=== PATIENT | female | born 1945 | race Caucasian/White ===

== ENCOUNTER → 2017-05-30 10:33 | Outpatient (CLI) | payer MEDICARE, OTHER, SELFPAY ==
--- NOTE | 2017-05-30 10:36 | STE_ITS ---
Reason For Study: Chest Pressure, Fatigue Stress Results Maximum Predicted HR: 148 bpm Target HR: 126 bpm % Maximum Predicted HR: 111 % DurationHeart Rate Stage (mm:ss) (bpm) BP BASELINE 68 152/86 PROTOCOL- STAGE 1 3:00 11 0 174/90 PROTOCOL- STAGE 2 3:00 13 3 176/90 PROTOCOL- STAGE 3 2:00 16 4 180/94 RECOVERY 88 150/10 0 Stress Duration: 8:00 mm:ss Maximum Stress HR: 164 bpm Baseline Echocardiogram Findings The estimated ejection fraction is 65 %. Stress Echo Wall motion Data Resting WMIntermediate WMStress WM Resting Wall Motion Wall Motion Stress No regional wall motion No regional wall motion abnormalities noted. abnormalities noted. EKG Data The baseline ECG demonstrates normal sinus rhythm with at rate of _ beats per minute. The patient exercised according to the regular protocol for a total duration of 8:01. The maximum heart rate attained was 164 beats per minute. This was 110% of maximum predicted heart rate. The patient exercised into stage 3 of the protocol. During stress, there were no ST or T wave changes noted to suggest ischemia. No clinical angina was noted. Interpretation Summary The estimated ejection fraction is 65 %. Normal adequate treadmill echocardiogram. Negative for ischemia by EKG and echocardiographic criteria. No anginal symptoms noted. Rare PVCs noted. Hypertensive blood pressure response to exercise. Average exercise capacity for age. Test terminated due to attainment of target heart rate. No complications. Patient tolerated procedure well. Ordering Physician: Janiya Marquez Referring Physician: Janiya Marquez Performed By: Nubia Ruiz, CARLIE, RVT
== END ==
PROVIDERS: Family Provider Internal Medicine; PCP Internal Medicine; Visit Provider Internal Medicine
DX: R07.89 Other chest pain (principal)
CPT/HCPCS: 93017; 93350

== ENCOUNTER 2017-10-25 10:00 | Outpatient (RCR) | payer MEDICARE, OTHER, SELFPAY ==
--- NOTE | 2017-09-12 16:08 | HP.PTEVAL_ITS ---
Patient's Visit Information BARON BURNS is a 72 year old F referred to Physical Therapy by Niko Camacho MD with a diagnosis of B knee OA. Date of Evaluation: 09/12/17 Physical Therapist: Ramiro Mcginnis PT, - Visit Plan Frequency: 2-3x /Week Duration: 4 Weeks Plan: B LE strengthening, core stab ex's, nustep, and HEP - Subjective Subjective: Pt reports chronic Hx of B knee pain. R knee has been sore longer than the L. Pt reports pain is intermittent in nature. Pt reports recent xrays which revealed OA. Pt reports she can walk greater than 40 min without getting knee pain. Occasional sleep diff secondary to pain. No PMHx Pt has stairs at home which she has diff with negotiation. Knees occasionally give out on her. No popping or locking up. 0/10 pain at rest, 8/10 pain at worst (no specific activity) - Pain B knees Pain Intensity (Out of 10): 0 Pain Intensity Range: 8 - Objective Neuro: B LE sensation is WNL to light touch. B achilles reflex = 2/3. Girth: L knee 38 cm, R knee 37 cm. ROM: L knee 0-10-125; R knee 0-10-135. MMT: L and R knee is 4/5 throughout except L knee flex= 4-/5 throughout. Special tests: pos apley compression test - Goals Goal 1:: Decrease B knee pain x 50% to aid with sleep Goal Time Frame: 4-6 Weeks Goal 2:: Increase B knee strength x 1 grade to aid with stair negotiation Goal Time Frame: 4-6 Weeks Goal 3:: I with HEP Goal Time Frame: 4-6 Weeks - Rehabilitation Potential Physical Therapy Diagnosis: Pt has B knee pain and weakness secondary to B knee OA Rehabilitation Potential: Good - Anticipated Interventions Patient/Client Instruction: Educate patient on: Condition, Plan of Care For the Purpose of:: To improve self management Therapeutic Exercise to Include: Strength training, Endurance training, Postural training, Flexibilty training, Gait and locomotor training, Active ROM , Dynamic Lumbar Stabilization For the Purpose of:: To decrease pain, To increase ROM, To improve muscle performance and motor function Cryotherapy (ice pack, ice massage): Yes For the Purpose of:: To decrease pain Thank you for the opportunity to evaluate your patient. For Medicare and Medicare HMO plans, please review the plan of care and approve it. It will need to be FAXED BACK to us at [phone] for Medicare purposes. Please let me know if there are questions or concerns regarding this plan of care. Physician Signature: Date:
--- NOTE | 2017-10-25 10:50 | HP.PTDCSUM ---
HP - PT D/C Summary It has been my pleasure to treat BARON BURNS under orders from Niko Camacho MD, for the diagnosis of B knee OA for a total of 7 visit(s). Discharge Date: Please see the following information for a summary of their discharge status. - Subjective Subjective: Pt reports she has been exercising for the past 5 weeks with the exercise alanis'soutine we issued her. She has questions with substituting certain ex's as well. No pain this date - Pain B knees Pain Intensity (Out of 10): 0 - Objective Objective/Function: Pt is now pain-free. Pt is I with all ex's. Pt has achieved all Rx goals - Goals Goal 1:: Decrease B knee pain x 50% to aid with sleep Goal Progress: Goal Met Goal 2:: Increase B knee strength x 1 grade to aid with stair negotiation Goal Progress: Goal Met Goal 3:: I with HEP Goal Progress: Goal Met - Plan Plan: Discharge - D/C Information If there are questions or concerns regarding this patient's physical therapy, please feel free to call me at [phone]. Thank you for the referral of this patient. Sincerely, Ramiro Mcginnis, PT,
== END 2017-10-25 10:56 | disposition home or self-care (01) ==
LOC: PT 10:00
PROVIDERS: Family Provider Internal Medicine; PCP Internal Medicine; Visit Provider Specialist
DX: M17.0 Bilateral primary osteoarthritis of knee (principal)
CPT/HCPCS: 97110; 97161; 97530; G8978; G8979

== ENCOUNTER → 2018-04-30 11:21 | Outpatient (CLI) | payer MEDICARE, OTHER, SELFPAY ==
[2018-04-30 15:49] LABS: AST(SGOT) 19 U/L (15-37); Alanine Aminotransfer ALT/SGPT 31 U/L (13-56); Albumin, Serum 3.7 g/dL (3.2-5.0); Alkaline Phosphatase 68 U/L (45-117); Amylase 43 U/L (25-115); Anion Gap 11 (5-15); BUN 14 mg/dL (7-18); BUN/Creat Ratio 21.2 RATIO (10-20); Bilirubin, Direct 0.12 mg/dL (0.00-0.30); Calcium,Total 8.8 mg/dL (8.5-10.1); Chloride 103 mmol/L (98-107); Cholesterol 118 mg/dL (200); Creatinine, Serum 0.66 mg/dL (0.55-1.02); EST Glomerular Filtration Rate 93 mL/min (>60); Est Glom Filt Rate - Afr Amer 113 mL/min (>60); Globulin 2.9 g/dL (2.2-4.2); Glucose 88 mg/dL (74-106); High Density Lipoprotein 51 mg/dL; Lipase 180 U/L (73-393); Potassium 4.3 mmol/L (3.5-5.1); Protein, Total 6.6 g/dL (6.4-8.2); Sodium Level 139 mmol/L (136-145); Triglycerides 75 mg/dL; Very Low Density Lipoprotein 15 mg/dL (5-40)
[2018-04-30 15:55] LABS: Absolute Lymphocyte Count 0.86 X10^3/ul (0.83-4.51); Absolute Neutrophil Count 2.4 X10^3/uL (2.0-7.7); Basophil# 0.01 X10^3/uL; Basophil% 0.3 % (0-1); Eosinophil# 0.16 X10^3/uL; Eosinophils% 4.3 % (0-5); Hematocrit 43.6 % (37-47); Hemoglobin 14.3 g/dl (12.0-15.0); Lymphocyte # 0.86 X10^3/ul (4.0); Lymphocyte % 23.1 % (19-41); Mean Corp Hgb Conc 32.8 g/gl (32-36); Mean Corpuscular Hgb 31.2 pg (27.0-32.0); Mean Platelet Vol. 13.5 fl (6.2-12.0); Monocyte# 0.31 X10^3/uL; Monocyte% 8.3 % (0-10); Neutrophil # 2.38 X10^3/uL (2.7-7.7); Platelet Count 170 K/mm3 (150-450); RBC Distribution Width CV 13.8 % (11.6-14.6); RBC Distribution Width SD 47.5 fl (35.1-43.9); Red Blood Count 4.59 M/mm3 (4.2-5.4); White Blood Count 3.7 K/mm3 (4.4-11.0)
[2018-04-30 16:13] LABS: POSITIVE COUNT NO; POSITIVE DIFFERENTIAL NO; POSITIVE MORPHOLOGY NO
[2018-05-02 12:01] LABS: Hepatitis A AB, Total Positive (Negative)
== END ==
PROVIDERS: Family Provider Family Medicine; PCP Family Medicine; Visit Provider Family Medicine
DX: E78.5 Hyperlipidemia, unspecified (principal); I10 Essential (primary) hypertension; R10.13 Epigastric pain
CPT/HCPCS: 36415; 80048; 80061; 80076; 82150; 83690; 85025; 86708

== ENCOUNTER → 2018-05-01 09:23 | Outpatient (CLI) | payer MEDICARE, OTHER, SELFPAY ==
--- NOTE | 2018-05-01 09:26 | BI_ITS ---
MAMMOGRAPHY - BILATERAL SCREENING REASON FOR EXAM: Female, 73 years old. Routine annual screening examination. PERTINENT HISTORY: Non-contributory. TECHNIQUE: Digital bilateral breast william (3D mammographic acquisition) in the CC and MLO projections. 2-D mediolateral oblique (MLO) and craniocaudad (CC) views of both breasts were obtained. CAD: Full Field Digital Mammography with Computer Added Detection was performed. COMPARISON: Comparison is made with prior study dated December 01, 2016 and November 20, 2015. FINDINGS: Breast Composition: There are scattered areas of fibroglandular density. There are no dominant masses or suspicious calcifications. No other significant abnormalities are identified. There has been no significant change since the prior study. BI/SCREENING MAMM (CAD), BILAT IMPRESSION: Stable bilateral screening mammogram. Yearly follow-up mammogram recommended. (A) ASSESSMENT CATEGORY: BIRADS Category 1: Negative. A letter regarding these results will be sent to the patient by the facility within 30 days. Approximately 10% of breast cancers are not detected by mammography. A normal mammogram should not delay biopsy of a clinically suspicious abnormality. [id number] Electronically Signed: Omar Villagran MD at 14:48 EST , Service support ,
--- NOTE | 2018-05-01 09:34 | BD_ITS ---
STUDY: DUAL ENERGY X-RAY ABSORPTIOMETRY / DXA REASON FOR EXAM: Female, 73 years old. The patient is postmenopausal. Loss of height. TECHNIQUE: Bone Mineral Density (BMD) measurements of lumbar spine and bilateral hips were obtained. COMPARISON: Comparison is made with prior study dated January 07, 2016. FINDINGS: Lumbar Spine (L1-L4): g/cm2 (1.002) / T-score (-1.5) / Z-score (0.2) Findings are suggestive of osteopenia with a low fracture risk. Left Femur Total: g/cm2 (0.875) / T-score (-1.1) / Z-score (0.6) Left Femoral Neck: g/cm2 (0.863) / T-score (-1.3) / Z-score (0.6) Right Femur Total: g/cm2 (0.845) / T-score (-1.3) / Z-score (0.3) Right Femoral Neck: g/cm2 (0.879) / T-score (-1.1) / Z-score (0.7) The T-Scores on the most recent prior examination were: Lumbar Spine (L1-L4): There has been worsening of bone density since the previous examination. Left Femur Total: which represents an improvement of 0.9%. Right Femur Total: which represents a worsening of 2.5%. BD/Dexa Bone Density Study IMPRESSION: The patient is considered osteopenic as outlined below according to World Paddy Organization (WHO) criteria with a low fracture risk. There has been worsening of bone density since the previous examination. Reference Information: The T-score is the number of standard deviations above or below the standard which is normal for young adults at their peak bone mineral density. The World Health Organization (WHO) interprets the T-scores as follows: Above -1 Normal bone density Between -1 and -2.5 Osteopenia Equal to / or below -2.5 Osteoporosis As a practical clinical guideline, osteopenia may be graded as follows: Mild -1 through -1.5 Moderate -1.6 through -2.0 Severe -2.1 through -2.4 The Z-score is the number of standard deviations above or below age-matched controls. A Z-score of less than -1.5 would be considered abnormal. References: 1. NIH Osteoporosis and Related Bone Diseases http://www.osteo.org 2. International Society for Clinical Densitometry http://www.iscd.org 3. National Osteoporosis Foundation http://www.nof.org Electronically Signed: Omar Villagran MD at 15:58 EST , Service support ,
== END ==
PROVIDERS: Family Provider Family Medicine; PCP Family Medicine; Referring Provider Family Medicine; Visit Provider Family Medicine
DX: Z12.31 Encounter for screening mammogram for malignant neoplasm of breast (principal); Z78.0 Asymptomatic menopausal state; M85.80 Other specified disorders of bone density and structure, unspecified site
CPT/HCPCS: 77063; 77067; 77080

== ENCOUNTER → 2018-05-08 15:31 | Outpatient (CLI) | payer MEDICARE, OTHER, SELFPAY ==
[2018-05-10 07:53] LABS: Hepatitis A IgM Antibody Negative (Negative)
== END ==
PROVIDERS: Family Provider Family Medicine; PCP Family Medicine; Referring Provider Family Medicine; Visit Provider Family Medicine
DX: R19.7 Diarrhea, unspecified (principal)
CPT/HCPCS: 36415; 86709

== ENCOUNTER 2019-07-04 10:30 | Outpatient (RCR) | payer MEDICARE, OTHER, SELFPAY ==
--- NOTE | 2019-04-16 11:02 | HP.PTEVAL ---
Patient's Visit Information BARON BURNS is a 74 year old F referred to Physical Therapy by Burton Schulz MD with a diagnosis of R knee OA. Date of Evaluation: 04/16/19 Physical Therapist: Marlon Ann, DPT, OCS, CSCS - Visit Plan Frequency: 2x /Week Duration: 4-6 Weeks Plan: 2x/week for 2-4 weeks for ...( today i stoppped knee ext and added slant board stretch and heel raises 2x15 to subjective mentioned workout). 1. rollout adn stretch to R quad, hip flexor, ITB and teach for HEP, patellar mobs and leg pull. 2. Teach SLR and NWB ex for HEP. 3. May use MH. 4. After two weeks will f/u with EG and consider bracing, pool therapy if not improving. - Subjective Findings: Have R knee OA. Has had therapy with L knee pain in the past but it is OK. R knee is progressively worsening. She is a regular walker with her and yard work. Her gait has gotten worse. Feels like weight of body is on her knee at all times. Early this March she was shopping and getting out of the car got extreme pain in the R knee. Pain anterior R knee up to hip and to back and to foot. Has some tingling in R foot also. She went to Dr. Schulz and got 3 uflexia injections most lately Apr 05. It has helped a little bit. They are talking knee replacement surgery. Doesn't want to use it when it hurts. Using it makes it worse. Pain daily is now comfortable at rest. Yesterday worked out at and felt good. Was irritated this morning and limping. Is ;kim that in the mornings. Stairs are rough on the right knee and uses left. Uses left leg on steps at home. Sleeping is OK now but it hurts at times. Retired. Basic ADLs are OK. exercises include: Nustep, leg curl, legext, glutes, hip abd/add, - Pain R knee pain Pain Intensity (Out of 10): 0 Pain Intensity Range: 0, 4 - Objective Pt ambulates I but stiff in R>L knee and avoids knee flexion at swing walking mostly with hip but safe. Trasnfes I with UE. steps prefers to use L and needs rail. Creptus in R knee adn slight varus. very little muscle tone. LB AROM WNL and without pain today. Stiff patella B. 0-120 aROM B knees. Quads tight B LE as are hip flexors and ITB. Hips and ankles AROM WFL. Strength knee ext adn flexion R painful anterior R knee slightly and 3+, L 3+. Hips 4-/5 adn ankles 4+/5. knee scour and varus stress painful on R. Tender at medial joint line minimally. - Goals Goal 1:: Patient feel 0-1/10 pain only in R knee adn 80% improved. Goal Time Frame: 4-6 Weeks Goal 2:: Workout at [facility] without increased pain. Goal Time Frame: 4-6 Weeks Goal 3:: I appropr HEP to minimize future problems. Goal Time Frame: 4-6 Weeks - Rehabilitation Potential Physical Therapy Diagnosis: R knee OA Rehabilitation Potential: Fair - Anticipated Interventions Patient/Client Instruction: Educate patient on: Condition, Plan of Care For the Purpose of:: To decrease pain, To improve muscle performance and motor function, To improve ability of physical actions for home/community/work/leisure Therapeutic Exercise to Include: Strength training, Flexibilty training, Gait and locomotor training, Passive ROM, Active ROM For the Purpose of:: To decrease pain, To increase tolerance to activity/condition/position, To improve ability of physical actions for home/community/work/leisure Manual Therapy Techniques to Include: Mobilization, Passive ROM For the Purpose of:: To decrease pain, To improve ability of physical actions for home/community/work/leisure Thermo therapy (hot pack): Yes For the Purpose of:: To improve nutrient delivery to tissue Thank you for the opportunity to evaluate your patient. For Medicare and Medicare HMO plans, please review the plan of care and approve it. It will need to be FAXED BACK to us at [phone] for Medicare purposes. For Medicare only, by signing this I certify the plan of care. Please let me know if there are questions or concerns regarding this plan of care. Physician Signature: Date:
--- NOTE | 2019-05-02 15:26 | HP.PTREVAL_ITS ---
Burton Schulz MD, It has been my pleasure to treat BARON BURNS over the last 5 visits for R knee OA. Please see the progress note below for an update on the physical therapy plan of care! Subjective: Feels like she is educated on what she can and cannot do. Walked 30 minutes at track this morning. Keeps knee moving when stagnant. Floor exerc ises are good. Rolling may be helping a little bit. Still in pain 2/10 reji. Pain is better. Objective/Function: Walking well adn feeling better. Slow improvement with cristina gement techniques at home. Plan Plan: Pt to continue home stretches and inhibition and strengthen in gym and call if problems. F?U one month as needed to progress or d/c OR consider pool/brace if worsens again. Goals Goal 1:: Patient feel 0-1/10 pain only in R knee adn 80% improved. Goal Time Frame: 4-6 Weeks Goal Progress: Progressing,a pprop. Goal 2:: Workout at without increased pain. Goal Time Frame: 4-6 Weeks Goal Progress: Goal Met Goal 3:: I appropr HEP to minimize future problems. Goal Time Frame: 4-6 Weeks Goal Progress: Goal Met Anticipated Interventions Patient/Client Instruction: Educate patient on: Condition, Plan of Care For the Purpose of:: To decrease pain, To improve muscle performance and motor function, To improve ability of physical actions for home/community/work/leisure Therapeutic Exercise to Include: Strength training, Flexibilty training, Gait and locomotor training, Passive ROM, Active ROM For the Purpose of:: To decrease pain, To increase tolerance to activit y/condition/position, To improve ability of physical actions for home/community/work/leisure Manual Therapy Techniques to Include: Mobilization, Passive ROM For the Purpose of:: To decrease pain, To improve ability of physical actions for home/community/work/leisure Thermo therapy (hot pack): Yes For the Purpose of:: To improve nutrient delivery to tissue Please do not hesitate to contact me at [phone] by phone or if you have questions or concerns regarding this new plan of care! Sincerely, Marlon Ann, DPT, OCS, CSCS
--- NOTE | 2019-06-05 14:41 | HP.PTREVAL ---
Burton Schulz MD, It has been my pleasure to treat BARON BURNS over the last 6 visits for R knee OA. Please see the progress note below for an update on the physical therapy plan of care! Subjective: A little better, but not as good as I liked. Wants to try pool therapy. Pain is mostly going down hill which slows her up ouey at 3/10, limits extended hike. Everything is slower and more tentative. Wears out pretty quick. Doing HEP at home daily. Objective/Function: Walking well today, missing 2 degrees ext B knees and hard end feel , R knee 120 AROM flexion with pain with OP. Steps are reciprocal and weak R LE ecc but able. Plan Plan: 2x/week for -4 weeks in the pool for knee ROM, quad and HS stretching and knee strengthening emphasizing eccentric control leg muscles. Goals set adn fair prognosis in the pool with new POC. Goals Goal 1:: Patient feel 0-1/10 pain only in R knee adn 80% improved. Goal Time Frame: 4-6 Weeks Goal Progress: Progressing,a pprop. Goal 2:: Workout at [facility] without increased pain. Goal Time Frame: 4-6 Weeks Goal Progress: Goal Met Goal 3:: I appropr HEP to minimize future problems. Goal Time Frame: 4-6 Weeks Goal Progress: Goal Met Goal 4:: Iapprop HEP in pool to minimize symptoms. Goal Time Frame: 2-4 Weeks Goal Progress: NEW GOAL Goal 5:: Hike down hill without knee pain Goal Time Frame: 2-4 Weeks Goal Progress: NEW GOAL Anticipated Interventions Patient/Client Instruction: Educate patient on: Condition, Plan of Care For the Purpose of:: To decrease pain, To improve muscle performance and motor function, To improve ability of physical actions for home/community/work/leisure Therapeutic Exercise to Include: Strength training, Flexibilty training, Gait and locomotor training, In an aquatic setting, Passive ROM, Active ROM For the Purpose of:: To decrease pain, To increase tolerance to activity/condition/position, To improve ability of physical actions for home/community/work/leisure Manual Therapy Techniques to Include: Mobilization, Passive ROM For the Purpose of:: To decrease pain, To improve ability of physical actions for home/community/work/leisure Thermo therapy (hot pack): Yes For the Purpose of:: To improve nutrient delivery to tissue Please do not hesitate to contact me at [phone] by phone or if you have questions or concerns regarding this new plan of care! Sincerely, Marlon Ann, DPT, OCS, CSCS
--- NOTE | 2019-07-04 12:10 | HP.PTDCSUM_ITS ---
It has been my pleasure to treat BARON BURNS referred by Burton Schulz MD, with the diagnosis of R knee OA for a total of 11 visit(s). Discharge Date: 07/04/19 Please see the following information for a summary of their discharge status. Subjective: Has been in the pool. Focussed on the core adn gave pointers about neutral spine. Made some progress. Walked at [facility] about two miles and went pretty good. Worked outside and alot of bending yesterday and had bad night last night. Knee pain still varies 0-5/10 worse some days and walking [place]. Injecions helped a lot. Ready to be done. Will continue foor ex at home adn come to gym when it is open. Would consider pool if worsens again. R knee pain Pain Intensity (Out of 10): 0 RLE Pain Intensity (Out of 10): 3 % Improvement: 70 Objective/Function: Pt doign well with goals and ex and ready to be on her own. Walks without antalgia into and out of PT today Goal 1:: Patient feel 0-1/10 pain only in R knee adn 80% improved. Goal Progress: Progressing Goal 2:: Workout at [facility] without increased pain. Goal Progress: Goal Met Goal 3:: I appropr HEP to minimize future problems. Goal Progress: Goal Met Goal 4:: Iapprop HEP in pool to minimize symptoms. Goal Progress: met when open. Goal 5:: Hike down hill without knee pain Goal Progress: better,not gone. Plan: d/c If there are questions or concerns regarding this patient's physical therapy, please feel free to call me at [phone]. Thank you for the referral of this patient. Sincerely, Marlon Ann, DPT, OCS, CSCS
== END 2019-07-04 19:00 | disposition home or self-care (01) ==
LOC: PT 10:30
PROVIDERS: Family Provider Family Medicine; PCP Internal Medicine; Referring Provider Orthopaedic Surgery; Visit Provider Orthopaedic Surgery
DX: M17.11 Unilateral primary osteoarthritis, right knee (principal)
CPT/HCPCS: 97110; 97113; 97162; 97164; 97530

== ENCOUNTER 2019-12-31 09:01 | Emergency (ER) | payer MEDICARE, OTHER, SELFPAY ==
[2019-12-31] VITALS (7 sets, daily range): BP systolic 127–166; BP diastolic 77–100; PULSE 68–86; RESP 16–18; TEMP 35.2; O2SAT 92–99; BMI 23.6
--- NOTE | 2019-12-31 09:19 | EKG12_ITS ---
Test Reason : CP Blood Pressure : / mmHG Vent. Rate : 077 BPM Atrial Rate : 077 BPM P-R Int : 182 ms QRS Dur : 082 ms QT Int : 396 ms P-R-T Axes : 057 054 057 degrees QTc Int : 448 ms Normal sinus rhythm Normal ECG Confirmed by QUIN BRENNER, MARY ([id number]), image editor ARIEL TONY ([id number]) on 01/07/2020 9:00:29 AM Referred By: KIRILL Confirmed By:NURY TSAI MD
--- NOTE | 2019-12-31 09:30 | ED.VIS.CHEST ---
History of Present Illness Chief Complaint: Chest Pain Informant: Patient Onset: Yesterday Timing: Continuous Location: Substernal Worsened By: Nothing Relieved By: - - activity Associated Symptoms: Negative for: Nausea, Vomiting, Diaphoresis, Cough, Fever Narrative: Patient is a 74-year-old female presenting with chest pain. Patient states she has a history of intermittent chest pain after has appointment see Dr. Pretty next week for this. However last night the pain became more constant. States the past 24 hours she is had constant chest pain rating to her back into her right upper quadrant. She points to her xiphoid process as the area of her pain. She denies associated shortness of breath, lightheadedness, diaphoresis, nausea or vomiting. She does not have associated shortness of breath or difficulty breathing. She did take a full dose aspirin around 2 AM and an 81 mg aspirin this morning. She states she has a prescription for nitroglycerin at home which she never used it. She had similar episode chest pain about 2 years ago which ultimately led to a stress test which she was told was normal. Patient is on medication for blood pressure. Patient has any other complaints at this time. She has any swelling of her legs. She notes the pain seems to be better when she is active because it takes her mind off of it. Prior Similar Symptoms: Yes Recent Illness/Hospitalization: No CVD Risk Factors: Hypertension Past Medical History - Allergies and Home Meds Allergies/Adverse Reactions: Allergies No Known Allergies Allergy (Verified 12/31/19 09:03) Primary Care Physician: Janiya Marquez MD [Primary Care Provider] - Past Medical History: - - Portal vein thrombosis, hypertension Surgical History: noncontributory, cholecystectomy Lives: Spouse/ Significant Other Smoking Status: Never smoker Alcohol: None Drugs: None Review of Systems General: Denies: Chills, Fever, Sweats Eyes: Denies: Visual changes - bilaterally, Diplopia ENT: Denies: Rhinorrhea, Sore throat Cardiovascular: Reports: Chest pain. Denies: Palpitations Respiratory: Denies: Dyspnea, Cough, Dyspnea on exertion Gastrointestinal: Denies: Abdominal pain, Nausea, Vomiting, Diarrhea, Melena, Hematochezia Genitourinary: Denies: Dysuria, Hematuria, Frequency Musculoskeletal: Denies: Swelling, Extremity Pain Skin: Denies: Rash, Wounds Neurological: Denies: Headache, Weakness, Numbness Physical Exam Vital Signs/Narrative: Vital Signs Temp Pulse Resp BP Pulse Ox 12/31/19 09:01 95.3 F L 86 16 127/100 H 99 Inital Vital Signs reviewed: Yes General: Well nourished, Well developed, No Acute Distress Head: Normocephalic, Atraumatic Eyes: Perrl, EOMI ENT: Moist mucous membranes, No rhinorrhea Neck: Supple, Nontender Cardiovascular: Regular rate, Regular rhythm, No murmurs Respiratory: No distress, CTA bilaterally, Chest nontender. Negative for: Diminished, Decreased Air Movement Abdomen: Soft, Nontender, Nondistended, Normal bowel sounds. Negative for: Guarding, Rebound tenderness Back: Nontender, Normal Inspection Extremities: Nontender, No edema Skin: Normal color, No rash Neurological: Alert, Oriented x3, Cranial nerves II-XII grossly intact, Normal Strength, Normal Sensation Psychological: Normal affect, Normal Mood Diagnostic/Tx/Re-eval Chest X-Ray - ED: 2 View, Read by ED Physician, No Acute Disease Clinical Impression(s) from Imaging Studies Chest X-Ray 12/31/19 09:53 IMPRESSION: Hyperinflation. Decreased bronchovascular markings at the lung apices suggestive of emphysematous changes. Electronically Signed: Omar Sparkle, at 10:19 EDT , Service support , Laboratory Data 12/31/19 12/31/19 12/31/19 09:30 09:30 09:30 WBC 4.3 L RBC 4.55 Hgb 14.3 Hct 42.6 MCV 93.6 MCH 31.4 MCHC 33.6 RDW Std Deviation 46.3 H RDW Coeff of Naeem 13.5 Plt Count 160 MPV 12.1 H Immature Gran % (Auto) 0.200 Neut % (Auto) 66.8 Lymph % (Auto) 16.2 L Major % (Auto) 13.3 H Eos % (Auto) 3.0 Baso % (Auto) 0.5 Absolute Neuts (auto) 2.9 Absolute Lymphs (auto) 0.69 L Nucleated RBC % 0 PT 15.0 H INR 1.2 Sodium 135 L Potassium 3.7 Chloride 102 Carbon Dioxide 33.0 H Anion Gap 0 L BUN 16 Creatinine 0.74 Estim Creat Clear Calc 51.58 Est GFR (MDRD) Af Amer 98 Est GFR (MDRD) Non-Af 81 BUN/Creatinine Ratio 21.6 H Glucose 87 Calcium 9.0 Magnesium 2.3 Total Bilirubin 0.50 Direct Bilirubin 0.16 AST 15 ALT 27 Alkaline Phosphatase 80 Troponin I < 0.015 Total Protein 6.9 Albumin 3.7 Globulin 3.2 Lipase 141 - Rhythm Strip Rhythm Strip: Sinus Rhythm Rate: 77 Ectopy: None - EKG Initial EKG Interpretation: Sinus Rhythm, - - Normal sinus rhythm at a rate of 77 Normal axis Normal intervals No changes consistent with acute coronary syndrome Interpreted by emergency medicine physician Prior: No Prior Treatment: NTG SL Repeat Eval: 04/12 EDITH Risk: Age >/= 65, ASA within 7 days Score: 2 - Medical Decision Making Evaluated for chest pain that radiates to her back. Is been present for around 24 hours. She states this is different than her normal chest pain that she gets which is intermittent. Patient had aspirin prior to arrival. She does have improvement of her pain with nitroglycerin in the ER. Her work-up is largely negative including EKG, chest x-ray and troponin. Given patient's age, history of hypertension and relief with nitroglycerin I do think she would benefit from extended observation/admission. She is agreeable with this plan. She is stable for the PCU at time of disposition. Case is discussed with Dr. Rao. ED Disposition - Plan for ED Patient: Disposition: Acute Care [facility] Diagnosis: Chest pain, History of hypertension Referrals: Janiya Marquez MD [Primary Care Provider] -
[2019-12-31] MEDS: Nitroglycerin SL (ED/IMG/CATH) 0.4 MG TABLET SUBLINGUAL ×3 (09:41→10:03)
[2019-12-31 09:42] LABS: Absolute Lymphocyte Count 0.69 X10^3/uL (0.83-4.51); Absolute Neutrophil Count 2.9 X10^3/uL (2.0-7.7); Basophil# 0.02 X10^3/uL; Basophil% 0.5 % (0-1); Eosinophil# 0.13 X10^3/uL; Hematocrit 42.6 % (37-47); Hemoglobin 14.3 g/dL (12.0-15.0); Lymphocyte # 0.69 X10^3/ul (4.0); Lymphocyte % 16.2 % (19-41); Mean Corp Hgb Conc 33.6 g/dL (32-36); Mean Corpuscular Hgb 31.4 pg (27.0-32.0); Mean Corpuscular Volume 93.6 fL (81-99); Mean Platelet Vol. 12.1 fl (6.2-12.0); Monocyte# 0.57 X10^3/uL; Monocyte% 13.3 % (0-10); NRBC Flagged by Analyzer 0 % (0-5); Neutrophil # 2.85 X10^3/uL (2.7-7.7); Neutrophil % 66.8 % (47-70); Platelet Count 160 K/mm3 (150-450); RBC Distribution Width CV 13.5 % (11.6-14.6); RBC Distribution Width SD 46.3 fl (35.1-43.9); Red Blood Count 4.55 M/mm3 (4.2-5.4); White Blood Count 4.3 K/mm3 (4.4-11.0)
--- NOTE | 2019-12-31 09:53 | RAD_ITS ---
STUDY: X-RAY CHEST REASON FOR EXAM: Female, 74 years old. Chest pain constant for 24 hours, back pain, relief when up moving TECHNIQUE: PA and lateral views of the chest. COMPARISON: None. FINDINGS: EKG electrodes are seen. Hyperinflation. Decreased bronchovascular markings at the lung apices suggestive of emphysematous changes. There is no demonstrated pleural abnormality. Normal size heart. Normal mediastinum and karolina. Normal visualized pulmonary arteries. Normal visualized aortic arch and descending thoracic aorta. There are diffuse degenerative changes of the visualized thoracic spine. Normal visualized ribs, clavicles, and shoulders. There is no demonstrated abnormality of the visualized soft tissue structures of the upper abdomen. RAD/Chest PA and Lateral IMPRESSION: Hyperinflation. Decreased bronchovascular markings at the lung apices suggestive of emphysematous changes. Electronically Signed: Omar Villagran, at 10:19 EDT , Service support ,
[2019-12-31 09:54] LABS: International Normalized Ratio 1.2
[2019-12-31 10:05] LABS: AST(SGOT) 15 U/L (15-37); Alanine Aminotransfer ALT/SGPT 27 U/L (13-56); Albumin, Serum 3.7 g/dL (3.2-5.0); Alkaline Phosphatase 80 U/L (45-117); Anion Gap 0 (5-15); BUN 16 mg/dL (7-18); BUN/Creat Ratio 21.6 RATIO (10-20); Bilirubin, Direct 0.16 mg/dL (0.00-0.30); Chloride 102 mmol/L (98-107); Creatinine, Serum 0.74 mg/dL (0.55-1.02); EST Glomerular Filtration Rate 81 mL/min (>60); Est Glom Filt Rate - Afr Amer 98 mL/min (>60); Estimated Creatinine Clearance 51.58 ml/min; Globulin 3.2 g/dL (2.2-4.2); Glucose 87 mg/dL (74-106); Lipase 141 U/L (73-393); Magnesium 2.3 mg/dL (1.6-2.6); Potassium 3.7 mmol/L (3.5-5.1); Protein, Total 6.9 g/dL (6.4-8.2); Sodium Level 135 mmol/L (136-145)
--- NOTE | 2019-12-31 10:50 | DCINST.ED_ITS ---
ED Disposition - Plan for ED Patient: Disposition: Home or Assisted Living Diagnosis: Chest pain, History of hypertension Instructions: ED Chest Pain Atypical Unkn Cause Prescriptions: Acetaminophen 1,000 mg PO TID PRN #1 tab PRN Reason: Pain Or Fever Ibuprofen 600 mg PO TID PRN #1 tab PRN Reason: Pain Or Fever Omeprazole 20 mg PO DAILY #1 tab. Referrals: Janiya Marquez MD [Primary Care Provider] - Additional Instructions: Please follow-up with your photographic printer as well as your GI doctor as scheduled. Please return with any worsening symptoms.
--- NOTE | 2019-12-31 10:58 | CON.PCM_ITS ---
Problem List (1) Chest pain Status: Acute Reason for Consult Date of Consultation: 12/31/19 Reason for Consultation: consult requested for chest pain History of Present Illness: The patient is a 74 year old F presents with chest pain. Patient has been having midsternal chest pain, radiating to her back. Symptoms have been going on for 24 hours. Over the past 2 years, patient has been having intermittent midsternal chest pain that resolved spontaneously and only lasts for a few hours. Patient was evaluated for this chest pain in 2018 with a stress test that was unremarkable. Patient denies any other constitutional symptoms associated with this chest pain, including, diaphoresis, nausea, vomiting, shortness of breath. Patient presented to the emergency room with this bout because the symptoms had been going on for 24 hours and then presented into her back. Patient did receive nitroglycerin which did alleviate her chest pain. She denies any other radiation of her chest pain. [] Past Medical History Medical History: Medical History (Last Updated 12/31/19 @ 11:[address] Marlon Rao, DO) Portal vein thrombosis I81 HTN (hypertension) I10 Allergies No Known Allergies Allergy (Verified 12/31/19 09:03) Home Medications: Ambulatory Orders Medication Instructions Recorded Cholecalciferol (Vitamin D3) 1,000 unit PO TID 01/30/13 [Vitamin D3] Venlafaxine XR [Effexor Xr] 37.5 mg PO DAILY 01/30/13 Acetaminophen 1,000 mg PO TID PRN #1 tablet 12/31/19 Ibuprofen 600 mg PO TID PRN #1 tablet 12/31/19 Losartan Potassium 25 mg PO DAILY 12/31/19 Omeprazole 20 mg PO DAILY #1 tabWolfrap. 12/31/19 Rosuvastatin Calcium 10 mg PO DAILY 12/31/19 Surgical History: noncontributory, cholecystectomy Psychiatric History: - - The patient is on Effexor for mixed anxiety depression. 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 Lives: Spouse/ Significant Other Smoking Status: Never smoker Alcohol: None Drugs: None - *Family History Maternal History Items: - - no heart disease Review of Systems Constitutional: Denies: Anorexia, Chills, Fever, Night Sweats Eyes: Denies: Blurred vision, Double vision HEENT: Denies: Head Aches, Sinus Congestion, Sinus Drainage Cardiovascular: Reports: Chest Pain. Denies: Edema Respiratory: Denies: Cough, Shortness of breath at rest, Sputum production Gastrointestinal: Denies: Abdominal Pain, Nausea, Vomiting Genitourinary: Denies: Dysuria Musculoskeletal: Denies: Joint Pain, Joint Tenderness Skin: Denies: Rash, Wounds Neurological: Denies: Numbness, Tingling, Focal weakness Hematologic/ Lymphatic: Reports: Hx of blood clot. Denies: Easy Bruising, Easy Bleeding Patient Problems: Active and Suspected Problems Chest pain (Acute) History of hypertension (Acute) - Physical Exam Vitals/I&O's: Vital Signs Temp Pulse Resp BP Pulse Ox 35.2 C L 68 18 135/85 H 95 12/31/19 09:01 12/31/19 10:51 12/31/19 10:51 12/31/19 10:51 12/31/19 10:51 Oxygen Flow Rate (L/min) 95 Oxygen Delivery Method Room Air Weight: 72.575 kg Body Mass Index (BMI) 23.6 General: Alert, Cooperative, No apparent distress HEENT: Atraumatic, Normocephalic Oral: Moist Mucosa, No Gingival or Mucosal Lesions/ Ulcerations Neck: No Nodes, Thyroid Normal Size and Texture Lungs: Clear to auscultation, Normal air movement, No rhonchi, No wheeze, No rales Cardiovascular: Regular rate, Regular Rhythm, Normal S1, Normal S2, No murmurs Abdomen: Bowel Sounds Present, Soft, Non Tender, Non-Distended, No Hepato- splenomegaly Extremities: No edema, No Calf Tenderness Skin: No rashes, No breakdown Musculoskeletal: No Tenderness to Palpation of Joints or Extremities, No Muscle Wasting, - - TTP on mid right back Psych/Mental Status: Normal Affect, Appropriate Laboratory Results 12/31/19 09:30: WBC 4.3 L, RBC 4.55, Hgb 14.3, Hct 42.6, MCV 93.6, MCH 31.4, MCHC 33.6, RDW Std Deviation 46.3 H, RDW Coeff of Naeem 13.5, Plt Count 160, MPV 12.1 H, Immature Gran % (Auto) 0.200, Neut % (Auto) 66.8, Lymph % (Auto) 16.2 L, Peach % (Auto) 13.3 H, Eos % (Auto) 3.0, Baso % (Auto) 0.5, Absolute Neuts (auto) 2.9, Absolute Lymphs (auto) 0.69 L, Nucleated RBC % 0 12/31/19 09:30: PT 15.0 H, INR 1.2 12/31/19 09:30: Sodium 135 L, Potassium 3.7, Chloride 102, Carbon Dioxide 33.0 H , Anion Gap 0 L, BUN 16, Creatinine 0.74, Estim Creat Clear Calc 51.58, Est GFR (MDRD) Af Amer 98, Est GFR (MDRD) Non-Af 81, BUN/Creatinine Ratio 21.6 H, Glucose 87, Calcium 9.0, Magnesium 2.3, Total Bilirubin 0.50, Direct Bilirubin 0.16, AST 15, ALT 27, Alkaline Phosphatase 80, Troponin I < 0.015, Total Protein 6.9, Albumin 3.7, Globulin 3.2, Lipase 141 Assessment/Plan All Active Problems Chest pain (Acute) History of hypertension (Acute) 1. Chest pain: Atypical. EDITH score is 2 based on her age but also the fact that she does take aspirin daily. My suspicion for this being cardiac is low as patient has had ongoing chest pain for 24 hours and her work-up has been unremarkable. Explained the patient that the possibilities could be GI, such as esophageal spasm, versus musculoskeletal such as costochondritis. Did advise patient to follow-up with a senior litigation paralegal which she said that she already has an appointment with Dr. Castillo in February. I advised her to follow-up with Dr. Castillo. I did recommend the patient take omeprazole 20 mg daily. As I cannot determine if this is strictly GI versus musculoskeletal, advised patient to take acetaminophen and ibuprofen, alternating. I did provide the option to bring the patient in to have a stress test but I feel that the likelihood of this being cardiac is very low. She and her preferred to do this as out patient as they do have an appoint with Dr. Pretty next week. 2. History of portal vein thrombosis: Patient said that she went through an extensive work-up and saw recreation manager and no definitive etiology was ever found. Patient is off of anticoagulation after completing 6 months. Patient will be discharged to home. Office Visits / Consults: [id number] OP Consult L4
== END 2019-12-31 11:15 | disposition home or self-care (01) ==
LOC: ED 09:44 → PCU 10:32
PROVIDERS: Emergency Provider Emergency Medicine; PCP Internal Medicine
DX: R07.9 Chest pain, unspecified (principal); R10.11 Right upper quadrant pain; F41.8 Other specified anxiety disorders; I10 Essential (primary) hypertension; Z79.82 Long term (current) use of aspirin; Z79.899 Other long term (current) drug therapy; Z86.718 Personal history of other venous thrombosis and embolism
CPT/HCPCS: 71046; 80048; 80076; 83690; 83735; 84484; 85025; 85610; 93005; 99285; A4216

== ENCOUNTER → 2020-01-22 06:59 | Outpatient (CLI) | payer MEDICARE, OTHER, SELFPAY ==
[2020-01-09 11:24] VITALS: BMI 24.0
--- NOTE | 2020-01-22 07:00 | ECHOD_ITS ---
Reason For Study: CHEST PAIN Procedure This was a 2D Doppler, Color Flow transthoracic echocardiogram. Exam performed in department. Left Ventricle Normal LV size. Left ventricular systolic function is normal. The estimated ejection fraction is 65 %. No evidence for diastolic dysfunction. No regional wall motion abnormalities noted. Right Ventricle Normal RV size. Normal systolic function. Atria Normal left atrium. Normal right atrium. Agitated saline contrast study considered positive for a right to left interatrial shunt compatible with a small PFO versus ASD. Mitral Valve There is no mitral annular calcification. Posterior leaflet diffuse mitral valve thickening. Mild mitral valve prolapse, posterior leaflet. Mild (1+) mitral valve insufficiency. Tricuspid Valve Normal tricuspid valve. Trivial tricuspid valve insufficiency. Right ventricular systolic pressure estimated to be 21 mmHg. Aortic Valve Trisinus/trileaflet aortic valve. Normal aortic valve. Trivial aortic valve insufficiency. Pulmonic Valve The pulmonic valve is not well visualized. Great Vessels Normal sized aortic root. Pericardium/Pleural No pericardial effusion. Medication Performed a rapid injection of agitated mix of 9 cc saline and 1cc air to assess for atrial septal defect. MMode/2D Measurements & Calculations LVIDd: 3.9 cm IVSd: 1.00 cm Ao root diam: 3.3 cm LVIDs: 2.7 cm LVPWd: 1.0 cm RVDd: 3.0 cm FS: 31.1 % LAV(MOD-bp): 31.9 ml LVAd ap4: 23.1 cm2 SV(MOD-sp4): 34.9 ml LAV(MOD-bp) Indexed: 16.9 ml/m2 EDV(MOD-sp4): 57.1 ml LAV(MOD-sp2): 31.1 ml EDV(sp4-el): 58.8 ml LAV(MOD-sp4): 26.6 ml LVAs ap4: 13.1 cm2 ESV(MOD-sp4): 22.2 ml ESV(sp4-el): 22.4 ml EF(MOD-sp4): 61.1 % EF(sp4-el): 61.9 % SV(sp4-el): 36.4 ml LA A4 area: 12.1 cm2 LA dimension(2D): 3.1 cm RA A4 area: 12.4 cm2 Time Measurements MV dec time: 0.29 sec Doppler Measurements & Calculations MV E max darius: 55.6 cm/sec Lat Peak E' Darius: 6.0 cm/sec Med Peak E' Darius: 4.6 cm/sec MV A max darius: 74.4 cm/sec E/E' lat: 9.2 E/E' med: 12.0 MV E/A: 0.75 Ao V2 max: 109.2 cm/sec AI max darius: 481.9 cm/sec LV V1 max: 100.7 cm/sec Ao max P.8 mmHg AI max P.9 mmHg LV V1 max P.1 mmHg AI dec slope: 234.9 cm/sec2 AI P1/2t: 600.8 msec PA V2 max: 79.7 cm/sec TR max darius: 212.8 cm/sec TR max P.1 mmHg Interpretation Summary Left ventricular systolic function is normal. The estimated ejection fraction is 65 %. Mild mitral valve prolapse, posterior leaflet Posterior leaflet diffuse mitral valve thickening. Mild (1+) mitral valve insufficiency. Trivial tricuspid valve insufficiency. Trivial aortic valve insufficiency. Right ventricular systolic pressure estimated to be 21 mmHg. No evidence for diastolic dysfunction. Agitated saline contrast study considered positive for a right to left interatrial shunt compatible with a small PFO versus ASD. Ordering Physician: Elvin Pretty Referring Physician: KUNAL MCGILL Performed By: Subha Dixon RDCS
--- NOTE | 2020-01-22 12:27 | STRESSREP ---
Stress Test Report Date: 01-22-2020 Procedure: Exercise tolerance test/imaging study Indications: Chest pain Consent: Per the patient Procedure: The patient exercised on a protocol for 7 minutes completing Stage II and 1 minute of Stage III achieving a peak heart rate of 153 bpm (104% predicted maximal heart rate) with a peak blood pressure 192/82 mmHg and a peak MET capacity of 8 METs. The baseline ECG demonstrated normal sinus rhythm. The peak exercise ECG demonstrated no obvious ECG changes. There was a rare PVC during exercise and an occasional PVC/isolated ventricular couplet during recovery. The functional capacity was considered average. There was no complaint of chest discomfort during exercise or recovery. The examination was discontinued secondary to dyspnea. Impression: 1. Technically adequate (percent predicted maximal heart rate greater than 85%) exercise tolerance test 2. Peak exercise ECG with no obvious ECG changes 3. There was a rare PVC during exercise and an occasional PVC/isolated ventricular couplet during recovery 4. Nuclear images pending Myocardial perfusion imaging study: Technique: The patient was injected with 10.7 mCi of technetium 99m Cardiolite and subsequently rest SPECT Cardiolite nuclear imaging was obtained in the horizontal long, vertical long, and short axis views. The patient exercised on a protocol for 7 minutes completing Stage II and 1 minute of Stage III achieving a peak heart rate of 153 bpm (104% predicted maximal heart rate) with a peak blood pressure 192/82 mmHg and a peak MET capacity of 8 METs. The patient was injected with 34.0 mCi of technetium 99m Cardiolite and subsequently stress SPECT Cardiolite nuclear imaging was obtained in the horizontal long, vertical long, and short axis views. A gated Cardiolite study at peak stress was obtained. Interpretation: Rest and stress SPECT Cardiolite nuclear imaging status post realignment, normalization, and attenuation correction, demonstrates the appearance of relative uniform tracer uptake and myocardial perfusion appearing within normal limits. There is end systolic thickening and brightening. The gated Cardiolite study demonstrates myocardial thickening and inward wall motion. The reported LVEF is 71%. Impression: 1. Rest and stress SPECT Cardiolite nuclear imaging demonstrate relative uniform tracer uptake and myocardial perfusion appearing within normal limits. 2. The gated Cardiolite study reports an LVEF of 71%. This note was generated with [employer] software. It may contain incorrect words, spelling, and punctuation that were not noted in checking the note before signing.
== END ==
PROVIDERS: PCP Internal Medicine; Referring Provider Internal Medicine Cardiovascular Disease; Visit Provider Internal Medicine Cardiovascular Disease
DX: R07.89 Other chest pain (principal); I47.1 Supraventricular tachycardia; I34.1 Nonrheumatic mitral (valve) prolapse; E78.2 Mixed hyperlipidemia; I10 Essential (primary) hypertension
CPT/HCPCS: 78452; 93017; 93306; A9500; A4216

== ENCOUNTER → 2020-01-27 12:01 | Outpatient (CLI) | payer MEDICARE, OTHER, SELFPAY ==
[2020-01-09 11:24] VITALS: BMI 24.0
== END ==
PROVIDERS: PCP Internal Medicine; Referring Provider Internal Medicine Gastroenterology; Visit Provider Internal Medicine Gastroenterology
DX: Z11.59 Encounter for screening for other viral diseases (principal)
CPT/HCPCS: 87635; C9803; U0003

== ENCOUNTER → 2020-05-05 09:28 | Outpatient (CLI) | payer MEDICARE, OTHER, SELFPAY ==
[2020-01-09 11:24] VITALS: BMI 24.0
--- NOTE | 2020-05-05 09:30 | BI_ITS ---
MAMMOGRAPHY - BILATERAL SCREENING REASON FOR EXAM: Female, 75 years old. Routine annual screening examination. PERTINENT HISTORY: Non-contributory. TECHNIQUE: Digital bilateral breast mily (3D mammographic acquisition) in the CC and MLO projections. 2-D mediolateral oblique (MLO) and craniocaudad (CC) views of both breasts were obtained. CAD: Full Field Digital Mammography with Computer Added Detection was performed. COMPARISON: Comparison is made with prior study dated 10/29/2018 and 12/01/2016. FINDINGS: Breast Composition: There are scattered areas of fibroglandular density. There are no dominant masses or suspicious calcifications. Stable small benign-appearing bilateral axillary lymph nodes. No other significant abnormalities are identified. There has been no significant change since the prior study. BI/SCRN MAMM (CAD)W/MILY BILAT IMPRESSION: Stable bilateral screening mammogram. Yearly follow-up mammogram recommended. (A) ASSESSMENT CATEGORY: BIRADS Category 2: Benign. A letter regarding these results will be sent to the patient by the facility within 30 days. Approximately 10% of breast cancers are not detected by mammography. A normal mammogram should not delay biopsy of a clinically suspicious abnormality. [id number] Electronically Signed: Omar Villagran MD at 10:44 EST , Service support ,
--- NOTE | 2020-05-05 09:32 | BD_ITS ---
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 COMPARISON: Comparison is made with prior study dated 05/01/2018. FINDINGS: Lumbar Spine (L1-L4): g/cm2 (0.987) / T-score (-1.6) / Z-score (0.1) Findings are suggestive of osteopenia with a moderate fracture risk. Left Femur Total: g/cm2 (0.823) / T-score (-1.5) / Z-score (0.3) Left Femoral Neck: g/cm2 (0.836) / T-score (-1.5) / Z-score (0.5) Right Femur Total: g/cm2 (0.776) / T-score (-1.8) / Z-score (-0.1) Right Femoral Neck: g/cm2 (0.821) / T-score (-1.6) / Z-score (0.4) The T-Scores on the most recent prior examination were: Lumbar Spine (L1-L4): There has been worsening of bone density since the previous examination. Left Femur Total: which represents a worsening of 5.9%. Right Femur Total: which represents a worsening of 8.2%. BD/Dexa Bone Density Study IMPRESSION: The patient is considered osteopenic as outlined below according to World Paddy Organization (WHO) criteria with a moderate fracture risk. There has been worsening of bone density since the previous examination. Reference Information: The T-score is the number of standard deviations above or below the standard which is normal for young adults at their peak bone mineral density. The World Health Organization (WHO) interprets the T-scores as follows: Above -1 Normal bone density Between -1 and -2.5 Osteopenia Equal to / or below -2.5 Osteoporosis As a practical clinical guideline, osteopenia may be graded as follows: Mild -1 through -1.5 Moderate -1.6 through -2.0 Severe -2.1 through -2.4 The Z-score is the number of standard deviations above or below age-matched controls. A Z-score of less than -1.5 would be considered abnormal. References: 1. NIH Osteoporosis and Related Bone Diseases www osteo.org 2. International Society for Clinical Densitometry www iscd.org 3. National Osteoporosis Foundation www nof.org Electronically Signed: Omar Villagran MD at 11:12 EST , Service support ,
== END ==
PROVIDERS: PCP Internal Medicine; Referring Provider Internal Medicine; Visit Provider Internal Medicine
DX: Z12.31 Encounter for screening mammogram for malignant neoplasm of breast (principal); M81.0 Age-related osteoporosis without current pathological fracture
CPT/HCPCS: 77063; 77067; 77080

== ENCOUNTER 2020-05-20 09:11 | Outpatient (RCR) | payer MEDICARE, OTHER, SELFPAY ==
[2020-01-09 11:24] VITALS: BMI 24.0
== END 2020-05-20 23:59 ==
LOC: IMMUN 09:11
PROVIDERS: PCP Internal Medicine; Visit Provider Family Medicine
DX: Z23 Encounter for immunization (principal)
CPT/HCPCS: 0011A; 0012A; 91301

== ENCOUNTER 2021-01-21 06:26 | Observation (INO) | payer MEDICARE, OTHER, SELFPAY ==
[2021-01-21] VITALS (10 sets, daily range): BP systolic 110–155; BP diastolic 72–87; PULSE 99–116; RESP 16–20; TEMP 36.2–37.7; O2SAT 93–99; BMI 25.5; BMI 23.4
--- NOTE | 2021-01-21 06:32 | RAD_ITS ---
STUDY: X-RAY CHEST REASON FOR EXAM: Female, 75 years old. Chest pain TECHNIQUE: Portable, upright, AP chest radiograph COMPARISON: 12/31/2019 FINDINGS: Chronically coarsened lung markings. Left lung base subsegmental atelectasis with mildly elevated hemidiaphragm. There is no demonstrated pleural abnormality. Normal size heart. Normal mediastinum and karolina. Normal visualized pulmonary arteries. Normal visualized aortic arch and descending thoracic aorta. There is no demonstrated abnormality of the visualized soft tissue structures of the upper abdomen. RAD/Chest 1 View (Portable) IMPRESSION: Left lung base subsegmental atelectasis. Electronically Signed: Elvin Giraldo MD at 7:29 EDT Tel , Service support ,
[2021-01-21 06:53] LABS: Absolute Lymphocyte Count 0.86 X10^3/uL (0.83-4.51); Absolute Neutrophil Count 7.9 X10^3/uL (2.0-7.7); Basophil# 0.03 X10^3/uL; Basophil% 0.3 % (0-1); Eosinophil# 0.12 X10^3/uL; Eosinophils% 1.2 % (0-5); Hematocrit 44.7 % (37-47); Hemoglobin 14.7 g/dL (12.0-15.0); Lymphocyte # 0.86 X10^3/ul (0.83-4.51); Lymphocyte % 8.8 % (19-41); Mean Corp Hgb Conc 32.9 g/dL (32-36); Mean Corpuscular Hgb 30.8 pg (27.0-32.0); Mean Corpuscular Volume 93.7 fL (81-99); Mean Platelet Vol. 13.4 fl (6.2-12.0); Monocyte# 0.79 X10^3/uL; Monocyte% 8.1 % (0-10); NRBC Flagged by Analyzer 0 % (0-5); Neutrophil # 7.92 X10^3/uL (2.7-7.7); Neutrophil % 81.3 % (47-70); Platelet Count 154 K/mm3 (150-450); RBC Distribution Width CV 13.8 % (11.6-14.6); RBC Distribution Width SD 48.1 fl (35.1-43.9); Red Blood Count 4.77 M/mm3 (4.2-5.4); White Blood Count 9.8 K/mm3 (4.4-11.0)
[2021-01-21 07:23] LABS: Anion Gap 3 (5-15); BUN 18 mg/dL (7-18); BUN/Creat Ratio 22.7 RATIO (10-20); Calcium,Total 8.9 mg/dL (8.5-10.1); Chloride 104 mmol/L (98-107); Creatinine, Serum 0.79 mg/dL (0.55-1.02); EST Glomerular Filtration Rate 75 mL/min (>60); Est Glom Filt Rate - Afr Amer 91 mL/min (>60); Glucose 113 mg/dL (74-106); Potassium 3.6 mmol/L (3.5-5.1); Sodium Level 140 mmol/L (136-145); Troponin-I HS 160 pg/mL (3.0-54.0)
--- NOTE | 2021-01-21 07:33 | CT_ITS ---
HISTORY: Chest pain, evaluate for pulmonary embolism. TECHNIQUE: Helically acquired images of the chest following IV contrast as per pulmonary angiogram protocol with 2D and 3D reconstructions. A radiation dose optimization technique was used for this scan. IV Contrast dosage and agent: 100 mL [id number]. # of images incl. paperwork: [id number]. COMPARISON: XR same day. FINDINGS: CENTRAL AIRWAYS: Patent. LUNGS: Mild biapical scarring. Mild atelectasis in the middle and lower lobes. PLEURA: No pneumothorax or pleural effusion. PULMONARY ARTERIES: No filling defect. HEART/PERICARDIUM: Heart upper limits of normal in size. No significant pericardial effusion. AORTA: No aortic aneurysm or dissection flap. MEDIASTINUM/DESHAWN: No enlarged lymph nodes. OSSEOUS STRUCTURES: Intact. UPPER ABDOMEN: Incompletely imaged 2.2 cm cystic lesion in the left hepatic lobe. CT/CTA Chest W/WO Contrast IMPRESSION: No evidence for pulmonary embolism. Individualized dose optimization techniques were used for this CT. at 0816 Reported and signed by: Justyna Barahona MD Electronically Signed: Justyna Barahona MD at 8:15 EDT Tel , Service support ,
--- NOTE | 2021-01-21 07:34 | ED.VIS.DYS ---
HPI History of Present Illness Chief Complaint: Chest Pain Informant: patient Narrative Narrative: 75-year-old female presents the emergency room with shortness of breath and chest pain. Patient states that she has had a decrease in her exercise tolerance over the past several months. States on Monday she attempted to go on a hike with her granddaughter and was noticeably more short of breath. She had a syncopal episode while making lunch later that day.. She states she has never had syncope before. Her lowered her to the ground so she was uninjured. She notes a central chest pain that is noticeably worse with deep she denies any pain with movement. Patient states that she was administered aspirin by EMS and she also took aspirin at home. Patient has seen Dr. Pretty in the past. she had a negative stress test in the fall of last year and had an echocardiogram as well. Echocardiogram appeared well except for being positive for a possible atrial septal defect on bubble testing. Patient notes no significant cough or fever. [facility] Medical History Anxiety and depression Chest pain, atypical Essential hypertension HTN (hypertension) Mixed hyperlipidemia Nonrheumatic mitral (valve) prolapse Paroxysmal supraventricular tachycardia Portal vein thrombosis Home Medications cholecalciferol (vitamin D3) 1,000 unit PO TID 01/30/13 [History Last Taken 01/29/13] losartan 25 mg PO DAILY 12/31/19 [History Last Taken Unknown] rosuvastatin 10 mg PO DAILY 12/31/19 [History Last Taken Unknown] aspirin 81 mg tablet,delayed release 81 mg PO DAILY 01/09/20 [History Last Taken Unknown] calcium citrate 315 mg-vitamin D3 5 mcg (200 unit) tablet 1 tab PO DAILY 01/09/20 [History Last Taken Unknown] vitamins A,C,K-hvsi-kfbamh 14,320 unit-226 mg-200 unit capsule 1 cap PO BID 01/09/20 [History Last Taken Unknown] Allergy/AdvReac Type Severity Reaction Status Date / Time No Known Allergies Allergy Verified 01/21/21 06:32 Family History Father Heart disease Valvular heart disease Surgical History History of cholecystectomy Social History Smoking Status: Never smoker alcohol intake: never substance use type: does not use caffeine: Yes ROS ROS ED Constitutional Constitutional ED: Denies chills or weight loss Eyes Eyes: Denies change in vision or diplopia ENT ENT ED: Denies ear pain, rhinorrhea or sore throat Cardiovascular Cardiovascular: Reports chest pain; Denies orthopnea, palpitations or racing heartbeat Respiratory/Chest Respiratory/Chest: Reports dyspnea and dyspnea on exertion; Denies cough or orthopnea Gastrointestinal Gastrointestinal: Denies abdominal pain, diarrhea, nausea or vomiting Genitourinary Genitourinary ED: Denies dysuria, hematuria or urinary frequency Musculoskeletal Musculoskeletal: Denies arthralgias or myalgias Integumentary Denies abscess or rash Neurologic Neurologic: Denies headache(s) or weakness Psychiatric Psychiatric: Denies anxiety, depression, suicidal ideation or suicidal thoughts Endocrine Endocrinology: Denies polydipsia, polyphagia or polyuria Allergic/Immunologic Allergic/Immunologic ED: Denies mouth swelling, tongue swelling or urticaria EXAM Physical Exam Const Vital Signs: 01/21/21 06:28 01/21/21 06:32 01/21/21 06:39 Temperature 98.2 F Temperature Source Oral Pulse Rate 106 H Respiratory Rate 16 Respiratory Pattern Normal Blood Pressure 110/86 H Blood Pressure Mean 94 Pulse Ox 97 97 Oxygen Delivery Method Room Air Room Air 01/21/21 09:11 Temperature 98.9 F Temperature Source Temporal Pulse Rate 111 H Respiratory Rate 18 Respiratory Pattern Blood Pressure 155/87 H Blood Pressure Mean 109 Pulse Ox 93 Oxygen Delivery Method Room Air Positive well nourished and well developed General Appearance ED: well developed HEENT Reports normocephalic, head/scalp atraumatic and moist mucous membranes Eyes PERRL and EOMs intact bilaterally Neck no lymphadenopathy, supple and no JVD Resp normal respiratory effort and clear to auscultation bilaterally Cardio regular rate, regular rhythm and no murmurs GI normal to inspection, nondistended, normoactive bowel sounds and non-tender Palpation: soft Back/Spine no CVA tenderness and normal ROM Extremity normal to inspection General Extremety ED: Negative for edema General Extremity: Negative for edema Neuro oriented x3 and CN's II-XII intact bilaterally Sensorium / Orientation: alert Motor Exam: strength 5/5 throughout Psych mental status grossly normal Mood & Affect: Negative for depressed or tearful Skin no rashes or lesions noted and no wounds MDM MDM MDM Narrative Medical decision making narrative: CBC is normal. BMP showed a glucose of 113. High-sensitivity troponin at 160. My interpretation of the chest x-ray is left base atelectasis. CTA of the chest was negative for pulmonary embolism. Beta natruretic peptide was added on and is elevated at 380. Given the patient's elevated troponin will admit the patient into the hospital for further evaluation Lab Data Attestation: I reviewed the patient's lab results. Labs: Laboratory Results - last 24 hr 01/21/21 01/21/21 01/21/21 06:18 06:18 06:18 WBC 9.8 RBC 4.77 Hgb 14.7 Hct 44.7 MCV 93.7 MCH 30.8 MCHC 32.9 RDW Std Deviation 48.1 H RDW Coeff of Naeem 13.8 Plt Count 154 MPV 13.4 H Immature Gran % (Auto) 0.300 Neut % (Auto) 81.3 H Lymph % (Auto) 8.8 L Sebastian % (Auto) 8.1 Eos % (Auto) 1.2 Baso % (Auto) 0.3 Absolute Neuts (auto) 7.9 H Absolute Lymphs (auto) 0.86 Nucleated RBC % 0 Sodium 140 Potassium 3.6 Chloride 104 Carbon Dioxide 33.0 H Anion Gap 3 L BUN 18 Creatinine 0.79 Estim Creat Clear Calc 50.80 Est GFR (MDRD) Af Amer 91 Est GFR (MDRD) Non-Af 75 BUN/Creatinine Ratio 22.7 H Glucose 113 H Calcium 8.9 Troponin I High Sens 160 H* B-Natriuretic Peptide 384.8 H 01/21/21 09:20 WBC RBC Hgb Hct MCV MCH MCHC RDW Std Deviation RDW Coeff of Naeem Plt Count MPV Immature Gran % (Auto) Neut % (Auto) Lymph % (Auto) Sebastian % (Auto) Eos % (Auto) Baso % (Auto) Absolute Neuts (auto) Absolute Lymphs (auto) Nucleated RBC % Sodium Potassium Chloride Carbon Dioxide Anion Gap BUN Creatinine Estim Creat Clear Calc Est GFR (MDRD) Af Amer Est GFR (MDRD) Non-Af BUN/Creatinine Ratio Glucose Calcium Troponin I High Sens 148 H* B-Natriuretic Peptide Radiography Diagnostic Testing: Clinical Impression(s) from Imaging Studies Chest X-Ray 01/21/21 06:32 IMPRESSION: Left lung base subsegmental atelectasis. Electronically Signed: Elvin Giraldo MD at 7:29 EDT Tel , Service support , Chest CTA 01/21/21 07:33 IMPRESSION: No evidence for pulmonary embolism. Individualized dose optimization techniques were used for this CT. at 0816 Reported and signed by: Justyna Barahona MD Electronically Signed: Justyna Barahona MD at 8:15 EDT Tel , Service support , EKG Initial EKG: Attestation: I personally reviewed and interpreted this EKG as follows: Comments: Normal sinus rhythm with a ventricular rate of 98 bpm. No concerning features of ACS or ectopy noted Discharge Plan Dx/Rx/DC Orders Clinical Impression: Chest pain, Elevated troponin, Syncope Disposition Disposition: Acute Care [facility]
[2021-01-21 10:29] LABS: Troponin-I HS 148 pg/mL (3.0-54.0)
[2021-01-21 10:29] LABS: BNP,B-Type NATRIURETIC PEPTIDE 384.8 pg/mL (0-100)
--- NOTE | 2021-01-21 10:29 | ED.RN ---
LAB CALLED CRITICAL OF 148. DR DUEÑAS AWARE
--- NOTE | 2021-01-21 11:09 | ECHOD_ITS ---
Reason For Study: CHF, CP, SOB Procedure This was a 2D Doppler, Color Flow transthoracic echocardiogram. Exam performed portable in patient room. Left Ventricle The estimated ejection fraction is 35 %. There is evidence of diastolic dysfunction. Hypokinesis of the mid LV and apex suggestive of LAD infarction of Takotsubo CM. Right Ventricle Normal RV size. Normal systolic function. Atria Normal left atrium. Normal right atrium. No doppler evidence for ASD. Mitral Valve There is no mitral valve stenosis. No mitral valve insufficiency. Tricuspid Valve There is no tricuspid stenosis. Unable to estimate RV systolic pressure due to inadequate jet, pulmonary artery pressure probably normal. Aortic Valve Trisinus/trileaflet aortic valve. There is no aortic stenosis. No aortic valve insufficiency. Pulmonic Valve There is no pulmonic valvular stenosis. No pulmonic valve insufficiency. Great Vessels Normal aortic root. Pericardium/Pleural No pericardial effusion. MMode/2D Measurements & Calculations LVIDd: 3.5 cm IVSd: 1.3 cm Ao root diam: 3.3 cm LVIDs: 1.8 cm LVPWd: 1.3 cm RVDd: 2.8 cm FS: 49.5 % LAV(MOD-bp): 56.6 ml LVAd ap4: 27.8 cm2 LVAd ap2: 29.2 cm2 LAV(MOD-bp) Indexed: 29.1 ml/m2 LVLd ap4: 8.8 cm LVLd ap2: 9.0 cm LAV(MOD-sp2): 50.1 ml EDV(MOD-sp4): 72.0 ml EDV(MOD-sp2): 80.8 ml LAV(MOD-sp4): 51.1 ml EDV(sp4-el): 74.5 ml EDV(sp2-el): 80.5 ml LVAs ap4: 19.4 cm2 LVAs ap2: 18.9 cm2 LVLs ap4: 8.0 cm LVLs ap2: 8.4 cm ESV(MOD-sp4): 39.1 ml ESV(MOD-sp2): 36.3 ml ESV(sp4-el): 39.7 ml ESV(sp2-el): 36.2 ml EF(MOD-sp4): 45.7 % EF(MOD-sp2): 55.1 % EF(sp4-el): 46.7 % SV(MOD-sp4): 32.9 ml SV(MOD-sp2): 44.5 ml SV(sp4-el): 34.8 ml LA dimension(2D): 3.4 cm LA A4 area: 17.1 cm2 RA A4 area: 14.3 cm2 Doppler Measurements & Calculations MV E max darius: 41.1 cm/sec Lat Peak E' Darius: 5.6 cm/sec Med Peak E' Darius: 3.8 cm/sec MV A max darius: 103.2 cm/sec E/E' lat: 7.3 E/E' med: 10.8 MV E/A: 0.40 Ao V2 max: 129.3 cm/sec LV V1 max: 118.1 cm/sec PA V2 max: 98.2 cm/sec Ao max P.7 mmHg LV V1 max P.6 mmHg TR max darius: 246.4 cm/sec TR max P.3 mmHg ECHO/Echo Complete Interpretation Summary The estimated ejection fraction is 35 %. There is evidence of diastolic dysfunction. Hypokinesis of the mid LV and apex suggestive of LAD infarction of Takotsubo CM Ordering Physician: David Waterman Referring Physician: Janiya Marquez Performed By: Mary Bernal RDCS
[2021-01-21 11:35] LABS: Troponin-I HS 149 pg/mL (3.0-54.0)
[2021-01-21] MEDS: Furosemide 40 MG/4 ML Vial IV ×2 (12:40→17:10)
--- NOTE | 2021-01-21 12:51 | HP.PCM.HOS_ITS ---
HPI - General General Date of Admission: 01/21/21 HPI Narrative BARON BURNS, is a 75 F who presents with ongoing shortness of breath. She also had a syncopal episode a few days ago which she does not normally have. She states that she is very active usually, she has been limited recently secondary to right knee pain but she noticed that a few days ago she went hiking with her granddaughter and was much more short of breath than she normally gets. She also noticed last night that she started getting some pain with deep breathing in her chest on the left. CTA here in the hospital was unremarkable for a PE or any pleuritic signs, she did have a slightly elevated troponin to 160 and on repeat it came down to 149. BMP in the ER was also elevated to 384 with a normal creatinine. She denies any weight gain or signs of fluid overload. No lower extremity swelling. [facility] Medical History Anxiety and depression Chest pain, atypical Essential hypertension HTN (hypertension) Mixed hyperlipidemia Nonrheumatic mitral (valve) prolapse Paroxysmal supraventricular tachycardia Portal vein thrombosis Home Medications cholecalciferol (vitamin D3) 1,000 unit PO TID 01/30/13 [History Last Taken 01/29/13] losartan 25 mg PO DAILY 12/31/19 [History Last Taken Unknown] rosuvastatin 10 mg PO DAILY 12/31/19 [History Last Taken Unknown] aspirin 81 mg tablet,delayed release 81 mg PO DAILY 01/09/20 [History Last Taken Unknown] calcium citrate 315 mg-vitamin D3 5 mcg (200 unit) tablet 1 tab PO DAILY 01/09/20 [History Last Taken Unknown] vitamins A,C,P-mspy-ravvhz 14,320 unit-226 mg-200 unit capsule 1 cap PO BID 01/09/20 [History Last Taken Unknown] Allergy/AdvReac Type Severity Reaction Status Date / Time No Known Allergies Allergy Verified 01/21/21 06:32 Family History Father Heart disease Valvular heart disease Surgical History History of cholecystectomy Social History Smoking Status: Never smoker alcohol intake: never substance use type: does not use caffeine: Yes ROS Constitutional Constitutional: Denies chills, fatigue, fever(s) or malaise Eyes Eyes: Denies blurry vision ENT HEENT: Denies headache(s) or nasal discharge Cardiovascular Cardiovascular: Reports chest pain; Denies dyspnea on exertion or syncope Respiratory/Chest Respiratory/Chest: Reports shortness of breath at rest and shortness of breath with exertion; Denies cough Gastrointestinal Gastrointestinal: Denies constipation, diarrhea, nausea or vomiting Genitourinary Genitourinary: Denies dysuria Neurologic Neurologic: Denies focal weakness, numbness or tremor(s) Psychiatric Psychiatric: Denies anxiety or depression Vital Signs Vital Signs Vital Signs: 01/21/21 06:28 01/21/21 06:32 01/21/21 06:39 Temperature 98.2 F Temperature Source Oral Pulse Rate 106 H Respiratory Rate 16 Respiratory Effort Respiratory Depth Respiratory Pattern Normal Blood Pressure 110/86 H Blood Pressure Mean 94 Pulse Ox 97 97 Oxygen Delivery Method Room Air Room Air 01/21/21 09:11 01/21/21 10:23 01/21/21 11:55 Temperature 98.9 F 98.9 F Temperature Source Temporal Temporal Pulse Rate 111 H 102 H Respiratory Rate 18 20 H Respiratory Effort Normal Non-Labored Respiratory Depth Shallow Respiratory Pattern Tachypnea Blood Pressure 155/87 H 144/82 H Blood Pressure Mean 109 102 Pulse Ox 93 96 Oxygen Delivery Method Room Air Room Air Room Air Weight Weight: 173 lb 1.006 oz Body Mass Index (BMI) 25.5 Physical Exam Const alert, oriented x3 and no apparent distress General Appearance: cooperative HEENT normocephalic Mouth: dry mucous membranes Eyes PERRL, EOMs intact bilaterally and conjunctivae normal Neck supple and no JVD Resp normal respiratory effort, no retractions, no use of accessory muscles and clear to auscultation bilaterally Auscultation: Negative for crackles, rales, rhonchi or wheezes Cardio regular rhythm, S1 normal heart sound, S2 normal heart sound and no murmurs Rate: tachycardic GI soft to palpation, non-tender and non-distended; Negative for hepatosplenomegaly Extremity no clubbing, cyanosis or edema Skin no rashes or lesions noted Neuro no focal motor deficits and no sensory deficits noted Psych affect normal Appearance: appropriate Results Lab / Micro Data Result Diagrams: 01/21/21 06:18 01/21/21 06:18 Labs: Laboratory Results - last 24 hr 01/21/21 06:18: WBC 9.8, RBC 4.77, Hgb 14.7, Hct 44.7, MCV 93.7, MCH 30.8, MCHC 32.9, RDW Std Deviation 48.1 H, RDW Coeff of Naeem 13.8, Plt Count 154, MPV 13.4 H , Immature Gran % (Auto) 0.300, Neut % (Auto) 81.3 H, Lymph % (Auto) 8.8 L, Delta % (Auto) 8.1, Eos % (Auto) 1.2, Baso % (Auto) 0.3, Absolute Neuts (auto) 7.9 H, Absolute Lymphs (auto) 0.86, Nucleated RBC % 0 01/21/21 06:18: Sodium 140, Potassium 3.6, Chloride 104, Carbon Dioxide 33.0 H, Anion Gap 3 L, BUN 18, Creatinine 0.79, Estim Creat Clear Calc 50.80, Est GFR (MDRD) Af Amer 91, Est GFR (MDRD) Non-Af 75, BUN/Creatinine Ratio 22.7 H, Glu cose 113 H, Calcium 8.9, Troponin I High Sens 160 H* 01/21/21 06:18: B-Natriuretic Peptide 384.8 H 01/21/21 09:20: Troponin I High Sens 148 H* 01/21/21 11:08: Troponin I High Sens 149 H* Radiology Impression Chest X-Ray 01/21/21 06:32 IMPRESSION: Left lung base subsegmental atelectasis. Electronically Signed: Elvin Giraldo MD at 7:29 EDT Tel , Service support , Chest CTA 01/21/21 07:33 IMPRESSION: No evidence for pulmonary embolism. Individualized dose optimization techniques were used for this CT. at 0816 Reported and signed by: Justyna Barahona MD Electronically Signed: Justyna Barahona MD at 8:15 EDT Tel , Service support , Assessment & Plan Assessment/Plan (1) Chest pain: (2) Elevated troponin: (3) Syncope: PLAN: 1. Chest pain no shortness of breath elevated troponin elevated BNP/HTN/HLD -She denies any orthopnea -CT of the chest was negative -We will obtain an echo given the elevated BNP and give her a dose of Lasix and see if that helps with her shortness of breath -If echo is unremarkable we will consult cardiology -Troponins are trending down -We will continue with her home losartan and Crestor DVT: Lovenox Charges/Coding Visit Charges OBSV E&M: 68178 Initial observation care L2
[2021-01-21] MEDS: 0.9% Saline Lock 10 ML Syringe IV ×2 (12:54→17:10)
--- NOTE | 2021-01-21 13:34 | PCS.PANDOC ---
PANDEMIC DOCUMENTATION INITIATED: Date: 01/21/2021 Time:2352
[2021-01-21 18:26] LABS: International Normalized Ratio 1.2; Prothrombin Time (Protime)PT. 14.6 SECONDS (11.7-14.9)
[2021-01-21 18:27] LABS: Partial Thromboplast Time 35.3 Seconds (24.1-36.2)
[2021-01-21] MEDS: Heparin Injection (Vial) 5,000 UNIT/ML VIAL 4000 UNIT IV (18:39)
[2021-01-21] MEDS: HEPARIN/D5w 25,000 UNITS 25,000 UNITS/250 ML IV.SOLN. 9 UNITS IV (18:39)
[2021-01-21] MEDS: Carvedilol 3.125 MG TABLET PO (20:52)
--- NOTE | 2021-01-21 23:08 | PCS.PANDOC ---
PANDEMIC DOCUMENTATION INITIATED: Date: 01/21/2021 Time: 1900
[2021-01-22] VITALS (15 sets, daily range): BP systolic 110–118; BP diastolic 60–73; PULSE 74–87; RESP 16–18; TEMP 36.6–37.1; O2SAT 94–97
[2021-01-22 00:59] LABS: Partial Thromboplast Time 143.3 Seconds (24.1-36.2)
[2021-01-22 09:25] LABS: Absolute Lymphocyte Count 1.34 X10^3/uL (0.83-4.51); Basophil# 0.04 X10^3/uL; Basophil% 0.6 % (0-1); Eosinophil# 0.08 X10^3/uL; Eosinophils% 1.3 % (0-5); Hematocrit 42.3 % (37-47); Hemoglobin 14.3 g/dL (12.0-15.0); Lymphocyte # 1.34 X10^3/ul (0.83-4.51); Lymphocyte % 21.2 % (19-41); Mean Corp Hgb Conc 33.8 g/dL (32-36); Mean Corpuscular Volume 91.6 fL (81-99); Mean Platelet Vol. 13.5 fl (6.2-12.0); Monocyte# 0.84 X10^3/uL; Monocyte% 13.3 % (0-10); NRBC Flagged by Analyzer 0 % (0-5); Neutrophil % 63.3 % (47-70); Platelet Count 147 K/mm3 (150-450); RBC Distribution Width CV 13.9 % (11.6-14.6); RBC Distribution Width SD 46.8 fl (35.1-43.9); Red Blood Count 4.62 M/mm3 (4.2-5.4); White Blood Count 6.3 K/mm3 (4.4-11.0)
[2021-01-22 09:34] LABS: Anion Gap 9 (5-15); BUN 19 mg/dL (7-18); BUN/Creat Ratio 23.9 RATIO (10-20); Calcium,Total 8.9 mg/dL (8.5-10.1); Chloride 99 mmol/L (98-107); Creatinine, Serum 0.79 mg/dL (0.55-1.02); EST Glomerular Filtration Rate 75 mL/min (>60); Est Glom Filt Rate - Afr Amer 91 mL/min (>60); Glucose 107 mg/dL (74-106); Potassium 3.5 mmol/L (3.5-5.1); Sodium Level 136 mmol/L (136-145)
[2021-01-22] MEDS: Aspirin E.C. 81 MG Tablet PO (10:13)
--- NOTE | 2021-01-22 11:46 | CL.D_ITS ---
Patient Name: BARON BURNS Study Date: 01/22/2021 Performing: Gabriela Mathew MD Ht: 69 inches 175 cm : 1945 Wt: 158.9 lbs 72 kg Age: 75 Gender: female BSA: 1.87 PROCEDURE(S) PERFORMED [id number] CLINICAL PROFILE AND INDICATIONS Indications: Cardiomyopathy Heart Failure: NYHA Class: 2, Newly Diagnosed: Yes, Heart Failure Type: Systolic Stress/Imaging Stress/Image Study Performed: No CAD Presentations: Other: chf CONCLUSIONS No significant CAD. No significant . Normal LVEDP RECOMMENDATIONS DESCRIPTION OF PROCEDURE The patient arrived to the procedure lab. The risks and benefits of the procedure as well as a full d escription of our services here and current unavailability of surgical backup were fully explained to the patient and/or their significant other prior to the catheterization. The Timeout was completed, verifying the correct patient and procedure. The patient's procedural site was prepped and draped in the usual fashion. Local anesthetic was given subcutaneously to right radial region with Lidocaine 2% . Using a modified Seldinger technique, arterial access was obtained via the right radial artery, a 6 Fr sheath was inserted. Left Ventriculography was performed in MARIN projection using a 5 Fr. JL3.5. L V to AO pullback pressures were then recorded. Left Coronary Artery selective angiography was perform ed in multiple views using a 5 Fr. JL3.5 catheter. Right Coronary Artery selective angiography was th en performed in multiple views using a 5 Fr. JR 4 catheter.The arterial sheath was pulled and a TR Band was applied for hemostasis CORONARY ANGIOGRAPHY DOMINANCE: Right Dominant LEFT HEART ASSESSMENT LEFT MAIN: Angiographically normal LEFT ANTERIOR DESCENDING ARTERY: Angiographically normal CIRCUMFLEX ARTERY: Angiographically normal RIGHT CORONARY ARTERY: Mild luminal irregularities VALVE FINDINGS: No Aortic Valve Stenosis COMPLICATIONS No Complications PROCEDURE MEDICATIONS Versed 1 mg IV Fentanyl 50 mcg IV Oxygen: 2 L/min via nasal cannula Heparin given IA 01/22/2021 11:15:09 Verapamil 2.5mg, Ntg 100mcgs, 3000 units of Heparin given IA 01/22/2021 11:15:09 SUMMARY OF HEMODYNAMIC DATA Time AIR REST ECG 10:56:31 LV 133/-13, 9 11:18:10 LV 144/-15, 10 11:18:16 LVp 134/-12, 6 11:18:35 AO 120/70 (92) SA 11:18:40 AOp 121/71 (92) 11:18:40 Signed By Gabriela Mathew MD On 01/22/2021 11:46:16 Gabriela Mathew MD
--- NOTE | 2021-01-22 11:47 | CON.PCM.CA_ITS ---
Assessment & Plan Assessment/Plan (1) LV dysfunction: PLAN: Patient has Takotsubo cardiomyopathy. She does not have significant CAD. Agree with adding Coreg. Continue losartan. It be reasonable to keep the patient on Lasix as needed as she seems to prefer this approach as well. Okay to discharge home from a cardiac standpoint. Follow-up with cardiology as an outpatient. HPI Consult Data Date of Consult: 01/22/21 HPI Narrative HPI Narrative: BARON BURNS, is a 75 F who presents with shortness of and one episode of syncope. She was also having pleuritic chest pain. 2D echo revealed hypokinesis in the mid and apical LV. Cardiology consult was requested for this reason. Patient was evaluated and after discussion of risks and benefits she underwent underwent coronary angiography which revealed no significant CAD. It appears that patient's wall motion abnormalities are due to Takotsubo cardiomyopathy. Review of systems: All systems reviewed. All else is negative except in HPI. PFSH Medical History Anxiety and depression Chest pain, atypical Essential hypertension HTN (hypertension) Mixed hyperlipidemia Nonrheumatic mitral (valve) prolapse Paroxysmal supraventricular tachycardia Portal vein thrombosis Home Medications cholecalciferol (vitamin D3) 1,000 unit PO TID 01/30/13 [History Last Taken 01/29/13] losartan 25 mg PO DAILY 12/31/19 [History Last Taken Unknown] rosuvastatin 10 mg PO DAILY 12/31/19 [History Last Taken Unknown] aspirin 81 mg tablet,delayed release 81 mg PO DAILY 01/09/20 [History Last Taken Unknown] calcium citrate 315 mg-vitamin D3 5 mcg (200 unit) tablet 1 tab PO DAILY 01/09/20 [History Last Taken Unknown] vitamins A,C,V-zhny-tkllzg 14,320 unit-226 mg-200 unit capsule 1 cap PO BID 01/09/20 [History Last Taken Unknown] Allergy/AdvReac Type Severity Reaction Status Date / Time No Known Allergies Allergy Verified 01/21/21 06:32 Family History Father Heart disease Valvular heart disease Surgical History History of cholecystectomy Social History Smoking Status: Never smoker alcohol intake: never substance use type: does not use caffeine: Yes Physical Exam Const alert and oriented x3 Orientation / Consciousness: awake HEENT normocephalic Eyes no scleral icterus Neck no JVD Resp normal respiratory effort and clear to auscultation bilaterally Cardio regular rate Extremity no pedal edema Skin no rashes or lesions noted Neuro oriented x3 Psych mental status grossly normal Risk Stratification Risk Stratification Applicable: No Charges/Coding Visit Charges Inpatient E&M: 47145 Init Hosp L2 Objective Data Vital Signs: Vital Signs Temp Pulse Resp BP Pulse Ox 98 F 77 18 112/73 94 01/22/21 08:31 01/22/21 08:31 01/22/21 08:31 01/22/21 08:31 01/22/21 08:31 Oxygen Delivery Method Room Air Weight: 158 lb 11.725 oz Body Mass Index (BMI) 23.4 Intake & Output: Intake and Output for Last 24 Hours 01/20/21 01/21/21 01/22/21 23:59 23:59 23:59 Intake Total 360 / 600 540.15 / 540.15 Balance 360 / 600 540.15 / 540.15 Lab / Micro Data Result Diagrams: 01/22/21 09:00 01/22/21 09:00 Labs: Laboratory Results - last 24 hr 01/21/21 18:04: PT 14.6, INR 1.2, APTT 35.3 01/22/21 00:38: APTT 143.3 H* 01/22/21 09:00: WBC 6.3, RBC 4.62, Hgb 14.3, Hct 42.3, MCV 91.6, MCH 31.0, MCHC 33.8, RDW Std Deviation 46.8 H, RDW Coeff of Naeem 13.9, Plt Count 147 L, MPV 13.5 H, Immature Gran % (Auto) 0.300, Neut % (Auto) 63.3, Lymph % (Auto) 21.2, [place] % (Auto) 13.3 H, Eos % (Auto) 1.3, Baso % (Auto) 0.6, Absolute Neuts (auto) 4.0, Absolute Lymphs (auto) 1.34, Nucleated RBC % 0 01/22/21 09:00: Sodium 136, Potassium 3.5, Chloride 99, Carbon Dioxide 28.0, Anion Gap 9, BUN 19 H, Creatinine 0.79, Estim Creat Clear Calc 50.80, Est GFR (MDRD) Af Amer 91, Est GFR (MDRD) Non-Af 75, BUN/Creatinine Ratio 23.9 H, Glucose 107 H, Calcium 8.9 Cardiology Labs/Tests 01/21/21 18:04: PT 14.6, INR 1.2, APTT 35.3 01/22/21 00:38: APTT 143.3 H* 01/22/21 09:00: WBC 6.3, RBC 4.62, Hgb 14.3, Hct 42.3, MCV 91.6, MCH 31.0, MCHC 33.8, Plt Count 147 L, MPV 13.5 H, Immature Gran % (Auto) 0.300, Neut % (Auto) 63.3, Lymph % (Auto) 21.2, [place] % (Auto) 13.3 H, Eos % (Auto) 1.3, Baso % (Auto) 0.6, Absolute Neuts (auto) 4.0, Nucleated RBC % 0 01/22/21 09:00: Sodium 136, Potassium 3.5, Chloride 99, Carbon Dioxide 28.0, Anion Gap 9, BUN 19 H, Creatinine 0.79, Est GFR (MDRD) Af Amer 91, Est GFR (MDRD) Non-Af 75, BUN/Creatinine Ratio 23.9 H, Glucose 107 H, Calcium 8.9 Rhythm: EKG: ECHO: Stress Test: Cardiac Cath: PCI: CT Surgery: Holter monitor: EPS: PPM: CXR: Chest CT Scan:
[2021-01-22] MEDS: 0.9% Normal Saline 1,000 ML 75 ML IV (11:50)
--- NOTE | 2021-01-22 14:08 | PCM.DC ---
Discharge Instructions Diet Discharge Diet: 8 Cup Fluid Restriction and 2000 mg Sodium Diet Activity Discharge Activity: Return to Normal Activity Dressing / Incision Call your doctor if you observe: Fever of 101 or Higher, Shortness of breath, Dizziness, Fainting spells, Swelling in the ankles, Chest pain and Increased palpitations (irregular heartbeat) Follow Up Care Test Results: Test results from this visit will be discussed in further detail at your follow-up appointment, if applicable. Discharge Plan Admission Admit Date/Time: 01/21/21 11:02 Attending Provider: David Waterman Primary Care Provider: Janiya Marquez Consulting Providers: Rylie Mathew Discharge Orders/Prescriptions Prescriptions: New carvedilol 3.125 mg Tablet 3.125 mg PO BID Qty: 60 RF: 0 furosemide [Lasix] 20 mg tablet 20 mg PO DAILY Qty: 30 RF: 0 Continued aspirin [Adult Low Dose Aspirin] 81 mg tablet,delayed release (DR/EC) 81 mg PO DAILY RF: 0 calcium citrate-vitamin D3 [Calcium Citrate + D] 315 mg-5 mcg (200 unit) tablet 1 tab PO DAILY RF: 0 PreserVision AREDS 14,320-226-200 wcng-hq-afkr capsule 1 cap PO BID RF: 0 cholecalciferol (vitamin D3) 1,000 UNIT tablet,chewable 1,000 unit PO TID RF: 0 losartan 25 MG tablet 25 mg PO DAILY RF: 0 rosuvastatin 10 MG tablet 10 mg PO DAILY RF: 0 Referrals / Follow Up: Janiya Marquez MD [Primary Care Provider] - Within 1 Week Elvin Pretty MD [STAFF PHYSICIAN] - See Referral Note (Keep previously scheduled appointment in the middle of February) Disposition Disposition (needs filled in before D/C Order can be placed): Home, Self Care
--- NOTE | 2021-01-22 14:15 | PCM.DC.SUM ---
Providers Date of Admission: 01/21/21 Primary Care Physician: Dr. Janiya Marquez MD Consultations 01/21/21 17:03 Consult: Cardiology Routine Consulting Provider: Rylie Mathew Reason for Consult: NSTEMI EMERGENT Consult: No MD Notified: Yes Date Notified: 01/21/21 Time Notified: 17:04 Method of Notification: Verbal Reason For Visit: CHEST PAIN Diagnosis Discharge Diagnosis (1) LV dysfunction: Status: Acute Code(s): I51.9 - Heart disease, unspecified Medications at Discharge Home Medications cholecalciferol (vitamin D3) 1,000 unit PO TID 01/30/13 losartan 25 mg PO DAILY 12/31/19 rosuvastatin 10 mg PO DAILY 12/31/19 aspirin 81 mg tablet,delayed release 81 mg PO DAILY 01/09/20 calcium citrate 315 mg-vitamin D3 5 mcg (200 unit) tablet 1 tab PO DAILY 01/09/20 vitamins A,C,T-nedj-gqjhjq 14,320 unit-226 mg-200 unit capsule 1 cap PO BID 01/09/20 carvedilol 3.125 mg PO BID #60 tab 01/22/21 furosemide [Lasix] 20 mg PO DAILY #30 tab 01/22/21 Hospital Course Operations None Procedures 2-D Echocardiogram and Cardiac catheterization Summary of Care Provided Hospital Course: Per HPI: BARON BURNS, is a 75 F who presents with ongoing shortness of breath. She also had a syncopal episode a few days ago which she does not normally have. She states that she is very active usually, she has been limited recently secondary to right knee pain but she noticed that a few days ago she went hiking with her granddaughter and was much more short of breath than she normally gets. She also noticed last night that she started getting some pain with deep breathing in her chest on the left. CTA here in the hospital was unremarkable for a PE or any pleuritic signs, she did have a slightly elevated troponin to 160 and on repeat it came down to 149. BMP in the ER was also elevated to 384 with a normal creatinine. She denies any weight gain or signs of fluid overload. No lower extremity swelling. Hospital Course: 1. Takotsubo's cardiomyopathy/HTN/HLD -She denies any orthopnea -CT of the chest was negative -Echo demonstrated apical wall motion abnormality with an EF of 35% -Troponins are trending down -We will continue with her home losartan and Crestor -Cardiac cath demonstrated Takotsubo's cardiomyopathy with normal coronary arteries. In discussion with cardiology they recommended continuing the beta-john as well as low-dose Lasix. -I discussed with her the plan for discharge today and she expressed understanding of the risk benefits of going home and would like to go home today. I do recommend that she follow-up with her PCP in 3 to 5 days as is cardiology as previously scheduled in the middle of February. We will continue with Coreg twice daily at 3.125 mg as well as Lasix 20 mg p.o. daily. She will continue with her losartan as she was on previously. I also discussed with her minimizing salt intake to 2 g as well as fluid intake. Physical Exam Const alert, oriented x3 and no apparent distress General Appearance: cooperative HEENT normocephalic Eyes PERRL, EOMs intact bilaterally and conjunctivae normal Neck supple and no JVD Resp normal respiratory effort, no retractions, no use of accessory muscles and clear to auscultation bilaterally Auscultation: Negative for crackles, rales, rhonchi or wheezes Cardio regular rhythm, S1 normal heart sound, S2 normal heart sound and no murmurs Rate: tachycardic GI soft to palpation, non-tender and non-distended; Negative for hepatosplenomegaly Extremity no clubbing, cyanosis or edema Skin no rashes or lesions noted Neuro no focal motor deficits and no sensory deficits noted Psych affect normal Appearance: appropriate Weight / BMI Weight Weight: 158 lb 11.725 oz Body Mass Index (BMI) 23.4 ABG / Lab / Microbiology Data Result Diagrams: 01/22/21 09:00 01/22/21 09:00 Laboratory: Laboratory Results - last 24 hr 01/21/21 18:04: PT 14.6, INR 1.2, APTT 35.3 01/22/21 00:38: APTT 143.3 H* 01/22/21 09:00: WBC 6.3, RBC 4.62, Hgb 14.3, Hct 42.3, MCV 91.6, MCH 31.0, MCHC 33.8, RDW Std Deviation 46.8 H, RDW Coeff of Naeem 13.9, Plt Count 147 L, MPV 13.5 H, Immature Gran % (Auto) 0.300, Neut % (Auto) 63.3, Lymph % (Auto) 21.2, [place] % (Auto) 13.3 H, Eos % (Auto) 1.3, Baso % (Auto) 0.6, Absolute Neuts (auto) 4.0, Absolute Lymphs (auto) 1.34, Nucleated RBC % 0 01/22/21 09:00: Sodium 136, Potassium 3.5, Chloride 99, Carbon Dioxide 28.0, Anion Gap 9, BUN 19 H, Creatinine 0.79, Estim Creat Clear Calc 50.80, Est GFR (MDRD) Af Amer 91, Est GFR (MDRD) Non-Af 75, BUN/Creatinine Ratio 23.9 H, Glucose 107 H, Calcium 8.9 01/22/21 09:00: APTT Cancelled Radiography Diagnostic Testing: Radiology Impression Echocardiogram 01/21/21 11:09 Interpretation Summary The estimated ejection fraction is 35 %. There is evidence of diastolic dysfunction. Hypokinesis of the mid LV and apex suggestive of LAD infarction of Takotsubo CM Ordering Physician: David Waterman Referring Physician: Janiya Marquez Performed By: Mary Bernal [facility] D/C Instructions Discharge Diet: 8 Cup Fluid Restriction and 2000 mg Sodium Diet Call your doctor if you observe: Fever of 101 or Higher, Shortness of breath, Dizziness, Fainting spells, Swelling in the ankles, Chest pain and Increased palpitations (irregular heartbeat) Meaningful Use Info Meaningful Use Diagnoses (Choose all that apply): None applicable Discharge Plan Admission Admit Date/Time: 01/21/21 11:02 Attending Provider: David Waterman Primary Care Provider: Janiya Marquez Consulting Providers: Rylie Mathew Discharge Orders/Prescriptions Prescriptions: New carvedilol 3.125 mg Tablet 3.125 mg PO BID Qty: 60 RF: 0 furosemide [Lasix] 20 mg tablet 20 mg PO DAILY Qty: 30 RF: 0 Continued aspirin [Adult Low Dose Aspirin] 81 mg tablet,delayed release (DR/EC) 81 mg PO DAILY RF: 0 calcium citrate-vitamin D3 [Calcium Citrate + D] 315 mg-5 mcg (200 unit) tablet 1 tab PO DAILY RF: 0 PreserVision AREDS 14,320-226-200 halk-bw-rsvy capsule 1 cap PO BID RF: 0 cholecalciferol (vitamin D3) 1,000 UNIT tablet,chewable 1,000 unit PO TID RF: 0 losartan 25 MG tablet 25 mg PO DAILY RF: 0 rosuvastatin 10 MG tablet 10 mg PO DAILY RF: 0 Referrals / Follow Up: Janiya Marquez MD [Primary Care Provider] - Within 1 Week Elvin Pretty MD [STAFF PHYSICIAN] - See Referral Note (Keep previously scheduled appointment in the middle of February) Disposition Disposition (needs filled in before D/C Order can be placed): Home, Self Care Charges/Coding Visit Charges OBSV E&M: 01521 Observation care discharge
--- NOTE | 2021-01-22 14:59 | NURSING ---
Read and reviewed SN documentation. Reviewed plan of care with SN
[2021-01-22] MEDS: Atorvastatin Calcium 20 MG Tablet PO (15:10)
[2021-01-22] MEDS: Furosemide 20 MG Tablet PO (15:10)
[2021-01-22] MEDS: Losartan Potassium 25 MG Tablet PO (15:10)
[2021-01-22] MEDS: Carvedilol 3.125 MG TABLET PO (15:10)
--- NOTE | 2021-01-22 15:14 | CASEMGMT ---
This RN CM to room with JSOE form, explanation done-pt voices understanding, and signs JOSE form. Pt is A/Ox4. Original to chart and copy to pt. All pt's questions answered. Pt voices no further questions/concerns/needs. S[place]en RN CM
== END 2021-01-22 14:14 | disposition home or self-care (01) ==
LOC: ED 10:08 → PCU 11:56
PROVIDERS: Admitting Provider Family Medicine; Emergency Provider Emergency Medicine; PCP Internal Medicine; Visit Provider Family Medicine
DX: I51.81 Takotsubo syndrome (principal); R55 Syncope and collapse; E78.2 Mixed hyperlipidemia; I50.20 Unspecified systolic (congestive) heart failure; M25.561 Pain in right knee; Z79.82 Long term (current) use of aspirin; Z79.899 Other long term (current) drug therapy
CPT/HCPCS: 36415; 71045; 71275; 80048; 83880; 84484; 85025; 85610; 85730; 93005; 93306; 93454; 96361; 96365; 96366; 96375; 96376; 99152; 99153; 99218; 99285; J7030; Q9967; A4216; C1769; C1894; G0378; J1940

== ENCOUNTER → 2021-02-18 16:06 | Outpatient (CLI) | payer MEDICARE, OTHER, SELFPAY ==
[2021-02-18 16:59] LABS: Anion Gap 6 (5-15); BUN 26 mg/dL (7-18); BUN/Creat Ratio 37.7 RATIO (10-20); Chloride 101 mmol/L (98-107); Creatinine, Serum 0.69 mg/dL (0.55-1.02); EST Glomerular Filtration Rate 88 mL/min (>60); Est Glom Filt Rate - Afr Amer 106 mL/min (>60); Glucose 102 mg/dL (74-106); Potassium 3.8 mmol/L (3.5-5.1); Sodium Level 138 mmol/L (136-145)
[2021-02-18 17:06] LABS: BNP,B-Type NATRIURETIC PEPTIDE 75.8 pg/mL (0-100)
== END ==
PROVIDERS: PCP Internal Medicine; Visit Provider Nurse Practitioner Family
DX: R06.00 Dyspnea, unspecified (principal); I10 Essential (primary) hypertension; Z98.890 Other specified postprocedural states; Z79.899 Other long term (current) drug therapy
CPT/HCPCS: 36415; 80048; 83880

== ENCOUNTER → 2021-03-16 08:50 | Outpatient (CLI) | payer MEDICARE, OTHER, SELFPAY ==
--- NOTE | 2021-03-16 08:59 | PCM.CR.ITP ---
Diagnosis - General Information Admitting Diagnosis: NSTEMI, Takostubo Syndrome Personal Learning Style:: Audio/Visual, Written Barriers to Learning: Vision Impairment Stage of change r/t lifestyle modifications:: Action Gave educational material for:: Treating Heart Disease, Emotions & Heart Disease, Stress Management & Relaxation, Sleep Disorders & Heart Disease, How The Heart Works, What it means to have Heart Disease, How Coronary Artery Disease is Diagnosed, Heart Procedures, What Heart Medications Do, Risk Factors & Modifications, Living an Active Life, Nutrition - Education/Goals Individual Counseling: Initial Assessment: Abnormal Cholesterol Levels, High Blood Pressure Cardiac Rehabilitation Goals: 1. Maintain the individual as the primary focus of care. 2. To improve the patient's quality of life. 3. Identification of cardiac risk factors and provide cardiac risk factor management. 4. Enhance the psychosocial status of the patient. 5. Reconditioning enough to allow the patient to resume customary activities. 6. Control symptoms of cardiac disease Personal Goals: Initial Assessment: Improve management of stress and emotions, Improve muscle strength and endurance, Control risk factors (learn risk factor modification) Scale for measuring improvement of personal goals: Enter appropriate number in Comments. 2 = Unchanged. 3 = Slightly Better. 4 = Moderate Improvement. 5 = Met my Goal - Diagnosis & Disease Process Outcomes/Goals: Pt IDs own risk factors & lifestyle modifications by Session 10, Verbalizes symptoms of angina & response by session 3., Pt independently manages Plan/Interventions: Assist Pt to ID & engage in lifestyle modification to reduce CVD risk, Instruct on individual risk factors, Review symptoms of angina & emergency actions, Review secondary diagnosis & identify educational needs. - Safety Referral to Physical Therapy: No Referral to [facility] Case Management: No Fall Risk Assessed:: Yes Assistive Devices:: None Exercise - Initial Assessment - Visit Date of Eval: 03/16/21 Session #:: 0 - pre-cardiac rehab evaluation - Physician Prescribed Exercise Modalities: Treadmill, Airdyne, NuStep Frequency: 3x/week for 12 weeks [36 sessions] Intensity: 60-80% of age predicted maximum heart rate reserve Current METSs:: 3.0 Target Heart Rate:: 93-122 Resting Blood Pressure: 127/86 EKG Type: Normal Sinus Rhythm Current Physical Activity or Exercising minutes: > 1 hour daily - Outcomes & Goals Goals:: Verbalizes understanding of THR, RPE & goal METS by session 6, Documents in home exercise log/reports 30 min aerobic 5 day/wk by DC, Demonstrates accurate pulse taking by DC - Intervention & Plan Exercise Program Goals: Instruct on personal THR & RPE, Instruct on MET level & personal MET goal, Instruct on home exercise - Physical Activity Home Exercise Physical Activity - Home Exercise: Safe Exercise, Warm-up, Self-monitoring, Cool-Down, Home Exercise > 30 min Daily, Sitting Time <3 hours/daily - Outcomes & Goals Outcomes/Goals: Demonstrates correct Warm-up/exercise Cool-Down (S3) if = 2.5 METs, Verbalizes symptoms of exercise intolerance by Session 3 (S3), Demonstrate safe equipment use (S3) & follows exercise prescrition (6) - Intervention & Plan Plan/Intervention: Instruct warm-up & cool-down if exercising at > 2 METs, Instruct & monitor on saf, Assess intial functional capacity & safety risk Nutrition - Initial Assessment - Visit Date of Assessment:: 03/16/21 Session #:: 0 - pre-cardiac rehab evaluation - Cholesterol/Lipids Triglycerides (mg/dL): 75 Total Cholesterol (mg/dL): 118 LDL Cholesterol (mg/dL): 52 HDL Cholesterol (mg/dL): 51 Determine presence & major risk factors that modify LDL goal: Hypertension or hypertensive medication, Family history of premature CHD in Male < 55 years: female <65 yearsFa, Age men > 45 years; women >/= 55 years Outcomes/Goals: Pt IDs own risk factors & lifestyle modifications by Session 10, Verbalizes symptoms of angina & response by session 3., Pt independently manages Intervention/Plan: Instruct on personal lipid levels & lipid goals/NCEP guidelines, Instruct on cholesterol - Diabetes (Other Core Measures) Diabetes Type: Not Applicable - Weight Mgt (Other Care) Not Applicable: No Height: 5 ft 9 in Weight:: 160 lb BMI: 23.6 Diagnosis Overweight/Obesity BMI> 30% ICD-10 E66: No Diagnosis High BMI/Morbid Obesity BMI> 35% ICD-10 Z68: No Outcomes/Goals: Pt sets, maintains & shows weight loss goal & trend during rehab Intervention/Plan: Instruct on ideal BMI & set weight loss goal w/patient - Healthy Eating Habits Will attend diet classes:: Yes Outcomes/Goals:: Consume diet rich in vegs,fruits,whole grain/high fiber,fish,lean meat, Limit sat/trans fats,cholesterol & added salts & sugars Intervention/Plan:: Assess current eating habits - Education Gave educational materials for:: Healthy eating Nutrition - 30-Day Assessment Nutrition - 60-Day Assessment Nutrition - 90-Day Assessment Nutrition - Final Assessment Medical - Initial Assessment - Visit Date of Eval: 03/16/21 Session #:: 0 - Pre-cardiac rehab evaluation - Medication Compliance Preventative Medication(s):: Aspirin, Statin/lipid, Beta john H/O mental health issues: depression, anxiety, or addiction?: Yes Doesn?t believe in the benefits of treatment?: No Believes medications are unnecessary or harmful?: No Has a concern about medication side effects?: No Expresses concern over the cost of medications?: No Outcomes/Goals: Verbalizes medications,desired effect & common side effects @ DC, Pt self-reports following medication regimen Interventions/plans: Instruct on medication effects & side effects, Review medication list w/patient every two weeks, Instruct importance of taking meds as ordered & assist problem solving - Tobacco Use Tobacco Use: Non-smoker - Hypertension Hypertension Diagnosis:: Hypertension ICD-10 I10 Resting Blood Pressure:: 127/86 [place] [employer] Hypertension Guidelines: [place] [employer] Hypertension Guidelines. Normal BP Less than 120/80. Elevated BP 120/80. Hypertension Stage 1: BP 130-139/80-89. Hypertesnion Stage 2: BP 140 or higher/90 or higher. Hypertension Crisis: BP higher than 180/120 Outcomes/Goals: Able to verbalize/achieve optimal blood pressure <130/80, Incorporates diet changes & exercise for blood pressure control by DC Interventions/plan: Instruct on optimal blood pressure, hypertension & medications, Instruct on effects of sodium, alcohol, stress, exercise &hypertension - Tobacco Cessation Referral Smoking Cessation Referral:: No Individual Education/Counseling:: No Education Schedule Given:: Yes - Online Resources and printed work book provided to patient Medical- 30-Day Assessment Medical- 60-Day Assessment Medical- 90-Day Assessment Medical - Final Assessment Psychosocial - Initial Assess - VIsit Date of Eval: 03/16/21 Session #:: 0 - pre-cardiac rehab evaluation Not Applicable: No History of previous Mental disease:: Yes History of Emotional Disorders: Anxious, Depression - Psychosocial Test Tool Used:: [employer] Power QOL Cardiac, PHQ-9 Questionnaire phq-9 Severity: Severity. 1-4 Minimal Depression. 5-9 Mild Depression. 10-14 Moderate Depression. 15-19 Moderately Sever Depression. 20-27 Severe Depression. Rule: - Referral to Behavioral Health PS - Interventions: Yes Attend Stress Management Classes, No Referral to Behavioral Health if PHQ-9 score >9:, No Referral to [facility] Community Care [facility], No Referral to Physician if PHQ-9 if score is 5-9: - Outcomes/Goals: See list Psychosocial Outcomes/Goals:: ID's personal stressors & 2 strategies to manage stress by discharge - Intervention/Plan: See List Interventions/Plan:: Assess stressors,coping strategies & signs of derpression on admission, Instruct/assist pt to develop coping & personal stress Mgt strategies, Instruct patient to recognize signs & symptoms of depression, Instruct patient to recog Psychosocial - 30-Day Assess Psychosocial - 60-Day Assess Psychosocial - 90-Day Assess Psychosocial - Final Assessmen Patient Health Questionnaire Initial Assessment 1. Little interest or pleasure in doing things: Not at all 2. Feeling down, depressed, or hopeless: More than half the days 3. Trouble falling or staying asleep, or sleeping too much: Not at all 4. Feeling tired or having little energy: Nearly every day 5. Poor appetite or overeating: Not at all 6. Feeling bad about yourself -- or that you are a failure or have let yourself or your family down: Several days 7. Trouble concentrating on things, such as reading the newspaper or watching television: Not at all 8. Moving or speaking so slowly that other people could have noticed. Or the opposite - being so fidgety or restless that you have been moving around a lot more than usual: Not at all 9. Thoughts that you would be better off , or of hurting yourself in some way: Not at all How difficult have these problems made it for you to do your work, take care of things at home, or get along with other people?: Somewhat difficult Total Score: 6 GORAN-Q SV Test - Statements CAD is a disease of the arteries in the heart: False Examples of risk factors for heart disease: True Angina is chest pain or discomfort: I Don't Know The benefits of resistance training include: I Don't Know Eating more meat and dairy products: False Anti-platelet medications such as aspirin are important: True The only effective way to manage stress: False An exercise warm-up slowly increases heart rate: I Don't Know Prepared, processed foods usually have high sodium: True Depression is common after a heart attack: I Don't Know The statin medications lower cholesterol: True To control blood pressure, lower the amount of sodium: I Don't Know If someone gets chest discomfort during walking: False Transfats are partially hydrogenated vegetable oils: True Sleep apnea that is not treated increases the risk: I Don't Know To control cholesterol, one should become a vegetarian: I Don't Know Someone knows if he/she is exercising at the right level: I Don't Know Diabetes cannot be prevented with exercise & health eating: I Don't Know Stress is a large risk for heart attack: I Don't Know A diet that can help lower blood pressure is rich in: True - Total Score Total Correct Responses: 10 Self-Efficacy Initial Assessment We would like to know how confident you are in doing certain activities. Please select your confidence level for:: Select your confidence level for the following using the scale 1-10 where 1 is not at all confident and 10 is totally confident. Your score is the average of all 6 responses. Fatigue: How confident are you that you can keep the fatigue caused by your disease from interfering with the things you want to do? Select Number: 1 Physical Discomfort or Pain: How confident are you that you can keep the physical discomfort or pain of your disease from interfering with the things you want to do? Select Number: 1 Emotional Distress: How confident are you that you can keep the emotional distress caused by your disease from interfering with the things you want to do? Select Number: 5 Other Symptoms or Health Problems: How confident are you that you can keep other symptoms or health problems from interfering with the things you want to do? Select Number: 1 Different Tasks and Activities: How confident are you that you can do the different tasks and activities needed to manage your health condition so as to reduce your need to see a doctor? Select Number: 5 Medication: How confident are you that you can do things other than just taking medication to reduce how much your illness affects your everyday life? Select Number: 5 Total Score:: 3 Nutrition Survey - Nutrition Survey Initial Have you lost >10 lbs over the past 2 months without trying?: No Are you following a special diet at home for diabetes, low fat, or low salt?: No Are you interested in meeting with a dietitian for help understanding your diet?: No Do you eat less than 3 meals a day?: No Do you eat fatty meats (cazares, sausage, ribs, etc), fried foods, desserts, large amounts of salad dressings, margarine, butter, or cheese most days?: No - except for cheese (dairy) Do you have food allergies? [Enter types in comment field]: No Do you eat in restaurants more than 3 times a week?: No Do you season food with salt, seasoning salt, or garlic salt?: Yes - Some salt Do you used canned, boxed, frozen meals, or soups, seasoning packets?: No Total Score:: 1
--- NOTE | 2021-03-16 09:00 | CR.HP_ITS ---
CR - History & Physical - General Arrival date:: 03/16/21 Arrival time:: 09:00 Date of Referral:: 03/03/21 Date of CR Evaluation:: 03/16/21 Referring Physician: DR. KAHLIL NELSON Primary Diagnosis: NSTEMI - History of Present Cardiac Event Onset Date: Enter Onset Date of cardiac illnesses in Comment field below Acute Myocardial Infarction within 12 months:: Yes - Non ST Elevated Myocardial Infarction (NSTEMI) Type of Symptoms:: Takotsubo Syndrome Interventions with present event:: Heart cath no stents required - Sleep Disorder Evaluation Hx of Sleep Apnea: No Do you snore loudly (louder than talking or can be heard through closed doors)?: Yes - STATES WHEN SHE IS ON HER BACK SHE SNORES Do you often feel tired/ fatigued/ sleepy during daytime?: Yes Has anyone observed you stop breathing during sleep?: No History of Hypertension (for STOP score): Yes STOP Results: Positive - Medications Home Medications: Ambulatory Orders Medication Instructions Recorded cholecalciferol (vitamin D3) 1,000 unit PO TID 01/30/13 losartan 25 mg PO DAILY 12/31/19 rosuvastatin 10 mg PO DAILY 12/31/19 aspirin 81 mg tablet,delayed 81 mg PO DAILY 01/09/20 release calcium citrate 315 mg-vitamin D3 1 tab PO DAILY 01/09/20 5 mcg (200 unit) tablet vitamins A,C,I-kcck-jxagqq 14,320 1 cap PO BID 01/09/20 unit-226 mg-200 unit capsule carvedilol 6.25 mg tablet 6.25 mg PO BID #60 tab 03/15/21 furosemide 40 mg tablet 40 mg PO DAILY #30 tab 03/15/21 - Allergies Allergies/Adverse Reactions: Allergies No Known Allergies Allergy (Verified 02/18/21 15:03) Advanced Directives - Advanced Directives Power of Tag Clerk: Yes - Ian is POA for Healthcare Living Will: No Advance Directives Information Provided: No Advance Directives on File: No DNR Order?:: No - MOLST See MOLST form: No Past Medical History - Covid-19 Screening Fever: No Unexplained muscle aches: No Current respiratory symptoms: No Upper respiratory infections symptoms: No Gastro-intestinal symptoms: No Has tested positive for COVID-19 in last 30 days: No Date of testin02/18/21 - Had both vaccines and the Booster for COVID Had contact w/person w/symptoms or Covid-19 (+) last 14 days: No Has High Risk Exposures ID'd by Health dept/Inf Control team: No 65 years or older:: Yes Lives in Assisted Living facility:: No Has a chronic lung disease or moderate to severe asthma:: No Has a serious heart condition:: No Immunocompromised:: No Severely obese (Body Mass Index of 40 or higher):: No Diabetic:: No Has chronic kidney disease undergoing dialysis:: No - Past Medical Illness Medical History: Past Medical History (Last Reviewed 02/18/21 @ 15:11 by Jimbo Baker HORTICULTURE SUPERINTENDENT, HORTICULTURE SUPERINTENDENT-C) Anxiety and depression F41.9, F32.9 Chest pain, atypical R07.89 Essential hypertension I10 HTN (hypertension) I10 LV dysfunction I51.9 Mixed hyperlipidemia E78.2 Nonrheumatic mitral (valve) prolapse I34.1 Paroxysmal supraventricular tachycardia I47.1 Portal vein thrombosis I81 - Past Surgical History Surgical History: Past Surgical History (Last Reviewed 02/18/21 @ 15:11 by Jimbo Baker HORTICULTURE SUPERINTENDENT, HORTICULTURE SUPERINTENDENT-C) History of cholecystectomy Z90.49 History of left heart catheterization Onset Date: 01/22/21 Z98.890 No significant CAD. No significant . Normal LVEDP Surgical History: noncontributory, cholecystectomy, - - in the past have had 2 c-sections for child - Family History Summary Family History: Family History (Last Reviewed 02/18/21 @ 15:11 by Jimbo Baker HORTICULTURE SUPERINTENDENT, HORTICULTURE SUPERINTENDENT-C) Father Heart disease Valvular heart disease Social History - Smoking History Smoking Status: Never smoker - Alcohol Use Alcohol Usage: No - Substance Abuse Hx Substance Use: No - Occupation Occupation (List type of work in comments):: Retired - Hobbies, Recreation, Social Activities Hobbies: Hiking, Walking, Exercise - riding bike, hiking and walking, Other - family history ancenstry Recreational Activities: I am able to engage in all my recreational activities Social Environment - Status Marital Status: - Current Living Arrangements Living Environment:: Spouse - Children How many children do you have?: 2 - 2 sons Do any of your children live nearby?: Yes - Safety Do you feel safe in your surroundings?: Yes - Assistance Do you need any assistance at home?: none Review of Systems - Review of Systems Hints: Right click = Denies ([place]). Left click = Reports ([place]) Review of Present Symptoms: Reports: Shortness of Breath with Exertion, Dizziness/Lightheadedness - one time at [facility] since discharged,, Fatigue - Tired and Weak, Appetite - Normal, Appetite - Special Diet - try to follow low fat, portion control, sodium etc., Sleep - Normal. Denies: Shortness of Breath at Rest, Angina, Heart Arrhythmia/Irregularities, Sexual Changes - Pain Is Patient Pain Free?: Yes Pain Location: none Pain Level: 0/10 Risk Factor Assessment - Chief Complaint Chief Complaint: NSTEMI - Vital Signs Temperature: 97.6 F Respiratory Rate: 18 Pulse Ox: 97 Blood Pressure: 127/86 - Pulse Pulse Rate: 80 - Hypertension Blood Pressure Sitting - Left Arm: 127/86 - Stress Stress: Recent - Blood Cholesterol/Lipids Total Cholesterol (mg/dL) Goal = less than 200 mg/dL: 118 HDL Cholesterol (mg/dL) Goal = less than 40 mg/dL: 51 LDL Cholesterol (mg/dL) Goal = less than 70 mg/dL: 52 Triglycerides (mg/dL) Goal = less than 150 mg/dL: 75 - Diabetes Nutrition Referral for Diabetes: No - Obesity Height: 5 ft 9 in Weight:: 160 lb Weight in Pounds: 160.0 lbs Weight Source: Standing Scale Body Mass Index (BMI): 23.6 Nutritional Referral for Obesity: No - Physical Inactivity Physical Inactivity: Recreational activity - Risk Stratification Risk Guidelines: Lowest Risk: Risk Factor for Smoking, Risk Factor for Diabetes, Risk Factor for Obesity, Risk Factor for Sedentary Lifestyle, Moderate Risk: Risk Factor for Hypertension, Risk Factor for Depression - Family History Family History: Family History (Last Reviewed 02/18/21 @ 15:11 by Jimbo Baker NP, HORTICULTURE SUPERINTENDENT-C) Father Heart disease Valvular heart disease Motivation - Motivation to Participate On a scale of 1 to 10, how prepared are you to commit to attending program?: 7 What do you see as barriers to successfully being able to complete the program?: none What do you see as the benefits of succesfully completing the program? In other words, what do you hope to get out of participating in the program?: getting stronger and healthier Are there issues you are dealing with that will interfere with completing the program?: Cataract surgery is scheduled 04/07/2021 planned on starting 04/19/2021. Do you have a spouse or signficant other, family or friends who will help support you to complete the program?: yes
[2021-03-16 09:25] VITALS: BP 127/86; BMI 23.6
[2021-03-16 09:51] VITALS: BP 127/86; PULSE 80; RESP 18; TEMP 36.4; O2SAT 97; BMI 23.6
== END ==
PROVIDERS: PCP Internal Medicine; Referring Provider Internal Medicine Cardiovascular Disease; Visit Provider Internal Medicine Cardiovascular Disease
DX: I51.81 Takotsubo syndrome (principal); I25.2 Old myocardial infarction; I10 Essential (primary) hypertension; E78.2 Mixed hyperlipidemia

== ENCOUNTER 2021-05-03 10:30 | Outpatient (RCR) | payer MEDICARE, OTHER, SELFPAY ==
[2021-03-16 09:25] VITALS: BMI 23.6
== END 2021-05-03 23:59 ==
LOC: CR 10:30
PROVIDERS: PCP Internal Medicine; Referring Provider Internal Medicine Cardiovascular Disease; Visit Provider Internal Medicine Cardiovascular Disease
DX: I51.81 Takotsubo syndrome (principal); I25.2 Old myocardial infarction
CPT/HCPCS: 93798

== ENCOUNTER 2021-05-11 08:55 | Outpatient (CLI) | payer MEDICARE, OTHER, SELFPAY ==
[2021-03-16 09:25] VITALS: BMI 23.6
--- NOTE | 2021-05-11 08:57 | ECHOL_ITS ---
Reason For Study: CHF Procedure This was a limited 2D transthoracic echocardiogram. Myocardial strain analysis was performed in this exam to aid in the assessment of cardiac function. Limited views were obtained. Exam performed in department. Left Ventricle Normal LV size. Left ventricular systolic function is normal. The estimated ejection fraction is 55 %. Unable to assess diastolic dysfunction. No regional wall motion abnormalities noted. Right Ventricle Normal RV size. Normal systolic function. Mitral Valve There is mild mitral annular calcification. Mild diffuse mitral valve thickening. Equivocal mitral valve prolapse, posterior leaflet. Tricuspid Valve Normal tricuspid valve. Mild tricuspid valve insufficiency. Right ventricular systolic pressure estimated to be 27 mmHg. Aortic Valve The aortic valve is not well visualized. Pulmonic Valve The pulmonic valve is not well visualized. Pericardium/Pleural No pericardial effusion. MMode/2D Measurements & Calculations LVIDd: 3.7 cm IVSd: 0.97 cm LVAd ap4: 25.9 cm2 LVIDs: 2.5 cm LVPWd: 0.97 cm LVLd ap4: 7.6 cm FS: 30.8 % EDV(MOD-sp4): 75.6 ml EDV(sp4-el): 75.0 ml LVAs ap4: 15.1 cm2 LVLs ap4: 6.7 cm ESV(MOD-sp4): 29.3 ml ESV(sp4-el): 29.0 ml EF(MOD-sp4): 61.2 % EF(sp4-el): 61.4 % SV(MOD-sp4): 46.3 ml SV(sp4-el): 46.1 ml Doppler Measurements & Calculations TR max payal: 247.0 cm/sec TR max P.4 mmHg ECHO/Echo, Limited Study Interpretation Summary Limited views were obtained. Left ventricular systolic function is normal. The estimated ejection fraction is 55 %. There is mild mitral annular calcification. Mild diffuse mitral valve thickening. Equivocal mitral valve prolapse, posterior leaflet Mild tricuspid valve insufficiency. Right ventricular systolic pressure estimated to be 27 mmHg. Unable to assess diastolic dysfunction. Ordering Physician: Jimbo Baker/Elvin Pretty Referring Physician: KUNAL MCGILL Performed By: Subha Dixon RDCS
== END 2021-05-11 23:59 | disposition home or self-care (01) ==
LOC: CVS 08:56
PROVIDERS: PCP Internal Medicine; Referring Provider Nurse Practitioner Family; Visit Provider Nurse Practitioner Family
DX: R06.00 Dyspnea, unspecified (principal); I51.81 Takotsubo syndrome
CPT/HCPCS: 93308

== ENCOUNTER 2021-05-31 10:30 | Outpatient (RCR) | payer MEDICARE, OTHER, SELFPAY ==
[2021-03-16 09:25] VITALS: BMI 23.6
--- NOTE | 2021-05-14 09:22 | CR.ITP_ITS ---
Diagnosis Exercise - 30-day Assessment - Visit Date of Eval: 05/14/21 Session #:: 9 - Physician Prescribed Exercise Modalities: Treadmill, Airdyne, NuStep Frequency: 3x/week for 12 weeks [36 sessions] Intensity: 60-80% of age predicted maximum heart rate reserve Current METSs:: 5.0 Target Heart Rate:: 93-122 Current RPE:: 13-14 Maximum Excercise HR:: 127 Resting Blood Pressure: 132/80 - Resting BPs >130/80 EKG Type: Sinus Rhythm to sinus tach with rare PAC Current Physical Activity or Exercising minutes: 40:40 - Outcomes & Goals Goals:: Verbalizes understanding of THR, RPE & goal METS by session 6, Documents in home exercise log/reports 30 min aerobic 5 day/wk by DC, Demonstrates accurate pulse taking by DC - Intervention & Plan Exercise Program Goals: Instruct on personal THR & RPE, Instruct on MET level & personal MET goal, Show patient to take own pulse /validate performance until accurate, Instruct on home exercise - 30-day Reassessments 30 day Reassessments:: Progressing - Physical Activity Home Exercise Physical Activity - Home Exercise: Safe Exercise, Warm-up, Self-monitoring, Cool-Down, Home Exercise > 30 min Daily, Sitting Time <3 hours/daily - Outcomes & Goals Outcomes/Goals: Demonstrates correct Warm-up/exercise Cool-Down (S3) if = 2.5 METs, Verbalizes symptoms of exercise intolerance by Session 3 (S3), Demonstrate safe equipment use (S3) & follows exercise prescrition (6) - Intervention & Plan Plan/Intervention: Instruct warm-up & cool-down if exercising at > 2 METs, Instruct on symptoms of exercise intolerance & actions to take, Instruct & monitor on saf, Assess intial functional capacity & safety risk - 30-day Reassessments 30 day Reassessments:: Progressing Nutrition - Initial Assessment Nutrition - 30-Day Assessment - Program Goals Nutrition Program Goals: LDL <100 optimal. 100 - 129 Near optimal. 130 - 159 Borderline High. 160 - 189 High. Total Cholesterol <200 desirable. 200 - 239 Borderline High. >/= 240 High. HDL < 40 Low >/=60 High. Triglycerides <150 desirable. <199 optimal. VlDL 5 - 40. HgbA1C <7%. BMI <25 Patient has diagnosis of Hyperlipidemia (ICD E78)?: Yes - Visit Date of Assessment:: 05/14/21 Session #:: 10 - Cholesterol/Lipids Triglycerides (mg/dL): 75 Total Cholesterol (mg/dL): 118 LDL Cholesterol (mg/dL): 52 HDL Cholesterol (mg/dL): 51 Determine presence & major risk factors that modify LDL goal: Hypertension or hypertensive medication, Age men > 45 years; women >/= 55 years Outcomes/Goals: Pt IDs own risk factors & lifestyle modifications by Session 10, Verbalizes symptoms of angina & response by session 3., Pt independently manages Intervention/Plan: Instruct on personal lipid levels & lipid goals/NCEP guidelines, Instruct on cholesterol Referral to dietitian:: Yes - Medical Nutrition Therapy 30-day Reassessments:: Progressing - Diabetes (Other Core Measures) Diabetes Type: Not Applicable - Weight Mgt (Other Care) Not Applicable: Yes Height: 5 ft 9 in Weight:: 157 lb BMI: 23.1 Diagnosis Overweight/Obesity BMI> 30% ICD-10 E66: No Diagnosis High BMI/Morbid Obesity BMI> 35% ICD-10 Z68: No Outcomes/Goals: Pt sets, maintains & shows weight loss goal & trend during rehab Intervention/Plan: Instruct on ideal BMI & set weight loss goal w/patient 30 day Reassessments:: Met - Healthy Eating Habits Will attend diet classes:: Yes Outcomes/Goals:: Consume diet rich in vegs,fruits,whole grain/high fiber,fish,lean meat, Limit sat/trans fats,cholesterol & added salts & sugars Intervention/Plan:: Assess current eating habits 30-day Reassessments:: Met - Education Gave educational materials for:: Healthy eating Nutrition - 60-Day Assessment Nutrition - 90-Day Assessment Nutrition - Final Assessment Medical - Initial Assessment Medical- 30-Day Assessment - Visit Date of Eval: 05/14/21 Session #:: 10 - Medication Compliance Preventative Medication(s):: Aspirin, Beta john H/O mental health issues: depression, anxiety, or addiction?: No Doesn?t believe in the benefits of treatment?: No Believes medications are unnecessary or harmful?: No Has a concern about medication side effects?: No Expresses concern over the cost of medications?: No Outcomes/Goals: Verbalizes medications,desired effect & common side effects @ DC, Pt self-reports following medication regimen, Keeps card in wallet w/medications listed by DC Interventions/plans: Instruct on medication effects & side effects, Review medication list w/patient every two weeks, Instruct importance of taking meds as ordered & assist problem solving 30-day Reassessments:: Progressing - Tobacco Use Tobacco Use: Non-smoker - Hypertension Hypertension Diagnosis:: Hypertension ICD-10 I10 Resting Blood Pressure:: 144/85 [place] [employer] Hypertension Guidelines: [place] [employer] Hypertension Guidelines. Normal BP Less than 120/80. Elevated BP 120/80. Hypertension Stage 1: BP 130-139/80-89. Hypertesnion Stage 2: BP 140 or higher/90 or higher. Hypertension Crisis: BP higher than 180/120 Peak Exercise Blood Pressure:: 160/84 Outcomes/Goals: Able to verbalize/achieve optimal blood pressure <130/80, Incorporates diet changes & exercise for blood pressure control by DC Interventions/plan: Instruct on optimal blood pressure, hypertension & medications, Instruct on effects of sodium, alcohol, stress, exercise &hypertension 30 day Reassessments:: Progressing - Tobacco Cessation Referral Smoking Cessation Referral:: No Individual Education/Counseling:: No Education Schedule Given:: Yes Medical- 60-Day Assessment Medical- 90-Day Assessment Medical - Final Assessment Psychosocial - Initial Assess Psychosocial - 30-Day Assess - VIsit Date of Eval: 05/14/21 Session #:: 10 Not Applicable: Yes History of previous Mental disease:: No - Psychosocial Test Tool Used:: PHQ-9 Questionnaire phq-9 Severity: Severity. 1-4 Minimal Depression. 5-9 Mild Depression. 10-14 Moderate Depression. 15-19 Moderately Sever Depression. 20-27 Severe Depression. Rule: - Referral to Behavioral Health PS - Interventions: Yes Attend Stress Management Classes, No Referral to Behavioral Health if PHQ-9 score >9:, No Referral to [facility], No Referral to Physician if PHQ-9 if score is 5-9: - Outcomes/Goals: See list Psychosocial Outcomes/Goals:: ID's personal stressors & 2 strategies to manage stress by discharge - Intervention/Plan: See List Interventions/Plan:: Assess stressors,coping strategies & signs of derpression on admission, Instruct/assist pt to develop coping & personal stress Mgt strategies, Instruct patient to recognize signs & symptoms of depression, Instruct patient to recog - 30-day Reassessments: 30 day Reassessments:: Progressing Psychosocial - 60-Day Assess Psychosocial - 90-Day Assess Psychosocial - Final Assessmen Patient Health Questionnaire 30-Day Re-eval Assessment 1. Little interest or pleasure in doing things: Not at all 2. Feeling down, depressed, or hopeless: Several days 3. Trouble falling or staying asleep, or sleeping too much: Not at all 4. Feeling tired or having little energy: More than half the days 5. Poor appetite or overeating: Not at all 6. Feeling bad about yourself -- or that you are a failure or have let yourself or your family down: Several days 7. Trouble concentrating on things, such as reading the newspaper or watching television: Not at all 8. Moving or speaking so slowly that other people could have noticed. Or the opposite - being so fidgety or restless that you have been moving around a lot more than usual: Not at all 9. Thoughts that you would be better off , or of hurting yourself in some way: Not at all How difficult have these problems made it for you to do your work, take care of things at home, or get along with other people?: Somewhat difficult Total Score: 4 Self-Efficacy 30-Day Re-eval Assessment We would like to know how confident you are in doing certain activities. Please select your confidence level for:: Select your confidence level for the following using the scale 1-10 where 1 is not at all confident and 10 is totally confident. Your score is the average of all 6 responses. Fatigue: How confident are you that you can keep the fatigue caused by your disease from interfering with the things you want to do? Select Number: 3 Physical Discomfort or Pain: How confident are you that you can keep the physical discomfort or pain of your disease from interfering with the things you want to do? Select Number: 4 Emotional Distress: How confident are you that you can keep the emotional distress caused by your disease from interfering with the things you want to do? Select Number: 5 Other Symptoms or Health Problems: How confident are you that you can keep other symptoms or health problems from interfering with the things you want to do? Select Number: 4 Different Tasks and Activities: How confident are you that you can do the different tasks and activities needed to manage your health condition so as to reduce your need to see a doctor? Select Number: 6 Medication: How confident are you that you can do things other than just taking medication to reduce how much your illness affects your everyday life? Select Number: 7 Total Score:: 4 Nutrition Survey
[2021-05-14 09:39] VITALS: BP 132/80; BP 144/85; BP 160/84; BMI 23.1
== END 2021-05-31 23:59 ==
LOC: CR 10:30
PROVIDERS: PCP Internal Medicine; Referring Provider Internal Medicine Cardiovascular Disease; Visit Provider Internal Medicine Cardiovascular Disease
DX: I21.4 Non-ST elevation (NSTEMI) myocardial infarction (principal); I51.81 Takotsubo syndrome
CPT/HCPCS: 93798

== ENCOUNTER 2021-06-30 10:30 | Outpatient (RCR) | payer MEDICARE, OTHER, SELFPAY ==
[2021-05-14 09:39] VITALS: BMI 23.1
[2021-06-01 00:14] VITALS: BP 132/80; BP 144/85; BP 160/84
--- NOTE | 2021-06-11 12:42 | CR.ITP_ITS ---
Diagnosis Exercise - 90-day Assessment - Visit Date of Eval: 06/11/21 Session #:: 21 - Physician Prescribed Exercise Modalities: Treadmill, Airdyne, NuStep, SciFit Frequency: 3x/week for 12 weeks [36 sessions] Intensity: 60-80% of age predicted maximum heart rate reserve Target Heart Rate:: 93-122 Current RPE:: 12-14 Maximum Excercise HR:: 107 Resting Blood Pressure: 118/64 Maximum Exercise Blood Pressure: 134/88 EKG Type: Sinus rhythm to sinus tach with rare PAC isolated PVC - Outcomes & Goals Goals:: Verbalizes understanding of THR, RPE & goal METS by session 6, Documents in home exercise log/reports 30 min aerobic 5 day/wk by DC, Demonstrates accurate pulse taking by DC - Intervention & Plan Exercise Program Goals: Instruct on personal THR & RPE, Instruct on MET level & personal MET goal, Show patient to take own pulse /validate performance until accurate, Instruct on home exercise - 30-day Reassessments 30 day Reassessments:: Progressing - Physical Activity Home Exercise Physical Activity - Home Exercise: Safe Exercise, Warm-up, Self-monitoring, Cool-Down, Home Exercise > 30 min Daily, Sitting Time <3 hours/daily - Outcomes & Goals Outcomes/Goals: Demonstrates correct Warm-up/exercise Cool-Down (S3) if = 2.5 ME Ts, Verbalizes symptoms of exercise intolerance by Session 3 (S3), Demonstrate safe equipment use (S3) & follows exercise prescrition (6) - Intervention & Plan Plan/Intervention: Instruct warm-up & cool-down if exercising at > 2 METs, Instruct on symptoms of exercise intolerance & actions to take, Instruct & monitor on saf, Assess intial functional capacity & safety risk - 30-day Reassessments 30 day Reassessments:: Met - Patient has reached her maximal potential. Nutrition - Initial Assessment Nutrition - 30-Day Assessment Nutrition - 60-Day Assessment Nutrition - 90-Day Assessment - Program Goals Nutrition Program Goals: LDL <100 optimal. 100 - 129 Near optimal. 130 - 159 Borderline High. 160 - 189 High. Total Cholesterol <200 desirable. 200 - 239 Borderline High. >/= 240 High. HDL < 40 Low >/=60 High. Triglycerides <150 desirable. <199 optimal. VlDL 5 - 40. HgbA1C <7%. BMI <25 Patient has diagnosis of Hyperlipidemia (ICD E78)?: Yes - Visit Date of Assessment:: 06/11/21 Session #:: 21 - Cholesterol/Lipids Triglycerides (mg/dL): 75 Total Cholesterol (mg/dL): 118 LDL Cholesterol (mg/dL): 52 HDL Cholesterol (mg/dL): 51 Determine presence & major risk factors that modify LDL goal: Hypertension or hypertensive medication, Family history of premature CHD in Male < 55 years: female <65 yearsFa, Age men > 45 years; women >/= 55 years Outcomes/Goals: Pt IDs own risk factors & lifestyle modifications by Session 10, Verbalizes symptoms of angina & response by session 3., Pt independently manages Intervention/Plan: Instruct on personal lipid levels & lipid goals/NCEP guidelines, Instruct on cholesterol Referral to dietitian:: No - Patient declined 30-day Reassessments:: Progressing - Diabetes (Other Core Measures) Diabetes Type: Not Applicable - Weight Mgt (Other Care) Height: 5 ft 9 in Weight:: 156 lb BMI: 23.0 Diagnosis Overweight/Obesity BMI> 30% ICD-10 E66: No Diagnosis High BMI/Morbid Obesity BMI> 35% ICD-10 Z68: No Outcomes/Goals: Pt sets, maintains & shows weight loss goal & trend during rehab Intervention/Plan: Instruct on ideal BMI & set weight loss goal w/patient 30 day Reassessments:: Met - Healthy Eating Habits Will attend diet classes:: Yes Outcomes/Goals:: Consume diet rich in vegs,fruits,whole grain/high fiber,fish,lean meat, Limit sat/trans fats,cholesterol & added salts & sugars 30-day Reassessments:: Met - Education Gave educational materials for:: Healthy eating Nutrition - Final Assessment Medical - Initial Assessment Medical- 30-Day Assessment Medical- 60-Day Assessment Medical- 90-Day Assessment - Visit Date of Eval: 06/11/21 Session #:: 21 - Medication Compliance Preventative Medication(s):: Aspirin, Statin/lipid, Beta john H/O mental health issues: depression, anxiety, or addiction?: No Doesn?t believe in the benefits of treatment?: No Believes medications are unnecessary or harmful?: No Has a concern about medication side effects?: No Expresses concern over the cost of medications?: No Outcomes/Goals: Verbalizes medications,desired effect & common side effects @ DC, Pt self-reports following medication regimen, Keeps card in wallet w/medications listed by DC Interventions/plans: Instruct on medication effects & side effects, Review medication list w/patient every two weeks, Instruct importance of taking meds as ordered & assist problem solving 30-day Reassessments:: Met - Tobacco Use Tobacco Use: Non-smoker - Hypertension Hypertension Diagnosis:: Hypertension ICD-10 I10 Resting Blood Pressure:: 118/64 [place] [employer] Hypertension Guidelines: [place] [employer] Hypertension Guidelines. Normal BP Less than 120/80. Elevated BP 120/80. Hypertension Stage 1: BP 130-139/80-89. Hypertesnion Stage 2: BP 140 or higher/90 or higher. Hypertension Crisis: BP higher than 180/120 Peak Exercise Blood Pressure:: 132/88 Outcomes/Goals: Able to verbalize/achieve optimal blood pressure <130/80, Incorporates diet changes & exercise for blood pressure control by DC Interventions/plan: Instruct on optimal blood pressure, hypertension & medications, Instruct on effects of sodium, alcohol, stress, exercise &hypertension 30 day Reassessments:: Progressing - Tobacco Cessation Referral Smoking Cessation Referral:: No Individual Education/Counseling:: No Education Schedule Given:: Yes Medical - Final Assessment Psychosocial - Initial Assess Psychosocial - 30-Day Assess Psychosocial - 60-Day Assess Psychosocial - 90-Day Assess - VIsit Date of Eval: 06/11/21 Session #:: 21 Not Applicable: Yes History of previous Mental disease:: No - Psychosocial Test Tool Used:: PHQ-9 Questionnaire phq-9 Severity: Severity. 1-4 Minimal Depression. 5-9 Mild Depression. 10-14 Moderate Depression. 15-19 Moderately Sever Depression. 20-27 Severe Depression. Rule: - Referral to Behavioral Health PS - Interventions: Yes Attend Stress Management Classes, No Referral to Behavioral Health if PHQ-9 score >9:, No Referral to [facility], No Referral to Physician if PHQ-9 if score is 5-9: - Outcomes/Goals: See list Psychosocial Outcomes/Goals:: ID's personal stressors & 2 strategies to manage stress by discharge - Intervention/Plan: See List Interventions/Plan:: Assess stressors,coping strategies & signs of derpression on admission, Instruct/assist pt to develop coping & personal stress Mgt strategies, Instruct patient to recognize signs & symptoms of depression, Instruct patient to recog - 30-day Reassessments: 30 day Reassessments:: Met Psychosocial - Final Assessmen Patient Health Questionnaire 90-Day Re-eval Assessment 1. Little interest or pleasure in doing things: Not at all 2. Feeling down, depressed, or hopeless: Not at all 3. Trouble falling or staying asleep, or sleeping too much: Not at all 4. Feeling tired or having little energy: Not at all 5. Poor appetite or overeating: Not at all 6. Feeling bad about yourself -- or that you are a failure or have let yourself or your family down: Not at all 7. Trouble concentrating on things, such as reading the newspaper or watching television: Not at all 8. Moving or speaking so slowly that other people could have noticed. Or the opposite - being so fidgety or restless that you have been moving around a lot more than usual: Not at all 9. Thoughts that you would be better off , or of hurting yourself in some way: Not at all How difficult have these problems made it for you to do your work, take care of things at home, or get along with other people?: Not difficult at all Total Score: 0 Self-Efficacy 90-Day Re-eval Assessment We would like to know how confident you are in doing certain activities. Please select your confidence level for:: Select your confidence level for the following using the scale 1-10 where 1 is not at all confident and 10 is totally confident. Your score is the average of all 6 responses. Fatigue: How confident are you that you can keep the fatigue caused by your disease from interfering with the things you want to do? Select Number: 5 Physical Discomfort or Pain: How confident are you that you can keep the physical discomfort or pain of your disease from interfering with the things you want to do? Select Number: 6 Emotional Distress: How confident are you that you can keep the emotional distress caused by your disease from interfering with the things you want to do? Select Number: 7 Other Symptoms or Health Problems: How confident are you that you can keep other symptoms or health problems from interfering with the things you want to do? Select Number: 6 Different Tasks and Activities: How confident are you that you can do the different tasks and activities needed to manage your health condition so as to reduce your need to see a doctor? Select Number: 8 Medication: How confident are you that you can do things other than just taking medication to reduce how much your illness affects your everyday life? Select Number: 9 Total Score:: 6 Nutrition Survey
[2021-06-11 12:52] VITALS: BP 118/64; BP 132/88; BMI 23.0
== END 2021-07-01 23:59 | disposition home or self-care (01) ==
LOC: CR 10:30
PROVIDERS: PCP Internal Medicine; Referring Provider Internal Medicine Cardiovascular Disease; Visit Provider Internal Medicine Cardiovascular Disease
DX: I51.81 Takotsubo syndrome (principal); I21.4 Non-ST elevation (NSTEMI) myocardial infarction
CPT/HCPCS: 93798

== ENCOUNTER 2021-07-16 10:30 | Outpatient (RCR) | payer MEDICARE, OTHER, SELFPAY ==
[2021-06-11 12:52] VITALS: BMI 23.0
[2021-07-02 00:18] VITALS: BP 118/64; BP 132/88
== END 2021-07-31 23:59 ==
LOC: CR 10:30
PROVIDERS: PCP Internal Medicine; Referring Provider Internal Medicine Cardiovascular Disease; Visit Provider Internal Medicine Cardiovascular Disease
DX: I51.81 Takotsubo syndrome (principal); I25.2 Old myocardial infarction
CPT/HCPCS: 93798

== ENCOUNTER 2021-09-29 10:00 | Outpatient (RCR) | payer MEDICARE, OTHER, SELFPAY ==
[2021-06-11 12:52] VITALS: BMI 23.0
--- NOTE | 2021-08-20 16:26 | HP.PTEVAL_ITS ---
Patient's Visit Information BARON BURNS is a 76 year old F referred to Physical Therapy by Dr. Salvador Dudley MD with a diagnosis of JAMSHID KNEE OA. Date of Evaluation: 08/20/21 Physical Therapist: Ashanti Pastor PT, Cert MDT - Visit Plan Frequency: 2-3x /Week Duration: 4-6 Weeks Plan: GAIT TRAINING AND RIGHT LE ROM, STRETCHING AND STRENGTHENING WITH WRITTEN HEP IN PREPARATION FOR R TKR 10/11/21. - Subjective Work/Leisure: RETIRED. Present symptoms: RIGHT KNEE. NO NUMBNESS OR TINGLING. NO SWELLING. Present since: ABOUT 5 YEARS. Pain Scale: WORST 5/10, LEAST 0/10. Currently: 0/10. Commenced as a result of: ARTHRITIS. Symptoms at onset: R KNEE PAIN. Worse: HIKING, WALKING FAST, STEPPING DOWN ON IT. Better: SITTING. Disturbed sleep: NOT RECENTLY. Previous history/Previous treatment: PHYSICAL THERAPY - [place]. INJECTIONS. CORTISONE SHOT APR 2021. EVERYTHING HELPS A LITTLE, BUT NOT ENOUGH. Gait: PATIENT REPORTS HER RIGHT KNEE PAIN DEFINATELY SLOWS HER DOWN. USES A HIKING STICK WHEN HIKING. Accidents: NO. Unexplained weight loss: NO. Imaging: RECENT RIGHT KNEE X- RAY REVEALING DEGENERATION ON THE INSIDE OF HER KNEE PER PATIENT REPORT. PMH/Recent major surgery: JAN 2021 - CARDIAC EVENT - NO STENTS - TREATED WITH MEDICATION AND CARDIAC REHAB FOR 3 MONTHS. 2013 THROMBOSIS. HIGH CHOLESTEROL. OTHER: PATIENT HAS R TKR PENDING 10/11/21. - Objective GAIT: THIS PATIENT AMBULATES INDEP'LY INTO PT TODAY WITHOUT ANY AD'S, DECREASED CADANCE AND A MILD LIMP ON THE RLE. NO LOB. Girth R Patella: 41 cm. Girth 6 inch suprapatella 45 cm. R knee flexion AROM: 131 degress. R knee ext AROM: - 15 DEG. R knee flex MMT; 4/5. R knee ext MMT 3-/5. R HIP MMT 4/5. R ANKLE MMT 5/5. Sensory deficit: R LE LIGHT TOUCH SENSATION INTACT. OTHER: ROM deficit: DECREASED LEFT ANKLE DORSIFLEXION. PATIENT REPORTS THIS IS CHRONIC. - Balance/Special Test Scores Lower Extremity Functional Score: 51 TUG Test Time Seconds: 12.44 30 Second Chair Rise Test Seconds: 9 - Goals Goal 1:: PATIENT WILL BE INDEP IN PROPER USE OF CANE AND WALKER ON LEVEL SURFACES AND UP AND DOWN STEPS IN PREPARATION FOR POST SURGERY. Goal Time Frame: 4-6 Weeks Goal 2:: PATIENT WILL BE INDEP WITH A HEP FOR PREPARATION FOR R TKR PENDING 10/11/21. Goal Time Frame: 4-6 Weeks - Anticipated Interventions Patient/Client Instruction: Educate patient on: Condition, Plan of Care, Risk Factors For the Purpose of:: To improve self management Therapeutic Exercise to Include: Strength training, Flexibilty training, Gait and locomotor training For the Purpose of:: To improve muscle performance and motor function, To increase tolerance to activity/condition/position, To improve ability of physical actions for home/community/work/leisure, To improve gait and locomotor functions Thank you for the opportunity to evaluate your patient. For Medicare and Medicare HMO plans, please review the plan of care and approve it. It will need to be FAXED BACK to us at [phone] for Medicare purposes. For Medicare only, by signing this I certify the plan of care. Please let me know if there are questions or concerns regarding this plan of care. Physician Signature: Date:
--- NOTE | 2021-09-29 10:33 | HP.PTDCSUM ---
It has been my pleasure to treat BARON BURNS referred by Dr. Salvador Dudley MD, with the diagnosis of JAMSHID KNEE OA (Prehab for Right TKR) for a total of 11 visit(s). Discharge Date: Please see the following information for a summary of their discharge status. Subjective: PATIENT REPORTS HAVING PRE-OP TKR [place] YESTERDAY. WAS TAUGHT HOW TO USE A WALKER. PATIENT REPORTS SHE FEELS STRONGER SINCE DOING THIS EPISODE OF CARE WITH PT. % Improvement: 70 Objective/Function: PATIENT WAS SEEN TODAY FOR RE-ASSESSMENT OF PROGRESS TOWARD THE SET PT GOALS AND THE NEED FOR FURTHER PHYSICAL THERAPY VS READINESS FOR DISCHARGE. ALL GOALS MET. PATIENT IS APPROPRIATE FOR DISCHARGE TO [facility]. UPON EXAM TODAY: Girth R Patella: 41 cm. Girth 6 inch suprapatella 45 cm. R knee flexion AROM: 135 degress. R knee ext AROM: -12 DEG. R knee flex MMT; 4/5. R knee ext MMT 3-/5. R HIP MMT 4/5. R ANKLE MMT 5/5 Goal 1:: PATIENT WILL BE INDEP IN PROPER USE OF CANE AND WALKER ON LEVEL SURFACES AND UP AND DOWN STEPS IN PREPARATION FOR POST SURGERY. Goal Progress: Goal Met Goal 2:: PATIENT WILL BE INDEP WITH A HEP FOR PREPARATION FOR R TKR PENDING 10/11/21. Goal Progress: Goal Met Plan: D/C TO INDEP EX PROGRAM. PATIENT IS AGREEABLE. If there are questions or concerns regarding this patient's physical therapy, please feel free to call me at [phone]. Thank you for the referral of this patient. Sincerely, Ashanti Pastor, PT, Cert MDT Balance/Gait/Functional tests - Balance/Special Test Scores Lower Extremity Functional Score: 46 TUG Test Time Seconds: 9.98 Tug Test: <10 sec.=free mobile 30 Second Chair Rise Test Seconds: 11
== END 2021-09-29 13:31 | disposition home or self-care (01) ==
LOC: PT 10:00
PROVIDERS: PCP Internal Medicine; Referring Provider Orthopaedic Surgery; Visit Provider Orthopaedic Surgery
DX: M17.0 Bilateral primary osteoarthritis of knee (principal)
CPT/HCPCS: 97110; 97140; 97162; 97164

== ENCOUNTER 2021-12-24 10:00 | Outpatient (RCR) | payer MEDICARE, OTHER, SELFPAY ==
[2021-06-11 12:52] VITALS: BMI 23.0
--- NOTE | 2021-11-01 12:19 | HP.PTEVAL_ITS ---
Patient's Visit Information BARON BURNS is a 76 year old F referred to Physical Therapy by Dr. Janiya Marquez MD with a diagnosis of R TKA 10/11/21. Date of Evaluation: 11/01/21 Physical Therapist: Ramiro Mcginnis PT, ATC - Visit Plan Frequency: 2-3x /Week Duration: 4-6 Weeks Plan: R knee PROM/mobs, stretching and strengthening, balance and proprio, core strengthening, bike, and HEP - Subjective DOS: 10/11/21. Pt had a R TKA performed at that time. Pt reports she didnt really have a lot of pain prior to the surgery, but notes she is an avid hiker and walker, and was very limited with her mobility until deciding to have the surge ry. Pt reports she had 2 weeks of at home therapy before coming here to day which was very beneficial. Pt denies any tingling or numbness at this time. Pt notes she lives in a 2 story house and has to negotiate her stairs one step at a time. Pt notes sleep difficulty at this time. Pt reports her L knee is a little sore today, but notes she does have degenerative changes in L knee. Pt is retired at this time. 0/10 pain at worst, 5/10 pain at worst (when she is trying to bend her R knee) - Pain R knee Pain Intensity (Out of 10): 0 Pain Intensity Range: 5 - Objective Neuro: B LE sensation is WNL to light touch. Unable to obtain reflexes. Girth at joint line: L knee 38.5 cm, R knee 42 cm. ROM: L knee 0-12-130, R knee 0-24-88. MMT: L knee ext= 23, flex= 20 #F; R knee flex= 11, ext=12 #F. TU sec - Balance/Special Test Scores Lower Extremity Functional Score: 28 - Goals Goal 1:: Decrease R knee pain x 50% to aid with sleep Goal Time Frame: 4-6 Weeks Goal 2:: Increase R knee ROM x 40 degrees to aid with restoring a more normalized gait paittern Goal Time Frame: 4-6 Weeks Goal 3:: Increase R knee strength x 5-10 #F to aid with stair negotiation Goal Time Frame: 4-6 Weeks Goal 4:: I with HEP Goal Time Frame: 4-6 Weeks - Rehabilitation Potential Physical Therapy Diagnosis: Pt has R knee pain, weakness, and limited ROM secondary to R TKA Rehabilitation Potential: Good - Anticipated Interventions Patient/Client Instruction: Educate patient on: Condition, Plan of Care For the Purpose of:: To improve self management Therapeutic Exercise to Include: Strength training, Endurance training, Balance training, Flexibilty training, Gait and locomotor training, Passive ROM, Active ROM, Dynamic Lumbar Stabilization For the Purpose of:: To decrease pain, To increase ROM, To improve muscle performance and motor function Cryotherapy (ice pack, ice massage): Yes For the Purpose of:: To decrease pain Thank you for the opportunity to evaluate your patient. For Medicare and Medicare HMO plans, please review the plan of care and approve it. It will need to be FAXED BACK to us at [phone] for Medicare purposes. For Medicare only, by signing this I certify the plan of care. Please let me know if there are questions or concerns regarding this plan of care. Physician Signature: Date:
--- NOTE | 2021-11-22 14:42 | HP.PTREVAL ---
SAL ROSAS, It has been my pleasure to treat BARON BURNS over the last 10 visits for R TKA 10/11/21. Please see the progress note below for an update on the physical therapy plan of care! Subjective: I am a little ouchie today Objective/Function: R knee pain is 2/10, and hasn't exceeded that level over the past week. R knee ROM: 0-15-96 degrees. R knee MMT: flex= 26, ext= 31 #F\. Pt is making significant gains with strength and pain. Still lagging on ROM Plan Plan: Focus Rx on ROM mostly at this time Balance/Gait/Functional tests - Balance/Special Test Scores Lower Extremity Functional Score: 55 Goals Goal 1:: Decrease R knee pain x 50% to aid with sleep Goal Time Frame: 4-6 Weeks Goal Progress: Goal Met Goal 2:: Increase R knee ROM x 40 degrees to aid with restoring a more normalized gait paittern Goal Time Frame: 4-6 Weeks Goal Progress: Progressing Goal 3:: Increase R knee strength x 5-10 #F to aid with stair negotiation Goal Time Frame: 4-6 Weeks Goal Progress: Goal Met Goal 4:: I with HEP Goal Time Frame: 4-6 Weeks Goal Progress: Progressing Anticipated Interventions Patient/Client Instruction: Educate patient on: Condition, Plan of Care For the Purpose of:: To improve self management Therapeutic Exercise to Include: Strength training, Endurance training, Balance training, Flexibilty training, Gait and locomotor training, Passive ROM, Active ROM, Dynamic Lumbar Stabilization For the Purpose of:: To decrease pain, To increase ROM, To improve muscle performance and motor function Cryotherapy (ice pack, ice massage): Yes For the Purpose of:: To decrease pain Please do not hesitate to contact me at [phone] by phone or if you have questions or concerns regarding this new plan of care! Sincerely, Ramiro Mcginnis, PT, ATC
--- NOTE | 2021-12-24 10:42 | HP.PTREVAL_ITS ---
SAL ROSAS, It has been my pleasure to treat BARON BURNS over the last 24 visits for R TKA 10/11/21. Please see the progress note below for an update on the physical therapy plan of care! Subjective: Pt reports she is ready for discharge. Objective/Function: MMT: flex= 22, ext 30 #F. ROM: 0-10-113. Pain: 0/10. Pt is I with HEP. Rx goals achieved Plan Plan: Discharge to [facility] Balance/Gait/Functional tests - Balance/Special Test Scores Lower Extremity Functional Score: 53 Goals Goal 1:: Decrease R knee pain x 50% to aid with sleep Goal Time Frame: 4-6 Weeks Goal Progress: Goal Met Goal 2:: Increase R knee ROM x 40 degrees to aid with restoring a more normalized gait paittern Goal Time Frame: 4-6 Weeks Goal Progress: Goal Met Goal 3:: Increase R knee strength x 5-10 #F to aid with stair negotiation Goal Time Frame: 4-6 Weeks Goal Progress: Goal Met Goal 4:: I with HEP Goal Time Frame: 4-6 Weeks Goal Progress: Goal Met Anticipated Interventions Patient/Client Instruction: Educate patient on: Condition, Plan of Care For the Purpose of:: To improve self management Therapeutic Exercise to Include: Strength training, Endurance training, Balance training, Flexibilty training, Gait and locomotor training, Passive ROM, Active ROM, Dynamic Lumbar Stabilization For the Purpose of:: To decrease pain, To increase ROM, To improve muscle performance and motor function Cryotherapy (ice pack, ice massage): Yes For the Purpose of:: To decrease pain Please do not hesitate to contact me at [phone] by phone or if you have questions or concerns regarding this new plan of care! Sincerely, Ramiro Mcginnis, PT, ATC
--- NOTE | 2022-03-09 15:57 | HP.PTDCSUM ---
It has been my pleasure to treat BARON BURNS referred by SAL ROSAS, with the diagnosis of R TKA 10/11/21 for a total of 24 visit(s). Discharge Date: Please see the following information for a summary of their discharge status. Subjective: Pt reports she is ready for discharge. R knee Pain Intensity (Out of 10): 0 % Improvement: 85 Objective/Function: MMT: flex= 22, ext 30 #F. ROM: 0-10-113. Pain: 0/10. Pt is I with HEP. Rx goals achieved Goal 1:: Decrease R knee pain x 50% to aid with sleep Goal Progress: Goal Met Goal 2:: Increase R knee ROM x 40 degrees to aid with restoring a more normalized gait paittern Goal Progress: Goal Met Goal 3:: Increase R knee strength x 5-10 #F to aid with stair negotiation Goal Progress: Goal Met Goal 4:: I with HEP Goal Progress: Goal Met Plan: Discharge to HEP If there are questions or concerns regarding this patient's physical therapy, please feel free to call me at [phone]. Thank you for the referral of this patient. Sincerely, Ramiro Mcginnis, PT, ATC Balance/Gait/Functional tests - Balance/Special Test Scores Lower Extremity Functional Score: 53
== END 2021-12-24 19:00 | disposition home or self-care (01) ==
LOC: PT 10:00
PROVIDERS: PCP Internal Medicine
DX: M17.11 Unilateral primary osteoarthritis, right knee (principal); Z47.1 Aftercare following joint replacement surgery; T84.82XA Fibrosis due to internal orthopedic prosthetic devices, implants and grafts, initial encounter
CPT/HCPCS: 97110; 97140; 97161; 97164

== ENCOUNTER → 2022-01-14 | Outpatient (CLI) | payer MEDICARE, OTHER, SELFPAY ==
[2021-06-11 12:52] VITALS: BMI 23.0
--- NOTE | 2022-01-14 14:44 | BI_ITS ---
MAMMOGRAPHY - BILATERAL SCREENING REASON FOR EXAM: Female, 76 years old. Routine annual screening examination. PERTINENT HISTORY: Non-contributory. TECHNIQUE: Digital bilateral breast mily (3D mammographic acquisition) in the CC and MLO projections. 2-D mediolateral oblique (MLO) and craniocaudad (CC) views of both breasts were obtained. CAD: Full Field Digital Mammography with Computer Added Detection was performed. COMPARISON: Comparison is made with prior study dated 05/05/2020 and 10/29/2018. FINDINGS: Breast Composition: There are scattered areas of fibroglandular density. There are no dominant masses or suspicious calcifications. Stable small benign-appearing bilateral axillary No other significant abnormalities are identified. There has been no significant change since the prior study. BI/SCRN MAMM (CAD)W/MILY BILAT IMPRESSION: Stable bilateral screening mammogram. Yearly follow-up mammogram recommended. (A) ASSESSMENT CATEGORY: BIRADS Category 2: Benign. A letter regarding these results will be sent to the patient by the facility within 30 days. Approximately 10% of breast cancers are not detected by mammography. A normal mammogram should not delay biopsy of a clinically suspicious abnormality. [id number] Electronically Signed: Omar Villagran MD at 15:39 EDT ,
== END | disposition home or self-care (01) ==
LOC: OPBI 14:42
PROVIDERS: PCP Internal Medicine; Referring Provider Internal Medicine; Visit Provider Internal Medicine
DX: Z12.31 Encounter for screening mammogram for malignant neoplasm of breast (principal)
CPT/HCPCS: 77063; 77067

== ENCOUNTER → 2022-05-17 | Outpatient (CLI) | payer MEDICARE, OTHER, SELFPAY ==
[2021-06-11 12:52] VITALS: BMI 23.0
--- NOTE | 2022-05-17 09:11 | BD_ITS ---
STUDY: DUAL ENERGY X-RAY ABSORPTIOMETRY / DXA REASON FOR EXAM: Female, 77 years old. M810. TECHNIQUE: Bone Mineral Density (BMD) measurements of lumbar spine and bilateral hips were obtained. COMPARISON: Comparison is made with prior study 05/05/2020 and 05/01/2018. FINDINGS: Lumbar Spine (L1-L4): g/cm2 (0.813) / T-score (-2.1) / Z-score (0.4) Findings are suggestive of osteopenia with a high fracture risk. Left Femur Total: g/cm2 (0.758) / T-score (-1.5) / Z-score (0.4) Left Femoral Neck: g/cm2 (0.632) / T-score (-2.0) / Z-score (0.2) Right Femur Total: g/cm2 (0.698) / T-score (-2.0) / Z-score (-0.1) Right Femoral Neck: g/cm2 (0.624) / T-score (-2.0) / Z-score (0.2) The T-Scores on the most recent prior examination were: Lumbar Spine (L1-L4): There has been worsening of bone density since the previous examination. Left Femur Total: which represents a worsening of 0.6%. Right Femur Total: which represents a worsening of 2.6%. BD/Dexa Bone Density Study IMPRESSION: The patient is considered osteopenic as outlined below according to World Paddy Organization (WHO) criteria with a high fracture risk. There has been worsening of bone density since the previous examination. Reference Information: The T-score is the number of standard deviations above or below the standard which is normal for young adults at their peak bone mineral density. The World Health Organization (WHO) interprets the T-scores as follows: Above -1 Normal bone density Between -1 and -2.5 Osteopenia Equal to / or below -2.5 Osteoporosis As a practical clinical guideline, osteopenia may be graded as follows: Mild -1 through -1.5 Moderate -1.6 through -2.0 Severe -2.1 through -2.4 The Z-score is the number of standard deviations above or below age-matched controls. A Z-score of less than -1.5 would be considered abnormal. References: 1. NIH Osteoporosis and Related Bone Diseases www osteo.org 2. International Society for Clinical Densitometry www iscd.org 3. National Osteoporosis Foundation www nof.org Electronically Signed: Omar Villagran MD at 12:26 EST ,
== END | disposition home or self-care (01) ==
LOC: OPBD 09:00
PROVIDERS: PCP Internal Medicine; Referring Provider Internal Medicine; Visit Provider Internal Medicine
DX: Z13.820 Encounter for screening for osteoporosis (principal); Z78.0 Asymptomatic menopausal state; M85.80 Other specified disorders of bone density and structure, unspecified site
CPT/HCPCS: 77080

== ENCOUNTER → 2023-02-08 | Outpatient (CLI) | payer MEDICARE, OTHER, SELFPAY ==
[2021-06-11 12:52] VITALS: BMI 23.0
[2023-02-08 09:04] LABS: Absolute Lymphocyte Count 1.35 X10^3/uL (0.83-4.51); Absolute Neutrophil Count 2.1 X10^3/uL (2.0-7.7); Basophil# 0.04 X10^3/uL; Eosinophil# 0.15 X10^3/uL; Eosinophils% 3.7 % (0-5); Hematocrit 45.2 % (37-47); Hemoglobin 14.8 g/dL (12.0-15.0); Lymphocyte # 1.35 X10^3/ul (0.83-4.51); Lymphocyte % 33.7 % (19-41); Mean Corp Hgb Conc 32.7 g/dL (32-36); Mean Corpuscular Hgb 31.3 pg (27.0-32.0); Mean Corpuscular Volume 95.6 fL (81-99); Mean Platelet Vol. 12.1 fl (6.2-12.0); Monocyte# 0.39 X10^3/uL; Monocyte% 9.7 % (0-10); NRBC Flagged by Analyzer 0 % (0-5); Neutrophil # 2.07 X10^3/uL (2.7-7.7); Neutrophil % 51.7 % (47-70); Platelet Count 194 K/mm3 (150-450); RBC Distribution Width CV 13.6 % (11.6-14.6); RBC Distribution Width SD 48.2 fl (35.1-43.9); Red Blood Count 4.73 M/mm3 (4.2-5.4)
[2023-02-08 09:28] LABS: ALB/GLOB Ratio 1.3 RATIO (0.9-2.4); AST(SGOT) 19 U/L (15-37); Alanine Aminotransfer ALT/SGPT 29 U/L (13-56); Albumin, Serum 3.8 g/dL (3.2-5.0); Alkaline Phosphatase 85 U/L (45-117); Anion Gap 0 (5-15); BUN 18 mg/dL (7-18); BUN/Creat Ratio 25.7 RATIO (10-20); Chloride 105 mmol/L (98-107); Cholesterol 151 mg/dL (200); EST Glomerular Filtration Rate 86 mL/min (>60); Est Glom Filt Rate - Afr Amer 104 mL/min (>60); Glucose 101 mg/dL (74-106); High Density Lipoprotein 67 mg/dL; Potassium 4.1 mmol/L (3.5-5.1); Protein, Total 6.8 g/dL (6.4-8.2); Sodium Level 139 mmol/L (136-145); Triglycerides 78 mg/dL; Very Low Density Lipoprotein 16 mg/dL (5-40); Vitamin D,25 Hydroxy 54.6 ng/mL
== END | disposition home or self-care (01) ==
LOC: LAB 08:40
PROVIDERS: PCP Family Medicine; Referring Provider Family Medicine; Visit Provider Family Medicine
DX: M85.80 Other specified disorders of bone density and structure, unspecified site (principal); E78.5 Hyperlipidemia, unspecified; I10 Essential (primary) hypertension
CPT/HCPCS: 36415; 80053; 80061; 82306; 85025

== ENCOUNTER 2023-06-21 12:11 | Outpatient (RCR) | payer MEDICARE, OTHER, SELFPAY ==
[2021-06-11 12:52] VITALS: BMI 23.0
== END 2023-06-21 19:00 | disposition home or self-care (01) ==
LOC: PT 12:11
PROVIDERS: PCP Family Medicine; Referring Provider Family Medicine; Visit Provider Family Medicine
DX: M85.9 Disorder of bone density and structure, unspecified (principal)

== ENCOUNTER 2023-09-27 08:54 | Day surgery (SDC) | payer MEDICARE, OTHER, SELFPAY ==
[2021-06-11 12:52] VITALS: BMI 23.0
[2023-09-27] VITALS (8 sets, daily range): BP systolic 104–145; BP diastolic 60–80; PULSE 59–77; RESP 16; TEMP 36.1–36.8; O2SAT 94–99; BMI 23.1
--- NOTE | 2023-09-27 | COLBX_PTH ---
PATIENT: BARON BURNS LOC: EN U#:[id number] AGE/SX: 78/F ROOM: RE09/27/[address]: Dr. Jossie Butt MD : 1945 BED: DIS: 09/27/2023 SPEC #: [id number] RECD: 09/27/23 13:48 STATUS: BRIDGER RENancy #: [id number] ALDEN: 09/27/23 00:[address]: Jossie Butt DEPT: SURGICAL PATHOLOGY RECD BY: Justin Zee ENTERED: 09/27/23 14:21 SP TYPE: COLON BX OTHR DR: Shelbie Mariscal, [facility], DO Tissues: A - Ascending colon B - COLON BIOPSY C - Transverse colon D - Rectum, NOS Procedures: Surgery Specimen Level IV HEADER OPERATION: Colonoscopy with polypectomy and biopsy PRE-OP DIAGNOSIS: Positive colorectal cancer screening using Cologuard test TISSUE SUBMITTED: A- Ascending colon polyps x3 with hot snare and biopsy, B- Hepatic flexure polyp x3, C- Transverse polyp, D- Rectum polyp MICROSCOPIC DIAGNOSIS A. Ascending colon polyps x3, hot snare and biopsy: Fragments of tubular adenoma. Fragments of hyperplastic polyp. B. Hepatic flexure polyp x3, biopsy: Fragments of tubular adenoma. C. Transverse colon polyp, biopsy: Tubular adenoma. D. Rectal polyp, biopsy: Tubular adenoma. SKIP/ 09/28/2023 MICROSCOPIC DESCRIPTION Slides are reviewed. GROSS DESCRIPTION A. Received in fixative is one container labeled with the patient's name and designated Ascending colon poylp x5. The specimen consists of multiple polypoid fragments of valdez-pink soft tissue that in aggregate measure 2.5 x 2.0 x 0.3 cm. The specimen is totally submitted in one cassette. The largest polyp measures 1.0cm in greatest dimension and it is bisected. The entire specimen is submitted in one cassette. B. Received in fixative is one container labeled with the patient's name and designated Hepatic flexure polyp x3. The specimen consists of multiple irregular fragments mixed with fecal material of light valdez soft tissue that in aggregate measure 1.0 x 0.3 x 0.1 cm. The specimen is totally submitted in one cassette. C. Received in fixative is one container labeled with the patient's name and designated Transverse polyp. The specimen consists of one irregular fragment of light valdez soft tissue that measures 0.3 x 0.3 x 0.1 cm. The specimen is totally submitted in one cassette. D. Received in fixative is one container labeled with the patient's name and designated Rectum polyp. The specimen consists of two irregular fragments of light valdez soft tissue that in aggregate measure 0.3 x 0.2 x 0.1 cm. The specimen is totally submitted in one cassette. SJ/ 09/27/2023 TC:1 CPT:65678r3
--- NOTE | 2023-09-27 09:04 | H&P.OPEN ---
HPI - General General Date of Service: 09/27/23 HPI Narrative BARON BURNS, is a 78 F who presents office visit 07/28/23 HPI HPI: 78-year-old female presents due to positive Cologuard. Patient previously had colonoscopies last one was in [address] Castillo was incomplete due to a redundant colon patient did get barium enema at that time. Since then patient has had fecal occult's which were negative but did get a Cologuard this year which was positive. Patient states she has bowel moods daily denies any blood denies any abdominal pain/nausea/vomiting/reflux. Patient denies any family history of colon cancer. Patient concerns about doing the colonoscopy due to her redundant colon and perforation. [facility] Medical History Wears hearing aid Wears glasses Post-menopausal Depression Anxiety Arthritis Portal vein thrombosis High cholesterol Blackout Non-smoker History of stress test History of echocardiogram Cardiology follow-up encounter Takotsubo cardiomyopathy Osteoarthritis of right knee LV dysfunction Anxiety and depression Nonrheumatic mitral (valve) prolapse Chest pain, atypical Paroxysmal supraventricular tachycardia Mixed hyperlipidemia Essential hypertension Portal vein thrombosis HTN (hypertension) Home Medications ?Medication ?Instructions ?Recorded ?Last Taken ?Type aspirin 81 mg tablet,delayed 81 mg PO DAILY heart health 01/09/20 Unknown History release (Adult Low Dose Aspirin) calcium citrate 315 mg-vitamin D3 1 tab PO DAILY vitamin 01/09/20 Unknown History 5 mcg (200 unit) tablet (Calcium Citrate + D) vitamins A,C,[id number]-[id number]-cqohlx 4,296 1 cap PO BID vitamin 01/09/20 Unknown History mcg-226 mg-90 mg capsule (PreserVision AREDS) cholecalciferol (vitamin D3) 25 1,000 unit PO BID vitamin 02/01/23 Unknown History mcg (1,000 unit) chewable tablet venlafaxine 37.5 mg 37.5 mg PO DAILY 07/28/23 Unknown History capsule,extended release 24 hr (Effexor XR) carvedilol 6.25 mg tablet 6.25 mg PO BID #180 tabs 09/25/23 Unknown Rx losartan 25 mg tablet 25 mg PO DAILY blood pressure #90 09/25/23 Unknown Rx tabs rosuvastatin 10 mg tablet 10 mg PO DAILY cholesterol #90 tabs 09/25/23 Unknown Rx Allergy/AdvReac Type Severity Reaction Status Date / Time lidocaine Allergy LOC, Verified 09/25/23 13:30 passed out lisinopril AdvReac cough Verified 09/25/23 13:30 Family History Father Heart disease Valvular heart disease Mother Cancer Surgical History History of cardiac catheterization Hx of right cataract extraction Hx of left cataract extraction Hx of colonoscopy History of 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) History of left heart catheterization (01/22/21) History of cholecystectomy Social History Smoking Status: Never smoker alcohol intake: never substance use type: does not use caffeine: Yes Past Medical/Surgical History Planned Operation Planned Operative Procedure(s): CSCOPE Previous Hospitalizations/Surgeries HX Hospitalizations: No HX of Surgeries: gall bladder, 2 c-sections, appy Any Problems With Anesthesia: No You/Your Family Experience Fever (Hyperthermia) With Anes: No Cholinesterase deficiency: No Cardiovascular Hx Chest Pain within Last 2 months: No Hx of Irregular Heartbeat and/or Afib: No Hx Heart Attack: No Hx Congestive Heart Failure: No Hx Rheumatic Fever: No Hx Hypertension: Yes (CONTROLLED WITH MED) Hx Internal Defibrillator: No Hx Pacemaker: No Hx Cardiac Catheterization: No Hx Cardiac Surgery/Stents/Etc.: No Hx Stress Test: Yes Hx Pain in Legs when Walking/Leg Cramps: No Respiratory Chronic Cough: No HX of Shortness of Breath: No Hoarseness: No Hx Chronic Obstructive Pulmonary Disease (COPD): No Hx Asthma: No Hx Emphysema: No Hx Sleep Apnea: No CPAP: No BIPAP: No Hx Respiratory Tract Infection/Cold (presently): No Do You Snore Loudly (louder than talking or can be heard): Yes Do You Often Feel Tired/ Fatigued/ Sleepy Dring Daytime?: No Has Anyone Observed You Stop Breathing During Sleep?: No Result (for STOP score): Positive Hx Smoking: No Smoking Status: Never smoker Gastrointestinal Controlled With Meds: No Hx Gastrointestinal Disorders: No Hx Gastrointestinal Bleed: No Hx Ulcer: No Special diet followed at home: No Hx Unplanned Weight Loss of 20#: No HX Unplanned Weight Gain of 20#: No Neurological Hx Seizures: No HX Syncope/Blackout Spells/Unconsciousness: No Hx Transient Ischemic Attacks (TIA): No Hx Multiple Sclerosis: No Hx Parkinson's Disease: No Hx Head/Neck Injury: No Hx Headaches: No Hx Back Injury/Pain: No Does patient have nerve stimulator: No Blood Disorder Hx Deep Vein Thrombosis: Yes Hx High Cholesterol: Yes Hx Anemia: No Hx Blood Disorders: No Reproduction : No Is Patient Lactating: No Genitourinary Hx Renal Disease: No Hx Dialysis: No Musculoskeletal Hx Arthritis: No Hx Rheumatoid Arthritis: No Hx Gout: No Endocrine Hx Diabetes: No Insulin: No Thyroid Disease: No Hx Steroid Therapy: No Psycho/Social Hx Substance Use: No Hx Alcohol Use: No Hx Anxiety: Yes Hx Depression: Yes Mental Illness: No Hx Dementia: No Miscellaneous Hx Cancer: No Recent Exposure to Contagious Disease: No Hx of C-Diff: No Allergies lidocaine Allergy (Verified 09/25/23 13:30) LOC, passed out lisinopril Adverse Reaction (Verified 09/25/23 13:30) cough Maternal: Family History Father Heart disease Valvular heart disease Mother Cancer - (no heart disease) Discharge Is Pt Admitted From a [facility], or a Prison: No After D/C, Where Do you Plan to Go: Return Home From the PAT History Number of Risk Factors: 3 Physical Exam Const alert, oriented x3 and no apparent distress HEENT normocephalic and head/scalp atraumatic Resp normal respiratory effort Cardio regular rate GI soft to palpation and non-tender; Negative for non-distended Palpation: Negative for guarding Extremity no clubbing, cyanosis or edema Skin no rashes or lesions noted Neuro CN's II-XII intact bilaterally Psych mental status grossly normal Assessment & Plan Assessment/Plan (1) Positive colorectal cancer screening using Cologuard test: Surgery Risks - Colonoscopy I discussed with the patient the risks of the procedure: Yes Risks Include but are not Limited To: Risks include but are not limited to: Bleeding, perforation requiring further surgery, inability to complete colonoscopy requiring barium enema. Patient is aware she has a high risk of having a barium enema as she does have a redundant colon.
[2023-09-27] MEDS: Lactated Ringers 1,000 ML 15 ML IV (09:24)
--- NOTE | 2023-09-27 09:33 | PCM.PRE.AN2 ---
ASA Classification* ASA Classification ASA Classification: 3 Assessment & Plan Anesthesia* Anesthesia Assessment Anesthesia Assessment: Discussed sedation and/or anesthesia options, risks, benefits, and alternatives with patient/parents/legal guardian/POA. Questions invited. The patient/parents/legal guardian/POA seems to understand and agrees to proceed with anesthesia plan. Reviewed the physical assessment, medical history, allergy history and patient home medications list prior to surgery/procedure/anesthetic and documented any changes. Performed airway and anesthesia risk assessments. Procedural Plan Procedural Plan:: Proceed w/ Anesthesia plan Anesthesia Type Anesthesia Type: MAC History Source History Obtained from:: Patient and Chart Anesthesia Focused Assessment* Temperature: 97 F Pulse Rate: 77 Blood Pressure: 145/80 Respiratory Rate: 16 Pulse Ox: 97 Oxygen Delivery Method: Room Air Airway Assessment Mouth opens: >3 cm Mallampati Score: I Teeth Condition: Caps/Crowns (All tight) Neck Range of motion (ROM): Full ROM Pertinent Findings EKG Pertinent Findings:: January 09, 2020. Normal sinus rhythm. Poor R wave progression. Stress Test Pertinent Findings:: January 22, 2020. Ejection fraction is 71%. Otherwise negative stress test. ECHO Pertinent Findings:: May 11, 2021 ejection fraction is 55%. Right ventricular systolic pressure is 27 Cath Results Pertinent Findings:: January 22, 2021. No significant obstructive disease. No aortic stenosis Consults Pertinent Findings:: February 01, 2023 last heart catheterization was on 01/22/2021 and showed no significant coronary artery disease. Patient is to continue current medical therapy. Patient had a decreased ejection fraction to 35% back in January 2021. Takotsubo cardiomyopathy. A repeat echocardiogram on May 2021 showed ejection fraction 55% which seems to indicate that this has resolved History of paroxysmal supraventricular tachycardia. This appears stable she will continue beta-john therapy. Focused Labs Anesthesia Preop lab: CBC WBC 4.0 K/mm3 (4.4-11.0) L 02/08/23 08:43 RBC 4.73 M/mm3 (4.2-5.4) 02/08/23 08:43 Hgb 14.8 g/dL (12.0-15.0) 02/08/23 08:43 Hct 45.2 % (37-47) 02/08/23 08:43 Plt Count 194 K/mm3 (150-450) 02/08/23 08:43 CHEMISTRY Potassium 4.1 mmol/L (3.5-5.1) 02/08/23 08:43 Sodium 139 mmol/L (136-145) 02/08/23 08:43 Magnesium 2.3 mg/dL (1.6-2.6) 12/31/19 09:30 BUN 18 mg/dL (7-18) 02/08/23 08:43 Creatinine 0.70 mg/dL (0.55-1.02) 02/08/23 08:43 Glucose 101 mg/dL (74-106) 02/08/23 08:43 COAG PT 14.6 SECONDS (11.7-14.9) 01/21/21 18:04 Pre-Assessment Diagnosis/Proposed Procedure Planned Operative Procedure(s): CSCOPE Anesthesia History Anesthesia History - radiology scheduler: Anesthesia History - radiology scheduler Hx Hospitalization No 09/21/23 14:35 Any Problems With Anesthesia No 09/21/23 14:35 Cholinesterase deficiency No 09/21/23 14:35 You/Your Family Experience No 09/21/23 14:35 fever (hyperthermia) with Relationship Recent Exposure to Contagious No 09/27/23 09:15 Disease Does patient have nerve No 09/21/23 14:35 stimulator Patient instructed to have device shut off --Does patient have Pacemaker No 09/27/23 09:15 or ICD? When Was Last Pacemaker Check QUESTION #4 FULL TEXT: You/Your Family Experience fever (hyperthermia) with Anesthesia Last Oral Intake Last Oral intake: Last Oral Intake NPO since 00:00 09/27/23 09:15 Meds taken in AM with sips of Yes 09/27/23 09:15 water? Meds patient instructed to see mar 09/27/23 09:15 take am of surgery PONV PONV - radiology scheduler: PONV - radiology scheduler Female Yes 09/21/23 14:35 HX of Motion Sickness Yes 09/21/23 14:35 HX of N/V After Surgery No 09/21/23 14:35 Non-Smoker Yes 09/21/23 14:35 Duration of Surgery greater No 09/21/23 14:35 than 60 minutes Number of Risk Factors 3 09/21/23 14:35 PONV Score Moderate Risk 09/21/23 14:35 Height & Weight Height & Weight: Anesthesia: Height & Weight Height 5 ft 9 in 09/27/23 09:15 Weight: 71.214 kg 09/27/23 09:15 Body Mass Index (BMI) 23.1 09/27/23 09:15 Respiratory Assessment Respiratory Assessment - radiology scheduler: Respiratory Tract Infection Hx - radiology scheduler Hx Respiratory Tract Infection No 09/21/23 14:35 STOP Sleep Apnea STOP Sleep Apnea - radiology scheduler: STOP Sleep Apnea - radiology scheduler Hx Hypertension Yes: CONTROLLED WITH MED 09/21/23 14:35 Hx Sleep Apnea No 09/21/23 14:35 CPAP No 01/30/13 21:51 BIPAP No 01/30/13 21:51 Do you snore loudly (louder Yes 09/21/23 14:35 than talking or can be heard Do you often feel tired/ No 09/21/23 14:35 fatigued/ sleepy during daytime? Has anyone observed you stop No 09/21/23 14:35 breathing during sleep? STOP Results Positive 09/21/23 14:35 QUESTION #5 FULL TEXT : Do you snore loudly (louder than talking or can be heard through closed doors)? Tobacco Use History Tobacco Use History - radiology scheduler: Tobacco Use History - radiology scheduler Tobacco Use Smoking Status Never smoker 09/21/23 14:35 Hx Tobacco Use No 09/21/23 14:35 Years Smoking Packs Smoked per Day Smoking Cessation Date was within the last 15 years Hx Smoking Cessation Date Hx Smoking Cessation Counseling Hematologic Medial History Hematologic Hx - radiology scheduler: Hematologic Medical Hx - staff development manager Hx of Blood Transfusion No 09/21/23 14:35 Hx of Transfusion in last 3 No 09/21/23 14:35 Months Date of Last Transfusion (if within last 3 months) Ever experience any problems No 09/21/23 14:35 with transfusion(s)? Specify any problems Hx of Preganancy in last 3 No 09/21/23 14:35 Months Nurse Filling Out Transfusion DSCHRIBER 09/21/23 14:35 & Questions: Date: 09/21/23 09/21/23 14:35 Time: 14:37 09/21/23 14:35 Patient unable to answer at this time (ie. confused, unrespo /Reproduction History /Reproductive History - radiology scheduler: /Reproductive Hx- radiology scheduler Hx Now No 09/21/23 14:35 Gestational Age (in weeks): EDC: Hx Hx Para Hx Section SAB No 09/21/23 14:35 Active Medications Active Medications: Current Medications Generic Name Dose Route Start Last Admin Trade Name Trungq PRN Reason Stop Dose Admin Lactated Ringer's 1,000 mls @ 15 mls/hr 09/27/23 09:15 09/27/23 09:24 IV 15 mls/hr .Q48H ALDO Administration PFSH Medical History Wears hearing aid Wears glasses Post-menopausal Depression Anxiety Arthritis Portal vein thrombosis High cholesterol Blackout Non-smoker History of stress test History of echocardiogram Cardiology follow-up encounter Takotsubo cardiomyopathy Osteoarthritis of right knee LV dysfunction Anxiety and depression Nonrheumatic mitral (valve) prolapse Chest pain, atypical Paroxysmal supraventricular tachycardia Mixed hyperlipidemia Essential hypertension Portal vein thrombosis HTN (hypertension) Home Medications ?Medication ?Instructions ?Recorded ?Last Taken ?Type aspirin 81 mg tablet,delayed 81 mg PO DAILY heart health 01/09/20 09/24/23 History release (Adult Low Dose Aspirin) calcium citrate 315 mg-vitamin D3 1 tab PO DAILY vitamin 01/09/20 Unknown History 5 mcg (200 unit) tablet (Calcium Citrate + D) vitamins A,C,V-dbxr-ogrpcr 4,296 1 cap PO BID vitamin 01/09/20 Unknown History mcg-226 mg-90 mg capsule (PreserVision AREDS) cholecalciferol (vitamin D3) 25 1,000 unit PO BID vitamin 02/01/23 Unknown History mcg (1,000 unit) chewable tablet venlafaxine 37.5 mg 37.5 mg PO DAILY 07/28/23 Unknown History capsule,extended release 24 hr (Effexor XR) carvedilol 6.25 mg tablet 6.25 mg PO BID #180 tabs 09/25/23 09/27/23 07:00 Rx losartan 25 mg tablet 25 mg PO DAILY blood pressure #90 09/25/23 09/26/23 Rx tabs rosuvastatin 10 mg tablet 10 mg PO DAILY cholesterol #90 tabs 09/25/23 Unknown Rx Allergy/AdvReac Type Severity Reaction Status Date / Time lidocaine Allergy LOC, Verified 09/27/23 09:14 passed out lisinopril AdvReac cough Verified 09/27/23 09:14 Family History Father Heart disease Valvular heart disease Mother Cancer Surgical History History of cardiac catheterization Hx of right cataract extraction Hx of left cataract extraction Hx of colonoscopy History of 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
--- NOTE | 2023-09-27 09:48 | H&P.OPEN ---
HPI - General General Date of Service: 09/27/23 HPI Narrative BARON BURNS, is a 78 F who presents for diagnostic colonoscopy due to positive Cologuard. Patient's last colonoscopy was in 2008 she did need barium enema at that time due to redundant colon. Discussed with patient she would have a higher likelihood of needing an additional barium enema after also reviewing her images. Patient states about 2 weeks after she saw me in office she did have some left lower quadrant pain and diarrhea and explosive gas for about a week but that has resolved unsure if she had a GI bug or not. office visit 07/28/23 HPI HPI: 78-year-old female presents due to positive Cologuard. Patient previously had colonoscopies last one was in [address] Castillo was incomplete due to a redundant colon patient did get barium enema at that time. Since then patient has had fecal occult's which were negative but did get a Cologuard this year which was positive. Patient states she has bowel moods daily denies any blood denies any abdominal pain/nausea/vomiting/reflux. Patient denies any family history of colon cancer. Patient concerns about doing the colonoscopy due to her redundant colon and perforation. [facility] Medical History Wears hearing aid Wears glasses Post-menopausal Depression Anxiety Arthritis Portal vein thrombosis High cholesterol Blackout Non-smoker History of stress test History of echocardiogram Cardiology follow-up encounter Takotsubo cardiomyopathy Osteoarthritis of right knee LV dysfunction Anxiety and depression Nonrheumatic mitral (valve) prolapse Chest pain, atypical Paroxysmal supraventricular tachycardia Mixed hyperlipidemia Essential hypertension Portal vein thrombosis HTN (hypertension) Home Medications ?Medication ?Instructions ?Recorded ?Last Taken ?Type aspirin 81 mg tablet,delayed 81 mg PO DAILY [facility] 01/09/20 09/24/23 History release (Adult Low Dose Aspirin) calcium citrate 315 mg-vitamin D3 1 tab PO DAILY vitamin 01/09/20 Unknown History 5 mcg (200 unit) tablet (Calcium Citrate + D) vitamins A,C,I-wcua-dcqygp 4,296 1 cap PO BID vitamin 01/09/20 Unknown History mcg-226 mg-90 mg capsule (PreserVision AREDS) cholecalciferol (vitamin D3) 25 1,000 unit PO BID vitamin 02/01/23 Unknown History mcg (1,000 unit) chewable tablet venlafaxine 37.5 mg 37.5 mg PO DAILY 07/28/23 Unknown History capsule,extended release 24 hr (Effexor XR) carvedilol 6.25 mg tablet 6.25 mg PO BID #180 tabs 09/25/23 09/27/23 07:00 Rx losartan 25 mg tablet 25 mg PO DAILY blood pressure #90 09/25/23 09/26/23 Rx tabs rosuvastatin 10 mg tablet 10 mg PO DAILY cholesterol #90 tabs 09/25/23 Unknown Rx Allergy/AdvReac Type Severity Reaction Status Date / Time lidocaine Allergy LOC, Verified 09/27/23 09:14 passed out lisinopril AdvReac cough Verified 09/27/23 09:14 Family History Father Heart disease Valvular heart disease Mother Cancer Surgical History History of cardiac catheterization Hx of right cataract extraction Hx of left cataract extraction Hx of colonoscopy History of 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) History of left heart catheterization (01/22/21) History of cholecystectomy Social History Smoking Status: Never smoker alcohol intake: never substance use type: does not use caffeine: Yes Past Medical/Surgical History Planned Operation Planned Operative Procedure(s): CSCOPE Previous Hospitalizations/Surgeries HX Hospitalizations: No HX of Surgeries: gall bladder, 2 c-sections, appy Any Problems With Anesthesia: No You/Your Family Experience Fever (Hyperthermia) With Anes: No Cholinesterase deficiency: No Cardiovascular Hx Chest Pain within Last 2 months: No Hx of Irregular Heartbeat and/or Afib: No Hx Heart Attack: No Hx Congestive Heart Failure: No Hx Rheumatic Fever: No Hx Hypertension: Yes Hx Internal Defibrillator: No Hx Pacemaker: No Hx Cardiac Catheterization: No Hx Cardiac Surgery/Stents/Etc.: No Hx Stress Test: Yes Hx Pain in Legs when Walking/Leg Cramps: No Respiratory Chronic Cough: No HX of Shortness of Breath: No Hoarseness: No Hx Chronic Obstructive Pulmonary Disease (COPD): No Hx Asthma: No Hx Emphysema: No Hx Sleep Apnea: No CPAP: No BIPAP: No Hx Respiratory Tract Infection/Cold (presently): No Do You Snore Loudly (louder than talking or can be heard): Yes Do You Often Feel Tired/ Fatigued/ Sleepy Dring Daytime?: No Has Anyone Observed You Stop Breathing During Sleep?: No Result (for STOP score): Positive Hx Smoking: No Smoking Status: Never smoker Gastrointestinal Controlled With Meds: No Hx Gastrointestinal Disorders: No Hx Gastrointestinal Bleed: No Hx Ulcer: No Special diet followed at home: No Hx Unplanned Weight Loss of 20#: No HX Unplanned Weight Gain of 20#: No Neurological Hx Seizures: No HX Syncope/Blackout Spells/Unconsciousness: No Hx Transient Ischemic Attacks (TIA): No Hx Multiple Sclerosis: No Hx Parkinson's Disease: No Hx Head/Neck Injury: No Hx Headaches: No Hx Back Injury/Pain: No Does patient have nerve stimulator: No Blood Disorder Hx Deep Vein Thrombosis: Yes Hx High Cholesterol: Yes Hx Anemia: No Hx Blood Disorders: No Reproduction : No Is Patient Lactating: No Genitourinary Hx Renal Disease: No Hx Dialysis: No Musculoskeletal Hx Arthritis: No Hx Rheumatoid Arthritis: No Hx Gout: No Endocrine Hx Diabetes: No Insulin: No Thyroid Disease: No Hx Steroid Therapy: No Psycho/Social Hx Substance Use: No Hx Alcohol Use: No Hx Anxiety: Yes Hx Depression: Yes Mental Illness: No Hx Dementia: No Miscellaneous Hx Cancer: No Recent Exposure to Contagious Disease: No Hx of C-Diff: No Allergies lidocaine Allergy (Verified 09/27/23 09:14) LOC, passed out lisinopril Adverse Reaction (Verified 09/27/23 09:14) cough Maternal: Family History Father Heart disease Valvular heart disease Mother Cancer - (no heart disease) Discharge Is Pt Admitted From a Skilled Nursing, or a Detention: No After D/C, Where Do you Plan to Go: Return Home From the PAT History Number of Risk Factors: 3 Vital Signs Vital Signs Vital Signs: 09/27/23 09:15 09/27/23 09:15 09/27/23 09:44 Temperature 97 F L 97 F L Temperature Source Temporal Pulse Rate 77 77 Respiratory Rate 16 16 Respiratory Pattern Normal Blood Pressure 145/80 H 145/80 H Blood Pressure Mean 101 Blood Pressure Source Monitor Blood Pressure Position Sitting Blood Pressure Location Right Arm Pulse Ox 97 97 Oxygen Delivery Method Room Air Weight Weight: 157 lb Body Mass Index (BMI) 23.1 Physical Exam Const alert, oriented x3 and no apparent distress HEENT normocephalic and head/scalp atraumatic Resp normal respiratory effort Cardio regular rate GI soft to palpation and non-tender; Negative for non-distended Palpation: Negative for guarding Extremity no clubbing, cyanosis or edema Skin no rashes or lesions noted Neuro CN's II-XII intact bilaterally Psych mental status grossly normal Assessment & Plan Assessment/Plan (1) Positive colorectal cancer screening using Cologuard test: Surgery Risks - Colonoscopy I discussed with the patient the risks of the procedure: Yes Risks Include but are not Limited To: Risks include but are not limited to: Bleeding, perforation requiring further surgery, inability to complete colonoscopy requiring barium enema. Patient is aware she does have a higher likelihood of needing a barium enema.
--- NOTE | 2023-09-27 10:55 | PCM.POST.ANE ---
Anesthesia: Postop Eval I Current Vital Signs Temperature: 97.4 F Pulse Rate: 62 Blood Pressure: 105/60 Respiratory Rate: 16 Pulse Ox: 99 Oxygen Delivery Method: Room Air Assessment Airway patent: Yes Spontaneous unlabored respirations: Yes Mental status: Awake and Calm nausea: No Vomiting: No Anesthesia Complication: No Fluid Hydration Crystalloid volume administer (ml): 900 Total IV fluid infused: 900 Progress Note Anesthesia document: Postop Eval 1 completed: Yes
--- NOTE | 2023-09-27 11:08 | OP.COLON_ITS ---
Patient Name: Cornelia Haines Procedure Date: 09/27/2023 9:52 AM Date of : 1945 Age: 78 Procedure: Colonoscopy Indications: Positive Cologuard test Providers: Jossie Butt MD Referring MD: Shelbie Mariscal Do Medicines: Monitored Anesthesia Care Patient Profile: This is a 78 year old female. Last Colonoscopy: 2008. Barium enema in 2008 as well due to incomplete colonoscopy, then FOBT annually Complications: No immediate complications. Procedure: Pre-Anesthesia Assessment: - Prior to the procedure, a History and Physical was performed, and patient medications and allergies were reviewed. The patient's tolerance of previous anesthesia was also reviewed. The risks and benefits of the procedure and the sedation options and risks were discussed with the patient. All questions were answered, and informed consent was obtained. Prior Anticoagulants: The patient has taken no anticoagulant or antiplatelet agents. ASA Grade Assessment: Per anesthesia. After reviewing the risks and benefits, the patient was deemed in satisfactory condition to undergo the procedure. After I obtained informed consent, the scope was passed under direct vision. Throughout the procedure, the patient's blood pressure, pulse, and oxygen saturations were monitored continuously. The Colonoscope was introduced through the anus and advanced to the cecum, identified by the ileocecal valve. The colonoscopy was somewhat difficult due to a redundant colon. Successful completion of the procedure was aided by applying abdominal pressure. The patient tolerated the procedure well. The quality of the bowel preparation was good. Scope In: 10:05:32 AM Scope Withdrawal Time 0 hours 31 minutes 15 seconds Scope Out: 10:50:58 AM Total Procedure Duration Time 0 hours 45 minutes 26 seconds Findings: Hemorrhoids were found on perianal exam. Non-bleeding internal hemorrhoids were found. The hemorrhoids were Grade I (internal hemorrhoids that do not prolapse). Two carpet-like polyps were found in the ascending colon. The polyps were 5 to 10 mm in size. These polyps were removed with a piecemeal technique using a hot snare. Resection and retrieval were complete. Four semi-pedunculated polyps were found in the hepatic flexure and ascending colon. The polyps were 3 to 5 mm in size. These polyps were removed with a hot snare. Resection and retrieval were complete. Four sessile polyps were found in the rectum, transverse colon, hepatic flexure and ascending colon. The polyps were less than 5 mm in size. These polyps were removed with a cold biopsy forceps. Resection and retrieval were complete. The exam was otherwise without abnormality. Impression: - Hemorrhoids found on perianal exam. - Non-bleeding internal hemorrhoids. - Two 5 to 10 mm polyps in the ascending colon, removed piecemeal using a hot snare. Resected and retrieved. - Four 3 to 5 mm polyps at the hepatic flexure and in the ascending colon, removed with a hot snare. Resected and retrieved. - Four less than 5 mm polyps in the rectum, in the transverse colon, at the hepatic flexure and in the ascending colon, removed with a cold biopsy forceps. Resected and retrieved. - The examination was otherwise normal. Recommendation: - Discharge patient to home. - Resume previous diet. - Continue present medications. - Await pathology results. - Repeat colonoscopy in 3 years for surveillance based on pathology results. Procedure Code(s): --- Professional --- 99077, PT, Colonoscopy, flexible; with removal of tumor(s), polyp(s), or other lesion(s) by snare technique [id number], 59, Colonoscopy, flexible; with biopsy, single or multiple Diagnosis Code(s): --- Professional --- K64.0, First degree hemorrhoids D12.8, Benign neoplasm of rectum D12.3, Benign neoplasm of transverse colon (hepatic flexure or splenic flexure) D12.2, Benign neoplasm of ascending colon R19.5, Other fecal abnormalities CPT copyright 2021 [employer]. All rights reserved. The codes documented in this report are preliminary and upon plant breeder scientist review may be revised to meet current compliance requirements. MD Jossie Kaufman MD 09/27/2023 11:08:32 AM This report has been signed electronically. Number of Addenda: 0 Note Initiated On: 09/27/2023 9:52 AM
--- NOTE | 2023-09-27 11:08 | OP.CCLET_ITS ---
09/27/2023 Shelbie Mariscal Do Re : Colonoscopy procedure for Cornelia Haines Dear Davey This procedure was performed on Wednesday, September 27, 2023. My impressions and recommendations are as follows: Impressions : - Hemorrhoids found on perianal exam. - Non-bleeding internal hemorrhoids. - Two 5 to 10 mm polyps in the ascending colon, removed piecemeal using a hot snare. Resected and retrieved. - Four 3 to 5 mm polyps at the hepatic flexure and in the ascending colon, removed with a hot snare. Resected and retrieved. - Four less than 5 mm polyps in the rectum, in the transverse colon, at the hepatic flexure and in the ascending colon, removed with a cold biopsy forceps. Resected and retrieved. - The examination was otherwise normal. Recommendations : - Discharge patient to home. - Resume previous diet. - Continue present medications. - Await pathology results. - Repeat colonoscopy in 3 years for surveillance based on pathology results. My findings are described in the full procedure note, which is enclosed. If I can be of further assistance, please feel free to contact me at Doctor phone number(s): , Work: . Sincerely, MD Jossie Kaufman MD 09/27/2023 11:08:32 AM This report has been signed electronically.
--- NOTE | 2023-09-27 15:26 | PCM.POSTANE2 ---
Anesthesia Postop Eval I Sum Postop Eval Completion status Anesthesia document: Postop Eval 1 completed: Yes Anesthesia Postop Eval I Summary Anesthesia Postop Eval I Summary: Anesthesia Postop Eval I: Assessment Summary Airway patent Yes 09/27/23 11:27 [email or web address] Spontaneous unlabored Yes 09/27/23 11:27 [email or web address] respirations Mental status Awake,Calm 09/27/23 11:27 [email or web address] nausea No 09/27/23 11:27 [email or web address] Vomiting No 09/27/23 11:27 [email or web address] Anesthesia Postop Eval I: Fluid Summary Crystalloid volume administer 900 09/27/23 11:27 [email or web address] (ml) Colloids volume administered ( ml) Blood Product volume administered (ml) Total IV fluid infused 900 09/27/23 11:27 [email or web address] Anesthesia Postop Eval I: Summary Notes Anesthesia Complication No 09/27/23 11:27 [email or web address] Anesthesia Complication Comment: Post-operative progress note Anesthesia: Postop Eval II Evaluation Mental status: Awake and Calm Pain Level: 0 nausea: No Vomiting: No Complications Anesthesia Complication: No
== END 2023-09-27 11:52 | disposition home or self-care (01) ==
LOC: EN 08:54 → AC 08:55
PROVIDERS: PCP Family Medicine; Referring Provider Family Medicine; Visit Provider Surgery
PROC: 0DJD8ZZ Inspection of Lower Intestinal Tract, Via Natural or Artificial Opening Endoscopic (ICD-10-PCS; CPT 45378; principal; 2023-09-27 10:10)
DX: R19.5 Other fecal abnormalities (principal); K63.5 Polyp of colon; K62.1 Rectal polyp; K64.0 First degree hemorrhoids; Z90.49 Acquired absence of other specified parts of digestive tract; Q43.8 Other specified congenital malformations of intestine; E78.2 Mixed hyperlipidemia; I10 Essential (primary) hypertension; Z79.82 Long term (current) use of aspirin; Z79.899 Other long term (current) drug therapy; Z98.41 Cataract extraction status, right eye; Z98.42 Cataract extraction status, left eye; Z96.651 Presence of right artificial knee joint
CPT/HCPCS: 45385; 45380; 88305; J7120; J2405

== ENCOUNTER → 2023-11-01 | Outpatient (CLI) | payer MEDICARE, OTHER, SELFPAY ==
[2021-06-11 12:52] VITALS: BMI 23.0
--- NOTE | 2023-11-01 10:07 | BI_ITS ---
MAMMOGRAPHY - BILATERAL SCREENING REASON FOR EXAM: Female, 78 years old. Routine annual screening examination. PERTINENT HISTORY: Non-contributory. TECHNIQUE: Digital bilateral breast mily (3D mammographic acquisition) in the CC and MLO projections. 2-D mediolateral oblique (MLO) and craniocaudad (CC) views of both breasts were obtained. CAD: Full Field Digital Mammography with Computer Added Detection was performed. COMPARISON: Camacho is made with prior study dated January 14, 2022 and May 05, 2020. FINDINGS: Breast Composition: There are scattered areas of fibroglandular density. There are no dominant masses or suspicious calcifications. Stable small benign-appearing bilateral axillary lymph nodes. No other significant abnormalities are identified. There has been no significant change since the prior study. BI/SCRN MAMM (CAD)W/MILY BILAT IMPRESSION: Stable bilateral screening mammogram. Yearly follow-up mammogram recommended. (A) ASSESSMENT CATEGORY: BIRADS Category 2: Benign. A letter regarding these results will be sent to the patient by the facility within 30 days. Approximately 10% of breast cancers are not detected by mammography. A normal mammogram should not delay biopsy of a clinically suspicious abnormality. [id number] Electronically Signed: Omar Villagran MD at 11:10 EDT ,
== END | disposition home or self-care (01) ==
LOC: OPBI 10:07
PROVIDERS: PCP Family Medicine; Referring Provider Family Medicine; Visit Provider Family Medicine
DX: Z12.31 Encounter for screening mammogram for malignant neoplasm of breast (principal)
CPT/HCPCS: 77063; 77067

== ENCOUNTER → 2024-07-11 | Outpatient (CLI) | payer MEDICARE, OTHER, SELFPAY ==
[2021-06-11 12:52] VITALS: BMI 23.0
--- NOTE | 2024-07-11 12:53 | BD_ITS ---
PROCEDURE: DEXA BONE DENSITY STUDY 07/11/2024 REASON FOR EXAM: None provided. TECHNIQUE: DXA scan of the lumbar spine and bilateral hips, using Hologic Horizon W. REFERENCE LINKS: ISCD Adult Positions COMPARISON: Measurements obtained 05/17/2022 are retained by the imaging unit for comparison purposes, however the images themselves are not available. FINDINGS: LUMBAR SPINE: Bone mineral denisty, L1-L4: 0.813 g/cm??? T-score: -2.1 LEFT FEMORAL NECK: Bone mineral denisty: 0.671 g/cm??? T-score: -1.6 LEFT TOTAL HIP: Bone mineral denisty: 0.719 g/cm??? T-score: -1.8 RIGHT FEMORAL NECK: Bone mineral denisty: 0.652 g/cm??? T-score: -1.8 RIGHT TOTAL HIP: Bone mineral denisty: 0.705 g/cm??? T-score: -1.9 FRAX*: 10 Year Probability of Fracture: Major Osteoporotic Fracture(1): 14.0% Hip Fracture(2): 3.6% *FRAX is a trademark of the [employer]'s Fisher for Metabolic Bone Disease, World Health Organization (WHO) Collaborating Fisher. 1-Major Osteoporotic Fracture: Clinical Spine, Forearm, Hip or Shoulder. 2-The 10-year probability of fracture may be lower than reported if the patient has received treatment. The National Osteoporosis Foundation recommends that medical therapy be considered in postmenopausal women and men, age 50 and older, with a: * hip or vertebral fracture * T-score less than or equal to -2.5 in the spine or hip * T-score between -1.0 and -2.5 and FRAX equal to or less than 3 percent for hip fracture or equal to or less than 20 percent for major osteoporotic fracture. World Health Organization criteria for BMD interpretation classify patients as Normal (T-score at or above -1.0), Osteopenic (T-score between -1.0 and -2.5), or Osteoporotic (T-score at or below -2.5). BD/Dexa Bone Density Study IMPRESSION: 1. Osteopenia. 2. Since 05/17/2022, there has been a decrease of 5.1% in the bone mineral dens ity of the total LEFT hip. 3. Additional description as above. Reading Location: [facility]
== END | disposition home or self-care (01) ==
LOC: OPBD 12:52
PROVIDERS: PCP Family Medicine; Referring Provider Family Medicine; Visit Provider Family Medicine
DX: M85.88 Other specified disorders of bone density and structure, other site (principal)
CPT/HCPCS: 77080

== ENCOUNTER → 2024-08-02 | Outpatient (CLI) | payer MEDICARE, OTHER, SELFPAY ==
[2021-06-11 12:52] VITALS: BMI 23.0
--- NOTE | 2024-08-02 07:26 | MRI_ITS ---
PROCEDURE: SPINE LUMBAR (ROUTINE) 08/02/2024 REASON FOR EXAM: PAIN TECHNIQUE: Multiplanar and multisequence images were obtained without IV contrast administration. COMPARISON: Lumbar spine radiograph 07/09/2024 FINDINGS: Vertebrae: Vertebral body heights are maintained. Disc spaces are within normal limits. Homogeneous marrow signal intensity. L1 vertebral body hemangioma. Otherwise, no suspicious osseous lesions or abnormal marrow replacement process. Alignment: Lumbar lordosis is maintained. Conus Medullaris: The conus terminates at L2. Cauda equina nerve roots are within normal limits. Degenerative changes of the lumbar spine, including mild endplate remodeling, small disc bulges, ligamentum flavum hypertrophy and facet degenerative changes. L1-2: Canal and neural foramina are patent. L2-3: Small circumferential disc bulge and mild facet degenerative changes with flattening of the ventral thecal sac. No significant canal stenosis or neural foraminal narrowing. L3-4: Small circumferential disc bulge and mild facet degenerative changes with flattening of the ventral thecal sac. No significant canal stenosis or neural foraminal narrowing. L4-5: Disc bulge slightly asymmetric to the left, ligamentum flavum hypertrophy and facet degenerative changes, greatest on the left with mild canal stenosis. Neural foramina are patent. Circumferential disc bulge, [id number]-[id number]-right facet degenerative changes and ligamentum flavum hypertrophy with moderate canal stenosis. Neural foramina are patent. L5-S1: Small disc protrusion and facet degenerative changes without significant canal stenosis or neural foraminal narrowing. Sacrum: Heterogenous signal intensity of sacrum. Fatty atrophy of the paraspinal musculature. MRI/Spine Lumbar (Routine) IMPRESSION: Degenerative changes of the lumbar spine, most prominent at L4-L5 with up to mi ld canal stenosis. No significant neural foraminal narrowing. Reading Location: [facility]
== END | disposition home or self-care (01) ==
LOC: MRI 07:13
PROVIDERS: PCP Family Medicine; Referring Provider Student in an Organized Health Care Education/Training Program; Visit Provider Student in an Organized Health Care Education/Training Program
DX: M54.16 Radiculopathy, lumbar region (principal)
CPT/HCPCS: 72148

== ENCOUNTER → 2024-08-24 | Outpatient (CLI) | payer MEDICARE, OTHER, SELFPAY ==
[2021-06-11 12:52] VITALS: BMI 23.0
[2024-08-24 09:47] LABS: Hematocrit 43.2 % (37-47); Hemoglobin 14.7 g/dL (12.0-15.0); Mean Corpuscular Hgb 31.5 pg (27.0-32.0); Mean Corpuscular Volume 92.7 fL (81-99); Mean Platelet Vol. 12.5 fl (6.2-12.0); Platelet Count 176 K/mm3 (150-450); RBC Distribution Width CV 14.1 % (11.6-14.6); RBC Distribution Width SD 47.7 fl (35.1-43.9); Red Blood Count 4.66 M/mm3 (4.2-5.4); White Blood Count 4.4 K/mm3 (4.4-11.0)
[2024-08-24 10:15] LABS: AST(SGOT) 24 U/L (<=31); Alanine Aminotransfer ALT/SGPT 24 U/L (<=34); Albumin, Serum 4.4 g/dL (3.4-4.8); Alkaline Phosphatase 87 U/L (35-104); Anion Gap 11 (5-15); BUN 18 mg/dL (4-19); BUN/Creat Ratio 26.5 RATIO (10-20); Calcium,Total 9.1 mg/dL (7.6-11.0); Carbon Dioxide 26.5 mmol/L (21.0-32.0); Chloride 103 mmol/L (98-108); Cholesterol 145 mg/dL (<=200); Creatinine, Serum 0.68 mg/dL (0.70-1.20); EST Glomerular Filtration Rate 89 (>60); Globulin 2.2 g/dL (2.2-4.2); Glucose 93 mg/dL (70-99); High Density Lipoprotein 62 mg/dL; Low Density Lipoprotein Calc. 68 mg/dL; Potassium 3.9 mmol/L (3.3-5.1); Protein, Total 6.5 g/dL (5.9-8.4); Sodium Level 140 mmol/L (133-145); Total Bilirubin 0.57 mg/dL (0.00-1.30); Triglycerides 77 mg/dL; Very Low Density Lipoprotein 15 mg/dL (5-40); cholesterol:hdl ratio screen 2.36
[2024-08-24 10:41] LABS: Vitamin D,25 Hydroxy 37.4 ng/mL (30-100)
== END | disposition home or self-care (01) ==
LOC: LAB 09:12
PROVIDERS: Internal Medicine Cardiovascular Disease; PCP Family Medicine; Referring Provider Internal Medicine Endocrinology, Diabetes & Metabolism; Visit Provider Internal Medicine Endocrinology, Diabetes & Metabolism
DX: E78.2 Mixed hyperlipidemia (principal); I51.81 Takotsubo syndrome; E55.9 Vitamin D deficiency, unspecified; E03.9 Hypothyroidism, unspecified; M81.0 Age-related osteoporosis without current pathological fracture
CPT/HCPCS: 36415; 80053; 80061; 82306; 85027

== ENCOUNTER 2024-10-07 12:57 | Outpatient (CLI) | payer MEDICARE, OTHER, SELFPAY ==
[2021-06-11 12:52] VITALS: BMI 23.0
[2024-10-07 13:09] VITALS: BP 135/82; PULSE 78; RESP 16; TEMP 36.4; O2SAT 94; BMI 24.0
[2024-10-07] MEDS: 0.9% NaCl Peripheral Flush Adult IV (13:14)
[2024-10-07 13:43] VITALS: BP 139/81; PULSE 68; RESP 16; TEMP 36.3; O2SAT 94
== END 2024-10-07 23:59 | disposition home or self-care (01) ==
LOC: MEDOUTP 12:58
PROVIDERS: PCP Family Medicine; Referring Provider Internal Medicine Endocrinology, Diabetes & Metabolism; Visit Provider Internal Medicine Endocrinology, Diabetes & Metabolism
DX: M81.0 Age-related osteoporosis without current pathological fracture (principal)
CPT/HCPCS: 96365; A4216; J3489

== ENCOUNTER 2024-10-28 09:00 | Outpatient (RCR) | payer MEDICARE, OTHER, SELFPAY ==
[2021-06-11 12:52] VITALS: BMI 23.0
--- NOTE | 2024-10-08 14:35 | HP.PTEVAL ---
Patient's Visit Information Visit Information Visit Information: BARON BURNS is a 79 year old F referred to Physical Therapy by BITA Rose with a diagnosis of LUMBAR RADICULOPATHY. Date of Evaluation: 10/08/24 Physical Therapist: Ashanti Pastor, PT, Cert MDT Visit Plan Frequency: 2x /Week Duration: 4-6 Weeks Plan: POSTURE CORRECTION/STRENGTHENING, INSTRUCTION IN APPROPRIATE BODY MECHANICS AND ACTIVITY MODIFICATIONS. DLS STARTING WITH A NEUTRAL SPINE PROGRESSING ROM TOLERATED. JAMSHID LE ROM, STRETCHING AND STRENGTHENING. HEP INSTRUCTION. Subjective Subjective: Present symptoms: R LOW BACK, BUTTOCK, THIGH, LEG, FOOT AND TOE NUMBNESS. INTERMITTENT R KNEE BUCKLING. Present since: YEARS - OCTOBER 2021 - AT SOME POINT RECOVERING FROM KNEE SURGERY. Pain Scale: PATIENT DENIES PAIN. SHE ALSO DENIES CHANGE OF INTENSITY OF NUMBNESS. Is it getting better, worse or staying the same: STAYING THE SAME Commenced as a result of: NO APPARENT REASON BUT PATIENT STATES SHE ASSOCIATES IT TO SOME TIME AFTER HER KNEE SURGERY. Symptoms at onset: SAME Worse: *SITTING AT HOME, DRIVING, RIDING IN THE CAR, RISING FROM SITTING, WITH PROLONGED WALKING - SOMETIMES NUMBNESS STARTS AT 1/2 MILE BUT SOMETIMES CAN GO 2 MILES WITHOUT NUMBNESS. Better: NOTHING - IT JUST COMES AND GOES. LYING DOWN. Disturbed sleep: NO Previous history/Previous treatment: 1972 DURING THEN WENT AWAY AFTER DELIVERY UNTIL ABOUT 2021. Treatment this episode: NONE. CONSULT Coughing/sneezing/straining: Gait: FALL IN APR AT TRACK WHEN KNEE GAVE OUT AND WENT DOWN ON ALL FOURS. ALREADY HAD NUMBNESS AND SHE STATES SHE THOUGHT SHE WAS FINE AND KEPT WALKING. SINCE SHE FELL ON THE KNEE SHE WENT BACK TO THE [facility] TO SEE HER KNEE SURGEON AND HE SAID HER KNEE WAS FINE AND REFERRED HER TO [facility] TO HAVE HER SPINE LOOKED AT. AFTER MRI, PATIETN REPORTS PT CONSULT AND BEN WERE RECOMMENDED. PATIENT REPORTS SHE HAS NOT CONSULTED PAIN MGMT BECAUSE THAT DOES NOT MAKE ANY SENSE TO HER. I'M AT A TOTAL OF WHAT IT IS AND WHAT TO DO ABOUT IT. Bowel or Bladder Dysfunction: NO Accidents: NO Unexplained weight loss: NO Imagin08/02/24 LUMBAR MRI: IMPRESSION: Degenerative changes of the lumbar spine, most prominent at L4-L5 with up to mild canal stenosis. No significant neural foraminal narrowing. PMH/Recent major surgery: Osteoporosis Osteopenia determined by x-ray Wears hearing aid Wears glasses Post-menopausal Depression Anxiety Arthritis Portal vein thrombosis High cholesterol Blackout Non-smoker History of stress test History of echocardiogram Cardiology follow-up encounter Takotsubo cardiomyopathy Osteoarthritis of right knee LV dysfunction Anxiety and depression Nonrheumatic mitral (valve) prolapse Chest pain, atypical Paroxysmal supraventricular tachycardia Mixed hyperlipidemia Essential hypertension Portal vein thrombosis HTN (hypertension) History of cardiac catheterization Hx of right cataract extraction Hx of left cataract extraction Hx of colonoscopy History of History of total right knee replacement 10/11/21 History of left heart catheterization 01/22/21 History of cholecystectomy No Data to Display Objective Objective: Sitting Posture/Standing Posture: FAIR. REDUCED LUMBAR LORDOSIS WITH NO RELEVANT LATERAL LUMBAR SHIFT. R ILIAC CREST SLIGHTLY HIGHER THAN LEFT IN STANDING. Active Correction of posture: BETTER. SLOUCHING PERIPHERALIZES SX'S Other Observations: INDEP GAIT INTO PT WITH GOOD CADANCE AND NO GROSS DEVIATIONS NOTED. RISING FROM SX'S CONSISTENTLY PROVOKES C/O PERIPHERALIZATION OF SX'S. Sensory deficit: JAMSHID LE LIGHT TOUCH SENSATION IS INTACT AND SYMMETRICAL INCLUDING R LOW BACK, BUTTOCK AND HIP REGIONS. ROM deficit: JAMSHID HIP FLEXOR, HS, QUAD AND CALF TIGHTNESS. R KNEE FLEX 106 DEG IN SITTING, L KNEE FLEX 120 DEG. Motor deficit: JAMSHID LE'S GROSSLY 5/5 WITH MMT'ING EXCEPT HIPS 4/5. Dural Signs: NEGATIVE JAMSHID LE'S. Lumbar mvmt loss: flex - NIL - NE ext - AUGUSTO - NE R SG - MOD - NE L SG - MOD - NE Core strength: FAIR Balance/Special Test Scores Oswestry Low Back Score: 6 Goals Goal 1:: DECREASE C/O R LE SX'S BY AT LEAST 75% TO EASE ADL'S. Goal Time Frame: 4-6 Weeks Goal 2:: PATIENT WILL BE ABLE TO WALK, SIT AND TRAVEL UNLIMITED WITH C/O 0-2/10 LB AND R LE SX'S/NUMBNESS. Goal Time Frame: 4-6 Weeks Goal 3:: INSTRUCT IN PROPHYLAXIS Goal Time Frame: 4-6 Weeks Rehabilitation Potential Physical Therapy Diagnosis: CORE AND LE STIFFNESS AND WEAKNESS WITH R LE NUMBNESS Rehabilitation Potential: Fair Anticipated Interventions Patient/Client Instruction: Educate patient on: Condition, Plan of Care and Risk Factors For the Purpose of:: To improve self management Therapeutic Exercise to Include: Strength training, Body mechanics, Postural training, Flexibilty training, Gait and locomotor training, Neuromotor development, In an aquatic setting and Dynamic Lumbar Stabilization For the Purpose of:: To decrease pain, To improve muscle performance and motor function, To increase tolerance to activity/condition/position, To improve ability of physical actions for home/community/work/leisure, To improve gait and locomotor functions, To increase flexibility/ROM and To improve self management Cryotherapy (ice pack, ice massage): Yes Thermo therapy (hot pack): Yes Ultrasound (thermal/non thermal): Yes For the Purpose of:: To decrease pain, To decrease swelling/inflammation and To improve nutrient delivery to tissue Text: Thank you for the opportunity to evaluate your patient. For Medicare and Medicare HMO plans, please review the plan of care and approve it. It will need to be FAXED BACK to us at [phone] for Medicare purposes. For Medicare only, by signing this I certify the plan of care. Please let me know if there are questions or concerns regarding this plan of care. Physician Signature: Date:
== END 2024-10-28 19:00 | disposition home or self-care (01) ==
LOC: PT 09:00
PROVIDERS: PCP Family Medicine; Referring Provider Student in an Organized Health Care Education/Training Program; Visit Provider Student in an Organized Health Care Education/Training Program
DX: M54.16 Radiculopathy, lumbar region (principal)
CPT/HCPCS: 97035; 97162; 97530

== ENCOUNTER → 2024-11-01 | Outpatient (CLI) | payer MEDICARE, OTHER, SELFPAY ==
[2021-06-11 12:52] VITALS: BMI 23.0
[2024-11-01 09:01] LABS: Anion Gap 10 (5-15); BUN 19 mg/dL (4-19); BUN/Creat Ratio 27.6 RATIO (10-20); Calcium,Total 9.1 mg/dL (7.6-11.0); Carbon Dioxide 24.7 mmol/L (21.0-32.0); Chloride 101 mmol/L (98-108); Glucose 92 mg/dL (70-99); Potassium 4.3 mmol/L (3.3-5.1)
== END | disposition home or self-care (01) ==
LOC: LAB 08:01
PROVIDERS: PCP Family Medicine; Referring Provider Internal Medicine Cardiovascular Disease; Visit Provider Internal Medicine Cardiovascular Disease
DX: I10 Essential (primary) hypertension (principal)
CPT/HCPCS: 36415; 80048

== ENCOUNTER → 2025-02-12 | Outpatient (CLI) | payer MEDICARE, OTHER, SELFPAY ==
[2021-06-11 12:52] VITALS: BMI 23.0
--- OUTSIDE RECORDS SUMMARY | 2025-02-12 10:31 | XMS RPT_ITS | CCD ---
Author Organization [facility] CliniSyal Care Team Providers Care Construction Foreman Name Role Phone OSWALDO, KEO E Unavailable Unavailable OSWALDO, KEO E Unavailable Unavailable OSWALDO, KEO Unavailable Unavailable OSWALDO, KEO Unavailable Unavailable [facility] Unavailable Unavailable OSWALDO, KEO Unavailable Unavailable OSWALDO, KEO Unavailable Unavailable [facility] Unavailable Unavailable [facility] Unavailable Unavailable OSWALDO, KEO Unavailable Unavailable OSWALDO, KEO Unavailable Unavailable Luis Enrique BRENNER, Salvador Verduzco Unavailable Dr. Kunal Mcgill Primary Care Provider Dr. Kunal Mcgill Referring Provider Dr. Steve Sutherland Attending Provider Dr. Jefferson Lee Attending Provider Dr. Steve Sutherland Referring Provider Dr. Elvin Pretty Attending Provider Roof LOADING UNIT OPERATOR CRIMPING, LOADING UNIT OPERATOR CRIMPING-C Jimbo Diane Attending Provider Kunal Mcgill MD Primary Care Provider Kunal Mcgill MD Primary Care Provider Dr. Kunal Mcgill Primary Care Provider Dr. Kunal Mcgill Referring Provider Roof LOADING UNIT OPERATOR CRIMPING, LOADING UNIT OPERATOR CRIMPING-Jeffrey Diane Attending Provider Dr. Kunal Mcgill Primary Care Provider Dr. Kunal Mcgill Referring Provider Roof LOADING UNIT OPERATOR CRIMPING, LOADING UNIT OPERATOR CRIMPING-Jeffrey Diane Attending Provider Kunal Mcgill MD Primary Care Provider Dr. Kunal Mcgill Referring Provider [facility] LOADING UNIT OPERATOR CRIMPING, LOADING UNIT OPERATOR CRIMPING-C Jimbo Diane Attending Provider DO Penny Mariscal Primary Care Provider Alma BRENNER, Kunal Primary Care Provider Usha BRENNER, Carmelina Primary Care Provider Usha BRENNER, Carmelina Referring Provider Alessandra Elmore Attending Provider Dr. Jefferson Lee MD Attending Provider Carmelina Kerr MD Attending Provider Alessandra Elmore Referring Provider [phone] [place] JORDIN, Dr. Bernal Attending Provider Dr. Gabe Finney MD Referring Provider Dr. Elias Mariscal MD Other Provider Dr. Elias Mariscal MD Attending Provider Usha BRENNER, Carmelina Primary Care Provider Alessandra Elmore Attending Provider Carmelina Kerr MD Referring Provider Dr. Elias Mariscal MD Referring Provider Usha BRENNER, Carmelina Primary Care Physician Dr. Gabe Finney MD Attending Physician 1([facility] [place][phone] Dr. Gbae Finney MD Referring Provider Carmelina Kerr MD Referring Provider Dr. Elias Mariscal MD Attending Physician Alessandra Elmore Attending Physician Alessandra Elmore Referring Provider 1([facility] [phone] Kodi Jordan MD Attending Physician 1([facility] [place])[phone] Alessandra Campos Attending Unavailable Usha, Chalon Referring Unavailable Usha, Chalon Primary Care Unavailable Jefferson Lee Attending Unavailable Usha, Chalon Primary Care Unavailable AndresAlessandra onofre Attending Unavailable Usha, Chalon Referring Unavailable Usha, Chalon Primary Care Unavailable Jordan, Kodi Attending Unavailable Jordan, Kodi Referring Unavailable Usha, Chalon Primary Care Unavailable Usha, Chalon Primary Care Unavailable Andres, Alessandra Attending Unavailable Andres, Alessandra Referring Unavailable Loida, Elias Attending Unavailable Mariscal, Elias Referring Unavailable Usha, Chalon Primary Care Unavailable Usha, Chalon Primary Care Unavailable Loida, Elias Consulting Unavailable Reg, Gabe Attending Unavailable Reg, Gabe Referring Unavailable Usha, Chalon Primary Care Unavailable Reg, Gabe Attending Unavailable Reg, Gabe Referring Unavailable Usha, Chalon Primary Care Unavailable Adnres, Alessandra Attending Unavailable Andres, Alessandra Referring Unavailable Usha, Chalon Attending Unavailable Usha, Chalon Referring Unavailable Usha, Chalon Primary Care Unavailable Jordan, Kodi Attending Unavailable Usha, Chalon Referring Unavailable Reg, Gabe Attending Unavailable Usha, Chalon Referring Unavailable Usha, Chalon Primary Care Unavailable Mariscal, Elias Attending Unavailable Usha, Chalon Referring Unavailable Usha, Chalon Primary Care Unavailable GANTA, KUNAL Attending Unavailable GANTA, KUNAL Primary Care Unavailable Allergies Allergy Classification Reported Allergen(s) Allergy Type Date of Onset Reaction(s) Facility (16 sources) Lidocaine Drug Allergy 2 LOC, passed out [facility] (20 sources) Lisinopril; Translations: [LISINOPRIL] Drug Allergy 9 [facility] (1 source) Lidocaine Drug Allergy 5 [facility] (1 source) Lisinopril Drug Allergy 5 [facility] Medications Current Medications Medication Drug Class(es) Dates Sig (Normalized) Sig (Original) ascorbic acid 226 mg / beta carotene 64757 unt / cuprous oxide 0.8 mg / dl-alpha tocopheryl acetate 200 unt / zinc oxide 34.8 mg oral capsule (1 source) Vitamin C Start: 01-09-2020 aspirin 81 mg delayed release oral tablet (20 sources) Platelet Aggregation Inhibitor, Nonsteroidal Anti-inflammatory Drug Start: 02-12-2018 Comment on above: Take 1 tablet by padmini th once daily. calcium citrate 1500 mg / cholecalciferol 200 unt oral tablet (20 sources) Vitamin D Start: 09-15-2009 End: 10-29-2021 Comment on above: Take one(1) tablet d aily. carvedilol 6.25 mg oral tablet (20 sources) alpha-Adrenergic John, beta-Adrenergic John Start: 12-30-2024 take 1 tablet by mouth twice daily Start: 02-18-2021 End: 12-30-2024 take 1 tablet by mouth twice daily Carvedilol 6.25 mg tablet Discontinued 6.25 mg PO TWICE A DAY 180 3 May 30, 2022 4:18pm February 01, 2023 11:19am Start: 01-22-2021 End: 02-18-2021 take 1 tablet by mouth twice daily Carvedilol 3.125 mg Tablet Discontinued 3.125 mg PO TWICE A DAY 60 0 January 22, 2021 12:00am February 18, 2021 4:57pm Comment on above: Take 1 tablet by padmini twice daily with meals. cholecalciferol 0.025 mg chewable tablet (20 sources) Vitamin D Start: take 1000 [IU] by mouth three times daily Cholecalciferol (Vitamin D3) Active 1000 UNIT PO THREE TIMES A DAY February 01, 2023 10:14am Start: 05-20-2022 take 1 capsule by mo [facility] once daily Cholecalciferol, Vitamin D3, 25 mcg (1,000 unit) cap Take 1 capsule by mouth once daily. 05/20/2022 Active Start: 05-12-2021 End: 02-01-2023 take 1 tablet by mouth twice daily Start: 11-08-2019 D3-1000 25 MCG (1000 UT) TABS 1 tablet 3 times daily CHOLECALCIFEROL [id number] Hannah Harrison LPN Start: 02-04-2019 End: 10-29-2021 take 1 tablet by mouth twice daily cholecalciferol (VITAMIN D3) 1,000 unit tab tablet Indications: Vitamin D deficiency Take 1 tablet by mouth twice daily. 0 02/04/2019 10/29/2021 Discontinued (Course of therapy completed) Start: 01-30-2013 End: 05-12-2021 take 1 tablet by mouth three times daily Cholecalciferol (Vitamin D3) 1,000 UNIT tablet,chewable Discontinued 1000 U PO THREE TIMES A DAY January 30, 2013 12:00am May 12, 2021 2:12pm vitamin Comment on above: Take 1 tablet by padmini twice daily. Take 1 capsule by mo uth once daily. Docusate (8 sources) DOCUSATE SODIUM ORAL Take by mouth. Active DOCUSATE SODIUM ORAL Take by mouth. 0 Active Comment on above: Take by mouth. ibuprofen 600 mg oral tablet (12 sources) Nonsteroidal Anti-inflammatory Drug Start: ibuprofen (MOTRIN) 600 mg tablet Take by mouth as needed. 12/31/2019 Active Comment on above: Take by mouth as nee ded. nitrofurantoin, macrocrystals 25 mg / nitrofurantoin, monohydrate 75 mg oral capsule (2 sources) Nitrofuran Antibacterial Start: End: take 1 capsule by mouth twice daily at mealtime nitrofurantoin monohydrate and macrocrystal (MACROBID) 100 mg capsule Take 1 capsule by mouth twice daily with meals for 7 days. 14 capsule 0 10/29/2021 11/05/2021 Active Comment on above: Take 1 capsule by [facility] twice daily with meals for 7 days. phenazopyridine hydrochloride 200 mg oral tablet (8 sources) Start: take 1 tablet by mouth every eight hours as needed phenazopyridine (PYRIDIUM) 200 mg tablet Take 1 tablet by mouth three times daily as needed. 9 tablet 10/29/2021 Active Comment on above: Take [address] [facility] three times daily as needed. spironolactone 25 mg oral tablet (5 sources) Aldosterone Antagonist Start: take 1 tablet by mouth once daily Start: 10-09-2024 End: 12-30-2024 take 1 tablet by mouth once daily Spironolactone 25 mg tablet Discontinued 25 mg PO daily 02 03October 09, 2024 12:00am December 30, 2024 2:10pm 24 hr venlafaxine 37.5 mg extended release oral capsule (12 sources) Serotonin and Norepinephrine Reuptake Inhibitor Start: 11-08-2019 End: 02-13-2024 take 1 capsule by mouth once daily vit C/E/Zn/coppr/lutein /zeaxan (PRESERVISION AREDS-2 ORAL) (12 sources) vit C/E/Zn/coppr/ lutein/zeaxan (PRESERVISION AREDS-2 ORAL) Take by mouth twice daily. Active vit C/E/Zn/coppr /lutein/zeaxan (PRESERVISION AREDS-2 ORAL) Take by mouth twice daily. 0 Active Comment on above: Take by mouth twice daily. Vitamins A,C,N-Wpnh-Vgxfvi (Preservision Areds) 14,320-226-200 fxgm-vr-ysrh capsule (15 sources) Start: 01-09-2020 take 1 capsule by mouth twice daily Vitamins A,C,B-Tiof-Vruxbc (Preservision Areds) 14,320-226-200 fyix-tx-ambs capsule Active 1 CAP PO TWICE A DAY January 09, 2020 11:26am Start: 01-09-2020 Vitamins A,C,E -Zinc-Copper (Preservision Areds) 14,320-226-200 vrxc-xj-ftyj capsule Active 1 NMA PO TWICE A DAY January 09, 2020 12:00am vitamin Start: 01-09-2020 Vitamins A,C,E -Zinc-Copper (Preservision Areds) 14,320-226-200 zasw-ha-rkyi capsule Active 1 NMA PO TWICE A DAY January 09, 2020 12:00am Start: 01-09-2020 take 1 capsule by [facility] twice daily Vitamins A,C,U-Hzrs-Xwbrmj (Preservision Areds) 14,320-226-200 vhwj-vp-aqql capsule Active 1 CAP PO TWICE A DAY January 08, 2020 11:00pm Start: 01-09-2020 take 1 capsule by [facility] twice daily Vitamins A,C,C-Tqqm-Oucftd (Preservision Areds) 14,320-226-200 fnjl-ze-nvbo capsule Active 1 CAP PO TWICE A DAY January 09, 2020 12:00am 100 ml zoledronic acid 0.05 mg/ml injection (6 sources) Bisphosphonate Start: 08-27-2024 Completed/Discontinued Medications Medication Drug Class(es) Dates Sig (Normalized) Sig (Original) acetaminophen 500 mg oral tablet (20 sources) Start: 12-31-2019 End: 09-21-2023 take 1 tablet by mouth five times daily as needed for pain Acetaminophen 500 mg tablet Discontinued 500 mg PO .COMPLEX as needed for pain November 22, 2021 12:00am September 21, 2023 2:34pm 500 mg orally 5 times per day PRN; Comment on above: Take by mouth as nee ded. ascorbic acid 113 mg / copper gluconate 0.4 mg / docosahexaenoic acid 87.5 mg / eicosapentaenoic acid 163 mg / lutein 2.5 mg / tocopherol acetate 100 unt / zeaxanthin 0.5 mg / zinc oxide 17.4 mg oral capsule (1 source) Vitamin C Start: 11-08-2019 PRESERVISION AREDS 2 CAPS 1 capsule twice daily MULTIPLE VITAMINS-MINERALS [id number] Hannah Harrison LPN furosemide 40 mg oral tablet (20 sources) Loop Diuretic Start: 05-12-2021 End: 11-22-2021 take 1 tablet by mouth every other day Furosemide 40 mg tablet Discontinued 40 mg PO .every other day 02 03May 12, 2021 2:34pm November 22, 2021 10:41am Start: 02-18-2021 End: 05-12-2021 take 1 tablet by mouth once daily Furosemide 40 mg tablet Discontinued 40 mg PO DAILY 30 March 15, 2021 11:03am May 12, 2021 2:35pm Start: 02-18-2021 End: 02-18-2021 take 2 tablets by mouth once daily Furosemide (Lasix) 20 mg tablet Discontinued 40 mg PO DAILY February 18, 2021 4:08pm February 18, 2021 4:58pm Start: 01-22-2021 End: 02-18-2021 take 1 tablet by mouth once daily Furosemide (Lasix) 20 mg tablet Discontinued 20 mg PO DAILY 30 January 22, 2021 12:00am February 18, 2021 4:09pm Comment on above: Take 1 tablet by padimni every other day. losartan potassium 25 mg oral tablet (20 sources) Angiotensin 2 Receptor John Start: 0 End: 5 take 1 tablet by mouth once daily Losartan 25 mg tablet Discontinued 25 mg PO DAILY 90 January 29, 2024 12:04pm October 09, 2024 10:59am blood pressure Start: 11-08-2019 LOSARTAN POTAS SIUM 25 MG TABS 1 tablet daily LOSARTAN POTASSIUM [id number] Hannah Harrison LPN Comment on above: Take 1 tablet by padmini once daily. naproxen sodium 220 mg oral tablet (13 sources) Nonsteroidal Anti-inflammatory Drug Start: 2 End: 3 take 1 tablet by mouth twice daily Naproxen Sodium 220 mg tablet Discontinued 220 mg PO TWICE A DAY November 22, 2021 12:00am February 01, 2023 11:14am rosuvastatin calcium 10 mg oral tablet (20 sources) HMG-CoA Reductase Inhibitor Start: 0 End: 5 take 1 tablet by mouth once daily Rosuvastatin 10 mg tablet Discontinued 10 mg PO DAILY 90 3 September 25, 2023 1:41pm October 09, 2024 10:59am cholesterol Start: 11-08-2019 ROSUVASTATIN C ALCIUM 10 MG TABS 1 tablet daily ROSUVASTATIN CALCIUM [id number] Hannah Harrison LPN Comment on above: Take 1 tablet by padmini th daily at bedtime. triamcinolone acetonide 40 mg/ml injectable suspension (2 sources) Corticosteroid Start: 04-26-2021 End: 04-26-2021 Kenalog (triamcinolone acetonide) 40 mg/mL suspension for injection Discontinued 60 MG INTRAARTIC ONCE 1.5 April 26, 2021 2:28pm April 26, 2021 4:03pm Problems Active Problems Problem Classification Problem Date Documented Da te Episodic/Chronic Acute myocardial infarction (16 sources) Myocardial infarction; Translations: [Non-ST elevation (NSTEMI) myocardial infarction] 02-19-2021 Chronic Anxiety disorders (13 sources) Generalized anxiety disorder; Translations: [Generalized anxiety disorder] Onset: 8 03-04-2019 Chronic Cardiac dysrhythmias (20 sources) Paroxysmal supraventricular tachycardia; Translations: [Supraventricular tachycardia] Chronic Cataract (20 sources) Pseudophakia; Translations: [Presence of intraocular lens] Onset: 1 04-21-2020 Chronic Disorders of lipid metabolism (20 sources) Mixed hyperlipidemia; Translations: [Mixed hyperlipidemia] Onset: 8 Resolved: 0 Chronic Comment on above: ON MED Essential hypertension (20 sources) Essential (primary) hypertension; Translations: [Essential hypertension] Onset: 8 Chronic Genitourinary symptoms and ill-defined conditions (3 sources) Increased frequency of urination; Translations: [Frequency of micturition] Episodic Heart valve disorders (19 sources) Mitral valve prolapse; Translations: [Nonrheumatic mitral (valve) prolapse] 01-07-2020 Chronic Immunizations and screening for infectious disease (1 source) Vaccination needed; Translations: [Encounter for immunization] Episodic Nonspecific chest pain (20 sources) Atypical chest pain; Translations: [Other chest pain] 01-07-2020 Episodic Nutritional deficiencies (13 sources) Vitamin D deficiency; Translations: [Vitamin D deficiency, unspecified] Onset: 3 02-07-2013 Chronic Osteoarthritis (20 sources) Unilateral primary osteoarthritis, right knee; Translations: [Osteoarthritis of right knee joint] Onset: 9 11-12-2019 Chronic Osteoporosis (7 sources) Osteoporosis; Translations: [Age-related osteoporosis without current pathological fracture] Onset: 5 08-22-2024 Chronic Other acquired deformities (20 sources) Lumbar spondylolisthesis; Translations: [Spondylolisthesis, lumbar region] 07-09-2024 Episodic Other aftercare (16 sources) Drug therapy finding; Translations: [Other group home (current) drug therapy] 02-18-2021 Episodic Other and ill-defined heart disease (20 sources) Takotsubo cardiomyopathy; Translations: [Takotsubo syndrome] Chronic Other and ill-defined heart disease (5 sources) Takotsubo syndrome; Translations: [Takotsubo syndrome] Chronic Other and unspecified benign neoplasm (2 sources) Tubular adenoma of colon; Translations: [Benign neoplasm of colon, unspecified] Onset: 4 02-13-2024 Episodic Other bone disease and musculoskeletal deformities (13 sources) Osteopenia; Translations: [Other specified disorders of bone density and structure, unspecified site] 02-13-2024 Episodic Other circulatory disease (16 sources) H/O: hypertension; Translations: [Personal history of other diseases of the circulatory system] 01-01-2020 Episodic Other connective tissue disease (1 source) History of total knee arthroplasty; Translations: [Presence of right artificial knee joint] Chronic Other connective tissue disease (2 sources) Neurogenic claudication; Translations: [Other symptoms and signs involving the nervous system] 12-20-2024 Episodic Other gastrointestinal disorders (9 sources) Stool DNA-based colorectal cancer screening positive; Translations: [Other fecal abnormalities] 07-28-2023 Episodic Other hematologic conditions (1 source) Protein level - finding; Translations: [Other specified abnormalities of plasma proteins] Episodic Other hematologic conditions (15 sources) Raised cardiac enzyme or marker; Translations: [Other specified abnormalities of plasma proteins] 01-30-2021 Episodic Nikki-; endo-; and myocarditis; cardiomyopathy (except that caused by tuberculosis or sexually transmitted disease) (13 sources) Cardiomyopathy; Translations: [Cardiomyopathy, unspecified] Onset: 1 02-10-2021 Chronic Retinal detachments; defects; vascular occlusion; and retinopathy (12 sources) Nonexudative age-related macular degeneration; Translations: [Nonexudative age-related macular degeneration, bilateral, early dry stage] Onset: 1 04-21-2020 Chronic Spondylosis; intervertebral disc disorders; other back problems (20 sources) Lumbar radiculopathy; Translations: [Radiculopathy, lumbar region] Onset: 5 07-09-2024 Episodic Syncope (16 sources) Syncope; Translations: [Syncope and collapse] 01-30-2021 Episodic Unclassified (2 sources) Other general symptoms and signs; Translations: [Other general symptoms and signs] Onset: 8 Episodic Unclassified (1 source) Unknown / UNK(Unknown) Onset: 8 Unclassified (9 sources) M54.16 - Radiculopathy, lumbar region Unclassified (1 source) Low back pain, unspecified; Translations: [Low back pain, unspecified] Onset: 5 Past or Other Problems Problem Classification Problem Date Documented Da te Episodic/Chronic Abdominal pain (12 sources) Abdominal pain; Translations: [Unspecified abdominal pain] Onset: 04-10-2013 04-10-2013 Episodic Mood disorders (2 sources) Moderate recurrent major depression; Translations: [Major depressive disorder, recurrent, moderate] Onset: 03-04-2019 Resolved: 03-09-2020 03-09-2020 Chronic Other bone disease and musculoskeletal deformities (12 sources) Disorder of skeletal system; Translations: [Disorder of bone, unspecified] Onset: 08-08-2007 03-29-2021 Episodic Other bone disease and musculoskeletal deformities (1 source) Other specified disorders of bone density and structure, unspecified site; Translations: [Other specified disorders of bone density and structure, unspecified site] Onset: 07-17-2024 Episodic Other nervous system disorders (12 sources) Taste sense altered; Translations: [Parageusia] Onset: 03-04-2019 03-04-2019 Episodic Phlebitis; thrombophlebitis and thromboembolism (12 sources) Portal vein thrombosis; Translations: [Portal vein thrombosis] Onset: 02-07-2013 02-07-2013 Episodic Residual codes; unclassified (16 sources) History of cardiac catheterization; Translations: [Other specified postprocedural states] Onset: 01-22-2021 01-22-2021 Episodic Comment on above: No significant CAD. No significant . Normal LVEDP Residual codes; unclassified (5 sources) Other specified postprocedural states; Translations: [Personal history of surgery to heart and great vessels, presenting hazards to health] Onset: 01-22-2021 Episodic Residual codes; unclassified (12 sources) Family history of malignant neoplasm of pancreas; Translations: [Family history of malignant neoplasm of digestive organs] Onset: 04-10-2013 04-10-2013 Episodic Unclassified (1 source) Problem Results Test Name Value Interpretation Reference Range Facility Orthopedic Visit Reporton Orthopedic Visit Report [facility] [place] [address] OFFICE VISIT Date of Service: 12/20/24 MR#: [id number] Acct: [id number] Name: CORNELIA BURNS Rep #: [id number] : 1945 Provider: Dr. Kodi Jordan MD Age/Sex: 79/F [place] [facility] [place]: Signed Intake Vital Signs 10/22/24 11:23 12/20/24 11:38 Height 5 ft 9.5 in 5 ft 9.5 in Weight: 166 lb 4 oz 165 lb BMI 24.2 24.0 BP 131/85 H Blood Pressure Location Rt brachial Position Sitting Pulse 65 Pulse Source Monitor Pulse Oximetry (%) 95 Oxygen Delivery Method room air Intake Visit Reasons: LUMBAR SPINE Chief Complaint: Lumbar spine MRI review Accompanied by: Is patient in pain?: No Allergies lidocaine Allergy (Verified 12/20/24 11:42) LOC, passed out lisinopril Adverse Reaction (Verified 12/20/24 11:42) cough Medications ???Medication ???Instructions ???Recorded ???Confirmed ???Type aspirin 81 mg tablet,delayed 81 mg PO DAILY heart health 12/20/24 History release (Adult Low Dose Aspirin) calcium 315 mg (as 1 tab PO DAILY vitamin 01/09/20 History citrate)-vitamin D3 5 mcg (200 unit) tablet (Calcium Citrate + D) vitamins A,C,L-yrua-ttocgt 4,296 1 cap PO BID vitamin 01/09/2012/02 History mcg-226 mg-90 mg capsule (PreserVision AREDS) cholecalciferol (vitamin D3) 25 1,000 unit PO BID vitamin 02/01/23 12/20/24 History mcg (1,000 unit) chewable tablet venlafaxine 37.5 mg 37.5 mg PO DAILY 07/28/23 12/20/24 History capsule,extended release 24 hr (Effexor XR) carvedilol 6.25 mg tablet 6.25 mg PO BID #180 tabs 09/25/23 12/20/24 Rx zoledronic acid 5 mg/100 mL in 1 ea .Route ONCE #100 mL 08/27/24 12/20/24 Rx mannitol 5 %-water intravenous piggybck losartan 25 mg tablet 25 mg PO DAILY blood pressure #90 10/09/24 12/20/24 Rx tabs rosuvastatin 10 mg tablet 10 mg PO DAILY cholesterol #90 tab s 10/09/24 12/20/24 Rx spironolactone 25 mg tablet 25 mg PO QDAY #30 tabs 10/09/24 Rx Have you fallen in the past year?: Yes PFSH Medical History (Updated 12/20/24 @ 16:[address] Kodi Jordan MD) Neurogenic claudication Osteoporosis Osteopenia determined by x-ray Wears hearing aid Wears glasses Post-menopausal Depression Anxiety Arthritis Portal vein thrombosis High cholesterol Blackout Non-smoker History of stress test History of echocardiogram Cardiology follow-up encounter Takotsubo cardiomyopathy Osteoarthritis of right knee LV dysfunction Anxiety and depression Nonrheumatic mitral (valve) prolapse Chest pain, atypical Paroxysmal supraventricular tachycardia Mixed hyperlipidemia Essential hypertension Portal vein thrombosis HTN (hypertension) Surgical History History of cardiac catheterization Hx of right cataract extraction Hx of left cataract extraction Hx of colonoscopy History of 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) History of left heart catheterization (01/22/21) History of cholecystectomy Family History Father Heart disease Valvular heart disease Mother Cancer Social History Smoking Status: Never smoker Electronic Cigarette Use: not used second hand exposure: No alcohol intake: never substance use type: does not use caffeine: Yes HPI LUMBAR SPINE Details: This documentation accurately reflects the service provided and the decisions made by me, Dr. Kodi Jordan MD 12/20/24 1134. Part of today???s visit was documented by Sujata Washburn MA and Shelbie Finney RN, acting as scribe. CORNELIA BURNS is a 79 year old F here today for lumbar spine MRI review. Patient states that she isn't having any pain today. She would like to go over the MRI results to discuss what the next step would be. Patient states that she hasn't had any injections in her lower back. She states that she did have a physical therapy session at [facility]. She states that the physical therapy didn't work out well for her. When ambulating her right foot and toes go numb and she has to hit her leg onto the ground to try help get sensation back. She can walk 1/2 mile before this helps. It is not interfering with her doing any activity that she wants to.She denies numbness in her hands, neck pain or arm pain. She does not have diabetes. She does not take a blood thinner. She does take a beta john. She does not get short of breath. The patient is a 79-year-old female presenting with numbness and instability in the right leg, seeking evaluation for potential spinal issues. The patient reports experien (more content not included)... Normal [facility] Anion gap in Serum or Plasma Ordered By: Elias Mariscal on 11-01-2024 Anion gap [Moles/Vol] 10 mmol/L 5-15 [facility] BUN/creatinine ratioOrdered By: Elias Mariscal on 11-01-2024 Urea nitrogen/Creatinine [Mass ratio] 27.6 mg/mg High 10-20 [facility] Basic Metabolic Profile (BMP )on 11-01-2024 BUN/CRE 27.6 RATIO High 10-20 [facility] Comment on above: Performed By: #### L 500.2500 #### [facility] [address] [place], [address] Calcium [Mass/Vol] 9.1 mg/dL Normal 7.6-11.0 [facility] Comment on above: Performed By: #### L 500.2500 #### [facility] [address] [place], [address] Chloride [Moles/Vol] 101 mmol/L Normal 98-108 [facility] Comment on above: Performed By: #### L 500.2500 #### [facility] [address] [place], [address] CO2 [Moles/Vol] 24.7 mmol/L Normal 21.0-32.0 [facility] Comment on above: Performed By: #### L 500.2500 #### [facility] [address] [place], [address] Creatinine [Mass/Vol] 0.70 mg/dL Normal 0.70-1.20 [facility] Comment on above: Performed By: #### L 500.2500 #### [facility] [address] [place], [address] GAP 10 Normal 5-15 [facility] Comment on above: Performed By: #### L 500.2500 #### [facility] [address] [place], [address] GFR/1.73 sq M.predicted among non-blacks MDRD (S/P/Bld) [Vol rate/Area] 87 mL/min/{1.73_m2} Normal >60 [facility] Comment on above: Result Comment: mL/m in/1.73m2 CKD-EPI Creatinine Equation (2021) Performed By: #### L 500.2500 #### [facility] [address] [place], [address] Glucose [Mass/Vol] 92 mg/dL Normal 70-99 [facility] Comment on above: Performed By: #### L 500.2500 #### [facility] [address] [place], [address] Potassium [Moles/Vol] 4.3 mmol/L Normal 3.3-5.1 [facility] Comment on above: Performed By: #### L 500.2500 #### [facility] [address] [place], [address] Sodium [Moles/Vol] 136 mmol/L Normal 133-145 [facility] Comment on above: Performed By: #### L 500.2500 #### [facility] [address] [place], [address] Urea nitrogen [Mass/Vol] 19 mg/dL Normal 4-19 [facility] Comment on above: Performed By: #### L 500.2500 #### [facility] [address] [place], [address] Carbon dioxide, total [Moles /volume] in Central venous bloodOrdered By: Elias Mariscal on 11-01-2024 CO2 [Moles/Vol] 24.7 mmol/L 21.0-32.0 [facility] Chloride assayOrdered By: Barb Mariscal on 11-01-2024 Chloride [Moles/Vol] 101 mmol/L 98-108 [facility] Glomerular filtration rate ( GFR) estimation/1.73 sq m using serum, plasma, or whole bOrdered By: Elias Mariscal on 11-01-2024 GFR/1.73 sq M.predicted among non-blacks MDRD (S/P/Bld) [Vol rate/Area] 87 mL/min/{1.73_m2} >60 [facility] Comment on above: mL/min/1.73m2 CKD-EP I Creatinine Equation (2020) Potassium measurement (mass/ volume)Ordered By: Elias Mariscal on 11-01-2024 Potassium (Unsp spec) [Mass/Vol] 4.3 mmol/L 3.3-5.1 [facility] Serum creatinine measurement (mass/volume)Ordered By: Elias Mariscal on 11-01-2024 Creatinine [Mass/Vol] 0.70 mg/dL 0.70-1.20 [facility] Serum glucose measurement (m ass/volume)Ordered By: Elias Mariscal on 11-01-2024 Glucose [Mass/Vol] 92 mg/dL 70-99 [facility] Serum or plasma calcium ezekiel urement (mass/volume)Ordered By: Elias Mariscal on 11-01-2024 Calcium [Mass/Vol] 9.1 mg/dL 7.6-11.0 [facility] Serum or plasma urea nitroge n measurement (mass/volume)Ordered By: Elias Mariscal on 11-01-2024 Urea nitrogen [Mass/Vol] 19 mg/dL 4-19 [facility] Sodium levelOrdered By: Noe Mariscal on 11-01-2024 Sodium [Moles/Vol] 136 mmol/L 133-145 [facility] Endocrinology Visit Reporton 10-22-2024 Endocrinology Visit Report [facility] [place] [id number] OFFICE VISIT Date of Service: 10/22/24 MR#: [id number] Acct: [id number] Name: CORNELIA BURNS Rep #: [id number] : 1945 Provider: Dax Mcconnell Age/Sex: 79/F Location: [facility] Status: Signed Intake Vital Signs 08/20/24 09:30 10/09/24 10:28 10/22/24 11:23 Height 5 ft 9 in 5 ft 9.5 in 5 ft 9.5 in Weight: 166 lb 4 oz BMI 24.2 BP 131/85 H Blood Pressure Location Rt brachial Position Sitting Pulse 65 Pulse Source Monitor Pulse Oximetry (%) 95 Oxygen Delivery Method room air Intake Visit Reasons: 1 Y FU Chief Complaint: reclast Is patient in pain?: Yes Allergies lidocaine Allergy (Verified 10/22/24 11:25) LOC, passed out lisinopril Adverse Reaction (Verified 10/22/24 11:25) cough Medications ???Medication ???Instructions ???Recorded ???Confirmed ???Type aspirin 81 mg tablet,delayed 81 mg PO DAILY heart health 10/22/24 History release (Adult Low Dose Aspirin) calcium 315 mg (as 1 tab PO DAILY vitamin 01/09/20 History citrate)-vitamin D3 5 mcg (200 unit) tablet (Calcium Citrate + D) vitamins A,C,V-tnug-blsgfo 4,296 1 cap PO BID vitamin 01/09/2010/02 History mcg-226 mg-90 mg capsule (PreserVision AREDS) cholecalciferol (vitamin D3) 25 1,000 unit PO BID vitamin 02/01/23 10/22/24 History mcg (1,000 unit) chewable tablet venlafaxine 37.5 mg 37.5 mg PO DAILY 07/28/23 10/22/24 History capsule,extended release 24 hr (Effexor XR) carvedilol 6.25 mg tablet 6.25 mg PO BID #180 tabs 09/25/23 10/22/24 Rx zoledronic acid 5 mg/100 mL in 1 ea .Route ONCE #100 mL 08/27/24 10/22/24 Rx mannitol 5 %-water intravenous piggybck losartan 25 mg tablet 25 mg PO DAILY blood pressure #90 10/09/24 10/22/24 Rx tabs rosuvastatin 10 mg tablet 10 mg PO DAILY cholesterol #90 tab s 10/09/24 10/22/24 Rx spironolactone 25 mg tablet 25 mg PO QDAY #30 tabs 10/09/24 Rx Have you fallen in the past year?: Yes PFSH Medical History Osteoporosis Osteopenia determined by x-ray Wears hearing aid Wears glasses Post-menopausal Depression Anxiety Arthritis Portal vein thrombosis High cholesterol Blackout Non-smoker History of stress test History of echocardiogram Cardiology follow-up encounter Takotsubo cardiomyopathy Osteoarthritis of right knee LV dysfunction Anxiety and depression Nonrheumatic mitral (valve) prolapse Chest pain, atypical Paroxysmal supraventricular tachycardia Mixed hyperlipidemia Essential hypertension Portal vein thrombosis HTN (hypertension) Surgical History History of cardiac catheterization Hx of right cataract extraction Hx of left cataract extraction Hx of colonoscopy History of 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) History of left heart catheterization (01/22/21) History of cholecystectomy Family History Father Heart disease Valvular heart disease Mother Cancer Social History Smoking Status: Never smoker Electronic Cigarette Use: not used second hand exposure: No alcohol intake: never substance use type: does not use caffeine: Yes HPI HPI Chief Complaint: reclast Details: CORNELIA BURNS, is a 79 F who presents to the office today for follow up. Bone Density LS -2.1 LH -1.5 LFN -2.0 She has received 5 years of oral bisphosphonate and 2 years of Reclast. Ca 9.1 D 37.4 No recent falls/fractures. ROS Const Constitutional: No fatigue or weight change ENT ENT: No dizziness/vertigo Cardio Cardiology: No chest pain at rest, chest pain with exertion, shortness of breath or palpitations Skin Skin: No wounds Endo Endocrine: No fatigue or weight change Exam Const General: cooperative, healthy appearing, comfortable, no acute distress, well developed and not cushingoid Nutritional Appearance: well nourished Orientation: alert, awake and oriented x3 HENMT Head: normal to inspection Ears: hearing grossly normal bilaterally Nose: external nose normal Mouth: oral mucosae normal Eyes General: appearance normal, both eyes and all related structures Alignment and Position: alignment normal Periorbital: periorbital findings normal Eyelids: eyelids normal Conjunctivae: conjunctivae normal Neck Neck: normal visual inspection Neck mass: No Thyroid: thyroid normal Chest Chest palpation inspection: normal inspection of the chest Resp Effort Inspection: normal respiratory effort, able to speak in comp (more content not included)... Normal [facility] Cardiology Visit Reporton Cardiology Visit Report [facility] [address] [place], [place] [id number] OFFICE VISIT Date of Service: 10/09/24 MR#: [id number] Acct: [id number] Name: CORNELIA BURNS Rep #: [id number] : 1945 Provider: Dr. Elias kim MD Age/Sex: 79/F Location[place] [facility] Status: Signed HPI HPI History of Present Illness Details: Patient is a pleasant 79-year-old white female who comes today for monitoring of her cardiovascular status. Patient carries a history of Takotsubo's cardiomyopathy back in January 2021 she was treated with LV recovery medical therapy and her EF improved from 35% to 55% on echocardiogram May 2021. Patient denies any signs or symptoms of congestive heart failure. She has noted some trace to 1+ left greater than right ankle edema over the last few weeks. Today it is almost imperceptible. The patient's blood pressure has been elevated in her home environment she had 1 recording of 198/108. And other times it was 120s systolic she had several that were in the 170/110 range. The patient reports that she has been doing very well in her home environment other than these vacillating blood pressures. The patient is on a combination of Coreg and losartan. Her heart rate is running in the 60 to 70 bpm range. Patient denies any PND orthopnea denies any syncope or near syncope. She reports no chest symptoms. Intake Vital Signs 08/20/24 09:30 10/07/24 13:09 10/09/24 10:28 Height 5 ft 9 in 5 ft 9.5 in 5 ft 9.5 in Weight: 167 lb BMI 24.3 BP 108/75 Blood Pressure Location Lt brachial Position Sitting Respiration 18 Pulse 78 Pulse Source Monitor Pulse Oximetry (%) 94 Oxygen Delivery Method room air Intake Visit Reasons: 1 Y FU Compensation Intern Required: No Accompanied by: Self Is patient in pain?: No Allergies lidocaine Allergy (Verified 10/09/24 10:28) LOC, passed out lisinopril Adverse Reaction (Verified 10/09/24 10:28) cough Medications ???Medication ???Instructions ???Recorded ???Confirmed ???Type aspirin 81 mg tablet,delayed 81 mg PO DAILY heart health 10/09/24 History release (Adult Low Dose Aspirin) calcium 315 mg (as 1 tab PO DAILY vitamin 01/09/20 History citrate)-vitamin D3 5 mcg (200 unit) tablet (Calcium Citrate + D) vitamins A,C,N-wecy-lrdghp 4,296 1 cap PO BID vitamin 01/09/2012/26 History mcg-226 mg-90 mg capsule (PreserVision AREDS) cholecalciferol (vitamin D3) 25 1,000 unit PO BID vitamin 02/01/23 10/09/24 History mcg (1,000 unit) chewable tablet venlafaxine 37.5 mg 37.5 mg PO DAILY 07/28/23 10/09/24 History capsule,extended release 24 hr (Effexor XR) carvedilol 6.25 mg tablet 6.25 mg PO BID #180 tabs 09/25/23 10/09/24 Rx zoledronic acid 5 mg/100 mL in 1 ea .Route ONCE #100 mL 08/27/24 10/07/24 Rx mannitol 5 %-water intravenous piggybck losartan 25 mg tablet 25 mg PO DAILY blood pressure #90 10/09/24 10/09/24 Rx tabs rosuvastatin 10 mg tablet 10 mg PO DAILY cholesterol #90 tab s 10/09/24 10/09/24 Rx spironolactone 25 mg tablet 25 mg PO QDAY #30 tabs 10/09/24 Rx Have you fallen in the past year?: Yes PFSH Medical History Osteoporosis Osteopenia determined by x-ray Wears hearing aid Wears glasses Post-menopausal Depression Anxiety Arthritis Portal vein thrombosis High cholesterol Blackout Non-smoker History of stress test History of echocardiogram Cardiology follow-up encounter Takotsubo cardiomyopathy Osteoarthritis of right knee LV dysfunction Anxiety and depression Nonrheumatic mitral (valve) prolapse Chest pain, atypical Paroxysmal supraventricular tachycardia Mixed hyperlipidemia Essential hypertension Portal vein thrombosis HTN (hypertension) Surgical History History of cardiac catheterization Hx of right cataract extraction Hx of left cataract extraction Hx of colonoscopy History of 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) History of left heart catheterization (01/22/21) History of cholecystectomy Family History Father Heart disease Valvular heart disease Mother Cancer Social History Smoking Status: Never smoker Electronic Cigarette Use: not used second hand exposure: No alcohol intake: never substance use type: does not use caffeine: Yes ROS Const Const: Positive for weakness (right leg); Negative for fatigue ENT ENT: Negative for dizziness or balance problems Cardio Chest Pain: Yes (occasionally) Palpitations: No Edema: Bilateral Muscle aches (more content not included)... Normal [facility] Inital Evaluation (1) - PTon 10-08-2024 Inital Evaluation (1) - PT [facility] [address] [place] [address] / REHABILITATION SERVICES INITIAL EVALUATION MR#: [id number] Acct: [id number] Name: CORNELIA BURNS Rep #: [id number] : 1945 79 From: Ashanti Pastor PT, Cert. MDT Referring Dr.: BITA Rose Status: REG RCR Insurance: MEDICARE PART A B [facility] Patient's Visit Information Visit Information Visit Information: CORNELIA BURNS is a 79 year old F referred to Physical Therapy by BITA Rose with a diagnosis of LUMBAR RADICULOPATHY. Date of Evaluation: 10/08/24 Physical Therapist: Ashanti Pastor PT, Cert MDT Visit Plan Frequency: 2x /Week Duration: 4-6 Weeks Plan: POSTURE CORRECTION/STRENGTHENING, INSTRUCTION IN APPROPRIATE BODY MECHANICS AND ACTIVITY MODIFICATIONS. DLS STARTING WITH A NEUTRAL SPINE PROGRESSING ROM TOLERATED. JAMSHID LE ROM, STRETCHING AND STRENGTHENING. HEP INSTRUCTION. Subjective Subjective: Present symptoms: R LOW BACK, BUTTOCK, THIGH, LEG, FOOT AND TOE NUMBNESS. INTERMITTENT R KNEE BUCKLING. Present since: YEARS - OCTOBER 2021 - AT SOME POINT RECOVERING FROM KNEE SURGERY. Pain Scale: PATIENT DENIES PAIN. SHE ALSO DENIES CHANGE OF INTENSITY OF NUMBNESS. Is it getting better, worse or staying the same: STAYING THE SAME Commenced as a result of: NO APPARENT REASON BUT PATIENT STATES SHE ASSOCIATES IT TO SOME TIME AFTER HER KNEE SURGERY. Symptoms at onset: SAME Worse: *SITTING AT HOME, DRIVING, RIDING IN THE CAR, RISING FROM SITTING, WITH PROLONGED WALKING - SOMETIMES NUMBNESS STARTS AT 1/2 MILE BUT SOMETIMES CAN GO 2 MILES WITHOUT NUMBNESS. Better: NOTHING - "IT JUST COMES AND GOES". LYING DOWN. Disturbed sleep: NO Previous history/Previous treatment: 1972 DURING THEN WENT AWAY AFTER DELIVERY UNTIL ABOUT 2021. Treatment this episode: NONE. CONSULT Coughing/sneezing/straining : Gait: FALL IN APR AT TRACK WHEN KNEE GAVE OUT AND WENT DOWN ON ALL FOURS. ALREADY HAD NUMBNESS AND SHE STATES SHE THOUGHT SHE WAS FINE AND KEPT WALKING. SINCE SHE FELL ON THE KNEE SHE WENT BACK TO THE [facility] TO SEE HER KNEE SURGEON AND HE SAID HER KNEE WAS FINE AND REFERRED HER TO [facility] TO HAVE HER SPINE LOOKED AT. AFTER MRI, ERICN REPORTS PT CONSULT AND BEN WERE RECOMMENDED. PATIENT REPORTS SHE HAS NOT CONSULTED PAIN MGMT BECAUSE THAT DOES NOT MAKE ANY SENSE TO HER. "I'M AT A TOTAL OF WHAT IT IS AND WHAT TO DO ABOUT IT". Bowel or Bladder Dysfunction: NO Accidents: NO Unexplained weight loss: NO Imagin08/02/24 LUMBAR MRI: IMPRESSION: Degenerative changes of the lumbar spine, most prominent at L4-L5 with up to mild canal stenosis. No significant neural foraminal narrowing. PMH/Recent major surgery: Osteoporosis Osteopenia determined by x-ray Wears hearing aid Wears glasses Post-menopausal Depression Anxiety Arthritis Portal vein thrombosis High cholesterol Blackout Non-smoker History of stress test History of echocardiogram Cardiology follow-up encounter Takotsubo cardiomyopathy Osteoarthritis of right knee LV dysfunction Anxiety and depression Nonrheumatic mitral (valve) prolapse Chest pain, atypical Paroxysmal supraventricular tachycardia Mixed hyperlipidemia Essential hypertension Portal vein thrombosis HTN (hypertension) History of cardiac catheterization Hx of right cataract extraction Hx of left cataract extraction Hx of colonoscopy History of History of total right knee replacement 10/11/21 History of left heart catheterization 01/22/21 History of cholecystectomy No Data to Display Objective Objective: Sitting Posture/Standing Posture: FAIR. REDUCED LUMBAR LORDOSIS WITH NO RELEVANT LATERAL LUMBAR SHIFT. R ILIAC CREST SLIGHTLY HIGHER THAN LEFT IN STANDING. Active Correction of posture: BETTER. SLOUCHING PERIPHERALIZES SX'S Other Observations: INDEP GAIT INTO PT WITH GOOD CADANCE AND NO GROSS DEVIATIONS NOTED. RISING FROM SX'S CONSISTENTLY PROVOKES C/O PERIPHERALIZATION OF SX'S. Sensory deficit: JAMSHID LE LIGHT TOUCH SENSATION IS INTACT AND SYMMETRICAL INCLUDING R LOW BACK, BUTTOCK AND HIP REGIONS. ROM deficit: JAMSHID HIP FLEXOR, HS, QUAD AND CALF TIGHTNESS. R KNEE FLEX 106 DEG IN SITTING, L KNEE FLEX 120 DEG. Motor deficit: JAMSHID LE'S GROSSLY 5/5 WITH MMT'ING EXCEPT HIPS 4/5. Dural Signs: NEGATIVE JAMSHID LE'S. Lumbar mvmt loss: flex - NIL - NE ext - AUGUSTO - NE R SG - MOD - NE L SG - MOD - NE Core strength: FAIR Balance/Special Test Scores Oswestry Low Back Score: 6 Goals Goal 1:: DECREASE C/O R LE SX'S BY AT LEAST 75% TO EASE ADL'S. Goal Time Frame: 4-6 Weeks Goal 2:: PATIENT WILL BE ABLE TO WALK, SIT AND TRAVEL UNLIMITED WITH C/O 0-2/10 LB AND R LE SX'S/NUMBNESS. Goal Time Frame: 4-6 Weeks Goal 3:: INSTRUCT IN PROPHYLAXIS Goal Time Frame: 4-6 Weeks Rehabilitation Potential Ph (more content not included)... Normal [facility] Anion gap in Serum or Plasma Ordered By: Elias Mariscal on 08-24-2024 Anion gap [Moles/Vol] 11 mmol/L 5-15 [facility] BUN/creatinine ratioOrdered By: Elias Mariscal on 08-24-2024 Urea nitrogen/Creatinine [Mass ratio] 26.5 mg/mg High 10-20 [facility] Bilirubin, totalOrdered By: Elias Mariscal on 08-24-2024 Bilirubin [Mass/Vol] 0.57 mg/dL 0.00-1.30 [facility] CBC-Complete Blood Cnt No Di ffon 08-24-2024 Erythrocyte distribution width (RBC) [Ratio] 14.1 % Normal 11.6-14.6 [facility] Comment on above: Performed By: #### L 500.4050, L500.4100, L100.0500 #### [facility] [address] [place], [place], [id number] Hematocrit (Bld) [Volume fraction] 43.2 % Normal 37-47 [facility] Comment on above: Performed By: #### L 500.4050, L500.4100, L100.0500 #### [facility] [address] [place], [address] Hemoglobin (Bld) [Mass/Vol] 14.7 g/dL Normal 12.0-15.0 [facility] Comment on above: Performed By: #### L 500.4050, L500.4100, L100.0500 #### [facility] [address] [place], [address] MCH (RBC) [Entitic mass] 31.5 pg Normal 27.0-32.0 [facility] Comment on above: Performed By: #### L 500.4050, L500.4100, L100.0500 #### [facility] [address] [place], [address] MCHC (RBC) [Mass/Vol] 34.0 g/dL Normal 32-36 [facility] Comment on above: Performed By: #### L 500.4050, L500.4100, L100.0500 #### [facility] [address] [place], [address] MCV (RBC) [Entitic vol] 92.7 fL Normal 81-99 [facility] Comment on above: Performed By: #### L 500.4050, L500.4100, L100.0500 #### [facility] [address] [place], [address] Platelet mean volume (Bld) [Entitic vol] 12.5 fL High 6.2-12.0 [facility] Comment on above: Performed By: #### L 500.4050, L500.4100, L100.0500 #### [facility] [address] [place], [address] Platelets (Bld) [#/Vol] 176 10*3/uL Normal 150-450 [facility] Comment on above: Performed By: #### L 500.4050, L500.4100, L100.0500 #### [facility] [address] [place], [address] RBC (Bld) [#/Vol] 4.66 10*6/uL Normal 4.2-5.4 [facility] Comment on above: Performed By: #### L 500.4050, L500.4100, L100.0500 #### [facility] [address] [place], [address] RDW SD 47.7 fl High 35.1-43.9 [facility] Comment on above: Performed By: #### L 500.4050, L500.4100, L100.0500 #### [facility] [address] [place], [address] WBC (Bld) [#/Vol] 4.4 10*3/uL Normal 4.4-11.0 [facility] Comment on above: Performed By: #### L 500.4050, L500.4100, L100.0500 #### [facility] [address] [place], [address] Calculated very low density lipoprotein (VLDL) cholesterol measurementOrdered By: Elias Mariscal on 08-24-2024 Calculated very low density lipoprotein (VLDL) cholesterol measurement 15 mg/dL 5-40 [facility] Carbon dioxide, total [Moles /volume] in Central venous bloodOrdered By: Elias Mariscal on 08-24-2024 CO2 [Moles/Vol] 26.5 mmol/L 21.0-32.0 [facility] Chloride assayOrdered By: Barb Mariscal on 08-24-2024 Chloride [Moles/Vol] 103 mmol/L 98-108 [facility] Comprehensive Metabolic Prof ilon 08-24-2024 Albumin [Mass/Vol] 4.4 g/dL Normal 3.4-4.8 [facility] Comment on above: Performed By: #### L 500.4050, L500.4100, L100.0500 #### [facility] [address] [place], [address] Albumin/Globulin [Mass ratio] 2.0 {ratio} Normal 0.9-2.4 [facility] Comment on above: Performed By: #### L 500.4050, L500.4100, L100.0500 #### [facility] [address] [place], [address] ALK PHOS 87 U/L Normal 35-104 [facility] Comment on above: Performed By: #### L 500.4050, L500.4100, L100.0500 #### [facility] [address] [place], [address] ALT [Catalytic activity/Vol] 24 U/L Normal <=34 [facility] Comment on above: Performed By: #### L 500.4050, L500.4100, L100.0500 #### [facility] [address] [place], [address] AST [Catalytic activity/Vol] 24 U/L Normal <=31 [facility] Comment on above: Performed By: #### L 500.4050, L500.4100, L100.0500 #### [facility] [address] [place], [address] Bilirubin [Mass/Vol] 0.57 mg/dL Normal 0.00-1.30 [facility] Comment on above: Performed By: #### L 500.4050, L500.4100, L100.0500 #### [facility] [address] [place], [address] BUN/CRE 26.5 RATIO High 10-20 [facility] Comment on above: Performed By: #### L 500.4050, L500.4100, L100.0500 #### [facility] [address] [place], [address] Calcium [Mass/Vol] 9.1 mg/dL Normal 7.6-11.0 [facility] Comment on above: Performed By: #### L 500.4050, L500.4100, L100.0500 #### [facility] [address] [place], [address] Chloride [Moles/Vol] 103 mmol/L Normal 98-108 [facility] Comment on above: Performed By: #### L 500.4050, L500.4100, L100.0500 #### [facility] [address] [place], [address] CO2 [Moles/Vol] 26.5 mmol/L Normal 21.0-32.0 [facility] Comment on above: Performed By: #### L 500.4050, L500.4100, L100.0500 #### [facility] [address] [place], [address] Creatinine [Mass/Vol] 0.68 mg/dL Low 0.70-1.20 [facility] Comment on above: Performed By: #### L 500.4050, L500.4100, L100.0500 #### [facility] [address] [place], [address] GAP 11 Normal 5-15 [facility] Comment on above: Performed By: #### L 500.4050, L500.4100, L100.0500 #### [facility] [address] [place], [address] GFR/1.73 sq M.predicted among non-blacks MDRD (S/P/Bld) [Vol rate/Area] 89 mL/min/{1.73_m2} Normal >60 [facility] Comment on above: Result Comment: mL/m in/1.73m2 CKD-EPI Creatinine Equation (2020) Performed By: #### L 500.4050, L500.4100, L100.0500 #### [facility] [address] [place], [address] Globulin (S) [Mass/Vol] 2.2 g/dL Normal 2.2-4.2 [facility] Comment on above: Performed By: #### L 500.4050, L500.4100, L100.0500 #### [facility] [address] [place], [address] Glucose [Mass/Vol] 93 mg/dL Normal 70-99 [facility] Comment on above: Performed By: #### L 500.4050, L500.4100, L100.0500 #### [facility] [address] [place], [address] Potassium [Moles/Vol] 3.9 mmol/L Normal 3.3-5.1 [facility] Comment on above: Performed By: #### L 500.4050, L500.4100, L100.0500 #### [facility] [address] [place], [address] Sodium [Moles/Vol] 140 mmol/L Normal 133-145 [facility] Comment on above: Performed By: #### L 500.4050, L500.4100, L100.0500 #### [facility] [address] [place], [address] T PROT 6.5 g/dL Normal 5.9-8.4 [facility] Comment on above: Performed By: #### L 500.4050, L500.4100, L100.0500 #### [facility] [address] [place], [address] Urea nitrogen [Mass/Vol] 18 mg/dL Normal 4-19 [facility] Comment on above: Performed By: #### L 500.4050, L500.4100, L100.0500 #### [facility] [address] [place], [address] Erythrocyte distribution wid th ratioOrdered By: Elias Mariscal on 08-24-2024 Erythrocyte distribution width (RBC) [Ratio] 14.1 % 11.6-14.6 [facility] Erythrocyte distribution wid th standard deviationOrdered By: Elias Mariscal on 08-24-2024 Erythrocyte distribution width (RBC) [Ratio] 47.7 fl High 35.1-43.9 [facility] Glomerular filtration rate ( GFR) estimation/1.73 sq m using serum, plasma, or whole bOrdered By: Elias Mariscal on 08-24-2024 GFR/1.73 sq M.predicted among non-blacks MDRD (S/P/Bld) [Vol rate/Area] 89 mL/min/{1.73_m2} >60 [facility] Comment on above: mL/min/1.73m2 CKD-EP I Creatinine Equation (2020) Hematocrit Auto (Bld) [Volum e fraction]Ordered By: Elias Mariscal on 08-24-2024 Hematocrit (Bld) [Volume fraction] 43.2 % 37-47 [facility] Hemoglobin measurementOrdere d By: Elias Mariscal on 08-24-2024 Hemoglobin (Bld) [Mass/Vol] 14.7 g/dL 12.0-15.0 [facility] LDL calc ser/plasOrdered By: lEias Mariscal on 08-24-2024 Cholesterol in LDL [Mass/Vol] 68 mg/dL [facility] Comment on above: Ibldfzetkm=080-807 m g/dL & Higher Yqvr=865 mg/dL or greater Laboratory - Chemistry and C hemistry - challengeOrdered By: Elias Mariscal on 08-24-2024 AST [Catalytic activity/Vol] 24 U/L <32 [facility] Lipid Profileon 08-24-2024 CHOL:HDL 2.36 Normal [facility] Comment on above: Performed By: #### L 500.4050, L500.4100, L100.0500 #### [facility] [address] [place], [address] Cholesterol [Mass/Vol] 145 mg/dL Normal <=200 [facility] Comment on above: Result Comment: Chol esterol level, Desirable <200 mg/dL Borderline high cholesterol 200-239 mg/dL High cholesterol >=240 mg/dL Recommendations of the NCEP Adult Treatment Panel for the following risk-cutoff thresholds for the [place] population. Performed By: #### L 500.4050, L500.4100, L100.0500 #### [facility] [address] [place], [address] Cholesterol in HDL [Mass/Vol] 62 mg/dL Normal [facility] Comment on above: Result Comment: [place] onal Cholesterol Education Program (NCEP) guidelines: <40 mg/dL: Low HDL-cholesterol (major risk factor for CHD) >= 60 mg/dL: High HDL-cholesterol (negative risk factor for CHD) HDL-cholesterol is affected by a number of factors, e.g. smoking, exercise, hormones, sex and age. Performed By: #### L 500.4050, L500.4100, L100.0500 #### [facility] [address] [place], [address] Cholesterol in LDL [Mass/Vol] 68 mg/dL Normal [facility] Comment on above: Result Comment: Bord ousmri=009-089 mg/dL Higher Rxfi=129 mg/dL or greater Performed By: #### L 500.4050, L500.4100, L100.0500 #### [facility] [address] [place], [address] Cholesterol in VLDL [Mass/Vol] 15 mg/dL Normal 5-40 [facility] Comment on above: Performed By: #### L 500.4050, L500.4100, L100.0500 #### [facility] [address] [place], [address] Triglyceride [Mass/Vol] 77 mg/dL Normal [facility] Comment on above: Result Comment: The drugs N-Acetylcysteine and Metamizole may falsely depress this assay. Normal range: <150 mg/dL Borderline High: 150-199 mg/dL High: 200-499 mg/dL Very High: >500 mg/dL Performed By: #### L 500.4050, L500.4100, L100.0500 #### [facility] [address] [place], [address] MCV (mean corpuscular volume ) determinationOrdered By: Elias Mariscal on 08-24-2024 MCV (RBC) [Entitic vol] 92.7 fL 81-99 [facility] Mean corpuscular hemoglobin (MCH) determinationOrdered By: Elias Mariscal on 08-24-2024 MCH (RBC) [Entitic mass] 31.5 pg 27.0-32.0 [facility] Mean corpuscular hemoglobin concentration (MCHC) determinationOrdered By: Elias Mariscal on 08-24-2024 MCHC (RBC) [Mass/Vol] 34.0 g/dL 32-36 [facility] Mean platelet volume determi nationOrdered By: Elias Mariscal on 08-24-2024 Platelet mean volume (Bld) [Entitic vol] 12.5 fL High 6.2-12.0 [facility] Platelet countOrdered By: Barb Mariscal on 08-24-2024 Platelets (Bld) [#/Vol] 176 10*3/uL 150-450 [facility] Potassium measurement (mass/ volume)Ordered By: Elias Mariscal on 08-24-2024 Potassium (Unsp spec) [Mass/Vol] 3.9 mmol/L 3.3-5.1 [facility] RBC Auto (Bld) [#/Vol]Ordere d By: Elias Mariscal on 08-24-2024 RBC (Bld) [#/Vol] 4.66 10*6/uL 4.2-5.4 [facility] Screening total cholesterol/ high density lipoprotein (HDL) cholesterol ratioOrdered By: Elias Mariscal on 08-24-2024 Cholesterol.total/Cho lesterol in HDL [Mass ratio] 2.36 {ratio} [facility] Serum creatinine measurement (mass/volume)Ordered By: Elias Mariscal on 08-24-2024 Creatinine [Mass/Vol] 0.68 mg/dL Low 0.70-1.20 [facility] Serum globulin measurementOr dered By: Elias Mariscal on 08-24-2024 Globulin (S) [Mass/Vol] 2.2 g/dL 2.2-4.2 [facility] Serum glucose measurement (m ass/volume)Ordered By: Elias Mariscal on 08-24-2024 Glucose [Mass/Vol] 93 mg/dL 70-99 [facility] Serum or plasma alanine tubbs otransferase (ALT) measurementOrdered By: Elias Mariscal on 08-24-2024 ALT [Catalytic activity/Vol] 24 U/L <35 [facility] Serum or plasma albumin ezekiel urement (mass/volume)Ordered By: Elias Mariscal on 08-24-2024 Albumin [Mass/Vol] 4.4 g/dL 3.4-4.8 [facility] Serum or plasma albumin/glob ulin mass ratioOrdered By: Elias Mariscal on 08-24-2024 Albumin/Globulin [Mass ratio] 2.0 {ratio} 0.9-2.4 [facility] Serum or plasma alkaline abdirashid sphatase measurementOrdered By: Elias Mariscal on 08-24-2024 ALP [Catalytic activity/Vol] 87 U/L 35-104 [facility] Serum or plasma calcium ezekiel urement (mass/volume)Ordered By: Elias Mariscal on 08-24-2024 Calcium [Mass/Vol] 9.1 mg/dL 7.6-11.0 [facility] Serum or plasma cholesterol in HDL measurement (mass/volume)Ordered By: Elias Mariscal on 08-24-2024 Cholesterol in HDL [Mass/Vol] 62 mg/dL >40 [facility] Comment on above: National Cholesterol Education Program (NCEP) guidelines:<40 mg/dL: Low HDL-cholesterol (major risk factor for CHD)>= 60 mg/dL: High HDL-cholesterol (negative risk factor for CHD)HDL-cholesterol is affected by a number of factors, e.g. smoking, exercise, hormones, sex and age. Serum or plasma cholesterol measurement (mass/volume)Ordered By: Elias Mariscal on 08-24-2024 Cholesterol [Mass/Vol] 145 mg/dL <201 [facility] Comment on above: Cholesterol level, D esirable <200 mg/dLBorderline high cholesterol 200-239 mg/dLHigh cholesterol >=240 mg/dLRecommendations of the NCEP Adult Treatment Panel for the following risk-cutoff thresholds for the [place] population. Serum or plasma urea nitroge n measurement (mass/volume)Ordered By: Elias Mariscal on 08-24-2024 Urea nitrogen [Mass/Vol] 18 mg/dL 4-19 [facility] Sodium levelOrdered By: Noe dia Loida on 08-24-2024 Sodium [Moles/Vol] 140 mmol/L 133-145 [facility] Total proteinOrdered By: Jose nicole Loida on 08-24-2024 Protein [Mass/Vol] 6.5 g/dL 5.9-8.4 [facility] Triglycerides measurementOrd ered By: Elias Mariscal on 08-24-2024 Triglyceride [Mass/Vol] 77 mg/dL <199 [facility] Comment on above: The drugs N-Acetylcy steine and Metamizole may falsely depress this assay. Normal range: <150 mg/dLBorderline High: 150-199 mg/dLHigh: 200-499 mg/dLVery High: >500 mg/dL Vitamin D,25 Hydroxyon 08-24 Vitamin D 25-OH 37.4 ng/mL Normal 30-100 [facility] Comment on above: Result Comment: Yara min D Status Deficiency: <20 ng/mL (50nmol/L) Insufficiency: 20-30 ng/mL (50-75 nmol/L) Sufficiency: 30-100 ng/mL (75-250 nmol/L) Toxicity: >100 ng/mL (>250 nmol/L) Performed By: #### L 506.1001 #### [facility] [place], [address] White blood cell (WBC) count Ordered By: Elias Mariscal on 08-24-2024 WBC (Bld) [#/Vol] 4.4 10*3/uL 4.4-11.0 [facility] Orthopedic Visit Reporton Orthopedic Visit Report [facility] [address] [place] [address] [address] [place], [place] [address] OFFICE VISIT Date of Service: 08/20/24 MR#: [id number] Acct: [id number] Name: CORNELIA BURNS Rep #: [id number] : 1945 Provider: BITA Rose Age/Sex: 79/F [place] [facility] [place] Status: Signed Intake Vital Signs 07/09/24 10:29 08/20/24 09:30 Height 5 ft 9 in 5 ft 9 in Weight: 160 lb 162 lb BMI 23.6 23.9 Intake Visit Reasons: LUMBAR SPINE Chief Complaint: MRI review Accompanied by: Self Is patient in pain?: No Allergies lidocaine Allergy (Verified 08/20/24 09:36) LOC, passed out lisinopril Adverse Reaction (Verified 08/20/24 09:36) cough Medications ???Medication ???Instructions ???Recorded ???Confirmed ???Type aspirin 81 mg tablet,delayed 81 mg PO DAILY heart health 08/20/24 History release (Adult Low Dose Aspirin) calcium 315 mg (as 1 tab PO DAILY vitamin 01/09/20 History citrate)-vitamin D3 5 mcg (200 unit) tablet (Calcium Citrate + D) vitamins A,C,A-kokr-mwxcqt 4,296 1 cap PO BID vitamin 01/09/2008/02 History mcg-226 mg-90 mg capsule (PreserVision AREDS) cholecalciferol (vitamin D3) 25 1,000 unit PO BID vitamin 02/01/23 08/20/24 History mcg (1,000 unit) chewable tablet venlafaxine 37.5 mg 37.5 mg PO DAILY 07/28/23 08/20/24 History capsule,extended release 24 hr (Effexor XR) carvedilol 6.25 mg tablet 6.25 mg PO BID #180 tabs 09/25/23 08/20/24 Rx rosuvastatin 10 mg tablet 10 mg PO DAILY cholesterol #90 tab s 09/25/23 08/20/24 Rx losartan 25 mg tablet 25 mg PO DAILY blood pressure #90 01/29/24 08/20/24 Rx tabs Have you fallen in the past year?: Yes PFSH Medical History Osteopenia determined by x-ray Wears hearing aid Wears glasses Post-menopausal Depression Anxiety Arthritis Portal vein thrombosis High cholesterol Blackout Non-smoker History of stress test History of echocardiogram Cardiology follow-up encounter Takotsubo cardiomyopathy Osteoarthritis of right knee LV dysfunction Anxiety and depression Nonrheumatic mitral (valve) prolapse Chest pain, atypical Paroxysmal supraventricular tachycardia Mixed hyperlipidemia Essential hypertension Portal vein thrombosis HTN (hypertension) Surgical History History of cardiac catheterization Hx of right cataract extraction Hx of left cataract extraction Hx of colonoscopy History of 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 Part of today???s visit was documented by Sujata Washburn MA, acting as scribe. CORNELIA BURNS is a 79 year old F here today for MRI review. Patient would like to go over the MRI to see what the next step is. She denies any recent injections or physical therapy. HPI from 07/09/24: CORNELIA BURNS is a 79 year old F here today for lumbar spine numbness. This has been going on for a long time off and on. Patient denies any pain and says that this is primarily just numbness and a "weird sensation." She got a right knee replacement in 2021. [facility] thinks she has nerve problems who referred her to spine. The numbness starts in the lower back and goes down the right leg. The pain starts in her right buttock and then extends down the back of her right leg. She says that it primarily stops at the knee but she also reports numbness in her right heel. Patient gets a little bit of tingling in the toes and feet. October 2021 knee replacement right. She had a fall in April due to her right knee giving out. Doesn't use a cane or a walker but will occasionally use a walking stick when hiking. No diabetes, hx of Takotsubo cardiomyopathy and sees a special programs director, no blood thinners. No back surgeries, Dr. Hoover has given thoracic injections around 2020 related to post shingles pain. Patient denies any recent physical therapy for her back however she has been physical therapy for her knee on several occasions and continues to do those exercises on her own. She has not noticed any benefit with the exercises for her back. Ortho Exam (more content not included)... Normal [facility] Magnetic resonance imaging r eportOrdered By: Beka Kendrick on 08-04-2024 Study report [facility] [address] [place] [address] Spine Lumbar (Routine) MR#: [id number] Acct: [id number] Name: CORNELIA BURNS Rep #: [id number] : 1945 F 79 From: Moriah Kendrick MD PCP: Dr. Carmelina Kerr MD Status: REG CL I Study:Spine Lumbar (Routine) Date of Exam: 08/02/24 Exam# [id number] Ordering Dr: Jose Campos PROCEDURE: SPINE LUMBAR (ROUTINE) 08/02/2024 REASON FOR EXAM: PAIN TECHNIQUE: Multiplanar and multisequence images were obtained without IV contrast administration. COMPARISON: Lumbar spine radiograph 07/09/2024 FINDINGS: Vertebrae: Vertebral body heights are maintained. Disc spaces are within normallimits. Homogeneous marrow signal intensity. L1 vertebral body hemangioma. Otherwise, no suspicious osseous lesions or abnormal marrow replacement process. Alignment: Lumbar lordosis is maintained. Conus Medullaris: The conus terminates at L2. Cauda equina nerve roots are within normal limits. Degenerative changes of the lumbar spine, including mild endplate remodeling, small disc bulges, ligamentum flavum hypertrophy and facet degenerative changes. L1-2: Canal and neural foramina are patent. L2-3: Small circumferential disc bulge and mild facet degenerative changes with flattening of the ventral thecal sac. No significant canal stenosis or neural foraminal narrowing. L3-4: Small circumferential disc bulge and mild facet degenerative changes with flattening of the ventral thecal sac. No significant canal stenosis or neural foraminal narrowing. L4-5: Disc bulge slightly asymmetric to the left, ligamentum flavum hypertrophy and facet degenerative changes, greatest on the left with mild canal stenosis. Neural foramina are patent. Circumferential discbulge, evhb-mywslll-envv-right facet degenerative changes and ligamentum flavum hypertrophy with moderate canal stenosis. Neural foramina are patent. L5-S1: Small disc protrusion and facet degenerative changes without significant canal stenosis or neural foraminal narrowing. Sacrum: Heterogenous signal intensity of sacrum. Fatty atrophy of the paraspinal musculature. MRI/Spine Lumbar (Routine) IMPRESSION: Degenerative changes of the lumbar spine, most prominent at L4-L5 with up to mild canal stenosis. No significant neural foraminal narrowing. Reading Location: [facility] CC: BITA Rose; Dr. Carmelina Kerr MD ~ Regulatory Associate: Signed [facility] Spine Lumbar (Routine)on Spine Lumbar (Routine) [facility] [address] [place] [id number] Spine Lumbar (Routine) MR#: [id number] Acct: [id number] Name: CORNELIA BURNS Rep #: [id number] : 1945 F 79 From: Beka chakraborty MD PCP: Dr. Carmelina Kerr MD Status: REG CLI Study: Spine Lumbar (Routine) Date of Exam: 08/02/24 Exam# [id number] Ordering Dr: Alessandra Campos PROCEDURE: SPINE LUMBAR (ROUTINE) 08/02/2024 REASON FOR EXAM: PAIN TECHNIQUE: Multiplanar and multisequence images were obtained without IV contrast administration. COMPARISON: Lumbar spine radiograph 07/09/2024 FINDINGS: Vertebrae: Vertebral body heights are maintained. Disc spaces are within normal limits. Homogeneous marrow signal intensity. L1 vertebral body hemangioma. Otherwise, no suspicious osseous lesions or abnormal marrow replacement process. Alignment: Lumbar lordosis is maintained. Conus Medullaris: The conus terminates at L2. Cauda equina nerve roots are within normal limits. Degenerative changes of the lumbar spine, including mild endplate remodeling, small disc bulges, ligamentum flavum hypertrophy and facet degenerative changes. L1-2: Canal and neural foramina are patent. L2-3: Small circumferential disc bulge and mild facet degenerative changes with flattening of the ventral thecal sac. No significant canal stenosis or neural foraminal narrowing. L3-4: Small circumferential disc bulge and mild facet degenerative changes with flattening of the ventral thecal sac. No significant canal stenosis or neural foraminal narrowing. L4-5: Disc bulge slightly asymmetric to the left, ligamentum flavum hypertrophy and facet degenerative changes, greatest on the left with mild canal stenosis. Neural foramina are patent. Circumferential disc bulge, tbbe-sgkqpxn-vsar-right facet degenerative changes and ligamentum flavum hypertrophy with moderate canal stenosis. Neural foramina are patent. L5-S1: Small disc protrusion and facet degenerative changes without significant canal stenosis or neural foraminal narrowing. Sacrum: Heterogenous signal intensity of sacrum. Fatty atrophy of the paraspinal musculature. MRI/Spine Lumbar (Routine) IMPRESSION: Degenerative changes of the lumbar spine, most prominent at L4-L5 with up to mild canal stenosis. No significant neural foraminal narrowing. Reading Location: [facility] CC: BITA Rose; Dr. Carmelina Kerr MD Regulatory Associate: Signed Normal [facility] Bone density reportOrdered B y: Pastor Llanes on 07-12-2024 Study report Skeletal system DXA [facility] [address] [place] [address] Dexa Bone Density Study MR#: [id number] Acct: [id number] Name: CORNELIA BURNS Rep #: [id number] : 1945 F 79 From: Queenie Llanes MD PCP: Dr. Carmelina Kerr MD Status: REG CL I Study:Dexa Bone Density Study Date of Exam: 07/11/24 Exam# [id number] Ordering Dr: Zelda Kerr MD PROCEDURE: DEXA BONE DENSITY STUDY 07/11/2024 REASON FOR EXAM: None provided. TECHNIQUE: DXA scan of the lumbar spine and bilateral hips, using Element ID W. REFERENCE LINKS: ISCD Adult Positions COMPARISON: Measurements obtained 05/17/2022 are retained by the imaging unit for comparisonpurposes, however the images themselves are not available. FINDINGS: LUMBAR SPINE: Bone mineral denisty, L1-L4: 0.813 g/cm? T-score: -2.1 LEFT FEMORAL NECK: Bone mineral denisty: 0.671 g/cm? T-score: -1.6 LEFT TOTAL HIP: Bone mineral denisty: 0.719 g/cm? T-score: -1.8 RIGHT FEMORAL NECK: Bone mineral denisty: 0.652 g/cm? T-score: -1.8 RIGHT TOTAL HIP: Bone mineral denisty: 0.705 g/cm? T-score: -1.9 FRAX*: 10 Year Probability of Fracture: Major Osteoporotic Fracture(1): 14.0% Hip Fracture(2): 3.6% *FRAX is a trademark of the [employer]'s [place] for Metabolic Bone Disease, World Health Organization (WHO) Collaborating [place]. 1-Major Osteoporotic Fracture: Clinical Spine, Forearm, Hip or Shoulder. 2-The 10-year probability of fracture may be lower than reported if the patient has received treatment. The National Osteoporosis Foundation recommends that medical therapy be considered in postmenopausal women and men, age 50 and older, with a: * hip or vertebral fracture * T-score less than or equal to -2.5 in the spine or hip * T-score between -1.0 and -2.5 and FRAX equal to or less than 3 percent for hipfracture or equal to or less than 20 percent for major osteoporotic fracture. World Health Organization criteria for BMD interpretation classify patients as Normal (T-score at or above -1.0), Osteopenic (T-score between -1.0 and -2.5), or Osteoporotic (T-score at or below -2.5). BD/Dexa Bone Density Study IMPRESSION: 1. Osteopenia. 2. Since 05/17/2022, there has been a decrease of 5.1% in the bone mineral density of the total LEFT hip. 3. Additional description as above. Reading Location: [id number] CC: Dr. Carmelina Kerr MD ~ Regulatory Associate: Signed [facility] Dexa Bone Density Studyon Dexa Bone Density Study [facility] [address] [place] [address] Dexa Bone Density Study MR#: [id number] Acct: [id number] Name: CORNELIA BURNS Rep #: [id number] : 1945 F 79 From: Pastor Llanes MD PCP: Dr. Carmelina Kerr MD Status: REG CLI Study: Dexa Bone Density Study Date of Exam: 07/11/24 Exam# [id number] Ordering Dr: Carmelina eKrr MD PROCEDURE: DEXA BONE DENSITY STUDY 07/11/2024 REASON FOR EXAM: None provided. TECHNIQUE: DXA scan of the lumbar spine and bilateral hips, using [employer] Card W. REFERENCE LINKS: ISCD Adult Positions COMPARISON: Measurements obtained 05/17/2022 are retained by the imaging unit for comparison purposes, however the images themselves are not available. FINDINGS: LUMBAR SPINE: Bone mineral denisty, L1-L4: 0.813 g/cm??? T-score: -2.1 LEFT FEMORAL NECK: Bone mineral denisty: 0.671 g/cm??? T-score: -1.6 LEFT TOTAL HIP: Bone mineral denisty: 0.719 g/cm??? T-score: -1.8 RIGHT FEMORAL NECK: Bone mineral denisty: 0.652 g/cm??? T-score: -1.8 RIGHT TOTAL HIP: Bone mineral denisty: 0.705 g/cm??? T-score: -1.9 FRAX*: 10 Year Probability of Fracture: Major Osteoporotic Fracture(1): 14.0% Hip Fracture(2): 3.6% *FRAX is a trademark of the [employer]'s [place] for Metabolic Bone Disease, World Health Organization (WHO) Collaborating [place]. 1-Major Osteoporotic Fracture: Clinical Spine, Forearm, Hip or Shoulder. 2-The 10-year probability of fracture may be lower than reported if the patient has received treatment. The National Osteoporosis Foundation recommends that medical therapy be considered in postmenopausal women and men, age 50 and older, with a: * hip or vertebral fracture * T-score less than or equal to -2.5 in the spine or hip * T-score between -1.0 and -2.5 and FRAX equal to or less than 3 percent for hip fracture or equal to or less than 20 percent for major osteoporotic fracture. World Health Organization criteria for BMD interpretation classify patients as Normal (T-score at or above -1.0), Osteopenic (T-score between -1.0 and -2.5), or Osteoporotic (T-score at or below -2.5). BD/Dexa Bone Density Study IMPRESSION: 1. Osteopenia. 2. Since 05/17/2022, there has been a decrease of 5.1% in the bone mineral density of the total LEFT hip. 3. Additional description as above. Reading Location: [facility] CC: Dr. Carmelina Kerr MD Regulatory Associate: Signed Normal [facility] L/S Spine Min 4 Viewson L/S Spine Min 4 Views [facility] [address] [place] [address] L/S Spine Min 4 Views MR#: [id number] Acct: [id number] Name: CORNELIA BURNS Rep #: [id number] : 1945 F 79 From: Kathy Iglesias MD PCP: Dr. Carmelina Kerr MD Status: DEP AMB Study: L/S Spine Min 4 Views Date of Exam: 07/09/24 Exam# [id number] Ordering Dr: Alessandra Campos PROCEDURE: L/S SPINE MIN 4 VIEWS 07/09/2024 REASON FOR EXAM: PAIN, CHRONIC PAIN. RT LEG NUMBNESS TECHNIQUE: 4 view(s) of the thoracic and lumbar spine. COMPARISON: None available FINDINGS: Curvature: Preserved lordosis of the lumbar spine. Trace retrolisthesis of L3 on L4. Other findings: Vertebral body heights are well preserved. Intervertebral disc heights are well preserved. Facet arthropathy within the lower lumbar spine. Other: RAD/L/S Spine Min 4 Views IMPRESSION: *Degenerative changes within the lower lumbar spine. *Trace retrolisthesis of L3 on L4. Reading Location: [id number] CC: BITA Rose; Dr. Carmelina Kerr MD Regulatory Associate: Signed Normal [facility] Orthopedic Visit Reporton Orthopedic Visit Report [facility] [address] [place] [address] [place] [address] OFFICE VISIT Date of Service: 07/09/24 MR#: [id number] Acct: [id number] Name: CORNELIA BURNS Rep #: [id number] : 1945 Provider: BITA Rose Age/Sex: 79/F [place] [facility] [place] Status: Signed Intake Vital Signs 10/23/23 13:23 07/09/24 10:29 Height 5 ft 9 in 5 ft 9 in Weight: 160 lb 160 lb BMI 23.6 23.6 BP 154/84 H Blood Pressure Location Lt brachial Position Sitting Pulse 66 Pulse Source Monitor Pulse Oximetry (%) 97 Oxygen Delivery Method room air Intake Visit Reasons: LUMBAR SPINE Chief Complaint: Lumbar spine numbness Accompanied by: Self Is patient in pain?: No Allergies lidocaine Allergy (Verified 07/09/24 10:31) LOC, passed out lisinopril Adverse Reaction (Verified 07/09/24 10:31) cough Medications ???Medication ???Instructions ???Recorded ???Confirmed ???Type aspirin 81 mg tablet,delayed 81 mg PO DAILY heart health 07/09/24 History release (Adult Low Dose Aspirin) calcium 315 mg (as 1 tab PO DAILY vitamin 01/09/20 History citrate)-vitamin D3 5 mcg (200 unit) tablet (Calcium Citrate + D) vitamins A,C,O-vpoc-omocfs 4,296 1 cap PO BID vitamin 01/09/2011/25 History mcg-226 mg-90 mg capsule (PreserVision AREDS) cholecalciferol (vitamin D3) 25 1,000 unit PO BID vitamin 02/01/23 07/09/24 History mcg (1,000 unit) chewable tablet venlafaxine 37.5 mg 37.5 mg PO DAILY 07/28/23 07/09/24 History capsule,extended release 24 hr (Effexor XR) carvedilol 6.25 mg tablet 6.25 mg PO BID #180 tabs 09/25/23 07/09/24 Rx rosuvastatin 10 mg tablet 10 mg PO DAILY cholesterol #90 tab s 09/25/23 07/09/24 Rx losartan 25 mg tablet 25 mg PO DAILY blood pressure #90 01/29/24 07/09/24 Rx tabs Have you fallen in the past year?: Yes PFSH Medical History Osteopenia determined by x-ray Wears hearing aid Wears glasses Post-menopausal Depression Anxiety Arthritis Portal vein thrombosis High cholesterol Blackout Non-smoker History of stress test History of echocardiogram Cardiology follow-up encounter Takotsubo cardiomyopathy Osteoarthritis of right knee LV dysfunction Anxiety and depression Nonrheumatic mitral (valve) prolapse Chest pain, atypical Paroxysmal supraventricular tachycardia Mixed hyperlipidemia Essential hypertension Portal vein thrombosis HTN (hypertension) Surgical History History of cardiac catheterization Hx of right cataract extraction Hx of left cataract extraction Hx of colonoscopy History of 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 Part of today???s visit was documented by Sujata Washburn Ma, acting as scribe. CORNELIA BURNS is a 79 year old F here today for lumbar spine numbness. This has been going on for a long time off and on. Patient denies any pain and says that this is primarily just numbness and a "weird sensation." She got a right knee replacement in 2021. [facility] thinks she has nerve problems who referred her to spine. The numbness starts in the lower back and goes down the right leg. The pain starts in her right buttock and then extends down the back of her right leg. She says that it primarily stops at the knee but she also reports numbness in her right heel. Patient gets a little bit of tingling in the toes and feet. October 2021 knee replacement right. She had a fall in April due to her right knee giving out. Doesn't use a cane or a walker but will occasionally use a walking stick when hiking. No diabetes, hx of Takotsubo cardiomyopathy and sees a special programs director, no blood thinners. No back surgeries, Dr. Hoover has given thoracic injections around 2020 related to post shingles pain. Patient denies any recent physical therapy for her back however she has been physical therapy for her knee on several occasions and continues to do those exercises on her own. She has not noticed any benefit with the exercises for her back. Ortho Exam General Gene (more content not included)... [facility] Office Visit (INTMWS ) CORNELIA BURNS ([id number]) 1945 F Date Time Provider Department 02/13/24 9:00 AM KUNAL MCGILL INTMWS During your visit today, we recorded the following information about you: Pulse Respiration Blood pressure Weight 73/minute 16/minute 128/80 73 kg Namrata Pike MA 02/13/2024 9:07 AM Signed BONE MINERAL DENSITY PATIENT INSTRUCTIONS Bone mineral density testing measures the amount of calcium in certain parts of your bones. This information determines how strong your bones are. The test is used to detect osteoporosis, a disease in which the bone's mineral content and density are low, increasing a person's risk of fractures. The lumbar spine (lower back) and the hip are the skeletal sites usually examined. For the test, remember that: 1. You cannot take this test if you are . 2. Eat a normal diet on the day of the test. 3. Take your medications as you normally would. 4. DO NOT take calcium supplements (such as Tums) for 24 hours before the test. 5. On the day of the test, leave valuables (jewelry or credit cards) at home. 6. The test should be performed prior to oral, rectal or IV contrast studies, or at least 7 days after any of these studies. For the test, you may be asked to wear a hospital gown. You will lie on your back, on a padded table, in a comfortable position. Generally, you can resume your usual activities immediately. Kunal Mcgill MD 02/13/2024 1:05 PM Signed Reason for Visit Patient presents with: Follow Up Cornelia Burns is a 77 year old female who presents here today for Above Complaints.. Health Maintenance BP CONTROLLED (<130/80) DTAP,TDAP,TD(2 - Td or Tdap) FECAL OCCULT BLOOD ADVANCE DIRECTIVE DISCUSSION DEPRESSION ASSESSMENT HPI This is a very pleasant 79-year-old woman with a past medical history of hypertension, hyperlipidemia, depression and osteo porosis. Reviewed bone density which is a little worse than last time , it did not help to be laid up for her knee replacements. She was on fosamax for 5 year in the past and that is def more than 2 years. Does not want to take the fosamax right now. Cont weight bearing. Calcium , re visit this topic in 2 years In the interim she did visit Dr Finney, who suggested reclast injections for osteopenia, waiting for the next BMD to decide. She had the colonoscopy in September of 2023 and she had multiple tubular adenomas, around 10 of them , 3 in tehs AC, 3 at the Hepatic flexure, and 3 in the T C and one in the rectum. Is uptodate with her mammogram for 2023 She does have living will and advance directives. Had knee replacements, via spinal. Nerve block in the thigh, following the surgery she could not lift her knee up. Recovery was long, and challenging but now she is able to to walk almost normal. She had to go in for another procedure to break up scar tissue and then really started getting her ROM back. She is exercising daily, [facility] One to 2 times a week. Eats healthy most of the time. No real issue with hearing or vision. No problem-specific Assessment AND Plan notes found for this encounter. 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 eyes Gisel duct, cyst Gastritis Hematuria, unspecified Moderate episode of recurrent major depressive disorder (HCC) 03/04/2019 Nuclear sclerotic cataract, left Osteoarthritis Osteopenia Other and unspecified hyperlipidemia Portal vein thrombosis Pseudophakia Vitamin D deficiency PAST SURGICAL HISTORY Procedure Laterality Date APPENDECTOMY This was done with 1st DELIVERY ONLY X 2 CHOLECYSTECTOMY Cholecystectomy ESOPHAGOGASTRODUODENOSCOPY TRANSORAL DIAGNOSTIC 02/19/[address] Jonathan FROST CATARACT EXTRACAP,INSERT LENS Right 02/2016 FAMILY HISTORY Problem Relation Age of Onset Hypertension Mother Glaucoma and Macular degeneration Osteoporosis Mother Macular Degen Mother Glaucoma Mother other (Uterine Cancer) Mother Cancer Father skin cancer, SCC and BCC Lipids Father other (memory loss) Father Cancer Paternal Aunt ovarian Stroke Paternal Aunt Heart Paternal Aunt Diabetes Brother juvenile type 1 Cancer Brother pancreatic other (Cirrhosis of Liver) Sister Macular Degen Maternal Grandfather Macular Degen Maternal Aunt Social History Tobacco Use Smoking status: Never Smokeless tobacco: Never Vaping Use Vaping status: Never Used Substance Use Topics Alcohol use: No Drug use: No Past medical history, appointments, medications, allergies reviewed. Pertinent Lab/Diagnostic Studies are reviewed and discussed today Current Outpatient Medications: venlafaxine ER (EF (more content not included)... Normal [facility] Absolute lymphocyte countOrd ered By: Penny Hancocknger on 02-08-2023 Lymphocytes Auto (Unsp spec) [#/Vol] 1.35 10*3/uL 0.83-4.51 [facility] Basophil percentageOrdered B y: Penny Davey on 02-08-2023 Basophils/100 WBC (Bld) 1.0 % 0-1 [facility] Bilirubin [Mass/Vol] 0.60 mg/dL 0.20-1.00 [facility] Comment on above: For patients on eltr ombopag therapy, use of Dimension [place] TBIL is not recommended. Chloride [Moles/Vol] 105 mmol/L 98-107 [facility] Cholesterol [Mass/Vol] 151 mg/dL <200 [facility] Comment on above: <200 mg/dL Desirable 200-240 mg/dL Borderline >240 mg/dL High Risk Eosinophils/100 WBC (Bld) 3.7 % 0-5 [facility] Glucose [Mass/Vol] 101 mg/dL 74-106 [facility] Comment on above: Fasting Glucose resu lt from 100 to 125 mg/dL suggests IMPAIRED HOMEOSTASIS per A.D.A. criteria. Neutrophils (Bld) [#/Vol] 2.1 10*3/uL 2.0-7.7 [facility] Neutrophils/100 WBC (Bld) 51.7 % 47-70 [facility] Potassium [Moles/Vol] 4.1 mmol/L 3.5-5.1 [facility] Protein [Mass/Vol] 6.8 g/dL 6.4-8.2 [facility] Sodium [Moles/Vol] 139 mmol/L 136-145 [facility] Triglyceride [Mass/Vol] 78 mg/dL <199 [facility] Comment on above: The drugs N-Acetylcy steine and Metamizole may falsely depress this assay.Serum Triglycerides Reference Interval Normal <150 mg/dL Borderline high 150 - 199 mg/dL High 200 - 499 mg/dL Very High > or = 500 mg/dL WBC (Bld) [#/Vol] 4.0 10*3/uL 4.4-11.0 [facility] Blood erythrocytes count (nu mber/volume)Ordered By: Penny Mariscal on 02-08-2023 RBC (Bld) [#/Vol] 4.73 10*6/uL 4.2-5.4 [facility] Blood hemoglobin measurement (mass/volume)Ordered By: Penny Mariscal on 02-08-2023 Hemoglobin (Bld) [Mass/Vol] 14.8 g/dL 12.0-15.0 [facility] Blood lymphocytes/100 leukoc ytesOrdered By: Penny Mariscal on 02-08-2023 Lymphocytes/100 WBC (Bld) 33.7 % 19-41 [facility] Blood monocytes/100 leukocyt esOrdered By: Penny Mariscal on 02-08-2023 Monocytes/100 WBC (Bld) 9.7 % 0-10 [facility] Blood platelet mean volumeOr dered By: Penny Mariscal on 02-08-2023 Platelet mean volume (Bld) [Entitic vol] 12.1 fL 6.2-12.0 [facility] Determination of erythrocyte mean corpuscular volume (MCV)Ordered By: Penny Mariscal on 02-08-2023 MCV (RBC) [Entitic vol] 95.6 fL 81-99 [facility] Hematocrit Auto (Bld) [Volum e fraction]Ordered By: Penny Mariscal on 02-08-2023 Hematocrit (Bld) [Volume fraction] 45.2 % 37-47 [facility] - Chemistry and C hemistry - challengeOrdered By: Penyn Mariscal on 02-08-2023 ALP [Catalytic activity/Vol] 85 U/L 45-117 [facility] ALT [Catalytic activity/Vol] 29 U/L 13-56 [facility] CO2 [Moles/Vol] 34.0 mmol/L 21.0-32.0 [facility] Globulin (S) [Mass/Vol] 3.0 g/dL 2.2-4.2 [facility] Urea nitrogen/Creatinine [Mass ratio] 25.7 mg/mg 10-20 [facility] - Hematology and Cell countsOrdered By: Penny Mariscal on 02-08-2023 Erythrocyte distribution width (RBC) [Entitic vol] 48.2 fL 35.1-43.9 [facility] Erythrocyte distribution width (RBC) [Ratio] 13.6 % 11.6-14.6 [facility] Immature granulocytes/100 WBC (Bld) 0.200 % 0.0-0.9 [facility] Comment on above: IG% - Immature Granu locytes (promyelocytes, myelocytes and metamyelocytes) > 1% indicates that a LEFT SHIFT is Present. MCH (RBC) [Entitic mass] 31.3 pg 27.0-32.0 [facility] Nucleated RBC/100 WBC (Bld) [Ratio] 0 % 0-5 [facility] [Mass/Vol]Or dered By: Penny Mariscal on 02-08-2023 MCHC (RBC) [Mass/Vol] 32.7 g/dL 32-36 [facility] No Panel InformationOrdered By: Penny Mariscal on 02-08-2023 Estimated GFR (MDRD) Amer 104 mL/min >60 [facility] Comment on above: GFR Calc Estimated GFR (MDRD) Non-Af Amer 86 mL/min >60 [facility] Comment on above: Non- GFR Calc Vitamin D 25-Hydroxy 54.6 ng/mL [facility] Comment on above: Vitamin D 25(OH) Sta tus Range Deficiency <20 ng/mL (50nmol/L) Insufficiency 20 - 30 ng/mL (50 - 75 nmol/L) Sufficiency 30 - 100 ng/mL (75 - 250 nmol/L) Toxicity >100 ng/mL (>250 nmol/L) Platelets bldOrdered By: Michelle Mariscal on 02-08-2023 Platelets (Bld) [#/Vol] 194 10*3/uL 150-450 [facility] Serum or plasma albumin ezekiel urement (mass/volume)Ordered By: Penny Mariscal on 02-08-2023 Albumin [Mass/Vol] 3.8 g/dL 3.2-5.0 [facility] Serum or plasma albumin/glob ulin mass ratioOrdered By: Penny Mariscal on 02-08-2023 Albumin/Globulin [Mass ratio] 1.3 {ratio} 0.9-2.4 [facility] Serum or plasma calcium ezekiel urement (mass/volume)Ordered By: Penny Mariscal on 02-08-2023 Calcium [Mass/Vol] 9.0 mg/dL 8.5-10.1 [facility] Serum or plasma cholesterol in HDL measurement (mass/volume)Ordered By: Penny Mariscal on 02-08-2023 Cholesterol in HDL [Mass/Vol] 67 mg/dL >40 [facility] Comment on above: The drugs N-Acetylcy steine and Metamizole may falsely depress this assay. Reference Range HDL <40 mg/dL Low HDL Cholesterol HDL >or= 60 mg/dL High HDL Cholesterol Serum or plasma cholesterol in VLDL measurement (mass/volume)Ordered By: Penny Mariscal on 02-08-2023 Cholesterol in VLDL [Mass/Vol] 16 mg/dL 5-40 [facility] Serum or plasma creatinine m easurement (mass/volume)Ordered By: Penny Mariscal on 02-08-2023 Creatinine [Mass/Vol] 0.70 mg/dL 0.55-1.02 [facility] Comment on above: The validity of the calculated GFR & GFRAA in patients over 70 years has not been determined. Clinical correlation is essential. Serum or plasma low density lipoprotein (LDL) cholesterol measurement (mass/volume)Ordered By: Penny Mariscal on 02-08-2023 Cholesterol in LDL [Mass/Vol] 68 mg/dL 0-130 [facility] Serum or plasma urea nitroge n measurement (mass/volume)Ordered By: Penny Mariscal on 02-08-2023 Urea nitrogen [Mass/Vol] 18 mg/dL 7-18 [facility] Thin prep Papanicolaou smear with manual screeningOrdered By: Penny Mariscal on 02-08-2023 Thin prep Papanicolaou smear with manual screening 19 U/L 15-37 [facility] Thin prep Papanicolaou smear with manual screening 0 5-15 [facility] UA DIP, URINE (POC)on 2021 BILIRUBIN UA (POCT) Negative Negative [facility] CLARITY UA (POCT) [facility] COLOR UA (POCT) Yellow [facility] GLUCOSE UA (POCT) Negative Negative mg/dL [facility] HEMOGLOBIN/BLOOD UA (POCT) Moderate Abnormal Negative [facility] KETONE UA (POCT) Negative Negative mg/dL [facility] LEUKOCYTES UA (POCT) Negative Negative [facility] NITRITE UA (POCT) Negative Negative [facility] PH UA (POCT) 7.0 4.5 - 8.0 [facility] Protein Ql (U) Negative Negative mg/dL [facility] SPECIFIC GRAVITY UA (POCT) 1.015 1.005 - 1.030 [facility] UROBILINOGEN UA (POCT) 0.2 E.U./dL Normal E.U./dL [facility] Clinical Summary: HMSPatient IDon 08-11-2020 [facility]OP [facility] Work Phone: Office Visit: New/Est - 1st visit with physician, Rm: 4on 11-12-2019 NEGATED: Highlighted rowxray history of the knee on 03/21/2019 at [facility] Work Phone: Clinical Lists Update: Prelo ad Extendedon 11-08-2019 Tobacco smoking status NHIS Tobacco smoking status NHIS [facility] Work Phone: Clinical Summary: Scanned Hi story Summaryon 11-07-2019 Calcium [Mass/Vol] effexor xr-37.5-1-on ce a dayrosuvastatin osptfnk-52-7-once a daylosartan vqpwyvcff-07-5-once a daypreservision-Unknown Yzxfsbuo-8-uendz a dayvitamin d3-1000 mg-1-three times a day [facility] Work Phone: cause of , father age 98 [facility] Work Phone: cause of , mother uterine cancer [facility] Work Phone: Cholesterol [Mass/Vol] Blood clotsDifficulty with anesthesiaHigh cholesterolMitral valve prolapseOsteopenia [facility] Work Phone: Data entered by patient exercise frequency 5 days per week [facility] Work Phone: Data entered by patient exercise type walking [facility] Work Phone: data entered by patient, alcohol (ethanol or ETOH) use No [facility] Work Phone: Data entered by patient, allergy list I don't have any Drug AllergiesI don't have any Environmental AllergiesI don't have any Food Allergies [facility] Work Phone: data entered by patient, drug (of abuse) use No [facility] Work Phone: data entered by patient, Employer Name retired [facility] Work Phone: data entered by patient, exercise history Yes [facility] Work Phone: data entered by patient, father's medical history Heart disease [facility] Work Phone: Data entered by patient, history of past surgeries AppendectomyCataract surgeryCesarean sectionGallbladder surgery [facility] Work Phone: data entered by patient, social history, current smoker never smoker [facility] Work Phone: data entered by patient, social history, marital status [facility] Work Phone: Exercise vein comment walk, exercise bik e, fitness center machines, occasionally bicycle on rail trails [facility] Work Phone: father of patient is alive or [facility] Work Phone: Housing Type: apartment, house, intermediate, trailer, none house [facility] Work Phone: housing unit size (asthma environmental history, housing) (from single family to don't know) 2 floors [facility] Work Phone: medical history of patient's brother(s) CancerDiabetes - insulin dependent [facility] Work Phone: medical history of patient's brother(s), comments pancreatic cancer; Type II diabetic [facility] Work Phone: medical history of patient's sister Liver disease [facility] Work Phone: mother of patient is alive or [facility] Work Phone: mother's medical history, comments macular degeneration [facility] Work Phone: Number of dependent children No [facility] Work Phone: HOSPon 08-24-2017 [facility] Get Medical Advic e (AGCARDWST) BURNSCORNELIA Chakraborty ([id number]) 1945 [facility] Time Provider Department08/24/17 KEO CHACON AGCARDWST During your visit today, we recorded the following information about you:Keo Chacon MD 08/25/2017 4:40 PM SignedBlood pressure has improved significantly on the lisinopril. Please continue tomonitor your vital signs over the weekend and update us again next week.The resting blood pressure was elevated during the stress test, but the"exercise induced hypertension" was really not a problem.Keo Chacon MDThermylene is also a result note pending. I sent her the above message directly.KSAllergies As of Date: 08/24/2017(No Known Allergies)Date Reviewed: 08/10/2017Reviewed by: Georgina Alexander RN - Fully AssessedPrescriptions as of 08/24/2017 Sig: LISINOPRIL 5 MG TABLET Take 1 tablet by mouth once d* ALENDRONATE 35 MG TABLET Take 1 tablet by mouth once e* PRAVASTATIN 20 MG TABLET Take 1 tablet by mouth daily * VENLAFAXINE ER 37.5 MG CAPSUL* Take 1 capsule by mouth once * CYCLOBENZAPRINE 10 MG TABLET Take 1 tablet by mouth three * OXYCODONE-ACETAMINOPHEN 10 MG* Take 1 tablet by mouth every * CHOLECALCIFEROL (VITAMIN D3) * Take 1,000 Units by mouth thr* CALCIUM CITRATE + D 315 MG-20* Take one(1) tablet daily. CENTRUM SILVER TABLET Take one(1) tablet daily.Problem List As Of Date 08/24/2017 Noted Resolved Disorder of bone and cartilage [M89.9, M94.9] INVALID FOR* More... GENERALIZED ANXIETY DIS [F41.1] INVALID FOR* Hyperlipidemia [E78.5] INVALID FOR* Portal vein thrombosis [I81] INVALID FOR* Vitamin D deficiency [E55.9] INVALID FOR* Family history of pancreatic cancer [Z80.0] INVALID FOR* Abdominal pain [R10.9] INVALID FOR* Status:Closed by ARIEL FLAHERTY MA on 08/25/17 [facility] CNOVon 08-10-2017 CNOV Office Visit (AGCARDWST) CORNELIA BURNS ([id number]) 1945 [facility] Time Provider Department08/10/17 10:00 AM KEO CHACON AGCARDWST During your visit today, we recorded the following information about you: Pulse Blood pressure Weight 80/minute 142/88 73.4 kgKeo Chacon 08/10/2017 12:49 PM SignedPERTINENT CARDIAC HISTORYExercise intoleranceAtypical CPHLPalpitations - SVT, poor correlationHTNMitral prolapse - mildADHERENCE TO GUIDELINESACE-I or ARB for HF with prior LVEF<40 (NQF 0081) - N/AASA or Plavix for ASHD (NQF 0067) - N/ABeta john for ASHD with prior OK or prior LVEF<40 (NQF 0070) - N/ABeta john for HF with prior LVEF<40 (NQF 0083) - N/AACE-I or ARB for ASHD with DM or prior LVEF<40 (NQF 0066) - N/AStatin therapy for ASHD or FHL or DM - metBMI documented and plan if >25 (NQF 0421) - lifestyle recommendation formTobacco use screening and referral (NQF 0028) - lifestyle recommendation formRecommendation for whole food, plant based diet - lifestyle recommendation formCLINICAL IMPRESSION/PLAN:Cornelia Burns has resting hypertension. Her exercise BP response was normal.There is no evidence of ischemia. Her exercise intolerance is likelymultifactorial, including deconditioning, hypertension, diastolic LVdysfunction, etc. She does not appear to be anemic, but we will check a CBC.I recommended that we initiate therapy with lisinopril 5 milligrams daily. Iwould like to avoid beta blockers due to her perceived exercise intolerance. Wediscussed appropriate exercise which would include all forms of aerobicactivity. I've asked her to avoid weightlifting other than light weights withlots of reps.I've asked her to contact me with blood pressure readings in 2 weeks. She willhave basic profile done at that time.We had long conversation regarding all of her mild testing abnormalities.I'll see her in 6 months or as needed.Thank you for asking me to see and make recommendations on Cornelia Burns. Thisreport is available to you in the shared medical record.Written and verbal health teaching given to patient, patient verbalizesunderstanding and agrees with treatment plan.DIAGNOSIS FOR VISIT:Abnormal stress testHISTORY OF PRESENT ILLNESSSaphilip Burns is a 72-year-old woman who was seen in consultation at [facility] of Dr. Mcgill, for recommendations regarding exercise intolerance andabnormal stress test.She reports that she has had a several month history of decreased exercisetolerance. She has occasional sensation of pressure across the chest and intoher neck which occasionally wakes her up early in the morning but has notbothered her during exertion. She has had no orthopnea. She has noted mildedema.She recently underwent stress testing which was reportedly negative forischemia, but showed "hypertensive response".She's had no TIAs, amaurosis, claudication. There is a previous history ofpalpitations but these have not bothered her recently. She's had no syncope.Previous evaluation included an echocardiogram and Holter monitor. 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 and history of SVT, whichdid not correlate well with symptoms.She monitors her blood pressures at home and has had readings in the 140-160range.ALLERGIES:SADE Argueta Known AllergiesCURRENT OUTPATIENT MEDICATIONS:alendronate (FOSAMAX) 35 mg tablet Take 1 tablet by mouth once each week.pravastatin (PRAVACHOL) 20 mg tablet Take 1 tablet by mouth daily at bedtime.venlafaxine ER (EFFEXOR XR) 37.5 mg 24 hr capsule Take 1 capsule by mouth oncedaily.cyclobenzaprine (FLEXERIL) 10 mg tablet Take 1 tablet by mouth three timesdaily as needed.oxyCODONE-acetaminop hen (PERCOCET) 10-325 mg tablet Take 1 tablet by mouthevery 6 hours as needed for Pain.Cholecalciferol, Vitamin D3, 1,000 unit tab Take 1,000 Units by mouth threetimes daily.calcium citrate/vitamin d3(CALCIUM CITRATE + D 315 MG-200 UNIT TAB) Take one(1)tablet daily.multivitamins w-minerals/lut(CENTRUM SILVER TAB) Take one(1) tablet daily.PAST MEDICAL HISTORYDiagnosis Date- Depressive disorder, not elsewhere classified- Gisel duct, cyst- Gastritis- Hematuria, unspecified- Osteopenia- Other and unspecified hyperlipidemia- Portal vein thrombosis- Vitamin D deficiencyPAST SURGICAL HISTORYProcedure Laterality Date- APPENDECTOMY This was done with 1st - DELIVERY ONLY X 2- EGD W/O OR W/BRUSH/WASH 02/19/[address] Castillo- REMOVAL GALLBLADDER CholecystectomyFAMILY HISTORYProblem Relation Age of Onset- Hypertension Mother Glaucoma and Macular degeneration- Osteoporosis Mother- Uterine Cancer [OTHER] Mother- Cancer Father skin cancer, SCC and BCC- Lipids Father- Cancer Paternal Aunt ovarian- Stroke Paternal Aunt- Heart Paternal Aunt- Diabetes Brother juvenile type 1- Cancer Brother pancreatic- Cirrhosis of Liver [OTHER] SisterSocial History Marital status: Spouse name: MERARI Years of education: 12+ Number of children: 2Occupational HistoryOccupation Employer CommentRETIREDSocial History Main Topics Smoking status: Never Smoker Smokeless tobacco: Never Used Alcohol use: No Drug use: No Sexual activity: Yes Partners with: MaleSocial History Narrative , retiredREVIEW OF SYSTEMS: General: No chills, fever, weight loss, night sweats.SHEENT: No change in vision or auditory acuity. Respiratory: No productivecough. Cardiac: As noted above. GI: No melena. : No dysuria.Musculoskeletal: No myalgias. Neurologic: No strokes. Psychiatric: Nodepression. Endocrine: No diabetes. Hematologic: No anemia.PHYSICAL EXAMINATION: S/he is alert and in no distressVITAL SIGNS: BP 142/88[right manual[ Pulse 80 Wt 161 lb 12.8 oz (73.4kg)SHEENT: Skin is warm and dry. Pupils are round and reactive. Retinal vesselsare grossly unremarkable. No xanthelasmas appreciated. Pharynx is benign.There is no oral cyanosis. Neck: supple. No adenopathy or thyroidenlargement. Chest: Clear to percussion and auscultation. Trachea is midline. Air entry is equal. There is no chest wall tenderness. Cardiac: Regularrhythm. S1 and S2 are normal. PMI is nondisplaced. There is a soft mitralclick without murmur. No click is heard. Carotids are brisk without bruits.JVP is less than 10 cm. Abdomen: Soft and nontender. There are no pulsatilemasses or bruits. No liver enlargement. Bowel sounds are active. :Deferred. Extremities: No edema. Pulses are intact and symmetrical. Noclubbing or cyanosis. No femoral bruits. Neurologic: Grossly normal motor andsensory. S/he is alert and oriented x4. Musculoskeletal: No jointdeformities.Stress echocardiogram was performed at [facility]. Echo was reportedlynegative for ischemia. Those images will be reviewed. She had a resting bloodpressure of 150/90. She reports that they had to wait for a while for her bloodpressure to come down prior to exercise. Peak blood pressure during exercisewas 180/94. This would represent a normal blood pressure response on backgroundof mild resting hypertension. There was no ischemia by ECG, echo or symptoms.She achieved 10.1 METs of activity.Prior echocardiogram is as described above. There was mild mitralinsufficiency. LV systolic function is normal.Prior Holter monitor showed short runs of SVT up to 9 beats. There was noatrial fibrillation and no significant ventricular arrhythmia.EKG shows sinus rhythm and is within normal limits.Recent labs were reviewed. Renal function is normal. LDL was 108.Electronically Signed:Dianna Christiansen 2017 10:34 [facility]: Sonya LEDBETTER Kenneth E 08/10/2017 10:35 AM Rhiannon COLLINS healthy lifestyle is the most important component of your overall treatmentplan. Please give serious thought to the following areas and commit to makinglong term changes.EAT A WHOLE FOOD, PLANT BASED DIETThe nutrition your body gets is more important than the medicine you take.What matters most is the overall way you eat. We encourage you to minimize theuse of animal products (which include dairy and all meats except fatty fish)and use whole, unprocessed plant foods to provide your protein, vitamins andother nutrients. We have a lot of information to share with you on this topic.This is not a "diet". It is a way of life that you will keep with you.EXERCISE REGULARLYIt is not important to spend hours in the gym, lifting weights and perspiringheavily. A total of 2-3 hours per week of aerobic (causing you to bemoderately short of breath) exercise is sufficient to improve your health.Talk to us before you begin a new exercise program, if you have heart diseaseor experience shortness of breath or chest pain.REDUCE STRESSChronic emotional and physical stress leads to disease. Ways of reducingstress include meditation, visualization, prayer, yoga and other forms ofrelaxation therapy. Consistency is the lipscomb. Find a technique that works foryou and do it every day.CULTIVATE RELATIONSHIPSLoneliness and isolation have a major negative impact on health. Seek outothers who can love, care for and nurture you. Avoid hurtful relationships.MAINTAIN IDEAL BODY WEIGHTThe best way to do this is to do all the things above. Our bodies naturallyfind the right weight if we keep moving and feed ourselves the right food. Ifyour BMI is greater than 25, we strongly recommend a referral to a weightmanagement program. Please speak to us or your family physician aboutavailable programs.AVOID NICOTINE IN ALL FORMSThis includes all tobacco products, whether chewed, smoked, vaped, or rubbed onthe skin. Smoking cessation programs, which can make use of tobaccosubstitutes, medications to suppress cravings and behavior management, areavailable. Please contact your family physician about programs in your area.Referring Provider: KEO CHACON [[id number]]Allergies As of Date: 08/10/2017(No Known Allergies)Date Reviewed: 08/10/2017Reviewed by: Georgina Alexander (Rn), RN - Fully AssessedReason for Visit: New Patient [172]Primary Visit Diagnosis:Exercise intolerance [R68.89] Other Visit Diagnosis:Essential hypertension [I10]Order(s):BASIC METABOLIC PNL [SQBMP] Order #: [id number] FUTURE lisinopril (PRINIVIL) 5 mg tabletTake 1 tablet by mouth once daily.Disp: 30 tabletRfl: 6 CBC [SQCBC] Order #: [id number] FUTUREPrescriptions as of 08/10/2017 Sig: LISINOPRIL 5 MG TABLET Take 1 tablet by mouth once d* ALENDRONATE 35 MG TABLET Take 1 tablet by mouth once e* PRAVASTATIN 20 MG TABLET Take 1 tablet by mouth daily * VENLAFAXINE ER 37.5 MG CAPSUL* Take 1 capsule by mouth once * CYCLOBENZAPRINE 10 MG TABLET Take 1 tablet by mouth three * OXYCODONE-ACETAMINOPHEN 10 MG* Take 1 tablet by mouth every * CHOLECALCIFEROL (VITAMIN D3) * Take 1,000 Units by mouth thr* CALCIUM CITRATE + D 315 MG-20* Take one(1) tablet daily. 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 GENERALIZED ANXIETY DIS [F41.1] INVALID FOR* Hyperlipidemia [E78.5] INVALID FOR* Portal vein thrombosis [I81] INVALID FOR* Vitamin D deficiency [E55.9] INVALID FOR* Family history of pancreatic cancer [Z80.0] INVALID FOR* Abdominal pain [R10.9] INVALID FOR* Other instructions from your clinician: LIFESTYLE CHANGE A healthy lifestyle is the most important component of your overall treatment plan. 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 EAT A WHOLE FOOD, PLANT BASED DIET The nutrition your body gets is more important than the medicine you take. What matters most is the overall way you eat. We encourage you to minimize the use of animal products (which include dairy and all meats except fatty fish) and use whole, unprocessed plant foods to provide your protein, vitamins and other nutrients. We have a lot of information to share with you on this topic. This is not a "diet". It is a way of life that you will keep with you. EXERCISE REGULARLY It is not important to spend hours in the gym, lifting weights and perspiring heavily. A total of 2-3 hours per week of aerobic (causing you to be moderately short of breath) exercise is sufficient to improve your health. Talk to us before you begin a new exercise program, if you have heart disease or experience shortness of breath or chest pain. REDUCE STRESS Chronic emotional and physical stress leads to disease. Ways of reducing stress include meditation, visualization, prayer, yoga and other forms of relaxation therapy. Consistency is the lipscomb. Find a technique that works for you and do it every day. CULTIVATE RELATIONSHIPS Loneliness and isolation have a major negative impact on health. Seek out others who can love, care for and nurture you. Avoid hurtful relationships. MAINTAIN IDEAL BODY WEIGHT The best way to do this is to do all the things above. Our bodies naturally find the right weight if we keep moving and feed ourselves the right food. If your BMI is greater than 25, we strongly recommend a referral to a weight management program. Please speak to us or your family physician about available programs. AVOID NICOTINE IN ALL FORMS This includes all tobacco products, whether chewed, smoked, vaped, or rubbed on the skin. Smoking cessation programs, which can make use of tobacco substitutes, medications to suppress cravings and behavior management, are available. Please contact your family physician about programs in your area.Prescriptions ordered this encounter Disp Refills Start End LISINOPRIL 5 MG TABLET 30 t* 6 08/10/2017 Route: ORAL Sig: Take 1 tablet by mouth once daily.Follow-up and Disposition History RecordedEncounter Number: [id number] Status:Closed by KEO CHACON MD on 08/10/17 [facility] PROGRESSon 08-10-2017 PROGRESS HNO ID: [id number] thor: Keo Chacon EService: (none)Author Type: PhysicianType: Progress NotesFiled: 08/10/2017 12:49 PMNote Text:PERTINENT CARDIAC HISTORYExercise intoleranceAtypical CPHLPalpitations - SVT, poor correlationHTNMitral prolapse - mildADHERENCE TO GUIDELINESACE-I or ARB for HF with prior LVEF<40 (NQF 0081) - N/AASA or Plavix for ASHD (NQF 0067) - N/ABeta john for ASHD with prior OK or prior LVEF<40 (NQF 0070) - N/ABeta john for HF with prior LVEF<40 (NQF 0083) - N/AACE-I or ARB for ASHD with DM or prior LVEF<40 (NQF 0066) - N/AStatin therapy for ASHD or FHL or DM - metBMI documented and plan if >25 (NQF 0421) - lifestyle recommendation formTobacco use screening and referral (NQF 0028) - lifestyle recommendationformRecommend ation for whole food, plant based diet - lifestyle recommendationformCLINICAL IMPRESSION/PLAN:Cornelia Burns has resting hypertension. Her exercise BP response wasnormal. There is no evidence of ischemia. Her exercise intolerance islikely multifactorial, including deconditioning, hypertension, diastolicLV dysfunction, etc. She does not appear to be anemic, but we will check aCBC.I recommended that we initiate therapy with lisinopril 5 milligrams daily.I would like to avoid beta blockers due to her perceived exerciseintolerance. We discussed appropriate exercise which would include allforms of aerobic activity. I've asked her to avoid weightlifting otherthan light weights with lots of reps.I've asked her to contact me with blood pressure readings in 2 weeks. Sarahwill have basic profile done at that time.We had long conversation regarding all of her mild testing abnormalities.I'll see her in 6 months or as needed.Thank you for asking me to see and make recommendations on Cornelia Burns.This report is available to you in the shared medical record.Written and verbal health teaching given to patient, patient verbalizesunderstanding and agrees with treatment plan.DIAGNOSIS FOR VISIT:Abnormal stress testHISTORY OF PRESENT ILLNESSSaphilip Burns is a 72-year-old woman who was seen in consultation at [facility] of Dr. Mcgill, for recommendations regarding exercise intoleranceand abnormal stress test.She reports that she has had a several month history of decreased exercisetolerance. She has occasional sensation of pressure across the chest andinto her neck which occasionally wakes her up early in the morning but hasnot bothered her during exertion. She has had no orthopnea. She has notedmild edema.She recently underwent stress testing which was reportedly negative forischemia, but showed hypertensive response".She's had no TIAs, amaurosis, claudication. There is a previous history ofpalpitations but these have not bothered her recently. She's had nosyncope.Previous evaluation included an echocardiogram and Holter monitor. 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 and history ofSVT, which did not correlate well with symptoms.She monitors her blood pressures at home and has had readings in [id number] range.ALLERGIES:ALLERGIESNo Known AllergiesCURRENT OUTPATIENT MEDICATIONS:alendronate (FOSAMAX) 35 mg tablet Take 1 tablet by mouth once each week.pravastatin (PRAVACHOL) 20 mg tablet Take 1 tablet by mouth daily atbedtime.venlafaxine ER (EFFEXOR XR) 37.5 mg 24 hr capsule Take 1 capsule by mouthonce daily.cyclobenzaprine (FLEXERIL) 10 mg tablet Take 1 tablet by mouth three timesdaily as needed.oxyCODONE-acetaminop hen (PERCOCET) 10-325 mg tablet Take 1 tablet by mouthevery 6 hours as needed for Pain.Cholecalciferol, Vitamin D3, 1,000 unit tab Take 1,000 Units by mouththree times daily.calcium citrate/vitamin d3(CALCIUM CITRATE + D 315 MG-200 UNIT TAB) Takeone(1) tablet daily.multivitamins w-minerals/lut(CENTRUM SILVER TAB) Take one(1) tablet daily.PAST MEDICAL HISTORYDiagnosis Date- Depressive disorder, not elsewhere classified- Gisel duct, cyst- Gastritis- Hematuria, unspecified- Osteopenia- Other and unspecified hyperlipidemia- Portal vein thrombosis- Vitamin D deficiencyPAST SURGICAL HISTORYProcedure Laterality Date- APPENDECTOMY This was done with 1st - DELIVERY ONLY X 2- EGD W/O OR W/BRUSH/WASH 02/19/[address] Castillo- REMOVAL GALLBLADDER CholecystectomyFAMILY HISTORYProblem Relation Age of Onset- Hypertension Mother Glaucoma and Macular degeneration- Osteoporosis Mother- Uterine Cancer [OTHER] Mother- Cancer Father skin cancer, SCC and BCC- Lipids Father- Cancer Paternal Aunt ovarian- Stroke Paternal Aunt- Heart Paternal Aunt- Diabetes Brother juvenile type 1- Cancer Brother pancreatic- Cirrhosis of Liver [OTHER] SisterSocial History Marital status: Spouse name: MERARI Years of education: 12+ Number of children: 2Occupational HistoryOccupation Employer CommentRETIREDSocial History Main Topics Smoking status: Never Smoker Smokeless tobacco: Never Used Alcohol use: No Drug use: No Sexual activity: Yes Partners with: MaleSocial History Narrative , retiredREVIEW OF SYSTEMS: General: No chills, fever, weight loss, night sweats. SHEENT: No change in vision or auditory acuity. Respiratory: Noproductive cough. Cardiac: As noted above. GI: No melena. : Nodysuria. Musculoskeletal: No myalgias. Neurologic: No strokes.Psychiatric: No depression. Endocrine: No diabetes. Hematologic: Noanemia.PHYSICAL EXAMINATION: S/he is alert and in no distressVITAL SIGNS: BP 142/88[right manual[ Pulse 80 Wt 161 lb 12.8 oz(73.4kg)SHEENT: Skin is warm and dry. Pupils are round and reactive. Retinalvessels are grossly unremarkable. No xanthelasmas appreciated. Pharynxis benign. There is no oral cyanosis. Neck: supple. No adenopathy orthyroid enlargement. Chest: Clear to percussion and auscultation.Trachea is midline. Air entry is equal. There is no chest walltenderness. Cardiac: Regular rhythm. S1 and S2 are normal. PMI isnondisplaced. There is a soft mitral click without murmur. No click isheard. Carotids are brisk without bruits. JVP is less than 10 cm.Abdomen: Soft and nontender. There are no pulsatile masses or bruits. Noliver enlargement. Bowel sounds are active. : Deferred. Extremities:No edema. Pulses are intact and symmetrical. No clubbing or cyanosis.No femoral bruits. Neurologic: Grossly normal motor and sensory. S/heis alert and oriented x4. Musculoskeletal: No joint deformities.Stress echocardiogram was performed at [facility]. Echo wasreportedly negative for ischemia. Those images will be reviewed. She had aresting blood pressure of 150/90. She reports that they had to wait for awhile for her blood pressure to come down prior to exercise. Peak bloodpressure during exercise was 180/94. This would represent a normal bloodpressure response on background of mild resting hypertension. There was noischemia by ECG, echo or symptoms. She achieved 10.1 METs of activity.Prior echocardiogram is as described above. There was mild mitralinsufficiency. LV systolic function is normal.Prior Holter monitor showed short runs of SVT up to 9 beats. There was noatrial fibrillation and no significant ventricular arrhythmia.EKG shows sinus rhythm and is within normal limits.Recent labs were reviewed. Renal function is normal. LDL was 108.Electronically Signed:Keo Chacon, MDMay 2017 10:34 [facility]: KUNAL MCGILL MD [facility] Vital Signs Date Time Vital Sign Value Performing Clinician Facility 12-20-2024 11:38-0400 Body height 176.53 cm Carmelina Kerr MD Work Phone: 6(262)902-572094 [place] [address] 12-20-2024 11:38-0400 Body mass index (BMI) [Ratio] 24 kg/m2 Carmelina Kerr MD Work Phone: 6(516)019-950994 [place] [address] 12-20-2024 11:38-0400 Body weight 74.84 kg Carmelina Kerr MD Work Phone: 7(714)796-683294 [place] [address] 10-22-2024 11:23-0400 Body height 176.53 cm Carmelina Kerr MD Work Phone: [facility] 10-22-2024 11:23-0400 Body mass index (BMI) [Ratio] 24.2 kg/m2 Carmelina Kerr MD Work Phone: [facility] 10-22-2024 11:23-0400 Body weight 75.4 kg Carmelina Kerr MD Work Phone: [facility] 10-22-2024 11:23-0400 Diastolic blood pressure 85 mm[Hg] Carmelina Kerr MD Work Phone: [facility] 10-22-2024 11:23-0400 Heart rate 65 /min Carmelina Kerr MD Work Phone: [facility] 10-22-2024 11:23-0400 SaO2% (BldA) [Mass fraction] 95 % Carmelina Kerr MD Work Phone: [facility] 10-22-2024 11:23-0400 Systolic blood pressure 131 mm[Hg] Carmelina Kerr MD Work Phone: [facility] 10-09-2024 10:28-0400 Body height 176.53 cm Carmelina Kerr MD Work Phone: [facility] 10-09-2024 10:28-0400 Body mass index (BMI) [Ratio] 24.3 kg/m2 Carmelina Kerr MD Work Phone: [facility] 10-09-2024 10:28-0400 Body weight 75.74 kg Carmelina Kerr MD Work Phone: [facility] 10-09-2024 10:28-0400 Diastolic blood pressure 75 mm[Hg] Carmelina Kerr MD Work Phone: [facility] 10-09-2024 10:28-0400 Heart rate 78 /min Carmelina Kerr MD Work Phone: [facility] 10-09-2024 10:28-0400 Respiratory rate 18 /min Carmelina Kerr MD Work Phone: [facility] 10-09-2024 10:28-0400 SaO2% (BldA) [Mass fraction] 94 % Carmelina Kerr MD Work Phone: [facility] 10-09-2024 10:28-0400 Systolic blood pressure 108 mm[Hg] Carmelina Kerr MD Work Phone: [facility] 10-07-2024 13:43-0400 Body temperature 97.4 [degF] Caremlina Kerr MD Work Phone: [facility] 10-07-2024 13:43-0400 Diastolic blood pressure 81 mm[Hg] Carmelina Kerr MD Work Phone: [facility] 10-07-2024 13:43-0400 Heart rate 68 /min Carmelina Kerr MD Work Phone: [facility] 10-07-2024 13:43-0400 Respiratory rate 16 /min Carmelina Kerr MD Work Phone: [facility] 10-07-2024 13:43-0400 SaO2% (BldA) [Mass fraction] 94 % Carmelina Kerr MD Work Phone: [facility] 10-07-2024 13:43-0400 Systolic blood pressure 139 mm[Hg] Carmelina Kerr MD Work Phone: 5(462)434-573294 [place] [address] 10-07-2024 13:09-0400 Body height 176.53 cm Carmelina Kerr MD Work Phone: 7(742)639-486507 [address] 10-07-2024 13:09-0400 Body mass index (BMI) [Ratio] 24 kg/m2 Carmelina Kerr MD Work Phone: [facility] 10-07-2024 13:09-0400 Body weight 74.84 kg Carmelina Kerr MD Work Phone: 3(043)548-977794 [place] [address] 08-20-2024 09:30-0400 Body height 175.26 cm Carmelina Kerr MD Work Phone: 9(654)141-367107 [address] 08-20-2024 09:30-0400 Body mass index (BMI) [Ratio] 23.9 kg/m2 Carmelina Kerr MD Work Phone: 1(042)332-378994 [place] [address] 08-20-2024 09:30-0400 Body weight 73.48 kg Carmelina Kerr MD Work Phone: 0(760)064-323594 [place] [address] 07-09-2024 10:29-0400 Body height 175.26 cm Carmelina Kerr MD Work Phone: [facility] 07-09-2024 10:29-0400 Body mass index (BMI) [Ratio] 23.6 kg/m2 Carmelina Kerr MD Work Phone: 3(962)519-811594 [place] [address] 07-09-2024 10:29-0400 Body weight 72.57 kg Carmelina Kerr MD Work Phone: 6(386)708-211494 [place] [address] 02-13-2024 09:02-0500 Body mass index (BMI) [Ratio] 23.78 kg/m2 Kunal Mcgill MD Work Phone: [facility] 02-13-2024 09:02-0500 Body weight 73.03 kg Kunal Mcgill MD Work Phone: [facility] 02-13-2024 09:02-0500 Diastolic blood pressure 80 mm[Hg] Kunal Mcgill MD Work Phone: [facility] 02-13-2024 09:02-0500 Heart rate 73 /min Kunal Mcgill MD Work Phone: [facility] 02-13-2024 09:02-0500 Respiratory rate 16 /min Kunal Mcgill MD Work Phone: [facility] 02-13-2024 09:02-0500 Systolic blood pressure 128 mm[Hg] Kunal Mcgill MD Work Phone: 8(004)346-650137 [place] [address] 02-01-2023 11:10-0400 Body height 175.[address] Kunal Mcgill Work Phone: 2(985)706-492483 [place] [address] 02-01-2023 11:10-0400 Body mass index (BMI) [Ratio] 23 kg/m2 Dr. Kunal Mcgill Work Phone: 0(339)713-406395 [place] [address] 02-01-2023 11:10-0400 Body weight 70.[address] Kunal Mcgill Work Phone: 0(376)754-989295 [place] [address] 02-01-2023 11:10-0400 Diastolic blood pressure 84 mm[Hg] Dr. Kunal Mcgill Work Phone: 5(111)346-199295 [place] [address] 02-01-2023 11:10-0400 Heart rate 76 /min Dr. Kunal Mcgill Work Phone: 5(634)073-493295 [place] [address] 02-01-2023 11:10-0400 Respiratory rate 14 /min Dr. Kunal Mcgill Work Phone: 0(018)452-820595 [place] [address] 02-01-2023 11:10-0400 Systolic blood pressure 131 mm[Hg] Dr. Kunal Mcgill Work Phone: 0(678)516-296283 [place] [address] 05-20-2022 11:50-0500 Body height 175.3 cm Kunal Mcgill MD Work Phone: [facility] 05-20-2022 11:50-0500 Body temperature 98.01 [degF] Kunal Mcgill MD Work Phone: [facility] 05-20-2022 11:50-0500 Body weight 70.31 kg Kunal Mcgill MD Work Phone: [facility] 05-20-2022 11:50-0500 Diastolic blood pressure 70 mm[Hg] Kunal Mcgill MD Work Phone: [facility] 05-20-2022 11:50-0500 Heart rate 67 /min Kunal Mcgill MD Work Phone: [facility] 05-20-2022 11:50-0500 Respiratory rate 12 /min Kunal Mcgill MD Work Phone: [facility] 05-20-2022 11:50-0500 SaO2% (BldA) [Mass fraction] 97 % Kunal Mcgill MD Work Phone: [facility] 05-20-2022 11:50-0500 Systolic blood pressure 126 mm[Hg] Kunal Mcgill MD Work Phone: [facility] 05-17-2022 09:09-0500 Body height 175.26 cm [facility] 11-22-2021 10:36-0400 Body height 175.[address] Kunal Mcgill Work Phone: [facility] Work Phone: 11-22-2021 10:36-0400 Body mass index (BMI) [Ratio] 22.7 kg/m2 Dr. Kunal Mcgill Work Phone: [facility] Work Phone: 11-22-2021 10:36-0400 Body weight 69.[address] Kunal Mcgill Work Phone: [facility] Work Phone: 11-22-2021 10:36-0400 Diastolic blood pressure 69 mm[Hg] Dr. Kunal Mcgill Work Phone: [facility] Work Phone: 11-22-2021 10:36-0400 Heart rate 78 /min Dr. Kunal Mcgill Work Phone: [facility] Work Phone: 11-22-2021 10:36-0400 Respiratory rate 16 /min Dr. Kunal Mcgill Work Phone: [facility] Work Phone: 11-22-2021 10:36-0400 Systolic blood pressure 111 mm[Hg] Dr. Kunal Mcgill Work Phone: [facility] Work Phone: 10-29-2021 11:11-0400 Body weight 70.76 kg Sue Older MANUFACTURING MANAGEMENT ASSOCIATE.MARKETING ANALYTICS ANALYST Work Phone: [facility] 10-29-2021 11:11-0400 Diastolic blood pressure 90 mm[Hg] Sue Older MANUFACTURING MANAGEMENT ASSOCIATE.MARKETING ANALYTICS ANALYST Work Phone: [facility] 10-29-2021 11:11-0400 Heart rate 78 /min Sue Older MANUFACTURING MANAGEMENT ASSOCIATE.MARKETING ANALYTICS ANALYST Work Phone: [facility] 10-29-2021 11:11-0400 Respiratory rate 18 /min Sue Older MANUFACTURING MANAGEMENT ASSOCIATE.MARKETING ANALYTICS ANALYST Work Phone: [facility] 10-29-2021 11:11-0400 Systolic blood pressure 146 mm[Hg] Sue Older MANUFACTURING MANAGEMENT ASSOCIATE.MARKETING ANALYTICS ANALYST Work Phone: [facility] 09-29-2021 15:19-0400 Body height 175.3 cm Kunal Mcgill MD Work Phone: [facility] 09-29-2021 15:19-0400 Body temperature 97.39 [degF] Kunal Mcgill MD Work Phone: [facility] 09-29-2021 15:19-0400 Body weight 72.58 kg Kunal Mcgill MD Work Phone: [facility] 09-29-2021 15:19-0400 Diastolic blood pressure 76 mm[Hg] Kunal Mcgill MD Work Phone: [facility] 09-29-2021 15:19-0400 Heart rate 79 /min Kunal Mcgill MD Work Phone: [facility] 09-29-2021 15:19-0400 Respiratory rate 12 /min Kunal Mcgill MD Work Phone: [facility] 09-29-2021 15:19-0400 SaO2% (BldA) [Mass fraction] 96 % Kunal Mcgill MD Work Phone: [facility] 09-29-2021 15:19-0400 Systolic blood pressure 120 mm[Hg] Kunal Mcgill MD Work Phone: [facility] 07-02-2021 00:18-0400 Body weight 70.[address] Kunal Mcgill Work Phone: [facility] Work Phone: 06-11-2021 12:52-0500 Body height 175.26 cm [facility] Work Phone: 06-11-2021 12:52-0500 Body weight 70.76 kg [facility] Work Phone: 06-11-2021 11:52-0500 Body height 175.[address] Kunal Mcgill Work Phone: [facility] Work Phone: 06-11-2021 11:52-0500 Body weight 70.[address] Kunal Mcgill Work Phone: [facility] Work Phone: 05-14-2021 08:39-0500 Body weight 71.[address] Kunal Mcgill Work Phone: [facility] Work Phone: 05-12-2021 12:06-0500 Body mass index (BMI) [Ratio] 23 kg/m2 Dr. Kunal Mcgill Work Phone: [facility] Work Phone: 05-12-2021 12:06-0500 Body weight 70.[address] Kunal Mcgill Work Phone: [facility] Work Phone: 05-12-2021 12:06-0500 Diastolic blood pressure 78 mm[Hg] Dr. Kunal Mcgill Work Phone: [facility] Work Phone: 05-12-2021 12:06-0500 Heart rate 76 /min Dr. Kunal Mcgill Work Phone: [facility] Work Phone: 05-12-2021 12:06-0500 Respiratory rate 16 /min Dr. Kunal Mcgill Work Phone: [facility] Work Phone: 05-12-2021 12:06-0500 Systolic blood pressure 123 mm[Hg] Dr. Kunal Mcgill Work Phone: [facility] Work Phone: 04-26-2021 12:40-0500 Body mass index (BMI) [Ratio] 23.4 kg/m2 Dr. Kunal cMgill Work Phone: [facility] Work Phone: 04-26-2021 12:40-0500 Body weight 72.[address] Kunal Mcgill Work Phone: [facility] Work Phone: 03-16-2021 08:51-0500 Body mass index (BMI) [Ratio] 23.6 kg/m2 Dr. Kunal Mcgill Work Phone: [facility] Work Phone: 03-16-2021 08:51-0500 Body temperature 97.6 [degF] Dr. Kunal Mcgill Work Phone: [facility] Work Phone: 12-14-2021 08:51-0500 Body weight 72.[address] Kunal Mcgill Work Phone: [facility] Work Phone: 03-16-2021 08:51-0500 Diastolic blood pressure 86 mm[Hg] Dr. Kunal Mcgill Work Phone: [facility] Work Phone: 03-16-2021 08:51-0500 Heart rate 80 /min Dr. Kunal Mcgill Work Phone: [facility] Work Phone: 03-16-2021 08:51-0500 Respiratory rate 18 /min Dr. Kunal Mcgill Work Phone: [facility] Work Phone: 03-16-2021 08:51-0500 SaO2% (BldA) [Mass fraction] 97 % Dr. Kunal Mcgill Work Phone: [facility] Work Phone: 03-16-2021 08:51-0500 Systolic blood pressure 127 mm[Hg] Dr. Kunal Mcgill Work Phone: [facility] Work Phone: NEGATED: Highlighted [id number] 11:20-0400 BMI (Body Mass Index) 23.86 kg/m2 [facility] Work Phone: NEGATED: Highlighted [id number] 11:20-0400 Body weight 73.03 kg [facility] Work Phone: NEGATED: Highlighted [id number] 11:20-0400 Body weight 73 kg [facility] Work Phone: NEGATED: Highlighted [id number] 11:20-0400 Heart rate 2+ [facility] Work Phone: NEGATED: Highlighted [id number] 11:20-0400 Height 175.26 cm [facility] Work Phone: NEGATED: Highlighted [id number] 11:20-0400 Height 175 cm [facility] Work Phone: Encounters Encounter Date Encounter Type Care Provider Facility Start: 02-12-2025 ambulatory Kodi Jordan Facility:[facility] Start: 12-20-2024 End: 12-20-[address] Kodi Jordan MD -[facility] Work Phone: Start: 12-20-2024 End: 12-20-2024 ambulatory Carmelina Kerr MD Work Phone: -[facility] Start: 11-01-2024 End: 11-01-2024 ambulatory Carmelina Kerr MD Work Phone: -Laboratory Start: 11-01-2024 End: 11-01-[address] Elias Mariscal MD -Laboratory Work Phone: Start: 11-01-2024 End: 11-01-2024 ambulatory Elias Mariscal Facility:[facility] Start: 10-28-2024 ambulatory Carmelina Kerr Facility:[facility] Start: 10-28-2024 Registered Recurring Alessandra SUNSHINE -Physical Therapy Work Phone: Start: 10-22-2024 End: 10-22-[address] Gabe Finney MD -[facility] Work Phone: Start: 10-22-2024 End: 10-22-2024 ambulatory Carmelina Kerr MD Work Phone: -[facility] Start: 10-21-2024 Registered Recurring Alessandra SUNSHINE -Physical Therapy Work Phone: Start: 10-09-2024 End: 10-09-[address] Elias Mariscal MD -[facility] Work Phone: Start: 10-09-2024 End: 10-09-2024 ambulatory Carmelina Kerr MD Work Phone: -[facility] Start: 10-08-2024 Registered Recurring Alessandra SUNSHINE -Physical Therapy Work Phone: Start: 10-07-2024 End: 10-07-[address] Gaeb Finney MD -Medical Out Work Phone: Start: 10-07-2024 End: 10-07-2024 ambulatory Carmelina Kerr MD Work Phone: -[facility] Out Start: 08-24-2024 End: 08-24-2024 ambulatory Carmelina Kerr MD Work Phone: [facility] Work Phone: Start: 08-24-2024 End: 08-24-[address] Gabe Finney MD -Laboratory Work Phone: Start: 08-24-2024 End: 08-24-2024 ambulatory Carmelina Kerr Facility:[facility] Start: 08-20-2024 End: 08-20-2024 Patient encounter procedure Alessandra SUNSHINE -[facility] Work Phone: Start: 08-20-2024 End: 08-20-2024 ambulatory Carmelina Kerr MD Work Phone: [facility] Work Phone: Start: 08-02-2024 End: 08-02-2024 ambulatory Carmelina Kerr MD Work Phone: [facility] Work Phone: Start: 08-02-2024 End: 08-02-2024 Patient encounter procedure Alessandra SUNSHINE -[facility] Work Phone: Start: 08-02-2024 End: 08-02-2024 ambulatory Chalon Usha Facility:[facility] Start: 07-11-2024 End: 07-11-2024 ambulatory Carmelina Kerr MD Work Phone: [facility] Work Phone: Start: 07-11-2024 End: 07-11-[address] Carmelina Kerr MD -Outpatient [facility] Work Phone: Start: 07-11-2024 End: 07-11-2024 ambulatory Carmelina Kerr Facility:[facility] Start: 07-09-2024 End: 07-09-2024 Patient encounter procedure Alessandra SUNSHINE -[facility] Work Phone: Start: 07-09-2024 End: 07-09-2024 ambulatory Alessandra Campos [place] Start: 02-13-2024 End: 02-13-2024 ambulatory KUNAL MCGILL Facility:[facility] Start: 02-13-2024 End: 02-13-2024 Office outpatient visit 25 minutes Kunal Mcgill MD Work Phone: [facility] [place] Comment on above: Tubular adenoma of c olon (Primary Dx); Essential hypertension; Mixed hyperlipidemia; Osteopenia, unspecified location Start: 02-05-2024 End: 02-05-2024 Patient encounter procedure Kunal Mcgill MD Work Phone: [facility] Start: 02-05-2024 End: 02-05-2024 Telephone encounter Kunal Mcgill MD Work Phone: [facility] [place] Comment on above: Lab Orders Start: 02-08-2023 End: 02-08-[address] Kunal Mcgill Work Phone: [facility] Work Phone: Start: 02-08-2023 End: 02-08-[address] Kunal Mcgill Work Phone: [facility]-Laboratory Work Phone: Start: 02-01-2023 End: 02-01-[address] Kunal Mcgill Work Phone: [facility] Work Phone: Start: 05-20-2022 End: 05-20-2022 Patient encounter procedure Kunal Mcgill MD Work Phone: [facility] [place] Comment on above: Hematuria, unspecifi ed type (Primary Dx); Essential hypertension; Mixed hyperlipidemia; Cardiomyopathy, unspecified type (HCC); Status post right knee replacement Start: 05-17-2022 Chart abstracting Kunal Mcgill MD Work Phone: [facility] [place] Comment on above: outside Imaging Start: 05-17-2022 End: 05-17-2022 ambulatory [facility] Work Phone: Start: 05-17-2022 End: 05-17-2022 Patient encounter procedure [facility]-Outpatient [facility] Start: 01-17-2022 ambulatory Kunal Ni Work Phone: [facility] [place] Comment on above: mammogram Start: 01-17-2022 E-mail encounter fro m caregiver Kunal Mcgill MD Work Phone: [facility] [place] Start: 01-14-2022 End: 01-14-[address] Kunal Mcgill Work Phone: [facility] Work Phone: Start: 01-14-2022 End: 01-14-[address] Kunal Mcgill Work Phone: [facility]-Outpatient Breast Imaging Start: 01-04-2022 Telephone encounter Kunal moe MD Work Phone: [facility] [place] Comment on above: Patient Request Start: 12-24-2021 End: 12-24-[address] Kunal Mcgill Work Phone: [facility] Work Phone: Start: 12-24-2021 End: 12-24-[address] Kunal Mcgill Work Phone: [facility]-Physical Therapy Start: 12-24-[address] Yosi Mcgill Work Phone: [facility] Start: 11-22-2021 End: 11-22-[address] Kunal Mcgill Work Phone: [facility] Start: 11-02-2021 Telephone encounter Sue Older MANUFACTURING MANAGEMENT ASSOCIATE.MARKETING ANALYTICS ANALYST Work Phone: Internal [facility] Comment on above: Patient Question Start: 10-29-2021 End: 10-29-2021 Patient encounter procedure Sue Older MANUFACTURING MANAGEMENT ASSOCIATE.MARKETING ANALYTICS ANALYST Work Phone: [facility] Comment on above: Urinary frequency (P rimary Dx) Start: 09-29-2021 End: 09-29-2021 Patient encounter procedure Kunal Mcgill MD Work Phone: Internal [facility] Comment on above: Preoperative clearan ce (Primary Dx); Takotsubo cardiomyopathy; LEONEL (generalized anxiety disorder) Start: 09-29-2021 End: 09-29-2021 Preoperative state Kunal Mcgill MD Work Phone: [facility] Start: 09-29-2021 End: 09-29-2021 Discharged Recurring [facility]-Physical Therapy Start: 08-26-2021 End: 08-26-2021 Nursing evaluation of patient and report Mi Nurse Work Phone: Family [facility] Comment on above: Need for vaccination (Primary Dx) Start: 08-23-2021 ambulatory Kunal Ni Work Phone: [facility] Comment on above: Covid booster #2 Start: 08-20-2021 Patient encounter status Yosi Mcgill MD Work Phone: Internal [facility] Start: 08-20-2021 Telephone encounter Kunal moe MD Work Phone: [facility] Comment on above: Patient Question Start: 07-16-2021 End: 07-31-[address] Kunal Mcgill Work Phone: [facility]-Cardiac Rehab Start: 06-30-2021 End: 07-01-[address] Kunal Mcgill Work Phone: [facility] Start: 05-31-2021 End: 05-31-[address] Kunal Mcgill Work Phone: [facility] Start: 05-12-2021 End: 05-12-[address] Kunal Mcgill Work Phone: [facility] Start: 05-11-2021 Non-patient / Non-visit Dr. Yuniel Mcgill Work Phone: [facility] Start: 05-11-2021 End: 05-11-[address] Kunal Mcgill Work Phone: [facility]Cardi[facility] Start: 05-03-2021 End: 05-03-[address] Kunal Mcgill Work Phone: [facility] Start: 04-26-2021 End: 04-26-[address] Kunal Mcgill Work Phone: [facility] Start: 03-16-[address] Kunal Mcgill Work Phone: [facility] Start: 11-12-2019 End: 11-12-2019 Patient encounter procedure Salvador Dudley MD Work Phone: [facility] Work Phone: Start: 02-12-2018 Ambulatory IM[facility] Facility:[facility] Start: 08-10-2017 End: 08-10-2017 Ambulatory KEO CHACON [facility] Start: 08-04-2017 Ambulatory KEO OSWALDO Facility :[facility] Procedures Date Procedure Procedure Detail Performing Clinician Start: 08-24-2024 Vitamin D, 25-hydrox y measurement Carmelina Kerr MD Work Phone: Comment on above: Vitamin D StatusDefi ciency: <20 ng/mL (50nmol/L)Insufficiency: 20-30 ng/mL (50-75 nmol/L)Sufficiency: 30-100 ng/mL (75-250 nmol/L)Toxicity: >100 ng/mL (>250 nmol/L) Start: 08-02-2024 MRI of lumbar spine Zelda Kerr MD Work Phone: Start: 07-11-2024 Dual energy X-ray absorptiometry Carmelina Kerr MD Work Phone: Start: 07-09-2024 X-ray of lumbosacral spine Carmelina Kerr MD Work Phone: Start: 05-17-2022 Dual energy X-ray absorptiometry Start: 01-14-2022 Screening mammography D r. Kunal Mcgill Work Phone: Start: 10-29-2021 Urnls dip stick/tabl et rgnt auto w/o microscopy Sue Older MANUFACTURING MANAGEMENT ASSOCIATE.MARKETING ANALYTICS ANALYST Work Phone: Start: 08-26-2021 PFIZER-BIONTECH COVI D-19 VACCINE, AGE 12+ YR (POLLARD TOP) Kunal Mcgill MD Work Phone: Start: 04-26-2021 Radiologic examinati on of knee Dr. Kunal Mcgill Work Phone: Start: 11-12-2019 End: 11-12-2019 Blood pressure screening not performed - reason not given Salvador Dudley MD Work Phone: Start: 11-12-2019 End: 11-12-2019 BMI documented within normal parameters - no follow-up plan is required Salvador Dudley MD Work Phone: Start: 11-12-2019 End: 11-12-2019 Documentation of current medications Salvador Dudley MD Work Phone: Start: 11-12-2019 End: 11-12-2019 Osteoarthritis assess Salvador Dudley MD Work Phone: Start: 11-12-2019 End: 11-12-2019 Pain assessment documented as negative - follow-up not required Salvador Dudley MD Work Phone: Start: 11-12-2019 End: 11-12-2019 Radiologic examination knee 3 views Salvador Dudley MD Work Phone: Start: 11-12-2019 End: 11-12-2019 Tobacco non-user Salvador Dudley MD Work Phone: Start: 02-26-2019 Adult depression screening assessment Kunal Mcgill MD Work Phone: NEGATED: Highlighted rowStart: 11-12-2019 End: 11-12-2019 Documentation of current medications [employer] PITA Plan of Treatment Date Care Activity Detail Author Start: 02-05-2027 Diabetes Screening Diabetes Screenin [facility] Start: 06-03-2025 Diabetes Screening Diabetes Screenin [facility] Start: 02-12-2025 Annual PCP Team Svp Monetization tiana Disease Visit Annual PCP Team Chronic Disease Visit [facility] Start: 02-12-2025 [facility] Start: 10-07-2024 Intravenous infusion THER/PROP H/DIAG IV INF [facility] Start: 10-07-2024 Iv infusion therapy/prophylaxis /dx 1st to 1 hr THER/PROPH/DIAG IV INF [facility] Start: 09-20-2024 DIABETES SCREEN DIABETES SCREEN [facility] Start: 08-20-2024 Patient referral [facility] Work Phone: Start: 08-16-2024 End: 08-16-2024 Patient encounter procedure 08/16/2024 9:00 AM EDT Office Visit [facility] [place] [address] [place] [address] Kunal Mcgill MD [address] [facility] [place] [id number] medicare wellness [facility] [place] Comment on above: medicare wellness Start: 04-15-2024 Urine microalbumin profile DTaP,Tdap,Td Vaccine (3 - Td or Tdap) [facility] Start: 02-29-2024 Covid-19 Vaccine ( season) Covid-19 Vaccine () [facility] Start: 02-13-2024 End: 02-13-2024 Patient encounter procedure 02/13/2024 9:00 AM EST Office Visit [facility] [place] [address] [facility] [place] [id number] Kunal Mcgill MD [address] [facility] [place] [id number] follow up [facility] [place] Comment on above: follow up Start: 02-10-2024 DIABETES SCREEN DIABETES SCREEN [facility] Start: 02-05-2024 End: 05-06-2024 25-hydroxyvitamin D3 [Mass/volume] in Serum or Plasma VITAMIN D 25 HYDROXY Lab Routine Vitamin D deficiency Expected: 02/05/2024 (Approximate), Expires: 05/06/2024 [facility] Comment on above: Expected: 02/05/2024 (Approximate), Expires: 05/06/2024 Start: 02-05-2024 End: 05-06-2024 CBC W Auto Differential panel - Blood COMPLETE BLOOD COUNT AND DIFFERENTIAL Lab Routine Essential hypertension Annual physical exam Expected: 02/05/2024 (Approximate), Expires: 05/06/2024 [facility] Work Phone: Comment on above: Expected: 02/05/2024 (Approximate), Expires: 05/06/2024 Start: 02-05-2024 End: 05-06-2024 Comprehensive metabolic 2000 panel - Serum or Plasma COMPREHENSIVE METABOLIC PANEL Lab Routine Hyperlipidemia, unspecified hyperlipidemia type Essential hypertension Annual physical exam Expected: 02/05/2024 (Approximate), Expires: 05/06/2024 [facility] Comment on above: Expected: 02/05/2024 (Approximate), Expires: 05/06/2024 Start: 02-05-2024 End: 05-06-2024 Lipid 1996 panel - Serum or Plasma LIPID PANEL BASIC Lab Routine Hyperlipidemia, unspecified hyperlipidemia type Annual physical exam Expected: 02/05/2024 (Approximate), Expires: 05/06/2024 [facility] Comment on above: Expected: 02/05/2024 (Approximate), Expires: 05/06/2024 Start: 12-03-2023 Covid-19 Vaccine ( season) Covid-19 Vaccine ( season) [facility] Start: 12-03-2023 Influenza vaccination Influenza Vacc ine (#1) [facility] Start: 05-20-2023 ANNUAL PCP TEAM SAMPLE MAKER ORIGINAL TIANA DISEASE VISIT ANNUAL PCP TEAM CHRONIC DISEASE VISIT [facility] Start: 05-20-2023 BP CONTROLLED (<130/80) BP CONTROLLE D (<130/80) [facility] Start: 04-03-2023 Advance Directive Discussion Advance Directive Discussion [facility] Start: 10-29-2022 ANNUAL PCP TEAM SAMPLE MAKER ORIGINAL TIANA DISEASE VISIT ANNUAL PCP TEAM CHRONIC DISEASE VISIT [facility] Start: 09-29-2022 ANNUAL PCP TEAM SAMPLE MAKER ORIGINAL TIANA DISEASE VISIT ANNUAL PCP TEAM CHRONIC DISEASE VISIT [facility] Start: 09-29-2022 BP CONTROLLED (<130/80) BP CONTROLLE D (<130/80) [facility] Start: 05-20-2022 ANNUAL PCP TEAM SAMPLE MAKER ORIGINAL TIANA DISEASE VISIT ANNUAL PCP TEAM CHRONIC DISEASE VISIT [facility] Start: 05-20-2022 BP CONTROLLED (<130/80) BP CONTROLLE D (<130/80) [facility] Start: 05-20-2022 End: 07-20-2022 Urinalysis complete panel - Urine [facility] Work Phone: Comment on above: Expected: 05/20/2022 , Expires: 07/20/2022 Start: 04-03-2022 ADVANCE DIRECTIVE DISCUSSION ADVANCE DIRECTIVE DISCUSSION [facility] Start: 04-03-2022 DEPRESSION ASSESSMENT DEPRESSION ASS ESSMENT [facility] Start: 12-02-2021 Influenza vaccination INFLUENZA (#1) [facility] Start: 11-02-2021 End: 01-02-2022 Bacteria identified in Urine by Culture URINE CULTURE Microbiology Routine Hematuria, unspecified type Expected: 11/02/2021, Expires: 01/02/2022 [facility] Work Phone: Comment on above: Expected: 11/02/2021 , Expires: 01/02/2022 Start: 11-02-2021 End: 01-02-2022 Urinalysis complete panel - Urine URINALYSIS, WITH MICROSCOPIC Lab Routine Hematuria, unspecified type Expected: 11/02/2021, Expires: 01/02/2022 [facility] Work Phone: Comment on above: Expected: 11/02/2021 , Expires: 01/02/2022 Start: 10-29-2021 End: 12-29-2021 Bacteria identified in Urine by Culture URINE CULTURE Microbiology Routine Urinary frequency Expected: 10/29/2021, Expires: 12/29/2021 [facility] Work Phone: Comment on above: Expected: 10/29/2021 , Expires: 12/29/2021 Start: 10-21-2021 COVID-19 VACCINE (5 - Booster for Moderna series) COVID-19 VACCINE (5 - Booster for Moderna series) [facility] Start: 08-23-2021 End: 10-23-2021 CBC W Auto Differential panel - Blood CBC + DIFF Lab Routine Essential hypertension Preop exam for internal medicine Expected: 08/23/2021, Expires: 10/23/2021 [facility] Work Phone: Comment on above: Expected: 08/23/2021 , Expires: 10/23/2021 Start: 08-23-2021 End: 10-23-2021 Comprehensive metabolic 2000 panel - Serum or Plasma COMP METABOLIC PANEL Lab Routine Essential hypertension Preop exam for internal medicine Expected: 08/23/2021, Expires: 10/23/2021 [facility] Work Phone: Comment on above: Expected: 08/23/2021 , Expires: 10/23/2021 Start: 06-12-2021 COVID-19 VACCINE (4 - Booster for Moderna series) COVID-19 VACCINE (4 - Booster for Moderna series) [facility] Start: 04-03-2021 ADVANCE DIRECTIVE DISCUSSION ADVANCE DIRECTIVE DISCUSSION [facility] Start: 04-03-2021 DEPRESSION ASSESSMENT DEPRESSION ASS ESSMENT [facility] Start: 03-05-2020 FECAL OCCULT BLOOD FECAL OCCULT BLOO D [facility] Start: 02-27-2020 Adult depression screening assessment DEPRESSION SCREENING [facility] Start: 01-25-2020 RSV Vaccine (1 - 1-d ose 75+ series) RSV Vaccine (1 - 1-dose 75+ series) [facility] Start: 11-12-2019 End: 11-12-2019 Appointment Appointment [facility] Work Phone: Start: 08-18-2018 Urine microalbumin profile DTAP,TDAP,TD (2 - Td or Tdap) [facility] Start: 1963 BP CONTROLLED (<130/80) BP CONTROLLE D (<130/80) [facility] Start: 1963 Depression Screening Depression Scre ening [facility] Basic metabolic 2008 panel with ionized calcium - Serum or Plasma [facility] MR Lumbar spine [facility] Patient referral [facility] Work Phone: UA DIP B/O UA DIP B/O Lab R outine Urinary frequency Ordered: 10/29/2021 [facility] Work Phone: Comment on above: Ordered: 10/29/2021 End: 06-19-2023 US KIDNEY/BLADDER US KIDNEY/BLADDER Radiology Routine Hematuria, unspecified type 1 Occurrences starting 05/20/2022 until 06/19/2023 [facility] Work Phone: Comment on above: 1 Occurrences starti ng 05/20/2022 until 06/19/2023 [facility] Immunizations Immunization Date Immunization Notes Care Provider Fa [facility] 01-30-2024 respiratory syncytia l virus (RSV) vaccine, bivalent (ABRYSVO) Kunal Mcgill MD Work Phone: [facility] 01-16-2024 influenza, seasonal, injectable, preservative free Kunal Mcgill MD Work Phone: [facility] 12-31-2021 influenza virus vacc ine, unspecified formulation Kunal Mcgill MD Work Phone: [facility] 08-26-2021 COVID-19 vaccine, ag e 12+ yr (P[facility]IONTECH - [facility]) Ut Nurse Work Phone: [facility] Work Phone: 01-29-2021 influenza, high dose seasonal, preservative-free Kunal Mcgill MD Work Phone: [facility] 06-17-2020 Zain (Moderna) Dr. Kunal gray Work Phone: [facility] Work Phone: 05-20-2020 Zain (Moderna) Dr. Kunal G anta Work Phone: [facility] Work Phone: 05-07-2019 typhoid capsular polysaccharide vaccine Kunal Mcgill MD Work Phone: [facility] 03-04-2019 influenza, high dose seasonal, preservative-free Kunal Mcgill MD Work Phone: [facility] Work Phone: 02-26-2018 zoster vaccine recombinant Kunal Mcgill MD Work Phone: [facility] 02-01-2018 zoster vaccine recombinant Kunal Mcgill MD Work Phone: [facility] 01-26-2018 influenza, high dose seasonal, preservative-free Kunal Mcgill MD Work Phone: [facility] Work Phone: 10-25-2017 zoster vaccine recombinant Kunal Mcgill MD Work Phone: [facility] 12-26-2016 influenza, high dose seasonal, preservative-free Kunal Mcgill MD Work Phone: [facility] Work Phone: 02-19-2016 influenza, high dose seasonal, preservative-free Kunal Mcgill MD Work Phone: [facility] Work Phone: 04-13-2015 pneumococcal conjuga te vaccine, 13 valent Kunal Mcgill MD Work Phone: [facility] Work Phone: 02-16-2015 influenza, high dose seasonal, preservative-free Kunal Mcgill MD Work Phone: [facility] Work Phone: 04-15-2014 tetanus and diphther ia toxoids, adsorbed, preservative free, for adult use (5 Lf of tetanus toxoid and 2 Lf of diphtheria toxoid) Kunal Mcgill MD Work Phone: [facility] 04-15-2014 typhoid vaccine, unspecified formulation Kunal Mcgill MD Work Phone: [facility] 04-15-2014 typhoid capsular polysaccharide vaccine Kunal Mcgill MD Work Phone: [facility] 01-09-2014 influenza, seasonal, injectable Kunal Mcgill MD Work Phone: [facility] Work Phone: 02-07-2013 influenza virus vacc ine, unspecified formulation Kunal Mcgill MD Work Phone: [facility] 03-12-2012 influenza virus vacc ine, unspecified formulation Kunal Mcgill MD Work Phone: [facility] Work Phone: 03-02-2011 influenza virus vacc ine, unspecified formulation Kunal Mcgill MD Work Phone: [facility] 11-24-2010 pneumococcal polysaccharide vaccine, 23 valent Kunal Mcgill MD Work Phone: [facility] 10-23-2009 hepatitis A and hepatitis B vaccine Kunal Mcgill MD Work Phone: [facility] Work Phone: 01-22-2009 influenza virus vacc ine, unspecified formulation Kunal Mcgill MD Work Phone: [facility] Work Phone: 08-18-2008 tetanus toxoid, redu reid diphtheria toxoid, and acellular pertussis vaccine, adsorbed Kunal Mcgill MD Work Phone: [facility] Work Phone: 04-09-2008 zoster vaccine, live Kunal Mcgill MD Work Phone: [facility] 02-08-2008 influenza virus vacc ine, unspecified formulation Kunal Mcglil MD Work Phone: [facility] 02-02-2007 influenza virus vacc ine, unspecified formulation Kunal Mcgill MD Work Phone: [facility] 03-08-2005 influenza virus vacc ine, unspecified formulation Kunal Mcgill MD Work Phone: [facility] Work Phone: 05-04-1998 tetanus and diphther ia toxoids, adsorbed, preservative free, for adult use (2 Lf of tetanus toxoid and 2 Lf of diphtheria toxoid) Kunal Mcgill MD Work Phone: [facility] Work Phone: Payers Date Payer Category Payer Self-pay [id number] 2015 Private Health Insurance [facility] AARP SUPPLEMENT [id number] 2015-Present [phone] [address] [place] [address] Indemnity [id number] 2015 Private Health Insurance [facility] AARP SUPPLEMENT [id number] 2015-Present [phone] [address] [place] [address] Indemnity [id number] 2015 Unknown [id number] 2010 Medicare MEDICARE MEDICAR E A AND B [id number] 2010-Present [phone] [place] [address] Medicare [id number] 2010 Medicare MEDICARE MEDICAR E A AND B [id number] 2010-Present [phone] [place] [address] Medicare [id number] 2010 Medicare [id number] Medicare [id number] Unknown [id number] Unknown [id number] Unknown [id number] Unknown [id number] Unknown [id number] Unknown [id number] Unknown [id number] Unknown [id number] Unknown [id number] Unknown [id number] Unknown [id number] Unknown [id number] Unknown [id number] Social History Date Type Detail Facility Start: 05-12-2021 End: 02-01-2023 Assertion Unknown if ever smoked [facility] Work Phone: Start: 12-31-2019 None [facility] Start: 12-31-2019 Spouse/ Significant Other [facility] Start: 1945 Sex Assigned At Female [facility] Start: 11-24-2010 End: 10-23-2023 Tobacco smoking status NHIS Never smoked tobacco [facility] Start: 05-20-2021 End: 02-13-2024 Alcohol intake Current non-drinker of alcohol (finding) [facility] Start: 02-26-2019 End: 09-08-2019 History SDOH Alcohol Frequency 1 [facility] Start: 02-26-2019 End: 09-08-2019 History SDOH Social Connections Phone 2 [facility] Start: 02-26-2019 End: 09-08-2019 History SDOH Social Connections Meetings 3 [facility] Start: 09-08-2019 History SDOH Physical Activity MPS 6 [facility] Start: 02-26-2019 History SDOH Financial 5 [facility] Start: 02-26-2019 Education 17 [facility] Start: 08-13-2021 End: 08-23-2021 Exposure to SARS-CoV-2 (event) Unable to assess [facility] Start: 08-14-2021 End: 09-29-2021 Exposure to SARS-CoV-2 (event) Not sure [facility] Start: 11-24-2010 End: 05-20-2022 Tobacco use and exposure Smokeless tobacco non-user [facility] Start: 09-07-2019 End: 02-13-2024 History of Social function [facility] Start: 09-07-2019 End: 02-13-2024 Social connection and isolation panel [facility] Frequency of Social Gatherings with Friends and Family Not on file [facility] Do you belong to any clubs or organizations such as yazidism groups, unions, fraternal or athletic groups, or school groups? Yes [facility] How often to you hav e a drink containing alcohol? Never [facility] Do you feel stress - tense, restless, nervous, or anxious, or unable to sleep at night because your mind is troubled all the time - these days [OSQ] To some extent [facility] (I/We) worried wheth er (my/our) food would run out before (I/we) got money to buy more. Never true [facility] In the past 12 month s, was there a time when you were not able to pay the mortgage or rent on time? No [facility] Start: 01-28-2019 Gender identity Identifies as female gender (finding) [facility] Start: 01-28-2019 Sexual orientation Heterosexual (finding) [facility] Start: 07-17-2024 Sex Female (finding) [facility] Mental Status Date Assessment Result Facility 10-07-2024 Cognitive function Awake;Alert;A ppropriate;Fol lows Commands [facility] Work Phone: Clinical Notes 03-04-2019 to 02-04-2025 Note Date & Type Note Facility 02-04-2025 Note Patient Outreach (IN [facility]) CORNELIA BURNS ([id number]) 1945 F Date Time Provider Department 02/04/25 KUNAL MCGILL During your visit today, we recorded the following information about you: Allergies As of Date: 02/04/2025 Noted Allergy Reaction LISINOPRIL 06/12/2018 3 - Cough Date Reviewed: 02/13/2024 Reviewed by: Namrata Pike MA - Fully Assessed Visit Diagnoses:Essential hypertension [I10] Hyperlipidemia [E78.5] Medication management [Z79.899] Order(s):BASIC METABOLIC PANEL [SQBMP] Order #: [id number] FUTURE LIPID PANEL, FASTING [SQLIPB] Order #: [id number] FUTURE COMPLETE BLOOD COUNT [SQCBC] Order #: [id number] FUTURE Prescriptions as of 02/07/2025 - carvedilol (COREG) 6.25 mg tablet Take 1 tablet by mouth two times a day with meals. - losartan (COZAAR) 25 mg tablet Take 1 tablet by mouth once daily. - rosuvastatin (CRESTOR) 10 mg tablet Take 1 tablet by mouth daily at bedtime. - venlafaxine ER (EFFEXOR XR) 37.5 mg 24 hr capsule Take 1 capsule by mouth once daily. Dr. Mariscal - Cholecalciferol, Vitamin D3, 25 mcg (1,000 unit) cap Take 1 capsule by mouth once daily. - DOCUSATE SODIUM ORAL Take by mouth. - phenazopyridine (PYRIDIUM) 200 mg tablet Take 1 tablet by mouth three times daily as needed. - ibuprofen (MOTRIN) 600 mg tablet Take by mouth as needed. - acetaminophen (TYLENOL) 500 mg tablet Take by mouth as needed. - vit C/E/Zn/coppr/lutein/zeaxan (PRESERVISION AREDS-2 ORAL) Take by mouth twice daily. - aspirin, enteric coated (ECOTRIN LOW STRENGTH) 81 mg EC tablet Take 1 tablet by mouth once daily. Problem List As Of Date 02/04/2025 Noted Resolved Disorder of bone and cartilage [M89.9, M94.9] 08/08/2007 LEONEL (generalized anxiety disorder) [F41.1] 08/08/2007 Hyperlipidemia [E78.5] 08/08/2007 Portal vein thrombosis [I81] 02/07/2013 Vitamin D deficiency [E55.9] 02/07/2013 Family history of pancreatic cancer [Z80.0] 04/10/2013 Abdominal pain [R10.9] 04/10/2013 Dysgeusia [R43.2] 03/04/2019 Moderate episode of recurrent major depressive *03/04/2019 03/09/2020 Post-traumatic osteoarthritis of both knees [M1*03/04/2019 Dyslipidemia [E78.5] 03/04/2019 09/10/2019 Early dry stage nonexudative age-related macula*04/21/2020 Pseudophakia [Z96.1] 04/21/2020 Nuclear sclerotic cataract, left [H25.12] 04/21/2020 Cardiomyopathy (HCC) [I42.9] 02/10/2021 Tubular adenoma of colon [D12.6] 02/13/2024 Essential hypertension [I10] 02/13/2024 Encounter Status:Closed by EPIC, PRODUSER on 02/07/25 [facility] 12-20-2024 Progress note [facility] 10-09-2024 Evaluation note Diagnosis Onset Date Resolution Nonrheumatic mitral (valve) prolapse acute October 09, 2024 10:25am Essential hypertension chronic Ju 2024 10:25am Mixed hyperlipidemia chronic October 09, 2024 10:25am Takotsubo cardiomyopathy resolved October 09, 2024 10:25am Osteopenia determined by x-ray chronic October 22, 2024 11:22am Lumbar radiculopathy acute Sept emb2024 11:29am Neurogenic claudication acute S eptember 2024 11:29am Spinal stenosis of lumbar region with neurogenic claudication acute December 20, 2024 11:29am Spondylolisthesis at L4-L5 level acute December 20, 2024 11:29am Osteopenia determined by x-ray chronic December 20, 2024 11:29am [facility] Work Phone: 1(341) 648-591805-20-2025 Evaluation note* Diagnosis Onset Date Resolution Status Admit Date Lumbar radiculopathy acute August 20, 2024 9:27am Spondylolisthesis at L4-L5 level acu te August 20, 2024 9:27am Nonrheumatic mitral (valve) prolapse acute October 09, 2024 10:25am Essential hypertension chronic Ju ly 2024 10:25am Mixed hyperlipidemia chronic October 09, 2024 10:25am Takotsubo cardiomyopathy resolved October 09, 2024 10:25am Osteopenia determined by x-ray chron ic October 22, 2024 11:22am [facility] Work Phone: 1(382) 443-450304-08-2025 Evaluation note* Diagnosis Onset Date Resolution Status Admit Date Lumbar radiculopathy acute Apri l 2024 10:26am Spondylolisthesis at L4-L5 level acu te July 09, 2024 10:26am [facility] Work Phone: 1(499) 491-529304-08-2025 Evaluation note* Diagnosis Onset Date Resolution Status Admit Date Lumbar radiculopathy acute Apri l 2024 10:26am Spondylolisthesis at L4-L5 level acu te July 09, 2024 10:26am Lumbar radiculopathy acute August 20, 2024 9:27am Spondylolisthesis at L4-L5 level acu te August 20, 2024 9:27am [facility] Work Phone: 1(186) 348-641404-08-2025 Evaluation note* Diagnosis Onset Date Resolution Status Admit Date Lumbar radiculopathy acute Apri l 2024 10:26am Spondylolisthesis at L4-L5 level acu te July 09, 2024 10:26am Lumbar radiculopathy acute August 20, 2024 9:27am Spondylolisthesis at L4-L5 level acu te August 20, 2024 9:27am Essential hypertension chronic Ju ly 2024 10:25am [facility] Work Phone: 1(473) 384-605404-08-2025 Evaluation note* Diagnosis Onset Date Resolution Status Admit Date Lumbar radiculopathy acute Apri l 2024 10:26am Spondylolisthesis at L4-L5 level acu te July 09, 2024 10:26am Lumbar radiculopathy acute August 20, 2024 9:27am Spondylolisthesis at L4-L5 level acu te August 20, 2024 9:27am Nonrheumatic mitral (valve) prolapse acute October 09, 2024 10:25am Essential hypertension chronic Ju ly 2024 10:25am Mixed hyperlipidemia chronic October 09, 2024 10:25am Takotsubo cardiomyopathy resolved October 09, 2024 10:25am [facility] Work Phone: 1(696) 299-835511-12-2024 NoteHNO ID: [id number] Author: KUNAL MCGILL MD Service: ? Author Type: Physician Type: Progress Notes Filed: 02/13/2024 13:05 Note Text: Reason for Visit Patient presents with: Follow Up Cornelia Burns is a 77 year old female who presents here today for Above Complaints.. Health Maintenance BP CONTROLLED (<130/80) DTAP,TDAP,TD(2 - Td or Tdap) FECAL OCCULT BLOOD ADVANCE DIRECTIVE DISCUSSION DEPRESSION ASSESSMENT HPI This is a very pleasant 79-year-old woman with a past medical history of hypertension, hyperlipidemia, depression and osteo porosis. Reviewed bone density which is a little worse than last time , it did not help to be laid up for her knee replacements. She was on fosamax for 5 year in the past and that is def more than 2 years. Does not want to take the fosamax right now. Cont weight bearing. Calcium , re visit this topic in 2 years In the interim she did visit Dr Finney, who suggested reclast injections for osteopenia, waiting for the next BMD to decide. She had the colonoscopy in September of 2023 and she had multiple tubular adenomas, around 10 of them , 3 in tehs AC, 3 at the Hepatic flexure, and 3 in the T C and one in the rectum. Is uptodate with her mammogram for 2023 She does have living will and advance directives. Had knee replacements, via spinal. Nerve block in the thigh, following the surgery she could not lift her knee up. Recovery was long, and challenging but now she is able to to walk almost normal. She had to go in for another procedure to break up scar tissue and then really started getting her ROM back. She is exercising daily, [facility] One to 2 times a week. Eats healthy most of the time. No real issue with hearing or vision. No problem-specific Assessment AND Plan notes found for this encounter. 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 eyes Gisel duct, cyst Gastritis Hematuria, unspecified Moderate episode of recurrent major depressive disorder (HCC) 03/04/2019 Nuclear sclerotic cataract, left Osteoarthritis Osteopenia Other and unspecified hyperlipidemia Portal vein thrombosis Pseudophakia Vitamin D deficiency PAST SURGICAL HISTORY Procedure Laterality Date APPENDECTOMY This was done with 1st DELIVERY ONLY X 2 CHOLECYSTECTOMY Cholecystectomy ESOPHAGOGASTRODUODENOSCOPY TRANSORAL DIAGNOSTIC 02/19/[address] Jonathan FROST CATARACT EXTRACAP,INSERT LENS Right 02/2016 FAMILY HISTORY Problem Relation Age of Onset Hypertension Mother Glaucoma and Macular degeneration Osteoporosis Mother Macular Degen Mother Glaucoma Mother other (Uterine Cancer) Mother Cancer Father skin cancer, SCC and BCC Lipids Father other (memory loss) Father Cancer Paternal Aunt ovarian Stroke Paternal Aunt Heart Paternal Aunt Diabetes Brother juvenile type 1 Cancer Brother pancreatic other (Cirrhosis of Liver) Sister Macular Degen Maternal Grandfather Macular Degen Maternal Aunt Social History Tobacco Use Smoking status: Never Smokeless tobacco: Never Vaping Use Vaping status: Never Used Substance Use Topics Alcohol use: No Drug use: No Past medical history, appointments, medications, allergies reviewed. Pertinent Lab/Diagnostic Studies are reviewed and discussed today Current Outpatient Medications: venlafaxine ER (EFFEXOR XR) 37.5 mg 24 hr capsule losartan (COZAAR) 25 mg tablet rosuvastatin (CRESTOR) 10 mg tablet Cholecalciferol, Vitamin D3, 25 mcg (1,000 unit) cap carvedilol (COREG) 6.25 mg tablet ibuprofen (MOTRIN) 600 mg tablet vit C/E/Zn/coppr/lutein/zeaxan (PRESERVISION AREDS-2 ORAL) aspirin, enteric coated (ECOTRIN LOW STRENGTH) 81 mg EC tablet DOCUSATE SODIUM ORAL phenazopyridine (PYRIDIUM) 200 mg tablet acetaminophen (TYLENOL) 500 mg tablet Review of Systems CONSTITUTIONAL: No fevers, chills night sweats, unintended weight loss CARDIOVASCULAR: No chest pain, dyspnea, palpitations, orthopnea, PND, ankle edema. PULM: No dyspnea, unexplained cough. GI: No dysphagia/odynophagia, problematic reflux, constipation, diarrhea, changes in stool habits, hematochezia, melena. : No new urinary complaints, including dysuria, gross hematuria or pyuria. NEURO: No new balance problems, peripheral weakness/paresthesias or numbness of concern. Physical Exam BP 128/80 Pulse 73 Resp 16 Wt 73 kg (161 lb) BMI 23.78 kg/m? General appearance: Well appearing, alert, in no acute distress, well nourished. Skin: Skin color, texture, turgor normal, no suspicious rashes or lesions Head: Normocephalic, no masses, lesions, tenderness or abnormalities Eyes: Anicteric sclera. Pupils are equally round and reactive to light. Extraocular movements are intact. Lungs: Lungs clear to auscultation. No wheezing, rhonchi, (more content not included)...[facility]11-12-2024 History of Present illness Narrative* Kunal Mcgill MD - 02/13/2024 9:10 AM EST Reason for Visit Patient presents with: Follow Up Cornelia Burns is a 77 year old female who presents here today for Above Complaints.. Health Maintenance BP CONTROLLED (<130/80) DTAP,TDAP,TD(2 - Td or Tdap) FECAL OCCULT BLOOD ADVANCE DIRECTIVE DISCUSSION DEPRESSION ASSESSMENT HPI This is a very pleasant 79-year-old woman with a past medical history of hypertension, hyperlipidemia, depression and osteo porosis. Reviewed bone density which is a little worse than last time , it did not help to be laid up for her knee replacements. She was on fosamax for 5 year in the past and that is def more than 2 years. Does not want to take the fosamax right now. Cont weight bearing. Calcium , re visit this topic in 2 years In the interim she did visit Dr Finney, who suggested reclast injections for osteopenia, waiting for the next BMD to decide. She had the colonoscopy in September of 2023 and she had multiple tubular adenomas, around 10 of them , 3 in tehs AC, 3 at the Hepatic flexure, and 3 in the T C and one in the rectum. Is uptodate with her mammogram for 2023 She does have living will and advance directives. Had knee replacements, via spinal. Nerve block in the thigh, following the surgery she could not lift her knee up. Recovery was long, and challenging but now she is able to to walk almost normal. Shehad to go in for another procedure to break up scar tissue and then really started getting her ROM back. She is exercising daily, [facility]. One to 2 times a week. Eats healthy most of the time. No real issue with hearing or vision. No problem-specific Assessment & Plan notes found for this encounter. 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 eyes Gisel duct, cyst Gastritis Hematuria, unspecified Moderate episode of recurrent major depressive disorder (HCC) 03/04/2019 Nuclear sclerotic cataract, left Osteoarthritis Osteopenia Other and unspecified hyperlipidemia Portal vein thrombosis Pseudophakia Vitamin D deficiency PAST SURGICAL HISTORY Procedure Laterality Date APPENDECTOMY This was done with 1st DELIVERY ONLY X 2 CHOLECYSTECTOMY Cholecystectomy ESOPHAGOGASTRODUODENOSCOPY TRANSORAL DIAGNOSTIC 02/19/[address] Jonathan FROST CATARACT EXTRACAP,INSERT LENS Right 02/2016 FAMILY HISTORY Problem Relation Age of Onset Hypertension Mother Glaucoma and Macular degeneration Osteoporosis Mother Macular Degen Mother Glaucoma Mother other (Uterine Cancer) Mother Cancer Father skin cancer, SCC and BCC Lipids Father other (memory loss) Father Cancer Paternal Aunt ovarian Stroke Paternal Aunt Heart Paternal Aunt Diabetes Brother juvenile type 1 Cancer Brother pancreatic other (Cirrhosis of Liver) Sister Macular Degen Maternal Grandfather Macular Degen Maternal Aunt Social History Tobacco Use Smoking status: Never Smokeless tobacco: Never Vaping Use Vaping status: Never Used Substance Use Topics Alcohol use: No Drug use: No Past medical history, appointments, medications, allergies reviewed. Pertinent Lab/Diagnostic Studies are reviewed and discussed today Current Outpatient Medications: venlafaxine ER (EFFEXOR XR) 37.5 mg 24 hr capsule losartan (COZAAR) 25 mg tablet rosuvastatin (CRESTOR) 10 mg tablet Cholecalciferol, Vitamin D3, 25 mcg (1,000 unit) cap carvedilol (COREG) 6.25 mg tablet ibuprofen (MOTRIN) 600 mg tablet vit C/E/Zn/coppr/lutein/zeaxan (PRESERVISION AREDS-2 ORAL) aspirin, enteric coated (ECOTRIN LOW STRENGTH) 81 mg EC tablet DOCUSATE SODIUM ORAL phenazopyridine (PYRIDIUM) 200 mg tablet acetaminophen (TYLENOL) 500 mg tablet Review of Systems CONSTITUTIONAL: No fevers, chills night sweats, unintended weight loss CARDIOVASCULAR: No chest pain, dyspnea, palpitations, orthopnea, PND, ankle edema. PULM: No dyspnea, unexplained cough. GI: No dysphagia/odynophagia, problematic reflux, constipation, diarrhea, changes in stool habits, hematochezia, melena. : No new urinary complaints, including dysuria, gross hematuria or pyuria. NEURO: No new balance problems, peripheral weakness/paresthesias or numbness of concern. Physical Exam BP 128/80 Pulse 73 Resp 16 Wt 73 kg (161 lb) BMI 23.78 kg/m General appearance: Well appearing, alert, in no acute distress, well nourished. Skin: Skin color, texture, turgor normal, no suspicious rashes or lesions Head: Normocephalic, no masses, lesions, tenderness or abnormalities Eyes: Anicteric sclera. Pupils are equally round and reactive to light. Extraocular movements are intact. Lungs: Lungs clear to auscultation. No wheezing, rhonchi, rales Heart: RRR without murmur, gallop, or rubs. Extremities: No deformities, edema, skin discoloration, clubbing or cyanosis. Good capillary refill. ASSESSMENT/PLAN: 1. Tubular adenoma of colon - ICD9: 211.3, ICD10: D12.6 (primary diagnosis) She needs a repeat one in the next 3 years 2. Essential hypertension - ICD9: 401.9, ICD10: I10 - Controlled - Recommend home blood pressure monitoring, to bring results to next visit - Encouraged sodium restriction, DASH or Mediterranean diet - Recommend regular aerobic exercise - LOSARTAN 25 MG TABLET 3. Mixed hyperlipidemia - ICD9: 272.2, ICD10: E78.2 - reviewed labs - Counseled on healthy diet and regular exercise - ROSUVASTATIN 10 MG TABLET 4. Osteopenia, unspecified location - ICD9: 733.90, ICD10: M85.80 - Reviewed the need for Calcium and Vitamin D supplements and weight bearing exercise as tolerated Kunal Mcgill MD documented in this encounterPrem[facility]11-12-2024 Instructions* Patient Instructions* Namrata Pike MA - 02/13/2024 9:07 AM EST BONE MINERAL DENSITY PATIENT INSTRUCTIONS Bone mineral density testing measures the amount of calcium in certain parts of your bones. This information determines how strong your bones are. The test is used to detect osteoporosis, a disease in which the bone's mineral content and density are low, increasing a person's risk of fractures. Thelumbar spine (lower back) and the hip are the skeletal sites usually examined. For the test, remember that: 1. You cannot take this test if you are . 2. Eat a normal diet on the day of the test. 3. Take your medications as you normally would. 4. DO NOT take calcium supplements (such as Tums) for 24 hours before the test. 5. On the day of the test, leave valuables (jewelry or credit cards) at home. 6. The test should be performed prior to oral, rectal or IV contrast studies, or at least 7 days after any of these studies. For the test, you may be asked to wear a hospital gown. You will lie on your back, on a padded table, in a comfortable position. Generally, you can resume your usual activities immediately. documented in this encounterPremier [facility]11-04-2024 Telephone encounter Note * Telephone Encounter - Silke Tierney LPN - 02/05/2024 12:57 PM EST Phoned patient aware fasting lab orders in computer to complete prior to her appt on 02/13/2024 with PCP. [facility]11-04-2024 Miscellaneous Notes* Telephone Encounter - Silke Tierney LPN - 02/05/2024 12:57 PM EST Phoned patient aware fasting lab orders in computer to complete prior to her appt on 02/13/2024 with PCP. * Telephone Encounter - Jyoti Jon APRN.CNP - 02/05/2024 12:12 PM EST Fasting blood work orders placed. Thank you Jyoti Jon APRN.CNP * Telephone Encounter - Silke Tierney LPN - 02/05/2024 9:49 AM EST Patient calling she has appt on February 12 with PCP and is asking for lab work orders. Pending orders needs diagnosis, last done 2021. Please advise documented in this encounterPremier [facility]11-04-2024 Telephone encounter Note * Telephone Encounter - Jyoti Jon APRN.CNP - 02/05/2024 12:12 PM EST Fasting blood work orders placed. Thank you Jyoti Jon APRN.CNP [facility]11-04-2024 Telephone encounter Note* Telephone Encounter - Silke Tierney LPN - 02/05/2024 9:49 AM EST Patient calling she has appt on February 12 with PCP and is asking for lab work orders. Pending orders needs diagnosis, last done 2021. Please advise [facility]02-17-2023 History of Present illness Narrative* Kunal Mcgill MD - 05/20/2022 11:59 AM EST Reason for Visit Patient presents with: Follow Up: questions-bone density results,cologard,urinary hx, refills,knee issues Cornelia Burns is a 77 year old female who presents here today for Above Complaints.. Health Maintenance BP CONTROLLED (<130/80) DTAP,TDAP,TD(2 - Td or Tdap) FECAL OCCULT BLOOD ADVANCE DIRECTIVE DISCUSSION DEPRESSION ASSESSMENT HPI Reviewed bone density which is a little worse than last time , it did not help to be laid up for her knee replacements. She was on fosamax for 5 year in the past and that is def more than 2 years. Does not want to take the fosamax right now. Cont weight bearing. Calcium , re visit this topic in 2 years. Had knee replacements, via spinal. Nerve block in the thigh, following the surgery she could not lift her knee up. And developed urinary frequency. Patient had a history of blood in the urine. Was treated for uti. Had issues with the kidneys in the past and was to follow up with the us. No problem-specific Assessment & Plan notes found for this encounter. 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 eyes Gisel duct, cyst Gastritis Hematuria, unspecified Moderate episode of recurrent major depressive disorder (HCC) 03/04/2019 Nuclear sclerotic cataract, left Osteoarthritis Osteopenia Other and unspecified hyperlipidemia Portal vein thrombosis Pseudophakia Vitamin D deficiency PAST SURGICAL HISTORY Procedure Laterality Date APPENDECTOMY This was done with 1st DELIVERY ONLY X 2 CHOLECYSTECTOMY Cholecystectomy ESOPHAGOGASTRODUODENOSCOPY TRANSORAL DIAGNOSTIC 02/19/[address] Jonathan FROST CATARACT EXTRACAP,INSERT LENS Right 02/2016 FAMILY HISTORY Problem Relation Age of Onset Hypertension Mother Glaucoma and Macular degeneration Osteoporosis Mother Macular Degen Mother Glaucoma Mother other (Uterine Cancer) Mother Cancer Father skin cancer, SCC and BCC Lipids Father other (memory loss) Father Cancer Paternal Aunt ovarian Stroke Paternal Aunt Heart Paternal Aunt Diabetes Brother juvenile type 1 Cancer Brother pancreatic other (Cirrhosis of Liver) Sister Macular Degen Maternal Grandfather Macular Degen Maternal Aunt Social History Tobacco Use Smoking status: Never Smokeless tobacco: Never Vaping Use Vaping Use: Never used Substance Use Topics Alcohol use: No Drug use: No Past medical history, appointments, medications, allergies reviewed. Pertinent Lab/Diagnostic Studies are reviewed and discussed today Current Outpatient Medications: carvedilol (COREG) 6.25 mg tablet losartan (COZAAR) 25 mg tablet rosuvastatin (CRESTOR) 10 mg tablet ibuprofen (MOTRIN) 600 mg tablet acetaminophen (TYLENOL) 500 mg tablet vit C/E/Zn/coppr/lutein/zeaxan (PRESERVISION AREDS-2 ORAL) aspirin, enteric coated (ECOTRIN LOW STRENGTH) 81 mg EC tablet DOCUSATE SODIUM ORAL phenazopyridine (PYRIDIUM) 200 mg tablet Review of Systems CONSTITUTIONAL: No fevers, chills night sweats, unintended weight loss CARDIOVASCULAR: No chest pain, dyspnea, palpitations, orthopnea, PND, ankle edema. PULM: No dyspnea, unexplained cough. GI: No dysphagia/odynophagia, problematic reflux, constipation, diarrhea, changes in stool habits, hematochezia, melena. : No new urinary complaints, including dysuria, gross hematuria or pyuria. NEURO: No new balance problems, peripheral weakness/paresthesias or numbness of concern. Physical Exam BP 126/70 (BP Site: Left Arm, BP Position: Sitting, BP Cuff Size: Large Adult) Pulse 67 Temp 36.7 C (98 F) Resp 12 Ht 175.3 cm (5' 9") Wt 70.3 kg (155 lb) SpO2 97% BMI 22.89 kg/m General appearance: Well appearing, alert, in no acute distress, well nourished. Skin: Skin color, texture, turgor normal, no suspicious rashes or lesions Head: Normocephalic, no masses, lesions, tenderness or abnormalities Eyes: Anicteric sclera. Pupils are equally round and reactive to light. Extraocular movements are intact. Lungs: Lungs clear to auscultation. No wheezing, rhonchi, rales Heart: RRR without murmur, gallop, or rubs. Extremities: No deformities, edema, skin discoloration, clubbing or cyanosis. Good capillary refill. ASSESSMENT/PLAN: 1. Hematuria, unspecified type - ICD9: 599.70, ICD10: R31.9 (primary diagnosis) - US KIDNEY/BLADDER - URINALYSIS, WITH MICROSCOPIC 2. Essential hypertension - ICD9: 401.9, ICD10: I10 - good control - Recommended regular aerobic exercise. - Recommend home blood pressure monitoring, to bring results in on next visit - Goal of BP <130/80 - LOSARTAN 25 MG TABLET 3. Mixed hyperlipidemia - ICD9: 272.2, ICD10: E78.2 - good control - Continue current medication. - ROSUVASTATIN 10 MG TABLET 4. Cardiomyopathy, unspecified type (HCC) - ICD9: 425.4, ICD10: I42.9 Stable no concerns at this time. 5. Status post right knee replacement - ICD9: V43.65, ICD10: Z96.651 She is doing well with this Kunal Mcgill MD documented in this encounterPremier [facility]02-14-2023 History of Present illness Narrative* Teresita Garner LPN - 05/17/2022 2:13 PM EST Please see outside Dexa Scan results: [facility] Ordered Scan on 05/17/2022 12:31 PM by External Provider: Miscellaneous Imaging Marine Garner LPN documented in this encounterPremier Health [facility]10-04-2022 Miscellaneous Notes* Telephone Encounter - Alison Zelaya RN - 01/04/2022 9:12 AM EDT Patient requesting mammogram order be sent to [facility]. Faxed as requested. Alison Zelaya RN documented in this encounterPremier Health [facility] Center08-02-2022 Miscellaneous Notes* Telephone Encounter - Silke Tierney LPN - 11/02/2021 3:22 PM EDT Patient returned call and went over notes from Sue Jon [employer]ADING [employer] with understanding. * Telephone Encounter - Gabe Alas Ma - 11/02/2021 3:18 PM EDT Left message to call office. 11/02/2021 3:18 PM Gabe Alas Ma * Telephone Encounter - Sue Jon APRN.CNP - 11/02/2021 2:18 PM EDT It is possible this is from the blood thinner. Please have patient come to the lab for urinalysis and culture Sue Jon APRN.CNP * Telephone Encounter - Silke Tierney LPN - 11/02/2021 1:53 PM EDT Patient calling asking what did her urine culture show, any bacteria? Computer shows that urine culture was not done. Patient said her urinary incontinence is doing better no dribbling, she can make it to the bathroom, she still has pink spots on her pad at times. She is wondering if it may be fromwhen she was taking Eliquis 2 weeks after her knee replacement surgery done on 10/11. Please advise documented in this encounterPremier Health [facility] Center07-29-2022 Instructions* Patient Instructions* Sue Jon APRN.CNP - 10/29/2021 11:18 AM EDT URINARY TRACT INFECTION GENERAL INFORMATION: A urinary tract infection (UTI) is an infection of the bladder or kidneys. A bladder infection, called cystitis, is the more common type. If the infection travels up to the kidneys, it is called pyelonephritis. This can be more serious. UTIs are a common problem in women. Having sexual relations can leave a woman more susceptible to developing a UTI, but it is not sexually transmitted like gonorrhea. Some women have a problem with recurrent UTIs. INSTRUCTIONS: 1. Take antibiotic exactly as directed. Be sure to take all the medication prescribed, even if yoursymptoms disappear. If you stop treatment early, the infection may not be fully treated and the symptoms could come back again. 2. Get plenty of rest. You may take acetaminophen for fever and aches. 3. Drink 6 to 8 glasses of fluids, especially water, every day. This helps wash out germs from yoururinary tract. Cranberry juice or other sources of vitamin C are also good for you. 4. Urinate often, as soon as you feel the urge. Empty your bladder completely. Urinate before and after you have sex. 5. Always wipe from front to back after going to the bathroom. This pushes germs away from your bladder, rather than towards it. 6. Showers are better than baths, and you should wash the genital area daily. Avoid bubble bath or bath oils if you do take a bath. 7. Wear underwear and pantyhose with a cotton crotch. CALL OFFICE IF: 1. You have a temperature over 102F (38.8C) after 48 hours on medication. 2. You notice blood in your urine. 3. Your symptoms don't improve in 2 days. 4. You develop nausea, vomiting, diarrhea, or a rash. 5. You develop new or unexplained symptoms. These may be related to the medication you are taking. 6. Your symptoms return after you finish treatment. documented in this encounterPremier Health [facility]07-29-2022 History of Present illness Narrative* Sue Jon APRN.CNP - 10/29/2021 11:13 AM EDT CC: Patient presents with: UTI: urgentcy , voiding small amounts HPI Cornelia Burns is a 76 year old female who presents with complaint of possible UTI. These symptoms have been present for over two weeks Associated symptoms: urgency, frequency and pressure Denies: burning, foul smelling urine, backpain, hematuria, fever, chills, abdominal pain and flank pain Treatments: increasing her fluids The ROS was otherwise negative. PMH, Medications, labs, allergies, and recent past visits with PCP were reviewed and updated as able. PHYSICAL EXAM: BP 146/90 Pulse 78 Resp 18 Wt 70.8 kg (156 lb) BMI 23.04 kg/m General: Well appearing and alert CV: Regular rate and rhythm without obvious murmur Lungs: clear to auscultation bilaterally Back: no CVA tenderness Abdomen: soft, non-distended, mild suprapubic tenderness without guarding or rebound tenderness ASSESSMENT/PLAN: 1. Urinary frequency - ICD9: 788.41, ICD10: R35.0 - UA DIP, URINE (POC) positive for moderate amount of blood - Send URINE CULTURE - Start Macrobid 100 mg BID x 7 days - Follow-up in 2-3 days if symptoms don't improve or sooner if worsening Prescription instructions reviewed with patient as applicable. Potential red flag symptoms discussed with the patient. Reviewed appropriate action plan to take if red flag symptoms occur. Patient agreeable to treatment plan. Sue Jon APRN.CNP documented in this encounterPremier Health [facility] Center06-29-2022 History of Present illness Narrative* Kunal Mcgill MD - 09/29/2021 3:55 PM EDT Reason for Visit Patient presents with: Pre-Op Exam: preop clearance for surgery on 10/11/21 Cornelia Burns is a 76 year old female who presents here today for Above Complaints.. Health Maintenance DTAP,TDAP,TD(2 - Td or Tdap) DEPRESSION SCREENING FECAL OCCULT BLOOD ADVANCE DIRECTIVE DISCUSSION HPI Right knee OA: she has tried Physical Therapy, nsaids, but not helping much, she has bone on bone in the back of the knee , activity is pretty limiting ej since she is other zamorano healthy. Pre op eval: Cardiac: had takatsubo cardiomyopathy, in January last year with EF of 30%, in may it was up to 55%. She had cardiac rehab for 12 weeks and did well. Currently medication are coreg and asa. She is not on lasix Per patient report special programs director has okayed her to have surgery. Lung: No sp, sob, cough , sputum production, no recent pneumonia or other lung issues. Medications, otc meds vitamins needs to be stopped dvt prophylaxis: she is going to be on xeralto after surgery. Ej since she had a clot recently. METS: Walk indoors, such as around the house (1.75 METs): YES Do light work around the house, such as dusting or washing dishes (2.70 METs): YES Take care of self; that is eating, dressing, bathing, using the toilet (2.75 METs): YES Walk a block or two on level ground (2.75 METs): YES Do moderate work around the house such as vacuuming, sweeping floors, or carrying in groceries (3.50 METs): YES Do yardwork, such as raking leaves, weeding,or pushing a power mower (4.50 METs): YES Climb a flight of stairs or walk up a hill (5.50 METs): YES Participate in moderate recreational activities, such as golf, bowling, dancing, doubles tennis, orthrowing a baseball or football (6.00 METs): NO Participate in strenuous sport, such as swimming, singles tennis, football, basketball, or skiing (7.50 METs): NO Do heavy work around the house, such as scrubbing floors, lifting or moving heavy furniture (8.00 METs): YES Run a short distance (8.00 METs): YES Total: ~40 Patient denies any chest pain or undue shortness of breath with the above physical activity. No problem-specific Assessment & Plan notes found for this encounter. 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 eyes Gisel duct, cyst Gastritis Hematuria, unspecified Moderate episode of recurrent major depressive disorder (HCC) 03/04/2019 Nuclear sclerotic cataract, left Osteoarthritis Osteopenia Other and unspecified hyperlipidemia Portal vein thrombosis Pseudophakia Vitamin D deficiency PAST SURGICAL HISTORY Procedure Laterality Date APPENDECTOMY This was done with 1st DELIVERY ONLY X 2 CHOLECYSTECTOMY Cholecystectomy ESOPHAGOGASTRODUODENOSCOPY TRANSORAL DIAGNOSTIC 02/19/[address] Jonathan FROST CATARACT EXTRACAP,INSERT LENS Right 02/2016 FAMILY HISTORY Problem Relation Age of Onset Hypertension Mother Glaucoma and Macular degeneration Osteoporosis Mother Macular Degen Mother Glaucoma Mother other (Uterine Cancer) Mother Cancer Father skin cancer, SCC and BCC Lipids Father other (memory loss) Father Cancer Paternal Aunt ovarian Stroke Paternal Aunt Heart Paternal Aunt Diabetes Brother juvenile type 1 Cancer Brother pancreatic other (Cirrhosis of Liver) Sister Macular Degen Maternal Grandfather Macular Degen Maternal Aunt Social History Tobacco Use Smoking status: Never Smoker Smokeless tobacco: Never Used Vaping Use Vaping Use: Never used Substance Use Topics Alcohol use: No Drug use: No Past medical history, appointments, medications, allergies reviewed. Pertinent Lab/Diagnostic Studies are reviewed and discussed today Current Outpatient Medications: carvedilol (COREG) 6.25 mg tablet furosemide (LASIX) 40 mg tablet losartan (COZAAR) 25 mg tablet rosuvastatin (CRESTOR) 10 mg tablet ibuprofen (MOTRIN) 600 mg tablet acetaminophen (TYLENOL) 500 mg tablet vit C/E/Zn/coppr/lutein/zeaxan (PRESERVISION AREDS-2 ORAL) cholecalciferol (VITAMIN D3) 1,000 unit tab tablet aspirin, enteric coated (ECOTRIN LOW STRENGTH) 81 mg EC tablet calcium citrate/vitamin d3(CALCIUM CITRATE + D 315 MG-200 UNIT TAB) Review of Systems CONSTITUTIONAL: No fevers, chills night sweats, unintended weight loss CARDIOVASCULAR: No chest pain, dyspnea, palpitations, orthopnea, PND, ankle edema. PULM: No dyspnea, unexplained cough. GI: No dysphagia/odynophagia, problematic reflux, constipation, diarrhea, changes in stool habits, hematochezia, melena. : No new urinary complaints, including dysuria, gross hematuria or pyuria. NEURO: No new balance problems, peripheral weakness/paresthesias or numbness of concern. Physical Exam BP 120/76 (BP Site: Left Arm, BP Position: Sitting, BP Cuff Size: Large Adult) Pulse 79 Temp 36.3 C (97.4 F) Resp 12 Ht 175.3 cm (5' 9") Wt 72.6 kg (160 lb) SpO2 96% BMI 23.63 kg/m General appearance: Well appearing, alert, in no acute distress, well nourished. Skin: Skin color, texture, turgor normal, no suspicious rashes or lesions Head: Normocephalic, no masses, lesions, tenderness or abnormalities Eyes: Anicteric sclera. Pupils are equally round and reactive to light. Extraocular movements are intact. Lungs: Lungs clear to auscultation. No wheezing, rhonchi, rales Heart: RRR without murmur, gallop, or rubs. Extremities: No deformities, edema, skin discoloration, clubbing or cyanosis. Good capillary refill. ASSESSMENT/PLAN: 1. Preoperative clearance - ICD9: V72.84, ICD10: Z01.818 (primary diagnosis) Patient is medically optimized for surgery 2. Takotsubo cardiomyopathy - ICD9: 429.83, ICD10: I51.81 Patients EF is normal right now and her coronaries were clear Echo 5 months ago showed ef of 55 percent, She is on cozaar and coreg, to cont for surgery 3. LEONEL (generalized anxiety disorder) - ICD9: 300.02, ICD10: F41.1 Currently controlled, patient is not on any medications. Kunal Mcgill MD documented in this encounterPremier Health [facility]05-26-2022 History of Present illness Narrative* Shaista Lambert LPN - 08/26/2021 11:35 AM EDT Patient presents for COVID booster. Denies any problems at this time. Tolerated injection well. Shaista Lambert LPN documented in this encounterPremier Health [facility] Center05-23-2022 Miscellaneous Notes* Telephone Encounter - Mally Benoit Ma - 08/23/2021 8:45 AM EDT Patient notified and appointment rescheduled. * Telephone Encounter - Jyoti Jon APRN.CNP - 08/20/2021 2:55 PM EDT Pre-op appointments need to be within 30 days of surgery. She will need to schedule a separate appointment. We will need to see preop forms to review to decide on needed lab work, but will most likely need an updated CMP to evaluate kidney and liver function. Will order when preop clearance forms are obtained and reviewed. Thank you Jyoti Jon APRN.CNP Preop paper received and lab work has been ordered. Thank you Jyoti Jon APRN.CNP * Telephone Encounter - Eli Wu RN - 08/20/2021 10:32 AM EDT Patient call and states that she is having knee surgery on 10/11/2021 from [facility]. Patient states that [facility] had faxed over pre op clearance papers. Patient does have a regular appointment with provider on 09/03/2021. Patient is asking if she needs to set up pre op appointment or would that appointment be ok? Patient also asking if provider needs to order more labs prior to surgery? Please review and advise, Eli Wu RN documented in this encounterPremier Health [facility]10-22-2021 Evaluation note* Diagnosis Onset Date Resolution Status Essential hypertension chron ic Mixed hyperlipidemia chronic Paroxysmal supraventricular tachycardia chronic History of left heart catheterization January 22 resolved Takotsubo cardiomyopathy res [facility] Work Phone: [phone]) 378-372212-02-2019 History of Past illness Narrative* Problem Noted Date Resolved Date Moderate episode of recurrent major depressive d isorder 03/04/2019 03/09/2020 Dyslipidemia 03/04/2019 09/10/2019 documented as of this encounter (statuses as of 08/23/2021) [facility] History of Past illness Narrative* Problem Noted Date Resolved Date Moderate episode of recurrent major depressive d isorder 03/04/2019 03/09/2020 Dyslipidemia 03/04/2019 09/10/2019 documented as of this encounter (statuses as of 08/23/2021) [facility]12[facility] History of Past illness Narrative* Problem Noted Date Resolved Date Moderate episode of recurrent major depressive d isorder 03/04/2019 03/09/2020 Dyslipidemia 03/04/2019 09/10/2019 documented as of this encounter (statuses as of 08/26/2021) [facility] History of Past illness Narrative* Problem Noted Date Resolved Date Moderate episode of recurrent major depressive d isorder 03/04/2019 03/09/2020 Dyslipidemia 03/04/2019 09/10/2019 documented as of this encounter (statuses as of 09/29/2021) [facility] of Past illness Narrative* Problem Noted Date Resolved Date Moderate episode of recurrent major depressive d isorder 03/04/2019 03/09/2020 Dyslipidemia 03/04/2019 09/10/2019 documented as of this encounter (statuses as of 10/29/2021) [facility]12[facility] History of Past illness Narrative* Problem Noted Date Resolved Date Moderate episode of recurrent major depressive d isorder 03/04/2019 03/09/2020 Dyslipidemia 03/04/2019 09/10/2019 documented as of this encounter (statuses as of 11/02/2021) [facility]12[facility] History of Past illness Narrative* Problem Noted Date Resolved Date Moderate episode of recurrent major depressive d isorder 03/04/2019 03/09/2020 Dyslipidemia 03/04/2019 09/10/2019 documented as of this encounter (statuses as of 01/04/2022) [facility]12-[facility] History of Past illness Narrative* Problem Noted Date Resolved Date Moderate episode of recurrent major depressive d isorder 03/04/2019 03/09/2020 Dyslipidemia 03/04/2019 09/10/2019 documented as of this encounter (statuses as of 01/17/2022) [facility] History of Past illness Narrative* Problem Noted Date Resolved Date Moderate episode of recurrent major depressive d isorder 03/04/2019 03/09/2020 Dyslipidemia 03/04/2019 09/10/2019 documented as of this encounter (statuses as of 05/17/2022) [facility] History of Past illness Narrative* Problem Noted Date Resolved Date Moderate episode of recurrent major depressive d isorder 03/04/2019 03/09/2020 Dyslipidemia 03/04/2019 09/10/2019 documented as of this encounter (statuses as of 05/20/2022) [facility] Diagnosis Onset Date Resolution Status Osteoarthritis of right knee acute Paroxysmal supraventricular tachycardia acute Takotsubo cardiomyopathy acu te Essential hypertension chron ic Mixed hyperlipidemia chronic History of left heart catheterization January 22 resolved [facility] Work Phone: Evaluation note* Diagnosis Essential hypertension- Primary Unspecified essential hypertension Preop exam for internal medicine Other specified pre-operative examination documented [facility] this encounter [facility]* Diagnosis Need for vaccination- Primary Need for prophylactic vaccination and inoculation against unspecified single disease [facility] assessment information [facility] Work Phone: Evaluation note* Diagnosis Preoperative clearance- Primary Preoperative examination, unspecified Takotsubo cardiomyopathy Takotsubo syndrome LEONEL (generalized anxiety disorder) Generalized anxiety disorder [facility]* Diagnosis Urinary frequency- Primary documented in this encounter [facility]* Diagnosis Hematuria, unspecified type- Primary [facility]* Diagnosis Hematuria, unspecified type- Primary Essential hypertension Unspecified essential hypertension Mixed hyperlipidemia Cardiomyopathy, unspecified type (HCC) Status post right knee replacement [facility]* Diagnosis Hyperlipidemia, unspecified hyperlipidemia type- Primary Vitamin D deficiency Unspecified vitamin D deficiency Essential hypertension Unspecified essential hypertension Annual physical exam Routine general medical examination at a health care facility [facility]* Diagnosis Tubular adenoma of colon- Primary Benign neoplasm of colon Essential hypertension Unspecified essential hypertension Mixed hyperlipidemia Osteopenia, unspecified location documented in this encounter [facility] Author Kodi Jordan [facility] Note Date/Time December 20, 2024 12:23pm [facility] [address] [place] [address] [place] [address] OFFICE VISIT Date of Service: 12/20/24 MR#: [id number] Acct: [id number] Name: CORNELIA BURNS Rep #: [id number] : 1945 Provider: Dr. Ely Jordan MD Age/Sex: 79/F [place] [facility] [place] Status: Signed Intake Vital Signs 10/22/24 11:23 12/20/24 11:38 Height 5 ft 9.5 in 5 ft 9.5 in Weight: 166 lb 4 oz 165 lb BMI 24.2 24.0 BP 131/85 H Blood Pressure Location Rt brachial Position Sitting Pulse 65 Pulse Source Monitor Pulse Oximetry (%) 95 Oxygen Delivery Method room air Intake Visit Reasons: LUMBAR SPINE Chief Complaint: Lumbar spine MRI review Accompanied by: Is patient in pain?: No Allergies lidocaine Allergy (Verified 12/20/24 11:42) LOC, passed out lisinopril Adverse Reaction (Verified 12/20/24 11:42) cough Medications ?Medication ?Instructions ?Recorded ?Confirmed ?Type aspirin 81 mg tablet,delayed 81 mg PO DAILY heart heal th 01/09/20 12/20/24 History release (Adult Low Dose Aspirin) calcium 315 mg (as 1 tab PO DAILY vitamin 01/0812/20/24 History citrate)-vitamin D3 5 mcg (200 unit) tablet (Calcium Citrate + D) vitamins A,C,D-aclt-iprbtg 4,296 1 cap PO BID vitamin 01/09/20 12/20/24 History mcg-226 mg-90 mg capsule (PreserVision AREDS) cholecalciferol (vitamin D3) 25 1,000 unit PO BID yara min 02/01/23 12/20/24 History mcg (1,000 unit) chewable tablet venlafaxine 37.5 mg 37.5 mg PO DAILY 07/28/23 History capsule,extended release 24 hr (Effexor XR) carvedilol 6.25 mg tablet 6.25 mg PO BID #180 tabs 12/20/24 Rx zoledronic acid 5 mg/100 mL in 1 ea .Route ONCE #100 m L 08/27/24 12/20/24 Rx mannitol 5 %-water intravenous piggybck losartan 25 mg tablet 25 mg PO DAILY blood pressur e #90 10/09/24 12/20/24 Rx tabs rosuvastatin 10 mg tablet 10 mg PO DAILY cholesterol # 90 tabs 10/09/24 12/20/24 Rx spironolactone 25 mg tablet 25 mg PO QDAY #30 tabs 12/2612/20/24 Rx Have you fallen in the past year?: Yes PFSH Medical History (Updated 12/20/24 @ 16:[address] Kodi Jordan MD) Neurogenic claudication Osteoporosis Osteopenia determined by x-ray Wears hearing aid Wears glasses Post-menopausal Depression Anxiety Arthritis Portal vein thrombosis High cholesterol Blackout Non-smoker History of stress test History of echocardiogram Cardiology follow-up encounter Takotsubo cardiomyopathy Osteoarthritis of right knee LV dysfunction Anxiety and depression Nonrheumatic mitral (valve) prolapse Chest pain, atypical Paroxysmal supraventricular tachycardia Mixed hyperlipidemia Essential hypertension Portal vein thrombosis HTN (hypertension) Surgical History History of cardiac catheterization Hx of right cataract extraction Hx of left cataract extraction Hx of colonoscopy History of 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) History of left heart catheterization (01/22/21) History of cholecystectomy Family History Father Heart disease Valvular heart disease Mother Cancer Social History Smoking Status: Never smoker Electronic Cigarette Use: not used second hand exposure: No alcohol intake: never substance use type: does not use caffeine: Yes HPI LUMBAR SPINE Details: This documentation accurately reflects the service provided and the decisions made by me, Dr. Kodi Jordan MD 12/20/24 1134. Part of today?s visit was documented by Sujata Washburn MA and Shelbie Finney RN, acting as scribe. CORNELIA BURNS is a 79 year old F here today for lumbar spine MRI review. Patient states that she isn't having any pain today. She would like to go over the MRI results to discuss what the next step would be. Patient states that she hasn't had any injections in her lower back. She states that she did have a physical therapy session at [facility]. She states that the physical therapy didn't work out well for her. When ambulating her right foot and toes go numb and she has to hit her leg onto the ground to try help get sensation back. She can walk 1/2 mile before this helps. It is not interfering with her doing any activity that she wants to.She denies numbness in her hands, neck pain or arm pain. She does not have diabetes. She does not take a blood thinner. She does take a beta john. She does not get short of breath. The patient is a 79-year-old female presenting with numbness and instability in the right leg, seeking evaluation for potential spinal issues. The patient reports experiencing numbness that extends from the hip down to the foot, primarily affecting the heel and toes, which worsens with walking. She describes a fall in April due to knee instability, which prompted a visit to [facility] specialist who found no significant issues. The patient has undergone physical therapy focusing on identifying positions that exacerbate symptoms and was provided with core exercises to perform at home. She has not received any injections and denies having pain, but reports numbness that does not improve with sitting. The patient has a history of Takotsubo cardiomyopathy and is currently on a betablocker. She denies having diabetes or taking blood thinners. - Neurological: Reports numbness in the right leg extending to the foot, denies headaches or dizziness. - Cardiovascular: Denies chest pain, orthopnea, or syncope. - Musculoskeletal: Reports knee instability, denies joint pain or swelling. Attestation: Documentation on this patient encounter was supported using ambient scribe technology/ voice AI technology. The patient consented to recording for the purpose of documenting the encounter. Provider reviewed content of the generatednote prior to signature. Ortho Exam General General: Yes no acute distress Neurologic: Yes alert and Yes oriented x3 Psychologic: Yes reasonable and appropriate Spine SPINE TESTING CERVICAL THORACIC LUMBAR Musculoskeletal Strength 0=absent - 5=normal Details: Neurological exam of the lower extremities shows 5x5 power. Normal sensations across all dermatomes. No hyperreflexia. No midline tenderness, right sided mildparaspinal tenderness. Coding Level of Care Code Off vis,est,level 4 Diagnoses Lumbar radiculopathy M54.16 Spondylolisthesis at L4-L5 level M43.16 Neurogenic claudication R29.818 Spinal stenosis of lumbar region with neurogenic claudication M48.062 Osteopenia determined by x-ray M85.80 Time Spent (min) 35 Assessment and Plan Assessment and Plan (1) Lumbar radiculopathy: Status: Acute (2) Spondylolisthesis at L4-L5 level: Status: Acute (3) Neurogenic claudication: Status: Acute (4) Spinal stenosis of lumbar region with neurogenic claudication: Status: Acute (5) Osteopenia determined by x-ray: Status: Chronic Orders: Orders NCS and/or EMG - Bilateral Lower Today M54.16 - Radiculopathy, lumbar region Plan I reviewed pt's lumbar MRI in detail with patient. Again reviewed prior X-rays show a L4 on L5 spondylolisthesis, very mild multi level disc height loss throughout the lumbar spine. Reviewed MRI from August 02, 2024 which showed L4-5 disc bulge more towards the left with some mild to moderate canal stenosis. L5-S1 small disc protrusion without significant canal stenosis or neuroforaminal narrowing. 1. Spondylolisthesis - The patient exhibits instability at L4-5, confirmed by imaging. - Plan includes monitoring symptoms and considering EMG to rule out neuropathy. 2. Neurogenic claudication - Symptoms suggest neurogenic claudication due to mild stenosis. - Plan includes EMG testing and potential referral to a pain specialist for diagnostic injections. 3. Fatty atrophy of paraspinal musculature - Noted on MRI, but not considered significant for current symptoms. - No specific intervention required. 4. Takotsubo cardiomyopathy - Patient is stable on current beta john therapy. - No changes to cardiac management at this time. - Continue with prescribed beta john for heart condition. - Perform core exercises as advised by physical therapist. - Monitor symptoms and report any worsening to healthcare provider. - Schedule and complete EMG testing as discussed. Explained imaging findings in detail. At this time explained options with the patient which includes conservative treatment with physical therapy and pain management versus surgery. At this time I recommend we obtain an EMG to further evaluate the numbness. We also discussed a referral to pain management for diagnostic injections. She will let our office know if this is something that she would like to proceed with. I recommend that she continue to stay active. Follow up after the EMG or sooner if pain, swelling, numbness or associated symptoms, or concerns develop. All questions answered. Patient in agreement of plan. Clinical Quality Measures Falls Risk Screening/Assistive Devices Have you fallen in the past year?: Yes 12/20/24 7040 <Electronically signed by Kodi Jordan MD> Date _ Kodi Jordan MD Cosigner Signature: Date (if applicable) CC: Dr. Carmelina Kerr MD ~ [facility] [employer] Work Phone: Reason for referral (narrative)* Diagnostic Procedure Only (Routine) - Pending Review Specialty Diagnoses / Procedures Referred By Contac t Referred To Contact US IMAGING Diagnoses Hematuria, unspecified type Procedures US KIDNEY/BLADDER US RETROPERITONEAL REAL TIME W/IMAGE COMPLETE Kunal Mcgill MD [address] [place] [address] Us Imaging Referral ID Status Reason Start Date Expiration Date Visits Requested Visits Authorized [id number] Pending Review Auto-Generat ed Referral 05/20/2022 06/19/2023 1 1 [facility] (narrative)No reason for referral information availableWKindred [facility] Work Phone: Summary Purpose Family History No Family History Records Found Relationship Condition Age at Onset Recorded Date/T ruth father Cardiac disease Unknown Heart valve disease Unknown Relationship Condition Age at Onset Recorded Date/T ruth father Cardiac disease Unknown Heart valve disease Unknown mother Malignant neoplasm Unknown Advance Directives No Advanced Directives Records Found Advance Directive Response Recorded Date/ Time Advance Directives Yes January 30, 2013 9:18pm Living Will No March 16, 2 021 10:51am Power of Oncology Technician Yes March 16, 2021 10:51am Advance Directive Response Recorded Date/ Time Advance Directives Yes January 30, 2013 8:18pm Living Will No March 16, 2 021 9:51am Power of Oncology Technician Yes March 16, 2021 9:51am Advance Directive Response Recorded Date/ Time Advance Directives Yes January 30, 2013 9:18pm Chief Complaint Chief Complaint Description Start Date right knee pain Preliminary chief co mplaint data, not yet signed by the author as of Instructions Instruction Description Start Date Completed Assessments There may be information available, but it has not been provided by the sender. Review of System There may be information available, but it has not been provided by the sender. History of Present Illness There may be information available, but it has not been provided by the sender. Chief Complaint and Reason for Visit Chief Complaint NSTEMI RIGHT KNEE XRAY NSTEMI DYSPNEA *MOODISPAW* 3 m fu NSTEMI NSTEMI Reason for Visit Osteoarthritis of ri ght knee Paroxysmal supraventricular tachycardia Takotsubo cardiomyopathy Essential hypertension Mixed hyperlipidemia History of left heart catheterization Chief Complaint RIGHT KNEE XRAY NSTEMI DYSPNEA *MOODISPAW* 3 m fu NSTEMI NSTEMI NSTEMI Reason for Visit Osteoarthritis of ri ght knee Paroxysmal supraventricular tachycardia Takotsubo cardiomyopathy Essential hypertension Mixed hyperlipidemia History of left heart catheterization Chief Complaint NSTEMI NSTEMI UNILAT OA JAMSHID KN/RX HERE Chief Complaint UNILAT OA JAMSHID KN/RX HERE 6 M FU RT KNEE/POST OP SCREENING Reason for Visit Essential hypertensi on Mixed hyperlipidemia Paroxysmal supraventricular tachycardia History of left heart catheterization Takotsubo cardiomyopathy Chief Complaint 6 M FU RT KNEE/POST OP SCREENING Reason for Visit Essential hypertensi on Mixed hyperlipidemia Paroxysmal supraventricular tachycardia History of left heart catheterization Takotsubo cardiomyopathy Chief Complaint OSTEO Chief Complaint OVERDUE FOR F/U/PREV PFM INT LABS Reason for Visit Essential hypertensi on Mixed hyperlipidemia Paroxysmal supraventricular tachycardia History of left heart catheterization Takotsubo cardiomyopathy Chief Complaint Admit Date LUMBAR SPINE July 09, 2024 10:2 6am Room 4 July 09, 2024 10:3 8am Other specified disorders of bone densit y and stru July 11, 2024 12:51pm Reason for Visit Admit Date Lumbar radiculopathy July 09, 2024 10: 26am Spondylolisthesis at L4-L5 level July 092024 10:26am Chief Complaint Admit Date LUMBAR SPINE July 09, 2024 10:2 6am Room 4 July 09, 2024 10:3 8am Other specified disorders of bone densit y and stru July 11, 2024 12:51pm Pain August 02, 2024 7:13am Chief Complaint Admit Date LUMBAR SPINE July 09, 2024 10:2 6am Room 4 July 09, 2024 10:3 8am Other specified disorders of bone densit y and stru July 11, 2024 12:51pm Pain August 02, 2024 7:13am LUMBAR SPINE August 20, 2024 9:27a m Reason for Visit Admit Date Lumbar radiculopathy July 09, 2024 10: 26am Spondylolisthesis at L4-L5 level July 092024 10:26am Lumbar radiculopathy August 20, 2024 9:27 am Spondylolisthesis at L4-L5 level August 9:27am Chief Complaint Admit Date LUMBAR SPINE July 09, 2024 10:2 6am Room 4 July 09, 2024 10:3 8am Other specified disorders of bone densit y and stru July 11, 2024 12:51pm Pain August 02, 2024 7:13am LUMBAR SPINE August 20, 2024 9:27a m RECLAST October 07, 2024 12:57 pm Chief Complaint Admit Date LUMBAR SPINE July 09, 2024 10:2 6am Room 4 July 09, 2024 10:3 8am Other specified disorders of bone densit y and stru July 11, 2024 12:51pm Pain August 02, 2024 7:13am LUMBAR SPINE August 20, 2024 9:27a m RECLAST October 07, 2024 12:57 pm LUMBAR RADICULOPATHY. RX HERE October 08, 2024 9:53am 1 Y FU October 09, 2024 10:25 am Reason for Visit Admit Date Lumbar radiculopathy July 09, 2024 10: 26am Spondylolisthesis at L4-L5 level July 092024 10:26am Lumbar radiculopathy August 20, 2024 9:27 am Spondylolisthesis at L4-L5 level August 9:27am Essential hypertension October 09, 2024 10 :25am Chief Complaint Admit Date LUMBAR SPINE July 09, 2024 10:2 6am Room 4 July 09, 2024 10:3 8am Other specified disorders of bone densit y and stru July 11, 2024 12:51pm Pain August 02, 2024 7:13am LUMBAR SPINE August 20, 2024 9:27a m RECLAST October 07, 2024 12:57 pm 1 Y FU October 09, 2024 10:25 am LUMBAR RADICULOPATHY. RX HERE October 21, 2024 10:00am 1 Y FU October 22, 2024 11:2 2am Reason for Visit Admit Date Lumbar radiculopathy July 09, 2024 10: 26am Spondylolisthesis at L4-L5 level July 092024 10:26am Lumbar radiculopathy August 20, 2024 9:27 am Spondylolisthesis at L4-L5 level August h2024 9:27am Nonrheumatic mitral (valve) prolapse Oct 10:25am Essential hypertension October 09, 2024 10 :25am Mixed hyperlipidemia October 09, 2024 10:2 5am Takotsubo cardiomyopathy October 09, 2024 10:25am Chief Complaint Admit Date Pain August 02, 2024 7:13am LUMBAR SPINE August 20, 2024 9:27a m RECLAST October 07, 2024 12:57 pm 1 Y FU October 09, 2024 10:25 am 1 Y FU October 22, 2024 11:2 2am LUMBAR RADICULOPATHY. RX HERE October 28, 2024 9:00am Reason for Visit Admit Date Lumbar radiculopathy August 20, 2024 9:27 am Spondylolisthesis at L4-L5 level August 9:27am Nonrheumatic mitral (valve) prolapse Oct 10:25am Essential hypertension October 09, 2024 10 :25am Mixed hyperlipidemia October 09, 2024 10:2 5am Takotsubo cardiomyopathy October 09, 2024 10:25am Osteopenia determined by x-ray October 11:22am Chief Complaint Admit Date RECLAST October 07, 2024 12:57 pm 1 Y FU October 09, 2024 10:25 am 1 Y FU October 22, 2024 11:2 2am LUMBAR RADICULOPATHY. RX HERE October 28, 2024 9:00am LUMBAR SPINE December 20, 2024 11:29am Reason for Visit Admit Date Nonrheumatic mitral (valve) prolapse Oct 10:25am Essential hypertension October 09, 2024 10 :25am Mixed hyperlipidemia October 09, 2024 10:2 5am Takotsubo cardiomyopathy October 09, 2024 10:25am Osteopenia determined by x-ray October 11:22am Lumbar radiculopathy December 20 11:29am Neurogenic claudication December 20, 2024 11:29am Spinal stenosis of lumbar re gion with neurogenic claudication December 20, 2024 11:29am Spondylolisthesis at L4-L5 level Septemb er 2024 11:29am Osteopenia determined by x-ray December 20, 2024 11:29am Additional Source Comments INFORMATION SOURCE (unrecogn ized section and content) DATE CREATED AUTHOR 09/19/2017 [facility] DATE CREATED AUTHOR AUTHOR'S ORGANIZ ATION 09/20/2017 [facility] DATE CREATED AUTHOR AUTHOR'S ORGANIZ ATION 02/02/2025 [facility] DATE CREATED AUTHOR AUTHOR'S ORGANIZ ATION 02/08/2025 [facility] Reason for Visit (unrecogniz ed section and content) Reason For Visit Description New/Est - 1st visit with physician 11/11 Preliminary reason f or visit data, not yet signed by the author as of right knee pain Reason Comments Patient Question Reason Comments Imm/Inj Reason Comments Pre-Op Exam preop clearance for surgery on 10/11/21 Reason Comments UTI urgentcy , voiding s mall amounts Reason Comments Patient Request Reason Comments outside Imaging Reason Comments Follow Up questions-bone densi ty results,cologard,urinary hx, refills,knee issues Reason Comments Lab Orders Reason Comments Follow Up Goals (unrecognized section and content) Goals may be documented in a n alternate sectionGoals may be documented in an alternate sectionGoals may be documented in an alternate sectionGoals may be documented in an alternate sectionGoals may be documented in an alternate sectionGoals may be documented in an alternate sectionGoals may be documented in an alternate sectionGoals may be documented in an alternate sectionGoals may be documented in an alternate sectionGoals may be documented in an alternate sectionGoals may be documented in an alternate sectionGoals may be documented in an alternate sectionGoals may be documented in an alternate sectionGoals may be documented in an alternate sectionGoals may be documented in an alternate sectionGoals may be documented in an alternate section Source Comments (unrecognize d section and content) In the event this informatio n is protected by the Federal Confidentiality of Alcohol and Drug Abuse Patient Records regulations: The Federal rules restrict any use of the information to criminally investigate or prosecute any alcohol or drug abuse patient.[facility] Center[facility] the event this information is protected by the Federal Confidentiality of Alcohol and Drug Abuse Patient Records regulations: The Federal rules restrict any use of the information to criminally investigate or prosecute any alcohol or drug abuse patient.[facility] CenterIn the event this information is protected by the Federal Confidentiality of Alcohol and Drug Abuse Patient Records regulations: The Federal rules restrict any use of the information to criminally investigate or prosecute any alcohol or drug abuse patient.[facility] CenterIn the event this information is protected by the Federal Confidentiality of Alcohol and Drug Abuse Patient Records regulations: The Federal rules restrict any use of the information to criminally investigate or prosecute any alcohol or drug abuse patient.[facility] CenterIn the event this information is protected by the Federal Confidentiality of Alcohol and Drug Abuse Patient Records regulations: The Federal rules restrict any use of the information to criminally investigate or prosecute any alcohol or drug abuse patient.[facility] CenterIn the event this information is protected by the Federal Confidentiality of Alcohol and Drug Abuse Patient Records regulations: The Federal rules restrict any use of the information to criminally investigate or prosecute any alcohol or drug abuse patient.[facility] CenterIn the event this information is protected by the Federal Confidentiality of Alcohol and Drug Abuse Patient Records regulations: The Federal rules restrict any use of the information to criminally investigate or prosecute any alcohol or drug abuse patient.[facility] the event this information is protected by the Federal Confidentiality of Alcohol and Drug Abuse Patient Records regulations: The Federal rules restrict any use of the information to criminally investigate or prosecute any alcohol or drug abuse patient.[facility] the event this information is protected by the Federal Confidentiality of Alcohol and Drug Abuse Patient Records regulations: The Federal rules restrict any use of the information to criminally investigate or prosecute any alcohol or drug abuse patient.[facility] the event this information is protected by the Federal Confidentiality of Alcohol and Drug Abuse Patient Records regulations: The Federal rules restrict any use of the information to criminally investigate or prosecute any alcohol or drug abuse patient.[facility] CenterIn the event this information is protected by the Federal Confidentiality of Alcohol and Drug Abuse Patient Records regulations: The Federal rules restrict any use of the information to criminally investigate or prosecute any alcohol or drug abuse patient.[facility] CenterIn the event this information is protected by the Federal Confidentiality of Alcohol and Drug Abuse Patient Records regulations: The Federal rules restrict any use of the information to criminally investigate or prosecute any alcohol or drug abuse patient.[facility] Care Teams (unrecognized sec tion and content) Construction Foreman Relationship Specialty Start Date End Date Kunal Mcgill MD [address] [place] [address] PCP - General Internal Medicine 02/19/16 Construction Foreman Relationship Specialty Start Date End Date Kunal Mcgill MD [address] [place], [place] [id number] PCP - General Internal Medicine 02/19/16 Construction Foreman Relationship Specialty Start Date End Date Kunal Mcgill MD [address] [place] [address] PCP - General Internal Medicine 02/19/16 Construction Foreman Relationship Specialty Start Date End Date Kunal Mcgill MD [address] [place] [address] PCP - General Internal Medicine 02/19/16 Construction Foreman Relationship Specialty Start Date End Date Kunal Mcgill MD [address] [place] [address] PCP - General Internal Medicine 02/19/16 Construction Foreman Relationship Specialty Start Date End Date Kunal Mcgill MD [address] [place] [address] PCP - General Internal Medicine 02/19/16 Construction Foreman Relationship Specialty Start Date End Date Kunal Mcgill MD [address] [place] [address] PCP - General Internal Medicine 02/19/16 Construction Foreman Relationship Specialty Start Date End Date Kunal Mcgill MD [address] [place] [address] PCP - General Internal Medicine 02/19/16 Team Status: Active Member Role Status Dates Dr. Manuela Espinoza MD Family Provider Active Dr. Kunal Mcgill MD Primary Care Provider Active Team Status: Inactive Member Role Status Dates Dr. Kunal Mcgill MD Primary Care Provi vasyl, Attending Provider, Referring Provider Active Team Status: Active Member Role Status Dates Dr. Manuela Espinoza MD Family Provider Active Penny Mariscal DO Primary Care Provider Active Team Status: Inactive Member Role Status Dates Dr. Kunal Mcgill MD Referring Provider Active Jimbo Baker LOADING UNIT OPERATOR CRIMPING, LOADING UNIT OPERATOR CRIMPING-C Attending Provider Active Penny Mariscal DO Primary Care Provider Active Team Status: Inactive Member Role Status Dates Penny M Davey , DO Primary Care Provi vasyl, Attending Provider, Referring Provider Active Construction Foreman Relationship Specialty Start Date End Date Kunal Mcgill MD [address] [place] [address] PCP - General Internal Medicine 02/19/16 Construction Foreman Relationship Specialty Start Date End Date Kunal Mcgill MD [address] [place] [address] PCP - General Internal Medicine 02/19/16 Team Status: Active Member Role Status Raquel Kerr MD Primary Care Provider Active Team Status: Inactive Member Role Status Raquel Kerr MD Primary Care Provider Active St art: July 09, 2024 End: July 09, 2024 Carmelina Kerr MD Referring Provider Active Start : July 09, 2024 End: July 09, 2024 BITA Rose Attending Provider Active Star t: July 09, 2024 End: July 09, 2024 Team Status: Inactive Member Role Status Raquel Kerr MD Primary Care Provider Active St art: July 09, 2024 End: July 09, 2024 Dr. Jefferson Lee MD Attending Provider Active S tart: July 09, 2024 End: July 09, 2024 Team Status: Inactive Member Role Status Raquel Kerr MD Primary Care Provider Active St art: July 11, 2024 End: July 11, 2024 Carmelina Kerr MD Attending Provider Active Start : July 11, 2024 End: July 11, 2024 Carmelina Kerr MD Referring Provider Active Start : July 11, 2024 End: July 11, 2024 Team Status: Inactive Member Role Status Raquel Kerr MD Primary Care Provider Active St art: August 02, 2024 End: August 02, 2024 BITA Rose Attending Provider Active Star t: August 02, 2024 End: August 02, 2024 BITA Rose Referring Provider Active Star t: August 02, 2024 End: August 02, 2024 Team Status: Inactive Member Role Status Raquel Kerr MD Primary Care Provider Active St art: August 20, 2024 End: August 20, 2024 Carmelina Kerr MD Referring Provider Active Start : August 20, 2024 End: August 20, 2024 BITA Rose Attending Provider Active Star t: August 20, 2024 End: August 20, 2024 Team Status: Inactive Member Role Status Raquel Kerr MD Primary Care Provider Active St art: August 24, 2024 End: August 24, 2024 Dr. Gabe Finney MD Attending Provider Active Sta rt: August 24, 2024 End: August 24, 2024 Dr. Gabe Finney MD Referring Provider Active Sta rt: August 24, 2024 End: August 24, 2024 Dr. Elias Mariscal MD Other Provider Active St art: August 24, 2024 End: August 24, 2024 Team Status: Active Member Role/Relationship Status Raquel Kerr MD Primary Care Provider Active Team Status: Inactive Member Role/Relationship Status Raquel Kerr MD Primary Care Provider Active St art: July 09, 2024 End: July 09, 2024 Carmelina Kerr MD Referring Provider Active Start : July 09, 2024 End: July 09, 2024 BITA Rose Attending Provider Active Star t: July 09, 2024 End: July 09, 2024 Team Status: Inactive Member Role/Relationship Status Raquel Kerr MD Primary Care Provider Active St art: July 09, 2024 End: July 09, 2024 Dr. Jefferson Lee MD Attending Provider Active S tart: July 09, 2024 End: July 09, 2024 Team Status: Inactive Member Role/Relationship Status Raquel Kerr MD Primary Care Provider Active St art: July 11, 2024 End: July 11, 2024 Carmelina Kerr MD Attending Provider Active Start : July 11, 2024 End: July 11, 2024 Carmelina Kerr MD Referring Provider Active Start : July 11, 2024 End: July 11, 2024 Team Status: Inactive Member Role/Relationship Status Raquel Kerr MD Primary Care Provider Active St art: August 02, 2024 End: August 02, 2024 BITA Rose Attending Provider Active Star t: August 02, 2024 End: August 02, 2024 BITA Rose Referring Provider Active Star t: August 02, 2024 End: August 02, 2024 Team Status: Inactive Member Role/Relationship Status Raquel Kerr MD Primary Care Provider Active St art: August 20, 2024 End: August 20, 2024 Carmelina Kerr MD Referring Provider Active Start : August 20, 2024 End: August 20, 2024 BITA Rose Attending Provider Active Star t: August 20, 2024 End: August 20, 2024 Team Status: Inactive Member Role/Relationship Status Raquel Kerr MD Primary Care Provider Active St art: August 24, 2024 End: August 24, 2024 Dr. Gabe Finney MD Attending Provider Active Sta rt: August 24, 2024 End: August 24, 2024 Dr. Gabe Finney MD Referring Provider Active Sta rt: August 24, 2024 End: August 24, 2024 Dr. Elias Mariscal MD Other Provider Active St art: August 24, 2024 End: August 24, 2024 Team Status: Inactive Member Role/Relationship Status Raquel Kerr MD Primary Care Provider Active St art: October 07, 2024 End: October 07, 2024 Dr. Gabe Finney MD Attending Provider Active Sta rt: October 07, 2024 End: October 07, 2024 Dr. Gabe Finney MD Referring Provider Active Sta rt: October 07, 2024 End: October 07, 2024 Team Status: Active Member Role/Relationship Status Raquel Kerr MD Primary Care Provider Active St art: October 08, 2024 BITA Rose Attending Provider Active Star t: October 08, 2024 BITA Rose Referring Provider Active Star t: October 08, 2024 Team Status: Inactive Member Role/Relationship Status Raquel Kerr MD Primary Care Provider Active St art: October 09, 2024 End: October 09, 2024 Carmelina Kerr MD Referring Provider Active Start : October 09, 2024 End: October 09, 2024 Dr. Elias Mariscal MD Attending Provider Active Start: October 09, 2024 End: October 09, 2024 Team Status: Inactive Member Role/Relationship Status Raquel Kerr MD Primary Care Provider Active St art: October 09, 2024 End: October 09, 2024 Carmelina Kerr MD Referring Provider Active Start : October 09, 2024 End: October 09, 2024 Dr. Elias Mariscal MD Attending Provider Active Start: October 09, 2024 End: October 09, 2024 Team Status: Active Member Role/Relationship Status Raquel Kerr MD Primary Care Provider Active St art: October 21, 2024 BITA Rose Attending Provider Active Star t: October 21, 2024 BITA Rose Referring Provider Active Star t: October 21, 2024 Team Status: Inactive Member Role/Relationship Status Raquel Kerr MD Primary Care Provider Active St art: October 22, 2024 End: October 22, 2024 Carmelina Kerr MD Referring Provider Active Start : October 22, 2024 End: October 22, 2024 Dr. Gabe Finney MD Attending Provider Active Sta rt: October 22, 2024 End: October 22, 2024 Team Status: Inactive Member Role/Relationship Status Raquel Kerr MD Primary Care Provider Active St art: August 02, 2024 End: August 02, 2024 BITA Rose Attending Provider Active Star t: August 02, 2024 End: August 02, 2024 BITA Rose Referring Provider Active Star t: August 02, 2024 End: August 02, 2024 Team Status: Inactive Member Role/Relationship Status Raquel Kerr MD Primary Care Provider Active St art: August 20, 2024 End: August 20, 2024 Carmelina Kerr MD Referring Provider Active Start : August 20, 2024 End: August 20, 2024 BITA Rose Attending Provider Active Star t: August 20, 2024 End: August 20, 2024 Team Status: Inactive Member Role/Relationship Status Raquel Kerr MD Primary Care Provider Active St art: August 24, 2024 End: August 24, 2024 Dr. Gabe Finney MD Attending Provider Active Sta rt: August 24, 2024 End: August 24, 2024 Dr. Gabe Finney MD Referring Provider Active Sta rt: August 24, 2024 End: August 24, 2024 Dr. Elias Mariscal MD Other Provider Active St art: August 24, 2024 End: August 24, 2024 Team Status: Inactive Member Role/Relationship Status Raquel Kerr MD Primary Care Provider Active St art: October 07, 2024 End: October 07, 2024 Dr. Gabe Finney MD Attending Provider Active Sta rt: October 07, 2024 End: October 07, 2024 Dr. Gabe Finney MD Referring Provider Active Sta rt: October 07, 2024 End: October 07, 2024 Team Status: Inactive Member Role/Relationship Status Raquel Kerr MD Primary Care Provider Active St art: October 09, 2024 End: October 09, 2024 Carmelina Kerr MD Referring Provider Active Start : October 09, 2024 End: October 09, 2024 Dr. Elias Mariscal MD Attending Provider Active Start: October 09, 2024 End: October 09, 2024 Team Status: Inactive Member Role/Relationship Status Raquel Kerr MD Primary Care Provider Active St art: October 22, 2024 End: October 22, 2024 Carmelina Kerr MD Referring Provider Active Start : October 22, 2024 End: October 22, 2024 Dr. Gabe Finney MD Attending Provider Active Sta rt: October 22, 2024 End: October 22, 2024 Team Status: Active Member Role/Relationship Status Raquel Kerr MD Primary Care Provider Active St art: October 28, 2024 BITA Rose Attending Provider Active Star t: October 28, 2024 BITA Rose Referring Provider Active Star t: October 28, 2024 Team Status: Inactive Member Role/Relationship Status Raquel Kerr MD Primary Care Provider Active St art: November 01, 2024 End: November 01, 2024 Dr. Elias Mariscal MD Attending Provider Active Start: November 01, 2024 End: November 01, 2024 Dr. Elias Mariscal MD Referring Provider Active Start: November 01, 2024 End: November 01, 2024 Team Status: Active Member Role/Relationship Status Raquel Kerr MD Primary care physician Active Team Status: Inactive Member Role/Relationship Status Raquel Kerr MD Primary care physician Active S tart: October 07, 2024 End: October 07, 2024 Dr. Gabe Finney MD Attending physician Active St art: October 07, 2024 End: October 07, 2024 Dr. Gabe Finney MD Referring Provider Active Sta rt: October 07, 2024 End: October 07, 2024 Team Status: Inactive Member Role/Relationship Status Raquel Kerr MD Primary care physician Active S tart: October 09, 2024 End: October 09, 2024 Carmelina Kerr MD Referring Provider Active Start : October 09, 2024 End: October 09, 2024 Dr. Elias Mariscal MD Attending physician Active Start: October 09, 2024 End: October 09, 2024 Team Status: Inactive Member Role/Relationship Status Raquel Kerr MD Primary care physician Active S tart: October 22, 2024 End: October 22, 2024 Carmelina Kerr MD Referring Provider Active Start : October 22, 2024 End: October 22, 2024 Dr. Gabe Finney MD Attending physician Active St art: October 22, 2024 End: October 22, 2024 Team Status: Active Member Role/Relationship Status Raquel Kerr MD Primary care physician Active S tart: October 28, 2024 BITA Rose Attending physician Active Sta rt: October 28, 2024 BITA Rose Referring Provider Active Star t: October 28, 2024 Team Status: Inactive Member Role/Relationship Status Raquel Kerr MD Primary care physician Active S tart: November 01, 2024 End: November 01, 2024 Dr. Elias Mariscal MD Attending physician Active Start: November 01, 2024 End: November 01, 2024 Dr. Elias Mariscal MD Referring Provider Active Start: November 01, 2024 End: November 01, 2024 Team Status: Inactive Member Role/Relationship Status Raquel Kerr MD Referring Provider Active Start : December 20, 2024 End: December 20, 2024 Dr. Kodi Jordan MD Attending physician Active Start: December 20, 2024 End: December 20, 2024 FOR RECORDS PERTAINING TO PATIENTS WHO ARE OR HAVE BEEN ENROLLED IN A CHEMICAL DEPENDENCY/SUBSTANCEABUSE PROGRAM, SOME INFORMATION MAY BE OMITTED. This clinical summary was aggregated from multiple sources. Caution should be exercised in using it in the provision of clinical care. This summary normalizes information from multiple sources, and as a consequence, information in this document may materially change the coding, format and clinical context of patient data. In addition, data may be omitted in some cases. CLINICAL DECISIONS SHOULD BE BASED ON THE PRIMARY CLINICAL RECORDS. [facility] [employer] [facility]. provides no warranty or guarantee of the accuracy or completeness of information in this document.
--- NOTE | 2025-02-12 15:07 | NEURO ---
NCS and/or EMG Patient Report Ordering Doctor: Kodi Jordan DATE OF SERVICE: 02/12/25 Cornelia presents for electrodiagnostic testing of the lower limbs. She reports pain and weakness in the right leg. Electrodiagnostic findings: Peroneal motor nerve demonstrates normal distal latency, amplitude and conduction velocity bilaterally. Tibial motor response within normal limits bilaterally. Borderline prolonged right tibial F–wave. Prolonged H–reflex bilaterally. Prolonged right sural latency is noted. Absent right superficial peroneal response. Needle EMG testing was performed in the lower limbs. All muscles tested showed no evidence of denervation with normal motor unit action potentials. Electrodiagnostic Assessment: This is an abnormal study. 1. Electrodiagnostic findings suggestive of peripheral polyneuropathy, primarily sensory in nature. 2. No electrodiagnostic evidence is noted for lumbosacral radiculopathy. Multi Select Codes Neurology Neurology Interp Codes: 82558-92 Musc test done w/n test comp (interp) (2) and 36467-89 Nrv cndj test 9-10 studies (interp)
== END | disposition home or self-care (01) ==
LOC: PSN 09:00
PROVIDERS: PCP Family Medicine; Referring Provider Orthopaedic Surgery Orthopaedic Surgery of the Spine; Visit Provider Orthopaedic Surgery Orthopaedic Surgery of the Spine
DX: M54.16 Radiculopathy, lumbar region (principal)
CPT/HCPCS: 95886; 95911